=== PATIENT | female | born 1945 | race Caucasian/White ===

== ENCOUNTER 2017-09-16 14:00 | Outpatient (RCR) | payer MEDICARE, SELFPAY | END 2017-09-16 23:59 | LOC: PT 14:00 | PROVIDERS: PCP Internal Medicine Adolescent Medicine; Visit Provider Orthopaedic Surgery | DX: M75.121 Complete rotator cuff tear or rupture of right shoulder, not specified as traumatic (principal) | CPT/HCPCS: G8984; G8985; G8986; 97010; 97014; 97033; 97110; 97140; 97161; G0283 ==

== ENCOUNTER 2017-12-15 10:00 | Outpatient (RCR) | payer MEDICARE, SELFPAY | END 2017-12-15 10:05 | disposition home or self-care (01) | LOC: PT 10:00 | PROVIDERS: Visit Provider Orthopaedic Surgery | DX: M25.511 Pain in right shoulder (principal) | CPT/HCPCS: 97010; 97014; 97016; 97033; 97035; 97110; 97140; 97164; G0283 ==

== ENCOUNTER → 2018-01-17 09:09 | Outpatient (CLI) | payer MEDICARE, SELFPAY ==
--- NOTE | 2018-01-17 09:18 | XR_ITS ---
XR DEXA axial skeleton HISTORY: ITS.REASON: OSTEOPOROSIS ORDERING PHYSICIAN: Cristobal Espino PATIENT AGE: 72 years COMPARISON: FINDINGS: The BMD measured at the Right femoral neck is 0.798 g/cm squared with a T score of -1.7. This is considered Osteopenic according to the World Health Organization criteria. Fracture risk is Moderate. Treatment is advised. The L1 L4 density is a T score of 1.9. Metallic artifact however is present at the L4 vertebral body IMPRESSION: Osteopenia with moderate fracture risk. Treatment recommended. Suggest follow-up exam January 2020
== END ==
PROVIDERS: Family Provider Internal Medicine Adolescent Medicine; PCP Internal Medicine Adolescent Medicine; Visit Provider Internal Medicine Endocrinology, Diabetes & Metabolism
DX: M81.0 Age-related osteoporosis without current pathological fracture (principal); Z13.820 Encounter for screening for osteoporosis
CPT/HCPCS: 77080

== ENCOUNTER → 2018-05-09 13:21 | Outpatient (CLI) | payer MEDICARE, SELFPAY ==
[2018-05-09 14:52] LABS: Alanine Aminotransferase 23 U/L (12-78); Albumin Level 3.9 gm/dL (3.4-5.0); Albumin/Globulin Ratio 1.1 (1.1-1.8); Alkaline Phosphatase 61 U/L (46-116); Anion Gap 15.7 mEq/L (5-15); Aspartate Amino Transferase 12 U/L (15-37); Bilirubin,Total 0.3 mg/dL (0.2-1.0); Blood Urea Nitrogen 24 mg/dL (7-18); Calcium 9.7 mg/dL (8.5-10.1); Carbon Dioxide 24 mmol/L (21.0-32.0); Chloride 102 mmol/L (98-107); Creatinine,Serum 1.73 mg/dL (0.55-1.02); Estimated Glomerular Filt Rate 29 ml/min (>60); GFR (African American) 35 ML/MIN (>60); Globulin 3.7 gm/dl (1.3-3.2); Glucose 151 mg/dL (74-106); Potassium 4.7 mmoL/L (3.5-5.1); Sodium 137 mmol/L (136-145); Thyroid Stimulating Hormone 1.66 uIU/ml (0.358-3.740); Total Protein,Serum 7.6 gm/dL (6.4-8.2)
[2018-05-09 14:53] LABS: Hemoglobin A1C 6.1 % (0.0-7.0)
== END ==
PROVIDERS: PCP Internal Medicine Adolescent Medicine; Visit Provider Internal Medicine Adolescent Medicine
DX: E11.9 Type 2 diabetes mellitus without complications (principal); E03.9 Hypothyroidism, unspecified; E78.5 Hyperlipidemia, unspecified
CPT/HCPCS: 36415; 80053; 83036; 84443

== ENCOUNTER → 2018-05-18 10:50 | Outpatient (CLI) | payer MEDICARE, SELFPAY ==
[2018-05-18 11:55] LABS: Alanine Aminotransferase 31 U/L (12-78); Albumin Level 3.2 gm/dL (3.4-5.0); Albumin/Globulin Ratio 0.9 (1.1-1.8); Alkaline Phosphatase 51 U/L (46-116); Anion Gap 11.6 mEq/L (5-15); Aspartate Amino Transferase 7 U/L (15-37); Bilirubin,Total 0.2 mg/dL (0.2-1.0); Blood Urea Nitrogen 28 mg/dL (7-18); Calcium 8.8 mg/dL (8.5-10.1); Carbon Dioxide 30 mmol/L (21.0-32.0); Chloride 106 mmol/L (98-107); Chol/HDL Ratio 2.7 (1-3.5); Cholesterol 204 mg/dL (140-200); Creatinine,Serum 1.43 mg/dL (0.55-1.02); Estimated Glomerular Filt Rate 36 ml/min (>60); GFR (African American) 44 ML/MIN (>60); Globulin 3.4 gm/dl (1.3-3.2); Glucose 89 mg/dL (74-106); HDL Cholesterol 76 mg/dL (29-89); LDL Cholesterol 108 mg/dL (0-130); Potassium 4.6 mmoL/L (3.5-5.1); Sodium 143 mmol/L (136-145); Total Protein,Serum 6.6 gm/dL (6.4-8.2); Triglycerides 102 mg/dL (30-200); VLDL Cholesterol 20 mg/dL (0-40)
== END ==
PROVIDERS: Visit Provider Internal Medicine Adolescent Medicine
DX: E11.9 Type 2 diabetes mellitus without complications (principal); E78.5 Hyperlipidemia, unspecified
CPT/HCPCS: 36415; 80053; 80061

== ENCOUNTER → 2018-06-17 11:37 | Outpatient (CLI) | payer MEDICARE, SELFPAY ==
--- NOTE | 2018-06-17 12:17 | XR_ITS ---
XR shoulder LT min 2V COMPARISON: PA and lateral chest 10/12/2008 HISTORY: Left shoulder pain TECHNIQUE: 3 views left shoulder FINDINGS: The clavicle is intact and the AC joint appears grossly normal. The humeral head and glenoid are normal. There are no soft tissue calcifications. IMPRESSION: Negative left shoulder
[2018-06-17 13:14] LABS: Basophils # 0.1 K/mm3 (0-0.2); Basophils % 0.9 % (0.1-2.0); Eosinophils # 0.2 K/mm3 (0.0-0.4); Eosinophils % 3.2 % (0.1-12.0); Hematocrit 38.7 % (37.0-47.0); Hemoglobin 12.5 g/dL (12.2-16.2); Lymphocytes # 1.8 K/mm3 (0.7-4.5); Lymphocytes % 30.2 K/mm3 (10-50); Mean Corpuscular HGB Conc 32.2 g/dL (31.8-35.4); Mean Corpuscular Hemoglobin 28.6 pg (27.0-31.2); Mean Corpuscular Volume 88.9 fl (81-99); Mean Platelet Volume 8.5 fl (7.4-10.4); Monocytes # 0.6 K/mm3 (0.1-1.0); Neutrophils # 3.3 K/mm3 (1.8-7.8); Neutrophils % 55.7 % (37.0-80.0); Platelet Count 322 K/mm3 (142-424); Red Blood Count 4.35 M/mm3 (4.20-5.40); Red Cell Distribution Width 14.1 % (11.5-17.5); White Blood Count 5.9 K/mm3 (4.8-10.8)
[2018-06-17 14:53] LABS: Alanine Aminotransferase 30 U/L (12-78); Albumin Level 3.5 gm/dL (3.4-5.0); Alkaline Phosphatase 54 U/L (46-116); Anion Gap 12.5 mEq/L (5-15); Aspartate Amino Transferase 16 U/L (15-37); Bilirubin,Total 0.4 mg/dL (0.2-1.0); Blood Urea Nitrogen 14 mg/dL (7-18); Calcium 9.4 mg/dL (8.5-10.1); Carbon Dioxide 29 mmol/L (21.0-32.0); Chloride 107 mmol/L (98-107); Chol/HDL Ratio 4.8 (1-3.5); Cholesterol 263 mg/dL (140-200); Estimated Glomerular Filt Rate 44 ml/min (>60); Free Thyroxine Index 2.8 ug/dL (5.93-13.13); GFR (African American) 53 ML/MIN (>60); Globulin 3.4 gm/dl (1.3-3.2); Glucose 88 mg/dL (74-106); HDL Cholesterol 55 mg/dL (29-89); LDL Cholesterol 173 mg/dL (0-130); Potassium 4.5 mmoL/L (3.5-5.1); Sodium 144 mmol/L (136-145); T4 (Thyroxine) 7.8 ug/dl (4.7-13.3); Thyroid Stimulating Hormone 1.68 uIU/ml (0.358-3.740); Total Protein,Serum 6.9 gm/dL (6.4-8.2); Triglycerides 175 mg/dL (30-200); Triiodothryronine (T3) Uptake 36 % (31-39); VLDL Cholesterol 35 mg/dL (0-40)
[2018-06-17 15:30] LABS: Hemoglobin A1C 6.1 % (0.0-7.0)
[2018-06-20 05:25] LABS: Vitamin B12 1518 pg/mL (232-1245)
== END ==
LOC: LAB 11:38 → RAD 12:15
PROVIDERS: PCP Internal Medicine Adolescent Medicine; Visit Provider Internal Medicine Adolescent Medicine
DX: E78.5 Hyperlipidemia, unspecified (principal); E11.9 Type 2 diabetes mellitus without complications; E03.9 Hypothyroidism, unspecified; E53.8 Deficiency of other specified B group vitamins; M25.512 Pain in left shoulder
CPT/HCPCS: 36415; 73030; 80053; 80061; 82607; 83036; 84436; 84443; 84479; 85025

== ENCOUNTER 2018-08-12 09:00 | Outpatient (RCR) | payer MEDICARE, SELFPAY | END 2018-08-12 09:05 | disposition home or self-care (01) | LOC: PT 09:00 | PROVIDERS: Family Provider Internal Medicine Adolescent Medicine; PCP Internal Medicine Adolescent Medicine; Visit Provider Nurse Practitioner Family | DX: Z96.619 Presence of unspecified artificial shoulder joint (principal) | CPT/HCPCS: 97014; 97110; 97140; 97163; G0283 ==

== ENCOUNTER → 2018-09-05 11:08 | Outpatient (CLI) | payer MEDICARE, SELFPAY ==
--- NOTE | 2018-09-05 11:12 | MR_ITS ---
MR shoulder LT wo con Ordering Physician: Federica Huerta Patient Age: 73 years: Female HISTORY: ITS.REASON: SHOULDER PAINright shoulder pain 2 months. Limited range of motion. TECHNIQUE: . Multiplanar multisequence imaging on 1.5 Rahel MRI. No contrast utilized COMPARISON :MRI contralateral left shoulder May 2017 Available FINDINGS Supraspinatus tendon. Tendinopathy with Likely undersurface partial tear at the supraspinatus tendon . Does not appear to be a complete full-thickness tear. No retraction. . There is some scant fluid at the subdeltoid subacromial bursa MS or could be a small pinhole tear at supraspinatus. Vs a bursitis here The posterior sloping & Very slight downward sloping of the acromion on the coronal projections with only slight narrowing of the subacromial space beneath tip of acromion-narrowing to 6.5 mm. Subscapularis tendon intact. Infraspinatus tendon intact perhaps some mild tendinopathy at its inferior aspect. There is a prominent joint effusion with subacromial recess generous joint fluid extending into the subcoracoid recess. Biceps tendon is intact. Joint fluid tracks along the biceps tendon . The joint fluid also nicely outlines the glenoid. Osseous glenoid intact. The posterior and anterior labrum I believe are intact. Minor degenerative changes at glenohumeral joint. Favor reviewing the middle glenohumeral ligament anteriorly. . IMPRESSION: ...... 1.. Prominent joint effusion at the left shoulder joint. This generous joint fluid Fluid extends anteriorly into the subcoracoid recess 2. Supraspinatus tendinopathy with possible small partial tear along inferior surface of supraspinatus tendon, cortical zone. No retraction evident nor definitefull-thickness tear. . Note scant fluid at subdeltoid subacromial bursa-May. Reflect a small pinhole tear vs bursitis 3. Suggestion Scant tendinopathy at infraspinatus tendon 4. Mild degenerative changes glenohumeral joint. \ 5. Mild AC joint arthropathy.
== END ==
PROVIDERS: PCP Internal Medicine Adolescent Medicine; Visit Provider Orthopaedic Surgery
DX: M25.512 Pain in left shoulder (principal)
CPT/HCPCS: 73221

== ENCOUNTER → 2018-09-19 10:15 | Outpatient (CLI) | payer MEDICARE, SELFPAY ==
[2018-09-19 10:47] LABS: Basophils # 0.1 K/mm3 (0-0.2); Basophils % 0.9 % (0.1-2.0); Eosinophils # 0.2 K/mm3 (0.0-0.4); Eosinophils % 4.3 % (0.1-12.0); Hematocrit 40.8 % (37.0-47.0); Hemoglobin 12.8 g/dL (12.2-16.2); Lymphocytes # 1.8 K/mm3 (0.7-4.5); Lymphocytes % 31.2 % (10-50); Mean Corpuscular HGB Conc 31.3 g/dL (31.8-35.4); Mean Corpuscular Hemoglobin 28.4 pg (27.0-31.2); Mean Corpuscular Volume 90.6 fl (81-99); Mean Platelet Volume 7.5 fl (7.4-10.4); Monocytes # 0.5 K/mm3 (0.1-1.0); Monocytes % 9.3 % (1.7-9.3); Neutrophils # 3.1 K/mm3 (1.8-7.8); Neutrophils % 54.3 % (37.0-80.0); Platelet Count 327 K/mm3 (142-424); Red Cell Distribution Width 14.7 % (11.5-17.5); White Blood Count 5.6 K/mm3 (4.8-10.8)
[2018-09-19 12:55] LABS: Alanine Aminotransferase 28 U/L (12-78); Albumin Level 3.5 gm/dL (3.4-5.0); Alkaline Phosphatase 64 U/L (46-116); Anion Gap 13.3 mEq/L (5-15); Aspartate Amino Transferase 15 U/L (15-37); Bilirubin,Total 0.4 mg/dL (0.2-1.0); Blood Urea Nitrogen 16 mg/dL (7-18); Calcium 9.5 mg/dL (8.5-10.1); Carbon Dioxide 28 mmol/L (21.0-32.0); Chloride 103 mmol/L (98-107); Chol/HDL Ratio 3.1 (1-3.5); Cholesterol 182 mg/dL (140-200); Creatinine,Serum 1.63 mg/dL (0.55-1.02); Estimated Glomerular Filt Rate 31 ml/min (>60); GFR (African American) 37 ML/MIN (>60); Globulin 3.5 gm/dl (1.3-3.2); Glucose 94 mg/dL (74-106); HDL Cholesterol 59 mg/dL (29-89); LDL Cholesterol 102 mg/dL (0-130); Potassium 4.3 mmoL/L (3.5-5.1); Sodium 140 mmol/L (136-145); Thyroid Stimulating Hormone 0.54 uIU/ml (0.358-3.740); Triglycerides 105 mg/dL (30-200); VLDL Cholesterol 21 mg/dL (0-40)
== END ==
PROVIDERS: Visit Provider Internal Medicine Adolescent Medicine
DX: E78.5 Hyperlipidemia, unspecified (principal); E53.8 Deficiency of other specified B group vitamins; E11.9 Type 2 diabetes mellitus without complications; E03.9 Hypothyroidism, unspecified
CPT/HCPCS: 36415; 80053; 80061; 83036; 84443; 85025

== ENCOUNTER 2018-11-04 11:00 | Outpatient (RCR) | payer MEDICARE, SELFPAY ==
--- NOTE | 2018-10-11 14:28 | HMH.PTOPEV ---
PT Outpatient Evaluation Rehab PT Outpatient Evaluation Start: 10/11/18 13:49 Freq: Status: Active Protocol: Document 10/11/18 13:50 DAGOBERTOJO (Rec: 10/11/18 14:28 GILMA [id number]) Electronically Signed By Waldo Dubon PT 10/11/18 13:50 Outpatient Therapy Subjective History Subjective History This is the initial Physical Therapy for Deirdre Leone. Pt is a 73 y/o female referred to PT for c/o L anterior shoulder pain. Pt reports she had R Reverse TSA in february. Pt reports she did therapy and improved but L shoulder began hurting. Pt reprots she went to see ortho MD for F/U and they did MRI of L shoulder. MRI shows tendonopathy of RTC. Chief Complaint Pain Symptom Type Ache Sharp Symptoms Relieved By Rest/Positioning Ice Symptoms Aggravated By Lifting Prior Functional Limitations None Current Functional Limitations Reaching Lifting Housework Recreation Activity Symptom Description Intermittent Level of pain today (0-10) 3 Pain scale - at its best (0-10) 0 Pain scale - at its worst (0-10) 9 Shoulder/Elbow Eval Shoulder Objective Measurements Palpation Tenderness tenderness shoulder exam standard left Shoulder Palpation Findings Tenderness Trigger Point Posture Shoulder Posture Sitting Position (L) Rounded (R) Rounded Shoulder Posture Standing Position (L) Rounded (R) Rounded Shoulder ROM Right Shoulder ROM Limitations Pain Shoulder Abduction Active Range of 100 Motion (degrees) Shoulder Flexion Active Range of Motion 115 (degrees) Query Text: pain with active ROM shoulder exam right standard pain with passive ROM shoulder exam right standard decreased ROM shoulder exam standard right Left Shoulder ROM Limitations Pain Shoulder Abduction Active Range of 105 Motion (degrees) Shoulder Flexion Active Range of Motion 125 (degrees) Query Text: pain with active ROM shoulder exam left standard pain with passive ROM shoulder exam left standard dec
== END 2018-11-04 11:10 | disposition home or self-care (01) ==
LOC: PT 11:00
PROVIDERS: Visit Provider Internal Medicine Adolescent Medicine
DX: M25.512 Pain in left shoulder (principal)
CPT/HCPCS: 97014; 97016; 97110; 97140; 97163; G0283

== ENCOUNTER → 2018-11-29 10:54 | Outpatient (CLI) | payer MEDICARE, SELFPAY ==
[2018-11-29 11:47] LABS: Alanine Aminotransferase 34 U/L (12-78); Albumin Level 3.8 gm/dL (3.4-5.0); Albumin/Globulin Ratio 1.1 (1.1-1.8); Alkaline Phosphatase 62 U/L (46-116); Anion Gap 13.6 mEq/L (5-15); Aspartate Amino Transferase 15 U/L (15-37); Bilirubin,Total 0.4 mg/dL (0.2-1.0); Blood Urea Nitrogen 19 mg/dL (7-18); Calcium 9.4 mg/dL (8.5-10.1); Carbon Dioxide 26 mmol/L (21.0-32.0); Chloride 102 mmol/L (98-107); Chol/HDL Ratio 3.3 (1-3.5); Cholesterol 167 mg/dL (140-200); Creatinine,Serum 1.48 mg/dL (0.55-1.02); Estimated Glomerular Filt Rate 34 ml/min (>60); GFR (African American) 42 ML/MIN (>60); Globulin 3.5 gm/dl (1.3-3.2); Glucose 108 mg/dL (74-106); HDL Cholesterol 50 mg/dL (29-89); LDL Cholesterol 81 mg/dL (0-130); Potassium 4.6 mmoL/L (3.5-5.1); Sodium 137 mmol/L (136-145); Thyroid Stimulating Hormone 1.82 uIU/ml (0.358-3.740); Total Protein,Serum 7.3 gm/dL (6.4-8.2); Triglycerides 178 mg/dL (30-200); VLDL Cholesterol 36 mg/dL (0-40)
[2018-11-29 13:26] LABS: Hemoglobin A1C 6.2 % (0.0-7.0)
== END ==
PROVIDERS: Visit Provider Internal Medicine Adolescent Medicine
DX: E11.9 Type 2 diabetes mellitus without complications (principal); E03.9 Hypothyroidism, unspecified
CPT/HCPCS: 36415; 80053; 80061; 83036; 84443

== ENCOUNTER → 2019-01-26 08:39 | Outpatient (CLI) | payer MEDICARE, SELFPAY ==
[2019-01-26 09:23] LABS: Basophils # 0.1 K/mm3 (0-0.2); Basophils % 0.9 % (0.1-2.0); Eosinophils # 0.3 K/mm3 (0.0-0.4); Hematocrit 44.8 % (37.0-47.0); Hemoglobin 14.5 g/dL (12.2-16.2); Lymphocytes # 1.9 K/mm3 (0.7-4.5); Lymphocytes % 31.1 % (10-50); Mean Corpuscular HGB Conc 32.4 g/dL (31.8-35.4); Mean Corpuscular Hemoglobin 29.9 pg (27.0-31.2); Mean Corpuscular Volume 92.3 fl (81-99); Mean Platelet Volume 7.6 fl (7.4-10.4); Monocytes # 0.6 K/mm3 (0.1-1.0); Monocytes % 10.3 % (1.7-9.3); Neutrophils # 3.3 K/mm3 (1.8-7.8); Neutrophils % 53.6 % (37.0-80.0); Platelet Count 306 K/mm3 (142-424); Red Blood Count 4.85 M/mm3 (4.20-5.40); Red Cell Distribution Width 14.5 % (11.5-17.5); White Blood Count 6.2 K/mm3 (4.8-10.8)
[2019-01-26 10:34] LABS: Erythrocyte Sedimentation Rate 16 mm/hr (0-30)
[2019-01-26 19:33] LABS: Anion Gap 16.3 mEq/L (5-15); Blood Urea Nitrogen 17 mg/dL (7-18); Calcium 9.3 mg/dL (8.5-10.1); Carbon Dioxide 27 mmol/L (21.0-32.0); Chloride 103 mmol/L (98-107); Creatinine,Serum 1.28 mg/dL (0.55-1.02); Estimated Glomerular Filt Rate 41 ml/min (>60); GFR (African American) 49 ML/MIN (>60); Glucose 123 mg/dL (74-106); Potassium 4.3 mmoL/L (3.5-5.1); Sodium 142 mmol/L (136-145); Thyroid Stimulating Hormone 0.55 uIU/ml (0.358-3.740)
[2019-01-26 20:05] LABS: C-Reactive Protein < 0.2 mg/L (0.0-0.9)
[2019-01-28 06:43] LABS: Insulin Level Total 101.8 uIU/mL (2.6-24.9)
== END ==
PROVIDERS: Visit Provider Nurse Practitioner Family
DX: R60.9 Edema, unspecified (principal)
CPT/HCPCS: 36415; 80048; 83525; 84443; 85025; 85651; 86140

== ENCOUNTER → 2019-02-01 10:04 | Outpatient (CLI) | payer MEDICARE, SELFPAY ==
--- NOTE | 2019-02-01 | CA_ITS ---
PROCEDURE: 2-D M-mode and color Doppler study INDICATIONS FOR THE TEST: Chest pain COPD Heart Murmur Tobacco Smoking Palpitations Fatigue+ Syncope Edema+ Hypertension+Diabetes Mellitus Rheumatic Fever SOB CARDENAS+Obesity Hyperlipidemia+ Family History HD+ Additional History high insulin PATIENT INFORMATION HEIGHT: 65 WEIGHT: 167 GENDER: Female B/P: 128/72 2-D/M-MODE INTERPRETATION: 2-D MEASUREMENTS OBSERVED VALUES IN CMS Right Ventricular Dimension (RVDd) 2.4 Interventricular Septum (Thickness)(IVsd) 0.8 Left Ventricular Internal Dimensions(LVIDd) 4.7 Left Ventricular Posterior Wall (Thickness)(LVPWd) 0.8 Aortic Root 2.5 Aortic Cusp Separation 1.7 Left Atrial Dimensions (LAD) 3.6 2D 1. Left atrium is qualitatively mildly enlarged, left ventricle is normal size, mild concentric left ventricular hypertrophy, visually estimated ejection fraction 55% with no regional wall motion abnormality. 2. The right atrium and right ventricle are normal size and contractility. 3. The aortic valve is minimally thickened and fibrosed. 4. The mitral and tricuspid valvular grossly normal. 5. The pulmonic valve is poorly visualized. 6. No significant pericardial effusion noted. DOPPLER INTERROGATION: Doppler interrogation of the aortic, mitral and tricuspid valvular presence of trace aortic, mild mitral and tricuspid regurgitation, tricuspid regurgitation jet velocity is inadequate for calculation of the right ventricular systolic pressure, grade 1 diastolic dysfunction seen with tissue Doppler evidence of raised left atrial pressure. CONCLUSION: 1. Mildly enlarged left atrium, normal left ventricular size, mild concentric left ventricular hypertrophy, visually estimated ejection fraction 55% with no regional wall motion abnormality, grade 1 diastolic dysfunction seen with tissue Doppler evidence of raised left atrial pressure. 2. Trace aortic, mild mitral and tricuspid regurgitation 3. No significant pericardial effusion noted.
== END ==
PROVIDERS: PCP Internal Medicine Adolescent Medicine; Visit Provider Nurse Practitioner Family
DX: R60.1 Generalized edema (principal); R06.02 Shortness of breath
CPT/HCPCS: 93306

== ENCOUNTER → 2019-04-25 08:53 | Outpatient (CLI) | payer MEDICARE, SELFPAY ==
--- NOTE | 2019-04-25 11:48 | XR_ITS ---
XR hip LT 2-3V w/pelvis HISTORY: ITS.REASON: PAIN IN LEFT AND RIGHT HIP ORDERING PHYSICIAN: Cristobal Espino PATIENT AGE: 73 years COMPARISON: 05/12/2018. FINDINGS: Bone density and the joint space and alignment at the left hip are normal. There is a stable linear calcific density just lateral to the greater trochanter. No acute fracture. There are pelvic phleboliths. Soft tissues are unremarkable. IMPRESSION: No change or acute process. Possible ligamentous or tendon calcification which could be from old injury or calcific tendinitis.
--- NOTE | 2019-04-25 11:48 | XR_ITS ---
XR hip RT 2-3V w/pelvis HISTORY: ITS.REASON: PAIN IN LEFT AND RIGHT HIP ORDERING PHYSICIAN: Cristobal Espino PATIENT AGE: 73 years COMPARISON: None FINDINGS: No fracture or dislocation is evident. No significant degenerative change. No lytic or blastic change. Unremarkable soft tissues there is evidence of surgery involving lower lumbar spine with interpedicular screws at L4 and L5 levels bilaterally as well as laminectomy. There are pelvic phleboliths. IMPRESSION: Negative hip
[2019-04-26 09:16] LABS: Prolactin 15.2 ng/mL (4.8-23.3)
[2019-04-27 08:17] LABS: Adrenocorticotropic Hormone 14.4 pg/mL (7.2-63.3); Estradiol 18.1 pg/mL (.); FSH 92.9 mIU/mL (.); LH 60.4 mIU/mL (.)
== END ==
PROVIDERS: PCP Internal Medicine Adolescent Medicine; Visit Provider Internal Medicine Endocrinology, Diabetes & Metabolism
DX: N18.3 Chronic kidney disease, stage 3 (moderate) (principal); E34.9 Endocrine disorder, unspecified; E87.5 Hyperkalemia; M25.552 Pain in left hip; M25.551 Pain in right hip
CPT/HCPCS: 36415; 73502; 82024; 82533; 82626; 82670; 83001; 83002; 84146

== ENCOUNTER → 2019-04-26 07:00 | Outpatient (CLI) | payer MEDICARE, SELFPAY ==
[2019-04-29 18:40] LABS: Cortisol,F,ug/24hr,U 11 ug/24 hr (6-42); Cortisol,F,ug/L,U 14 ug/L (Undefined)
== END ==
PROVIDERS: Visit Provider Internal Medicine Endocrinology, Diabetes & Metabolism
DX: N18.3 Chronic kidney disease, stage 3 (moderate) (principal); E34.9 Endocrine disorder, unspecified; E87.5 Hyperkalemia
CPT/HCPCS: 82530

== ENCOUNTER → 2019-04-28 07:28 | Outpatient (CLI) | payer MEDICARE, SELFPAY ==
--- NOTE | 2019-04-28 07:36 | AS_ITS ---
Renal Arterial Duplex Indications: 405.91 Unspecified renovascular hypertension. CKD stage 3, elevated kidney labs IMPRESSIONS 1. The right renal artery appears normal. 2. The left renal artery appears normal. History: Risk factors: Hypertension. Renal disease. Complete renal arterial duplex. Duplex scan and Doppler flow study including spectral analysis, color and campbell scale imaging. Height: Height: 165.1cm. Height: 65in. Weight: Weight: 72.6kg. Weight: 159.7lb. Body mass index: BMI: 26.6kg/m^2. Body surface area: BSA: 1.84m^2. Location: Vascular laboratory. Patient status: Outpatient. Tables: Arterial flow: + +--------+--------+ Location V sys V ed + +--------+--------+ Right renal - proximal 134cm/s 20.6cm/s + +--------+--------+ Right renal - mid 141cm/s 27.9cm/s + +--------+--------+ Right renal - distal 69.5cm/s 14.4cm/s + +--------+--------+ Left renal - proximal 81.7cm/s 13.7cm/s + +--------+--------+ Left renal - mid 148cm/s 29.9cm/s + +--------+--------+ Left renal - distal 91.1cm/s 18.4cm/s + +--------+--------+ Right renal-origin 154cm/s 19.7cm/s + +--------+--------+ Left kidney-origin 104cm/s 25.2cm/s + +--------+--------+ Aorta-prox 99.3cm/s -------- + +--------+--------+ Renal anatomy: + +------+------+ Left Right + +------+------+ Long axis 10.1cm 11.3cm + +------+------+ Short axis 6.6cm 6.7cm + +------+------+ Cortical thickness 1cm 1.1cm + +------+------+ Velocity ratios: + +-----+ V sys + +-----+ Right renal/aortic 1.6 + +-----+ Left renal/aortic 1.5 + +-----+ (Report amended ) Electronically signed by: Waaqr Atkinson [id number]
--- NOTE | 2019-04-28 08:12 | US_ITS ---
US Kidney CLINICAL INDICATION: ITS.REASON: CKD ORDERING PHYSICIAN: Cristobal Espino PATIENT AGE: 73 years Comparison: None FINDINGS: Right kidney is 11.3 x 4.5 x 5.4 cm. Left kidney is 11.2 x 5.0 x 4.6 cm. At the junction of the cortex with the renal sinus area at the upper pole of the left kidney there is a anechoic structure measuring 1.2 cm with smooth wall. There is borderline mild diffuse cortical thinning bilaterally and the echogenicity of the renal cortex compared to the liver is equal. There is no shadowing echogenic foci or hydronephrosis. IMPRESSION: Mild symmetrical age-related cortical thinning. Upper pole left renal cyst. Mild increase cortical echogenicity would suggest borderline mild medical renal disease.
== END ==
PROVIDERS: PCP Internal Medicine Adolescent Medicine; Visit Provider Internal Medicine Endocrinology, Diabetes & Metabolism
DX: N18.3 Chronic kidney disease, stage 3 (moderate) (principal)
CPT/HCPCS: 76770; 93976

== ENCOUNTER 2019-05-09 10:00 | Outpatient (RCR) | payer MEDICARE, SELFPAY | END 2019-05-09 10:05 | disposition home or self-care (01) | LOC: PT 10:00 | PROVIDERS: PCP Internal Medicine Adolescent Medicine; Visit Provider Internal Medicine Adolescent Medicine | DX: M25.552 Pain in left hip (principal); M25.551 Pain in right hip | CPT/HCPCS: 97010; 97014; 97110; 97163; G0283 ==

== ENCOUNTER → 2019-05-17 08:50 | Outpatient (CLI) | payer MEDICARE, SELFPAY ==
[2019-05-17 15:18] LABS: Anion Gap 12.7 mEq/L (5-15); Blood Urea Nitrogen 17 mg/dL (7-18); Calcium 9.5 mg/dL (8.5-10.1); Carbon Dioxide 30 mmol/L (21.0-32.0); Chloride 102 mmol/L (98-107); Creatinine,Serum 1.34 mg/dL (0.55-1.02); Estimated Glomerular Filt Rate 39 ml/min (>60); GFR (African American) 47 ML/MIN (>60); Glucose 96 mg/dL (74-106); Potassium 4.7 mmoL/L (3.5-5.1); Sodium 140 mmol/L (136-145)
== END ==
PROVIDERS: Visit Provider Internal Medicine Endocrinology, Diabetes & Metabolism
DX: E34.9 Endocrine disorder, unspecified (principal); E25.9 Adrenogenital disorder, unspecified; E03.8 Other specified hypothyroidism; N18.3 Chronic kidney disease, stage 3 (moderate)
CPT/HCPCS: 36415; 80048

== ENCOUNTER → 2019-05-30 09:00 | Outpatient (CLI) | payer MEDICARE, SELFPAY ==
--- NOTE | 2019-05-30 09:07 | US_ITS ---
PROCEDURE: US TRANSVAGINAL CLINICAL INDICATION: POST MENOPAUSAL BLEEDING COMPARISON: No exams were available for comparison TECHNIQUE: FINDINGS: The uterus is 6 x 3 x 3.5 cm with a combined endometrial thickness of 5 mm. No uterine mass evident. The ovaries have an unremarkable appearance. No cul-de-sac fluid. IMPRESSION: The endometrium is upper normal for postmenopausal patient otherwise negative pelvic ultrasound Dictated by: Phillip Javier MD 05/30/2019 17:40 Signed by: <Electronically signed by Phillip Javier MD in [place]> 05/30/2019 17:40
== END ==
PROVIDERS: PCP Internal Medicine Adolescent Medicine; Visit Provider Nurse Practitioner Family
DX: N95.0 Postmenopausal bleeding (principal)
CPT/HCPCS: 76830

== ENCOUNTER 2019-07-12 11:00 | Outpatient (RCR) | payer MEDICARE, SELFPAY | END 2019-07-12 11:05 | disposition home or self-care (01) | LOC: PT 11:00 | PROVIDERS: Visit Provider Family Medicine | DX: M25.552 Pain in left hip (principal) | CPT/HCPCS: 97010; 97014; 97033; 97035; 97110; 97163; G0283 ==

== ENCOUNTER → 2019-09-12 10:37 | Outpatient (CLI) | payer MEDICARE, SELFPAY ==
[2019-09-12 13:25] LABS: Alanine Aminotransferase 34 U/L (12-78); Albumin Level 3.6 gm/dL (3.4-5.0); Albumin/Globulin Ratio 1.1 (1.1-1.8); Alkaline Phosphatase 68 U/L (46-116); Anion Gap 15.7 mEq/L (5-15); Aspartate Amino Transferase 17 U/L (15-37); Bilirubin,Total 0.4 mg/dL (0.2-1.0); Blood Urea Nitrogen 25 mg/dL (7-18); Calcium 8.7 mg/dL (8.5-10.1); Carbon Dioxide 25 mmol/L (21.0-32.0); Chloride 107 mmol/L (98-107); Chol/HDL Ratio 3.3 (1-3.5); Cholesterol 191 mg/dL (140-200); Creatinine,Serum 1.74 mg/dL (0.55-1.02); Estimated Glomerular Filt Rate 29 ml/min (>60); Free T4 (Free Thyroxine) 0.97 ng/dl (0.76-1.46); GFR (African American) 35 ML/MIN (>60); Globulin 3.4 gm/dl (1.3-3.2); Glucose 106 mg/dL (74-106); HDL Cholesterol 58 mg/dL (29-89); LDL Cholesterol 103 mg/dL (0-130); Potassium 4.7 mmoL/L (3.5-5.1); Sodium 143 mmol/L (136-145); Thyroid Stimulating Hormone 1.45 uIU/ml (0.358-3.740); Triglycerides 151 mg/dL (30-200); VLDL Cholesterol 30 mg/dL (0-40)
[2019-09-12 14:09] LABS: Hemoglobin A1C 6.4 % (0.0-7.0)
[2019-09-13 15:31] LABS: Vitamin B12 449 pg/mL (232-1245); Vitamin D 25 Hydroxy 38.9 ng/mL (30.0-100.0)
== END ==
PROVIDERS: Visit Provider Internal Medicine Endocrinology, Diabetes & Metabolism
DX: E03.8 Other specified hypothyroidism (principal); E88.81 Metabolic syndrome and other insulin resistance; E53.8 Deficiency of other specified B group vitamins; E55.9 Vitamin D deficiency, unspecified; M81.8 Other osteoporosis without current pathological fracture; N18.3 Chronic kidney disease, stage 3 (moderate); Z13.1 Encounter for screening for diabetes mellitus; Z79.899 Other long term (current) drug therapy
CPT/HCPCS: 36415; 80053; 80061; 82607; 82652; 83036; 84439; 84443

== ENCOUNTER → 2019-10-23 10:43 | Outpatient (CLI) | payer MEDICARE, SELFPAY ==
[2019-10-23 12:00] LABS: Alanine Aminotransferase 31 U/L (12-78); Albumin Level 3.7 gm/dL (3.4-5.0); Albumin/Globulin Ratio 1.1 (1.1-1.8); Alkaline Phosphatase 75 U/L (46-116); Anion Gap 10.9 mEq/L (5-15); Aspartate Amino Transferase 21 U/L (15-37); Bilirubin,Total 0.6 mg/dL (0.2-1.0); Blood Urea Nitrogen 25 mg/dL (7-18); Calcium 9.4 mg/dL (8.5-10.1); Carbon Dioxide 30 mmol/L (21.0-32.0); Chloride 100 mmol/L (98-107); Creatinine,Serum 1.46 mg/dL (0.55-1.02); Estimated Glomerular Filt Rate 35 ml/min (>60); GFR (African American) 42 ML/MIN (>60); Globulin 3.5 gm/dl (1.3-3.2); Glucose 88 mg/dL (74-106); Potassium 3.9 mmoL/L (3.5-5.1); Sodium 137 mmol/L (136-145); Total Protein,Serum 7.2 gm/dL (6.4-8.2)
== END ==
PROVIDERS: Visit Provider Internal Medicine Endocrinology, Diabetes & Metabolism
DX: E11.29 Type 2 diabetes mellitus with other diabetic kidney complication (principal); E03.8 Other specified hypothyroidism; Z79.84 Long term (current) use of oral hypoglycemic drugs
CPT/HCPCS: 36415; 80053; 83525

== ENCOUNTER → 2020-03-11 11:14 | Outpatient (CLI) | payer MEDICARE, SELFPAY ==
[2020-03-12 15:37] LABS: Insulin Level Total 71.8 uIU/mL (2.6-24.9)
[2020-03-17 13:08] LABS: Testosterone, Total, LC/MS 129.9 ng/dL (7.0-40.0)
[2020-03-17 18:27] LABS: Testosterone,Free 4.9 pg/mL (0.0-4.2)
== END ==
PROVIDERS: Visit Provider Obstetrics & Gynecology
DX: R89.9 Unspecified abnormal finding in specimens from other organs, systems and tissues (principal)
CPT/HCPCS: 83525; 84402; 84403

== ENCOUNTER → 2020-04-02 14:53 | Outpatient (POV) | payer MEDICARE, SELFPAY | PROVIDERS: PCP Internal Medicine Adolescent Medicine; Visit Provider Physician Assistant | DX: Z00.00 Encounter for general adult medical examination without abnormal findings (principal) ==

== ENCOUNTER → 2020-05-10 09:21 | Outpatient (CLI) | payer MEDICARE, SELFPAY ==
[2020-05-10 09:48] LABS: Basophils # 0.1 K/mm3 (0-0.2); Basophils % 1.2 % (0.1-2.0); Eosinophils # 0.3 K/mm3 (0.0-0.4); Eosinophils % 4.6 % (0.1-12.0); Hematocrit 46.5 % (37.0-47.0); Hemoglobin 15.7 g/dL (12.2-16.2); Lymphocytes # 1.8 K/mm3 (0.7-4.5); Lymphocytes % 27.6 % (10-50); Mean Corpuscular HGB Conc 33.7 g/dL (31.8-35.4); Mean Platelet Volume 8.5 fl (7.4-10.4); Monocytes # 0.6 K/mm3 (0.1-1.0); Monocytes % 9.7 % (1.7-9.3); Neutrophils # 3.6 K/mm3 (1.8-7.8); Neutrophils % 56.9 % (37.0-80.0); Platelet Count 244 K/mm3 (142-424); Red Cell Distribution Width 13.7 % (11.5-17.5); White Blood Count 6.4 K/mm3 (4.8-10.8)
--- NOTE | 2020-05-10 09:48 | XR_ITS ---
PROCEDURE: XR DEXA AXIAL SKELETON CLINICAL HISTORY: POST-MENOPAUSAL COMPARISON: No exams were available for comparison FINDINGS: The right hip BMD is 0.679 with a t-score of -1.5. The left hip BMD is 0.906 with a t-score of -0.3. The left forearm BMD is 0.687 with a t-score of -0.1. IMPRESSION: Osteopenia with moderate fracture risk. Treatment advised. Suggest follow-up exam in 2 years Dictated b Pihllip Javier MD 05/11/2020 08:06 Phillip Javier MD in [facility] 05/11/2020 08:06
[2020-05-10 10:26] LABS: Chloride 104 mmol/L (98-107); Potassium 5.2 mmoL/L (3.5-5.1); Sodium 138 mmol/L (136-145)
[2020-05-10 10:28] LABS: Blood Urea Nitrogen 28 mg/dl (7-17); Estimated Glomerular Filt Rate 31 ml/min (>60); GFR (African American) 38 ML/MIN (>60)
[2020-05-10 10:29] LABS: Alanine Aminotransferase 26 U/L (12-78); Albumin Level 4.2 g/dl (3.5-5.0); Albumin/Globulin Ratio 1.4 (1.1-1.8); Alkaline Phosphatase 62 U/L (38-126); Anion Gap 13.2 mEq/L (5-15); Aspartate Amino Transferase 28 U/L (14-36); Bilirubin,Total 0.6 mg/dl (0.2-1.3); Carbon Dioxide 26 mmol/L (22.0-30.0); Cholesterol 193 mg/dl (140-200); Total Protein,Serum 7.2 g/dl (6.3-8.2); Triglycerides 201 mg/dl (30-150); VLDL Cholesterol 40 mg/dL (0-40)
[2020-05-10 10:30] LABS: Calcium 9.7 mg/dl (8.4-10.2); Chol/HDL Ratio 3.7 (1-3.5); Glucose 135 mg/dl (74-100); HDL Cholesterol 52 mg/dl (40-60)
[2020-05-10 10:40] LABS: Direct LDL Cholesterol 110.94 mg/dL (100-129)
== END ==
PROVIDERS: PCP Internal Medicine Adolescent Medicine; Visit Provider Nurse Practitioner Family
DX: E11.22 Type 2 diabetes mellitus with diabetic chronic kidney disease (principal); N18.3 Chronic kidney disease, stage 3 (moderate); E78.5 Hyperlipidemia, unspecified; Z78.0 Asymptomatic menopausal state; M85.89 Other specified disorders of bone density and structure, multiple sites
CPT/HCPCS: 36415; 77080; 80053; 80061; 85025

== ENCOUNTER → 2020-06-02 12:54 | Outpatient (CLI) | payer MEDICARE, SELFPAY ==
[2020-06-03 16:41] LABS: Covid-19 Nasal PCR Sendout UK Detected
== END ==
PROVIDERS: PCP Internal Medicine Adolescent Medicine; Visit Provider Nurse Practitioner Family
DX: Z20.828 Contact with and (suspected) exposure to other viral communicable diseases (principal); U07.1 COVID-19
CPT/HCPCS: U0003

== ENCOUNTER → 2020-06-05 11:14 | Outpatient (CLI) | payer MEDICARE, SELFPAY ==
[2020-06-06 23:12] LABS: Covid-19 Nasal PCR Sendout Lex NOT DETECTED
== END ==
PROVIDERS: PCP Internal Medicine Adolescent Medicine; Visit Provider Internal Medicine Adolescent Medicine
DX: Z03.818 Encounter for observation for suspected exposure to other biological agents ruled out (principal)
CPT/HCPCS: U0004

== ENCOUNTER 2020-06-30 13:38 | Emergency (ER) | payer MEDICARE, SELFPAY ==
[2020-06-30 14:01] VITALS: BP 139/65; PULSE 61; RESP 20; O2SAT 96; BMI 29.1
--- NOTE | 2020-06-30 14:05 | HMH.EDUTC ---
[facility] [place] Disposition Clinical Impression: Pre-op testing Disposition: Home, Self-Care Condition on Discharge: Good Instructions: Preventing the Spread of Coronavirus Discharge Instructions Additional Instructions: Your test results should be available tomorrow afternoon or Wednesday morning. Referrals: Abe Mena MD [Primary Care Provider] - Time of Disposition: 14:08 Medical Decision Making - Dave Inquiry Pt receiving controlled substance: No [facility] [place] HPI - General Stated complaint: covid test Time Seen by Provider: 06/30/20 14:06 - History of Present Illness Provider Complaint: Patient having basal cell carcinoma removed from right side of nose 07/04/2020. Had positive COVID test prior to surgery being scheduled om 06/06 but states the repeat swab was negative so she believes this was a false positive. She is completely asymptomatic at this time. - Related Data Home Medications Medication Instructions Recorded Confirmed Levothyroxine Sodium 50 mcg PO DAILY 05/12/18 07/13/19 [Levothyroxine 50mcg (0.05mg) Tab] Spironolactone 100 mg PO DAILY 05/12/18 07/13/19 bisoproloL fumarate [Zebeta 5mg 5 mg PO DAILY 05/12/18 07/13/19 tablet] atorvastatin 10 mg tablet 10 mg PO DAILY 06/23/19 07/13/19 gabapentin 300 mg capsule 300 mg PO DAILY cap 06/23/19 07/13/19 blood sugar diagnostic See Rx Instructions .ROUTE 03/11/20 .MEDSUPPLY #10 each blood-glucose meter See Rx Instructions .ROUTE 03/11/20 .MEDSUPPLY #1 each celecoxib 200 mg capsule mg PO DAILY cap 03/11/20 hydrochlorothiazide 12.5 mg capsule 12.5 mg PO DAILY cap 03/11/20 lancets See Rx Instructions .ROUTE 03/11/20 .MEDSUPPLY #50 each pen needle, diabetic 32 gauge x See Rx Instructions .ROUTE 03/11/20 .MEDSUPPLY #10 each Allergies Allergy/AdvReac Type Severity Reaction Status Date / Time fexofenadine [From ARTIE] Allergy Unknown Verified 03/11/20 09:56 [facility] History - Hepatitis A Screen Attestation statement:: This patient has been screened for Hepatitis A risk factors. I have reviewed the patient's past medical history: Yes Medical History: Reports:: Cancer, Diabetes Mellitus Type 2, Hypertension Denies:: Diabetes Mellitus Type 1, Internal Pacemaker, MRSA, Seizures Other Medical History: Reports: Thyroid Disease. Denies: Blood Transfusion Reaction Laterality Cases: Right: Arthroscopy Shoulder Other Surgeries: Yes: Other. No: Pacemaker Amputation: No Fractures: No - Social History Smoking Status: Never smoker Alcohol Intake: never Alcohol Intake Frequency:: holidays/special occasions only Substance Use Type: denies use Occupational Status: other Housing: house Household Members: spouse Family Hx:: No significant family history ROS Obtained: Yes All systems reviewed & no additional complaints Physical Exam - General General appearance: alert, in no apparent distress - Head Head exam: atraumatic, normocephalic - Eye Eye exam: Present: PERRL - ENT ENT exam: Present: normal oropharynx - Chest Chest inspection: Present: normal inspection, symmetric chest wall rise - Respiratory Respiratory exam: Present: normal lung sounds bilaterally - Cardiovascular Cardiovascular exam: Present: regular rate, normal rhythm - Neurological Exam Neurological exam: Present: alert, oriented X3 - Psychiatric Psychiatric exam: Present: normal affect, normal mood - Skin Skin exam: Present: warm, dry, intact
[2020-06-30 14:33] VITALS: BP 139/65; PULSE 61; RESP 20; TEMP 36.8; O2SAT 96
[2020-07-02 09:36] LABS: Covid-19 Nasal PCR Sendout Lex NOT DETECTED
== END 2020-06-30 14:35 | disposition home or self-care (01) ==
PROVIDERS: Emergency Provider Physician Assistant; PCP Internal Medicine Adolescent Medicine
DX: Z20.828 Contact with and (suspected) exposure to other viral communicable diseases (principal)
CPT/HCPCS: 99201; U0003; U0004

== ENCOUNTER → 2020-07-10 08:47 | Outpatient (CLI) | payer MEDICARE, SELFPAY ==
[2020-07-11 10:27] LABS: DHEA-Sulfate 18.9 ug/dL (13.9-142.8)
== END ==
PROVIDERS: Visit Provider Internal Medicine
DX: E11.69 Type 2 diabetes mellitus with other specified complication (principal)
CPT/HCPCS: 36415; 82626; 83498

== ENCOUNTER → 2020-07-17 07:51 | Outpatient (CLI) | payer MEDICARE, SELFPAY ==
[2020-07-17 08:33] LABS: Hemoglobin A1C 7.4 % (4.0-6.0)
== END ==
PROVIDERS: Visit Provider Internal Medicine
DX: E11.9 Type 2 diabetes mellitus without complications (principal)
CPT/HCPCS: 36415; 82533; 83036

== ENCOUNTER → 2020-08-14 14:55 | Outpatient (CLI) | payer MEDICARE, SELFPAY ==
--- NOTE | 2020-08-14 14:55 | US_ITS ---
PROCEDURE: US TRANSVAGINAL CLINICAL INDICATION: US T/V- elevated testosterone level COMPARISON: US US TRANSVAGINAL from 05/30/2019 FINDINGS: UTERUS: 6cm x 4cmx 3cm with a combined endometrial thickness of 2.7mm LEFT OVARY: [id number] with a volume of 1ml. RIGHT OVARY: [id number] with a volume of 1ml. There is a small nabothian cyst noted. No cul-de-sac fluid apparent. IMPRESSION: Unremarkable pelvic ultrasound Dictated by: Phillip Javier MD 08/14/2020 18:11 Phillip Javier MD in [place] 08/14/2020 18:11
== END ==
PROVIDERS: PCP Internal Medicine Adolescent Medicine; Visit Provider Obstetrics & Gynecology
DX: R79.89 Other specified abnormal findings of blood chemistry (principal)
CPT/HCPCS: 76830

== ENCOUNTER → 2020-09-09 10:05 | Outpatient (CLI) | payer MEDICARE, SELFPAY ==
[2020-09-09 12:29] LABS: Coronavirus 19 IgG Antibody Negative (Negative); Coronavirus 19 IgM Antibody Negative (Negative)
== END ==
PROVIDERS: Visit Provider Surgery
DX: Z01.818 Encounter for other preprocedural examination (principal); Z12.11 Encounter for screening for malignant neoplasm of colon
CPT/HCPCS: 36415; 86328

== ENCOUNTER 2020-09-10 09:22 | Day surgery (SDC) | payer MEDICARE, SELFPAY ==
[2020-09-06 13:59] VITALS: BMI 29.7
[2020-09-10 09:47] VITALS: BP 138/54; PULSE 62; RESP 18; TEMP 36.8; O2SAT 96
[2020-09-10 10:06] LABS: POC Glucose,Bedside 130 (70-110)
--- NOTE | 2020-09-10 10:14 | P.PN_ITS ---
[facility] Anesthesia Checklist - Patient Identification Patient Identification: Arm Band, Verbal (Name & ) - Structural Data Admitted From: Home Planned Operative Procedure/s: colon Consent for Planned Operative Procedure(s) Verified: Yes Verified Documents: History and Physical - NPO Status Verified Time NPO: 00:00 - Additional verifications Patient : No Anesthesia Reactions: No Hx Blood Transfusions: No Blood Transfusion Reaction: No Cephalosporin Allergy: No Previous Colonoscopy: Yes - Cardiovascular Assessment Heart Sounds: S1 & S2 Pulse Strength: Baseline Pulse Rhythm: Regular Peripheral Edema: No - Airway Assessment C-Spine Mobility Assessed: Yes TMJ Mobility Assessed: Yes Dentition: Poor Dentition - Neurological Assessment Level of Consciousness: Awake, Alert, Appropriate Hx Seizures: No Numbness or tingling in extremities: No - Anesthesia Plan Anesthesia Risk discussed: Yes Anesthesia Plan: Verified ASA Class: III Anesthesia Type: MAC [facility] History I have reviewed the patient's past medical history: Yes Medical History: Reports:: Cancer, Diabetes Mellitus Type 2, Hyperlipidemia, Hypertension Denies:: Diabetes Mellitus Type 1, Internal Pacemaker, MRSA, Seizures *Have you ever received a pneumonia vaccine?: Yes *Have you received a flu vaccine this season?: Yes Other Medical History: Reports: Thyroid Disease. Denies: Blood Transfusion Reaction Anesthesia experience/problems:: none Laterality Cases: Right: Arthroscopy Shoulder, Bilateral: Cataract Other Surgeries: Yes: Colonoscopy, Other. No: Pacemaker Amputation: No Fractures: No - *Social History Last grade of school completed: Advanced degree Smoking Status: Never smoker Alcohol Intake: never Alcohol Intake Frequency:: holidays/special occasions only Substance Use Type: denies use *Occupational Status:: disabled Housing: house Household Members: spouse *Travel in the last 8 weeks: None Family Hx:: No significant family history
[2020-09-10 10:21] VITALS: O2SAT 97
[2020-09-10 11:06] VITALS: BP 91/52; PULSE 63; RESP 20; TEMP 36.3; O2SAT 91
--- NOTE | 2020-09-10 11:07 | HMH.SCOPE ---
- Procedure: Date: 09/10/20 Patient Date of :: 1945 Procedure Performed:: Total colonoscopy with polypectomy Indications:: Patient is a 75-year-old female referred by Dr. Abe Mena for follow-up colonoscopy. She is accompanied by her who is referred as well for a colonoscopy. I had performed screening colonoscopy on her in January 2011. She had some rectosigmoid polyps removed. She is asymptomatic. Performing Provider:: Haroldo Adame MD Referring Provider:: Abe Mena MD Sedation:: MAC sedation Procedure:: Patient was taken to endoscopy procedure room. She was positioned in a lateral decubitus position. Adequate intravenous sedation was achieved with anesthesia titration of propofol. Variable stiffness Olympus colonoscope was inserted via the anus. With some minor difficulty due to floppiness and redundancy of the sigmoid colon it was advanced to the cecum. Ileocecal valve and appendiceal orifice were clearly identified. Colonoscope was withdrawn through the colon and several polyps were encountered and removed. Please see findings below. She did have sigmoid diverticulosis. Retroflexion in the rectum revealed no evidence of any pathologic internal hemorrhoids. Colonoscope was withdrawn. Findings:: Cecal polyp removed with cold cutting snare Ascending colon polyp removed with cold cutting snare Additional ascending colon polyp removed with cold cutting snare Subtle mucosal irregularity in the sigmoid colon Biopsied as possible polyp Distal sigmoid polyp removed with cold cutting snare Rectosigmoid polyp removed with cold cutting snare Rectal polyps, hyperplastic appearing, several sampled with biopsy forceps Recommendations:: Pending the pathology repeat colonoscopy 3 to 5 years Complications:: None immediately apparent Estimated blood obtained (mL): 2
[2020-09-10 11:16] VITALS: BP 114/63; PULSE 61; RESP 20; O2SAT 96
[2020-09-10 11:26] VITALS: BP 133/76; PULSE 61; RESP 20; O2SAT 94
[2020-09-10 11:36] VITALS: BP 130/66; PULSE 63; RESP 20; O2SAT 93
== END 2020-09-10 11:36 | disposition home or self-care (01) ==
LOC: OUTP 09:24
PROVIDERS: PCP Internal Medicine Adolescent Medicine; Visit Provider Surgery
PROC: 0DJD8ZZ Inspection of Lower Intestinal Tract, Via Natural or Artificial Opening Endoscopic (ICD-10-PCS; CPT 45380; principal; 2020-09-10 10:30)
DX: Z12.11 Encounter for screening for malignant neoplasm of colon (principal); K62.1 Rectal polyp; K63.5 Polyp of colon; K63.9 Disease of intestine, unspecified; Z86.010 Personal history of colon polyps; E11.9 Type 2 diabetes mellitus without complications; I10 Essential (primary) hypertension; E78.5 Hyperlipidemia, unspecified; Z85.9 Personal history of malignant neoplasm, unspecified; Z87.39 Personal history of other diseases of the musculoskeletal system and connective tissue; Z88.8 Allergy status to other drugs, medicaments and biological substances; Z79.899 Other long term (current) drug therapy
CPT/HCPCS: 45380; 45385; 82962; 88305

== ENCOUNTER → 2020-11-30 07:31 | Outpatient (CLI) | payer MEDICARE, SELFPAY ==
[2020-11-30 09:11] LABS: Alanine Aminotransferase 34 U/L (12-78); Albumin Level 4.5 g/dl (3.5-5.0); Albumin/Globulin Ratio 1.3 (1.1-1.8); Alkaline Phosphatase 60 U/L (38-126); Aspartate Amino Transferase 29 U/L (14-36); Bilirubin,Total 0.6 mg/dl (0.2-1.3); Blood Urea Nitrogen 23 mg/dl (7-17); Calcium 9.8 mg/dl (8.4-10.2); Carbon Dioxide 26 mmol/L (22.0-30.0); Chloride 102 mmol/L (98-107); Chol/HDL Ratio 4.1 (1-3.5); Cholesterol 227 mg/dl (140-200); Estimated Glomerular Filt Rate 34 ml/min (>60); GFR (African American) 41 ML/MIN (>60); Globulin 3.4 g/dL (1.3-3.2); Glucose 201 mg/dl (74-100); HDL Cholesterol 55 mg/dl (40-60); Sodium 138 mmol/L (136-145); Total Protein,Serum 7.9 g/dl (6.3-8.2); Triglycerides 136 mg/dl (30-150); VLDL Cholesterol 27 mg/dL (0-40)
[2020-11-30 09:22] LABS: Direct LDL Cholesterol 127.07 mg/dL (100-129)
[2020-11-30 09:28] LABS: Free Thyroxine Index 3.5 ug/dL (5.93-13.13); T4 (Thyroxine) 9.6 ug/dl (5.53-11.0); Triiodothryronine (T3) Uptake 36 % (23.5-40.5)
[2020-11-30 09:42] LABS: Thyroid Stimulating Hormone 0.92 uIU/mL (0.465-4.68)
[2020-11-30 10:59] LABS: Hemoglobin A1C 7.3 % (4.0-6.0)
[2020-12-03 06:05] LABS: DHEA-Sulfate 11.5 ug/dL (13.9-142.8)
[2020-12-07 11:24] LABS: Testosterone, Total, LC/MS 115.6 ng/dL (7.0-40.0)
[2020-12-07 13:10] LABS: Testosterone,Free 1.5 pg/mL (0.0-4.2)
== END ==
PROVIDERS: Visit Provider Internal Medicine Adolescent Medicine
DX: E11.22 Type 2 diabetes mellitus with diabetic chronic kidney disease (principal); E03.9 Hypothyroidism, unspecified
CPT/HCPCS: 36415; 80053; 80061; 82533; 82626; 83036; 84402; 84403; 84436; 84443; 84479

== ENCOUNTER → 2021-02-26 13:22 | Outpatient (CLI) | payer MEDICARE, SELFPAY ==
[2021-02-26 13:59] LABS: Basophils # 0.1 K/mm3 (0-0.2); Basophils % 0.9 % (0.1-2.0); Eosinophils # 0.3 K/mm3 (0.0-0.4); Eosinophils % 4.1 % (0.1-12.0); Hemoglobin 14.4 g/dL (12.2-16.2); Lymphocytes % 26.2 % (10-50); Mean Corpuscular HGB Conc 34.2 g/dL (31.8-35.4); Mean Corpuscular Hemoglobin 30.8 pg (27.0-31.2); Mean Corpuscular Volume 90.1 fl (81-99); Mean Platelet Volume 8.2 fl (7.4-10.4); Monocytes # 0.6 K/mm3 (0.1-1.0); Monocytes % 8.6 % (1.7-9.3); Neutrophils # 4.5 K/mm3 (1.8-7.8); Neutrophils % 60.4 % (37.0-80.0); Platelet Count 264 K/mm3 (142-424); Red Blood Count 4.66 M/mm3 (4.20-5.40); Red Cell Distribution Width 13.9 % (11.5-17.5); White Blood Count 7.5 K/mm3 (4.8-10.8)
[2021-02-26 14:20] LABS: Alanine Aminotransferase 31 U/L (12-78); Albumin Level 4.4 g/dl (3.5-5.0); Albumin/Globulin Ratio 1.5 (1.1-1.8); Alkaline Phosphatase 65 U/L (38-126); Anion Gap 9.9 mEq/L (5-15); Aspartate Amino Transferase 30 U/L (14-36); Bilirubin,Total 0.6 mg/dl (0.2-1.3); Blood Urea Nitrogen 29 mg/dl (7-17); Calcium 9.6 mg/dl (8.4-10.2); Carbon Dioxide 28 mmol/L (22.0-30.0); Chloride 104 mmol/L (98-107); Chol/HDL Ratio 3.4 (1-3.5); Cholesterol 169 mg/dl (140-200); Estimated Glomerular Filt Rate 26 ml/min (>60); GFR (African American) 31 ML/MIN (>60); Globulin 2.9 g/dL (1.3-3.2); Glucose 137 mg/dl (74-100); HDL Cholesterol 49 mg/dl (40-60); Potassium 4.9 mmoL/L (3.5-5.1); Sodium 137 mmol/L (136-145); Total Protein,Serum 7.3 g/dl (6.3-8.2); Triglycerides 190 mg/dl (30-150); VLDL Cholesterol 38 mg/dL (0-40)
[2021-02-26 14:32] LABS: Direct LDL Cholesterol 83.56 mg/dL (100-129)
[2021-02-26 15:10] LABS: Vitamin B12 524 pg/mL (239-931)
[2021-02-26 15:38] LABS: Hemoglobin A1C 9.3 % (4.0-6.0)
== END ==
PROVIDERS: Visit Provider Internal Medicine Adolescent Medicine
DX: E78.5 Hyperlipidemia, unspecified (principal); E03.9 Hypothyroidism, unspecified; E53.8 Deficiency of other specified B group vitamins; N18.30 Chronic kidney disease, stage 3 unspecified; Z79.899 Other long term (current) drug therapy
CPT/HCPCS: 36415; 80053; 80061; 82607; 83036; 85025

== ENCOUNTER 2021-04-18 14:30 | Outpatient (RCR) | payer MEDICARE, SELFPAY ==
--- NOTE | 2021-03-10 13:29 | HMH.PTOPEV ---
PT Outpatient Evaluation Rehab PT Outpatient Evaluation Start: 03/10/21 13:17 Freq: Status: Active Protocol: Document 03/10/21 13:18 ANTOINETTE (Rec: 03/10/21 13:29 ANTOINETTE [id number]) Electronically Signed By Brent Morgan, PT 03/10/21 13:18 Outpatient Therapy Subjective History Subjective History Pt reports h/o chronic LBP with most recent exacerbation beginning in December following repeatitive bending episode. Pt reports R sided LBP since December, with RLE radicular s/s from R hip to R ankle. Pt reports PMH of 4x lumbar spine sx, last sx. in 2000. Pt reports recent chiropractor visits have provided some relief. Chief Complaint Pain,Stiff,Paresthesia, Weakness Symptom Type Ache,Throb,Dull,Stabbing Symptoms Relieved By Rest/Positioning,Heat,Ice, Prescription Meds Symptoms Aggravated By Bending/Stooping,Twisting, Lifting Prior Functional Limitations Lifting,Housework,Bending/ Stooping Current Functional Limitations Lifting,Housework,Bending/ Stooping Symptom Description Constant but Variable Level of pain today (0-10) 4 Pain scale - at its best (0-10) 3 Pain scale - at its worst (0-10) 7 Lumbopelvic Eval Posture Thoracic Spine Posture Standing Position Neutral Lumbar Spine Posture Standing Position Neutral Assistive device Assistive Devices None / NA Gait Observation General Gait Pattern Observation No Deviations/Normal Palapation tenderness right paraspinal tenderness Yes: 2/4 buttock tenderness Yes: 3/4 Lumbar/Sacral Palpation Findings Tenderness Accessory Movement T-spine Vertebrae Accessory Movements Central P/A [place] that Elicit Symptoms L-spine Vertebrae Accessory Movements Right P/A [place] that Elicit Symptoms L4 right L5 right Range of Motion Lumbar Spine Active Flexion Range of 0-60 Motion (degrees) Lumbar Spine Active Extension Range of 0-10 Motion (degrees) Left Lumbar Spine Lateral Flexion Active 0-20 Range of Motion (degrees) Right Lumbar Spine Lateral Flexion 0-10 Active Range of Motion (degrees) Lumbar Spine ROM Limitations Soft Tissue Tightness,Pain Manual Muscle Test Left Knee Extension Strength Grade 5 Normal Knee Flexion Strength Grade 5 Nor
--- NOTE | 2021-04-09 14:19 | HMH.RHREAS ---
Rehab Reassessment Rehab OP Re-assessment Start: 04/09/21 13:39 Freq: Status: Active Protocol: Document 04/09/21 13:39 SAGESUNIASHLEY (Rec: 04/09/21 14:19 [email or web address] [id number]) Electronically Signed By Brent Morgan, PT 04/09/21 13:39 Rehab Re-assessment Subjective Subjective Pt reports 3-4/10 LBP on VAS w /o radicular s/s in Right LE, and feels 75% better overall since I Eval Objective Objective Notes AROM LUMBAR FLX 0-65, 15, B SB 0-20 MMT: R HIP FLX 4/5, B KNEE FLX AND EXT 5/5, B DF 5/5 TTP: L LUMBAR PARA MM 0-1/4, R LUMBAR PARA MM 2/4, L4-5 SP 2 /4 Assessment Progress Assessment Progressing as Expected Assessment Notes IMPROVED ROM, STRENGTH, AND TTP Patient goals met STG'S 04/09 LTG'S 11/11 Goals Not Met LTG'S 03/11 Plan Plan Pt ot continue w/skilled P.T. to make further improvements in AROM, strength, and TTP to allow for optimal function Frequency of Therapy 2-3x/wk Duration of therapy 3-4wks Time and Billing Re-Eval Time 15 Re-Eval Billing Units 0 PHYSICIAN CERTIFICATION: I certify the specified therapy services for Deirdre Leone are required, authorized, and reviewed every 30 days.
== END 2021-04-18 14:35 | disposition home or self-care (01) ==
LOC: PT 14:30
PROVIDERS: PCP Internal Medicine Adolescent Medicine; Visit Provider Internal Medicine Adolescent Medicine
DX: M54.42 Lumbago with sciatica, left side (principal); M54.41 Lumbago with sciatica, right side
CPT/HCPCS: 97010; 97012; 97014; 97110; 97163; 97164; G0283

== ENCOUNTER → 2021-05-30 08:54 | Outpatient (CLI) | payer MEDICARE, SELFPAY ==
[2021-05-30 09:11] LABS: Basophils # 0.1 K/mm3 (0-0.2); Basophils % 1.8 % (0.1-2.0); Eosinophils # 0.4 K/mm3 (0.0-0.4); Eosinophils % 4.9 % (0.1-12.0); Hematocrit 45.8 % (37.0-47.0); Hemoglobin 15.1 g/dL (12.2-16.2); Lymphocytes # 1.8 K/mm3 (0.7-4.5); Lymphocytes % 23.9 % (10-50); Mean Corpuscular Hemoglobin 30.9 pg (27.0-31.2); Mean Corpuscular Volume 93.6 fl (81-99); Mean Platelet Volume 8.4 fl (7.4-10.4); Monocytes # 0.6 K/mm3 (0.1-1.0); Monocytes % 8.4 % (1.7-9.3); Neutrophils # 4.6 K/mm3 (1.8-7.8); Platelet Count 312 K/mm3 (142-424); Red Cell Distribution Width 13.8 % (11.5-17.5); White Blood Count 7.5 K/mm3 (4.8-10.8)
[2021-05-30 09:41] LABS: Chloride 102 mmol/L (98-107); Potassium 4.7 mmoL/L (3.5-5.1); Sodium 140 mmol/L (136-145)
[2021-05-30 09:44] LABS: Alanine Aminotransferase 36 U/L (12-78); Albumin Level 4.3 g/dl (3.5-5.0); Albumin/Globulin Ratio 1.3 (1.1-1.8); Alkaline Phosphatase 55 U/L (38-126); Anion Gap 17.7 mEq/L (5-15); Aspartate Amino Transferase 31 U/L (14-36); Bilirubin,Total 0.3 mg/dl (0.2-1.3); Blood Urea Nitrogen 23 mg/dl (7-17); Carbon Dioxide 25 mmol/L (22.0-30.0); Estimated Glomerular Filt Rate 29 ml/min (>60); GFR (African American) 35 ML/MIN (>60); Globulin 3.3 g/dL (1.3-3.2); Total Protein,Serum 7.6 g/dl (6.3-8.2)
[2021-05-30 09:45] LABS: Calcium 9.5 mg/dl (8.4-10.2); Glucose 138 mg/dl (74-100)
[2021-05-30 10:02] LABS: Hemoglobin A1C 6.7 % (4.0-6.0)
[2021-05-30 10:15] LABS: Thyroid Stimulating Hormone 0.83 uIU/mL (0.465-4.68)
[2021-06-04 14:32] LABS: Testosterone, Total, LC/MS 126.6 ng/dL (7.0-40.0); Testosterone,Free 3.1 pg/mL (0.0-4.2)
== END ==
PROVIDERS: Visit Provider Internal Medicine Adolescent Medicine
DX: E11.22 Type 2 diabetes mellitus with diabetic chronic kidney disease (principal); E03.9 Hypothyroidism, unspecified; I10 Essential (primary) hypertension
CPT/HCPCS: 36415; 80053; 83036; 84402; 84403; 84443; 85025

== ENCOUNTER → 2021-09-15 12:10 | Outpatient (CLI) | payer MEDICARE, SELFPAY ==
[2021-09-15 13:38] LABS: Hemoglobin A1C 6.4 % (4.0-6.0)
[2021-09-15 13:43] LABS: Chloride 102 mmol/L (98-107); Potassium 4.8 mmoL/L (3.5-5.1); Sodium 139 mmol/L (136-145)
[2021-09-15 13:45] LABS: Alanine Aminotransferase 27 U/L (12-78); Aspartate Amino Transferase 32 U/L (14-36); Blood Urea Nitrogen 26 mg/dl (7-17); Estimated Glomerular Filt Rate 31 ml/min (>60); GFR (African American) 38 ML/MIN (>60)
[2021-09-15 13:46] LABS: Albumin Level 4.3 g/dl (3.5-5.0); Albumin/Globulin Ratio 1.4 (1.1-1.8); Alkaline Phosphatase 61 U/L (38-126); Anion Gap 13.8 mEq/L (5-15); Bilirubin,Total 0.4 mg/dl (0.2-1.3); Calcium 9.6 mg/dl (8.4-10.2); Carbon Dioxide 28 mmol/L (22.0-30.0); Glucose 114 mg/dl (74-100); Total Protein,Serum 7.3 g/dl (6.3-8.2)
== END ==
PROVIDERS: Visit Provider Internal Medicine Adolescent Medicine
DX: E11.9 Type 2 diabetes mellitus without complications (principal); I10 Essential (primary) hypertension; Z79.84 Long term (current) use of oral hypoglycemic drugs
CPT/HCPCS: 36415; 80053; 83036

== ENCOUNTER → 2021-09-26 08:45 | Outpatient (CLI) | payer MEDICARE, SELFPAY ==
--- NOTE | 2021-09-26 08:48 | US_ITS ---
PROCEDURE: US THYROID CLINICAL INDICATION: THYROID NODULE COMPARISON: No exams were available for comparison FINDINGS: Right lobe: The right lobe is 4.5 x 1.4 x 1.5 cm. A subtle 5 mm hypoechoic solid-appearing nodules present in the upper pole. A mixed 6 mm nodule is present in the upper pole. A subtle 5 mm slightly hypoechoic nodule noted in the mid polar region anteriorly. Subtle 5 mm isoechoic nodule mid polar region. Subtle 3 mm isoechoic nodule lower pole. 10 x 3 mm I so to slightly hypoechoic nodule inferiorly. In the lower pole there is a small cyst at 3 mm. Left lobe: 3.6 x 1.5 x 2 cm. 16 x 10 mm slightly hypoechoic nodule mid polar region without obvious calcification. Isthmus: Unremarkable Additional findings: IMPRESSION: Multiple bilateral thyroid nodules with the largest in the mid polar region on the left at 16 mm TR level 3. Suggest 6 month follow-up to confirm short term stability. Dictated by: Phillip Javier MD 09/26/2021 11:55 Phillip Javier MD in [place] 09/26/2021 11:55
== END ==
PROVIDERS: PCP Internal Medicine Adolescent Medicine; Visit Provider Internal Medicine Adolescent Medicine
DX: E04.1 Nontoxic single thyroid nodule (principal)
CPT/HCPCS: 76536

== ENCOUNTER 2021-10-16 15:00 | Outpatient (RCR) | payer MEDICARE, SELFPAY ==
--- NOTE | 2021-08-12 09:25 | HMH.PTOPEV ---
PT Outpatient Evaluation Rehab PT Outpatient Evaluation Start: 08/12/21 09:16 Freq: Status: Active Protocol: Document 08/12/21 09:17 ANTOINETTE (Rec: 08/12/21 09:25 ANTOINETTE [id number]) Electronically Signed By Brent Morgan, PT 08/12/21 09:17 Outpatient Therapy Subjective History Subjective History Pt reports h/o chronic LBP for 40+yrs, exacerbation of s/s ~ 3 weeks ago when attempting to lift who hadb't fallen at home. Pt reports left sided LBP with referred pain into left hip/glut mm area. PMH: x4 lumbar spine sx' s, most recent fusion ~20 yrs ago. Chief Complaint Pain,Stiff,Weakness Symptom Type Ache,Sharp,Dull Symptoms Relieved By Rest/Positioning Symptoms Aggravated By Standing,Walking,Lifting Prior Functional Limitations Lifting,Housework,Standing, Walking Current Functional Limitations Lifting,Housework,Standing, Walking Symptom Description Constant but Variable Level of pain today (0-10) 4 Pain scale - at its best (0-10) 3 Pain scale - at its worst (0-10) 8 Lumbopelvic Eval Posture Thoracic Spine Posture Standing Position Flattened Lumbar Spine Posture Standing Position Flattened Assistive device Assistive Devices None / NA Gait Observation General Gait Pattern Observation Antalgic Gait Palapation tenderness left lumbar spinal tenderness Yes: 2/4 paraspinal tenderness Yes: 3/4 buttock tenderness Yes: 3/4 Lumbar/Sacral Palpation Findings Tenderness,Trigger Point Accessory Movement L-spine Vertebrae Accessory Movements Central P/[employer] [place] that Elicit Symptoms L4 left L5 left Range of Motion Lumbar Spine Active Flexion Range of 0-60 Motion (degrees) Lumbar Spine Active Extension Range of 0-5 Motion (degrees) Left Lumbar Spine Lateral Flexion Active 0-20 Range of Motion (degrees) Right Lumbar Spine Lateral Flexion 0-20 Active Range of Motion (degrees) Lumbar Spine ROM Limitations Soft Tissue Tightness,Pain Manual Muscle Test Left Knee Extension Strength Grade 4 Good Knee Flexion Strength Grade 4- Good- Hip Flexion Strength Grade 3+ Fair+ Hip External Rotation Strength Grade 4- Good- Hip Internal Rotation Strength Grade 4- Good- Extensor Hallucis Longus Strength Grade 5 Normal Ankle Dorsiflexion Strength Grade 5 Normal Gastronemius/Soleus Strength Grade 5 Normal DTR Rt Patellar
--- NOTE | 2021-09-11 15:04 | HMH.RHREAS ---
Rehab Reassessment Rehab OP Re-assessment Start: 09/11/21 14:57 Freq: Status: Active Protocol: Document 09/11/21 14:57 ANTOINETTE (Rec: 09/11/21 15:04 ANTOINETTE [id number]) Electronically Signed By Brent Mrogan, PT 09/11/21 14:57 Rehab Re-assessment Subjective Subjective Pt reports 0/10 left sided LBP and/or left hip area pain on VAS, and feels 80-90% better overall since I eval. Objective Objective Notes AROM: LUMBAR SPINE FLX 0-73, EXT 0-21, R SB 0-25, L SB 0-27 MMT: LEFT HIP FLX 4+-5/5, L KNEE EXT 5/5, L KNEE FLX 4+/5, L HIP IR 4/5, L HIP ER 4/5 TTP: LEFT LUMBAR PARA 0/4, LEFT PIRI/GLUT 0-1/4 GAIT: WFL ON LEVEL TERRAIN Assessment Progress Assessment Progressing as Expected Assessment Notes SIGNIFICANT IMPROVEMENT IN ALL ASPECT OF OBJECTIVE AND SUBJECTIVE MEASURES (STRENGTH, ROM, AND TTP) Patient goals met STG'S 06/12 LTG'S 03/12 Goals Not Met LTG'S 12/10 Plan Plan Pt to continue w/skilled P.T. to make further improvements in strength/core stab., and ROM to allow for optimal function w/household and community activities ( prolonged standing, walking) Frequency of Therapy 1-2x/wk Duration of therapy 2-4wks Time and Billing Re-Eval Time 15 Re-Eval Billing Units 1 PHYSICIAN CERTIFICATION: I certify the specified therapy services for Deirdre Leone are required, authorized, and reviewed every 30 days.
--- NOTE | 2021-10-13 14:59 | HMH.RHREAS ---
Rehab Reassessment Rehab OP Re-assessment Start: 09/11/21 14:57 Freq: Status: Active Protocol: Document 10/13/21 14:54 ANTOINETTE (Rec: 10/13/21 14:58 ANTOINETTE [id number]) Electronically Signed By Brent Morgan, PT 10/13/21 14:54 Rehab Re-assessment Subjective Subjective Pt reports 0-3/10 left sided LBP and/or left hip area pain on VAS, 'it just seems like there's good days and bad days , but it's definitely better overall'. Objective Objective Notes AROM: LUMBAR SPINE FLX 0-47, EXT 0-13, R SB 0-21, L SB 0-23 MMT: LEFT HIP FLX 4+-5/5, L/R KNEE EXT 5/5, L/R KNEE FLX 4+/ 5, L HIP IR 4/5, L HIP ER 4/5, RIGHT HIP FLX 4-/5 TTP: LEFT LUMBAR PARA 1/4, LEFT AND RIGHT PIRI/GLUT 1-2/4 GAIT: WFL ON LEVEL TERRAIN Assessment Progress Assessment Slower Than Expected Assessment Notes PT EXHIBITS DECREASES IN AROM, STRENGTH, AND INCREASED TTP SINCE LAST REASSESSMENT Patient goals met STG'S 06/12 LTG'S 03/12 Goals Not Met LTG'S 12/10 Plan Plan Pt to continue w/skilled P.T. to make further improvements in strength/core stab., and ROM to allow for optimal function w/household and community activities ( prolonged standing, walking) Frequency of Therapy 1-2X/WK Duration of therapy 3-4WKS Time and Billing Re-Eval Time 12 Re-Eval Billing Units 0 PHYSICIAN CERTIFICATION: I certify the specified therapy services for Deirdre Leone are required, authorized, and reviewed every 30 days.
== END 2021-10-16 15:05 | disposition home or self-care (01) ==
LOC: PT 15:00
PROVIDERS: PCP Internal Medicine Adolescent Medicine; Visit Provider Internal Medicine Adolescent Medicine
DX: M54.50 Low back pain, unspecified (principal)
CPT/HCPCS: 20560; 20561; 97010; 97012; 97014; 97035; 97110; 97140; 97163; 97164; G0283

== ENCOUNTER → 2021-10-17 08:59 | Outpatient (CLI) | payer MEDICARE, SELFPAY ==
--- NOTE | 2021-10-17 09:04 | XR_ITS ---
FINAL REPORT CLINICAL HISTORY: LT carpal tunnel syndrome COMPARISON: Left hand radiographs dated May 21, 2017 FINDINGS: LEFT WRIST Three views demonstrate no acute fracture or dislocation. There are mild and moderate degenerative changes. There are small chronic calcifications along the dorsal and ventral aspects of the wrist that are stable since the prior exam. The soft tissues are unremarkable. IMPRESSION: Mild and moderate degenerative changes. Chronic calcifications of the wrist. Reviewed, Interpreted and Dictated by Haroldo Llanes III, MD Transcribed by Brittny Sifuentes Authenticated by Haroldo Llanes III, MD on 10/17/2021 10:22:03 AM [facility]
== END ==
PROVIDERS: PCP Internal Medicine Adolescent Medicine; Visit Provider Orthopaedic Surgery
DX: M25.532 Pain in left wrist (principal)
CPT/HCPCS: 73110

== ENCOUNTER → 2021-10-27 09:16 | Outpatient (CLI) | payer MEDICARE, SELFPAY | PROVIDERS: Visit Provider Nurse Practitioner | DX: U07.1 COVID-19 (principal) | CPT/HCPCS: C9803; U0003; U0005 ==

== ENCOUNTER → 2021-12-24 11:00 | Outpatient (CLI) | payer MEDICARE, SELFPAY ==
[2021-12-24 12:05] LABS: Basophils # 0.1 K/mm3 (0-0.2); Basophils % 1.3 % (0.1-2.0); Eosinophils # 0.4 K/mm3 (0.0-0.4); Eosinophils % 5.5 % (0.1-12.0); Hematocrit 47.2 % (37.0-47.0); Hemoglobin 15.2 g/dL (12.2-16.2); Lymphocytes # 1.5 K/mm3 (0.7-4.5); Lymphocytes % 22.4 % (10-50); Mean Corpuscular HGB Conc 32.2 g/dL (31.8-35.4); Mean Corpuscular Hemoglobin 30.5 pg (27.0-31.2); Mean Corpuscular Volume 94.8 fl (81-99); Mean Platelet Volume 8.6 fl (7.4-10.4); Monocytes # 0.7 K/mm3 (0.1-1.0); Monocytes % 9.9 % (1.7-9.3); Neutrophils # 4.2 K/mm3 (1.8-7.8); Platelet Count 267 K/mm3 (142-424); Red Blood Count 4.98 M/mm3 (4.20-5.40); Red Cell Distribution Width 13.8 % (11.5-17.5); White Blood Count 6.9 K/mm3 (4.8-10.8)
[2021-12-24 12:18] LABS: Hemoglobin A1C 7.1 % (4.0-6.0)
[2021-12-24 12:26] LABS: Chloride 103 mmol/L (98-107); Potassium 4.6 mmoL/L (3.5-5.1); Sodium 138 mmol/L (136-145)
[2021-12-24 12:29] LABS: Alanine Aminotransferase 40 U/L (12-78); Albumin Level 4.2 g/dl (3.5-5.0); Albumin/Globulin Ratio 1.3 (1.1-1.8); Alkaline Phosphatase 82 U/L (38-126); Anion Gap 11.6 mEq/L (5-15); Aspartate Amino Transferase 37 U/L (14-36); Bilirubin,Total 0.6 mg/dl (0.2-1.3); Blood Urea Nitrogen 20 mg/dl (7-17); Calcium 8.8 mg/dl (8.4-10.2); Carbon Dioxide 28 mmol/L (22.0-30.0); Estimated Glomerular Filt Rate 34 ml/min (>60); GFR (African American) 41 ML/MIN (>60); Globulin 3.2 g/dL (1.3-3.2); Glucose 147 mg/dl (74-100); Total Protein,Serum 7.4 g/dl (6.3-8.2)
== END ==
PROVIDERS: PCP Internal Medicine Adolescent Medicine; Visit Provider Orthopaedic Surgery
DX: Z01.818 Encounter for other preprocedural examination (principal); E11.9 Type 2 diabetes mellitus without complications; Z11.52 Encounter for screening for COVID-19; Z79.84 Long term (current) use of oral hypoglycemic drugs
CPT/HCPCS: 36415; 80053; 83036; 85025; C9803; U0003; U0005

== ENCOUNTER 2021-12-26 06:04 | Day surgery (SDC) | payer MEDICARE, SELFPAY ==
--- NOTE | 2021-12-24 11:24 | SUR.PREOP ---
Attempted to contact patient for pre-op phone call @ this time. Message left on home phone, no voicemail set up on cell phone.
[2021-12-24 12:25] VITALS: BMI 28.3
[2021-12-26 06:18] VITALS: BP 130/60; PULSE 63; RESP 18; TEMP 36.8; O2SAT 94
--- NOTE | 2021-12-26 07:01 | HMH.ANESCL ---
[facility] Anesthesia Checklist - Patient Identification Patient Identification: Arm Band - Structural Data Admitted From: Home Planned Operative Procedure/s: Carpal tunnel release Consent for Planned Operative Procedure(s) Verified: Yes - NPO Status Verified Time NPO: 04:30 (Sip of water with meds) - Additional verifications Anesthesia Reactions: No Hx Blood Transfusions: No Blood Transfusion Reaction: No - Airway Assessment C-Spine Mobility Assessed: Yes TMJ Mobility Assessed: Yes Dentition: Good Dentition - Neurological Assessment Level of Consciousness: Awake Hx Seizures: No Numbness or tingling in extremities: Yes - Anesthesia Plan Anesthesia Risk discussed: Yes Anesthesia Plan: Verified ASA Class: III Anesthesia Type: MAC [facility] History I have reviewed the patient's past medical history: Yes Medical History: Reports:: Cancer (skin), Diabetes Mellitus Type 2, Hyperlipidemia, Hypertension Denies:: Diabetes Mellitus Type 1, Internal Pacemaker, MRSA, Seizures *Have you ever received a pneumonia vaccine?: Yes *Have you received a flu vaccine this season?: Yes Other Medical History: Reports: Thyroid Disease. Denies: Blood Transfusion Reaction Anesthesia experience/problems:: None Laterality Cases: Right: Arthroscopy Shoulder, Bilateral: Cataract Other Surgeries: Yes: Colonoscopy, Other. No: Pacemaker Amputation: No Fractures: No - *Social History Last grade of school completed: Advanced degree Smoking Status: Never smoker Alcohol Intake: current Alcohol Intake Frequency:: holidays/special occasions only Substance Use Type: denies use *Occupational Status:: retired Housing: house Household Members: spouse *Travel in the last 8 weeks: None Family Hx:: No significant family history
--- NOTE | 2021-12-26 07:25 | SUR.PREOP ---
0725 - REPORT GIVEN TO Jed Rivers RN
[2021-12-26 08:08] VITALS: TEMP 43
[2021-12-26 08:23] VITALS: BP 134/79; PULSE 62; RESP 16; TEMP 36.6; O2SAT 90
[2021-12-26 08:33] VITALS: BP 133/70; PULSE 62; RESP 16; O2SAT 90
[2021-12-26 08:43] VITALS: BP 136/74; PULSE 60; RESP 18; O2SAT 93
[2021-12-26 09:00] VITALS: BP 128/74; PULSE 62; RESP 18; TEMP 36.6; O2SAT 93
--- NOTE | 2021-12-26 09:45 | HMH.OPNOTE ---
Date of procedure: 12/26/21 Pre-op Diagnosis:: Left carpal tunnel syndrome Post-op Diagnosis:: Same Procedure performed:: 36352: Left endoscopic carpal tunnel release Surgeon:: Ranjan Wyatt JR, MD SENIOR REVENUE ACCOUNTANT:: Denny Sánchez Anesthesia: GETA Estimated blood loss (mL): 2 Operative findings:: Transverse carpal ligament release confirmed endoscopically Operative note:: 76-year-old female with left carpal tunnel syndrome, EMG consistent with these findings. She had longstanding symptoms, numbness, weakness, thenar wasting. I had a discussion with her regarding further management and recommended left endoscopic carpal tunnel release. She was amenable with the plan. We discussed the risk and benefits of surgery. Risks included but were not limited to pain, bleeding, infection, damage to adjacent structures, need for further surgery, wound healing complications, loss of limb, . Patient expressed verbal consent and written consent was obtained for the above procedure. Patient was identified in preoperative holding. Operative site was marked in indelible ink. History, physical, consent were reviewed and updated. Patient was surrendered to the anesthesia team, taken to the operative suite, placed supine on a well-padded operative table. A nonsterile tourniquet placed on the proximal brachium. Anesthesia was induced. The operative extremity was prepped and draped in the usual sterile fashion. The operative team donned sterile gowns and gloves and a timeout was called. All in attendance agreed regarding the patient's identity, procedure, operative site. Weight-based dose of antibiotics was given prior to incision. I made a transverse incision at the proximal wrist crease proximal to the transverse carpal ligament. I bluntly dissected through skin and subcutaneous tissue with care taken to avoid injuring the palmaris longus. I transected the fascia, inserted a dilating probe deep to the transverse carpal ligament and noted its depth distal to the transverse carpal ligament. I then inserted a cannula and scope, visualize the fibers of the transverse carpal ligament. I took to the distal aspect of the transverse carpal ligament to confirm its location, then with a curved blade under endoscopic visualization, transected the fibers of the transverse carpal ligament and noted that they retracted medially and laterally. I removed the cannula, achieved hemostasis, closed with Monocryl, Prineo and Dermabond. Tourniquet time (min): 17 Condition: stable Disposition: PACU Complications:: None apparent
[2022-07-02 10:58] LABS: POC Glucose,Bedside 122 (70-110)
== END 2021-12-26 09:00 | disposition home or self-care (01) ==
LOC: OR 06:06
PROVIDERS: PCP Internal Medicine Adolescent Medicine; Visit Provider Orthopaedic Surgery
PROC: (CPT 64721; principal; 2021-12-26 07:30)
DX: G56.02 Carpal tunnel syndrome, left upper limb (principal); E11.9 Type 2 diabetes mellitus without complications; Z79.84 Long term (current) use of oral hypoglycemic drugs; Z79.899 Other long term (current) drug therapy
CPT/HCPCS: 64721; 82962; 96374

== ENCOUNTER 2022-02-02 13:00 | Outpatient (RCR) | payer MEDICARE, SELFPAY ==
--- NOTE | 2022-01-16 16:12 | HMH.OTOPEV ---
OT Inpatient Evaluation Rehab OT Outpatient Eval Start: 01/16/22 15:45 Freq: Status: Active Protocol: Document 01/16/22 15:46 MARLENEJODY (Rec: 01/16/22 16:12 MARIONNATHALIE [id number]) Electronically Signed By Betty Burnett, OT 01/16/22 15:46 Outpatient Therapy Subjective History Subjective History 76 year old female referred to skilled OP OT services after s/p L UE CTR on 12/26/21 and is currently 3 weeks out from evaluation. Patient stated having pain in the L wrist since Sep 2021 with no relief. Patient is now experiencing numbness and tingleing in the L thumb and index finger with having difficulty buttoning/ unbuttoning and picking/ pinching items with usage of hand. 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 Symptoms Aggravated By Physical Activity Prior Functional Limitations None Current Functional Limitations Lifting,Recreation Activity Level of pain today (0-10) 0 Pain scale - at its best (0-10) 0 Pain scale - at its worst (0-10) 0 Wrist/Hand Eval Wrist Range of Motion Left Wrist Extension Active Range of Motion ( 62 degrees) Wrist Flexion Active Range of Motion ( 45 degrees) Wrist Radial Deviation Active Range of 12 Motion (degrees) Wrist Ulnar Deviation Active Range of 20 Motion (degrees) Forearm Supination Active Range of 90 Motion (degrees) Forearm Pronation Active Range of Motion 90 (degrees) Wrist Manual Muscle Testing Left Wrist Extension Strength Grade 3- Fair- Wrist Flexion Strength Grade 3- Fair- Wrist Radial Deviation Strength Grade 3- Fair- Wrist Ulnar Deviation Strength Grade 3- Fair- Forearm Supination Strength Grade 3- Fair- Distillery Worker General/Pinch Strength Right Distillery Worker General Strength Measurement (lbs) 40 Left Distillery Worker General Strength Measurement (lbs) 50 OT Outpatient Assessment Impairments Problems/Impairments Impaired Range of Motion, Impaired Strength,Impaired Endurance Prognosis Rehab Potential Good Clinical Impression Consistent with Diagnosis Yes Short Term Goals Number of Weeks 2 Increase Range of Motion Yes: Improve AROM of L wrist flex: 50;ext: 65; RD:15; UD:25 Increase Strength Yes: Improve L co founder & ceo strength
== END 2022-02-02 14:00 | disposition home or self-care (01) ==
LOC: OT 13:00
PROVIDERS: PCP Internal Medicine Adolescent Medicine; Visit Provider Orthopaedic Surgery
DX: G56.02 Carpal tunnel syndrome, left upper limb (principal)
CPT/HCPCS: 97010; 97014; 97035; 97110; 97140; 97165; 97530; G0283

== ENCOUNTER → 2022-02-13 10:13 | Outpatient (CLI) | payer MEDICARE, SELFPAY ==
--- NOTE | 2022-02-13 10:13 | MR_ITS ---
FINAL REPORT CLINICAL HISTORY: carpal tunnel sx 6 weeks ago. pt states since then she has had numbness in her wrist. FINDINGS: Multiplanar MR imaging of the left wrist was performed without contrast. Motion artifact is identified in many of the images. The bony structures are intact without evidence of fracture, bone bruise or marrow edema. There is moderate degenerative change with severe degenerative change at the radial aspect of the wrist. There are multiple cysts or chronic erosions seen in the carpal bones. There is a fluid collection at the volar radial aspect of the wrist measuring up to 14 mm, likely represents a ganglion. There is no evidence of intrinsic ligament injury. The triangular fibrocartilage is intact. The flexor and extensor tendons are intact. There are small joint effusions. No focal abnormality is identified of the median nerve. IMPRESSION: Degenerative changes as detailed above. Likely ganglion at the volar radial aspect of the wrist. Reviewed, Interpreted and Dictated by Haroldo Llanes III, MD Transcribed by Joselin Rich Authenticated by Haroldo Llanes III, MD on 02/13/2022 01:35:48 PM [facility]
== END ==
PROVIDERS: PCP Internal Medicine Adolescent Medicine; Visit Provider Orthopaedic Surgery
DX: G56.02 Carpal tunnel syndrome, left upper limb (principal)
CPT/HCPCS: 73221

== ENCOUNTER 2022-02-15 20:04 | Emergency (ER) | payer MEDICARE, SELFPAY ==
[2022-02-15 21:48] VITALS: BP 0/0; PULSE 0; RESP 0; TEMP -17.7; TEMP 0
== END 2022-02-15 21:49 | disposition left against medical advice (07) ==
LOC: ER 20:07
PROVIDERS: Emergency Provider Emergency Medicine; PCP Internal Medicine Adolescent Medicine
DX: M25.562 Pain in left knee (principal); M25.552 Pain in left hip; Z53.21 Procedure and treatment not carried out due to patient leaving prior to being seen by health care provider; Z79.1 Long term (current) use of non-steroidal anti-inflammatories (NSAID); Z79.899 Other long term (current) drug therapy; Z88.8 Allergy status to other drugs, medicaments and biological substances; W19.XXXA Unspecified fall, initial encounter
CPT/HCPCS: 99211

== ENCOUNTER → 2022-02-26 17:00 | Outpatient (CLI) | payer MEDICARE, SELFPAY ==
--- NOTE | 2022-02-26 17:05 | XR_ITS ---
PROCEDURE INFORMATION: Exam: XR Right Femur Exam date and time: 02/26/2022 5:08 PM Age: 76 years old Clinical indication: Pain; Thigh; Right; Patient HX: Fall; Additional info: Right leg pain TECHNIQUE: Imaging protocol: XR Right femur. Views: 2 views. COMPARISON: [facility] MRI-LOW EXT [facility] DANITA CABA W/WORT 11/25/2016 9:35 AM FINDINGS: Bones/joints: There is no evidence of acute fracture. There is no evidence of joint malalignment or dislocation. There are mild degenerative changes in the right hip joint. Soft tissues: No focal soft tissue swelling. IMPRESSION: 1. No evidence of acute fracture. 2. No evidence of acute dislocation. 3. There are mild degenerative changes in the right hip joint.
--- NOTE | 2022-02-26 17:06 | XR_ITS ---
PROCEDURE INFORMATION: Exam: XR Right Hip Exam date and time: 02/26/2022 5:08 PM Age: 76 years old Clinical indication: Injury or trauma; Fall; Blunt trauma (contusions or hematomas); Right; Hip; Additional info: Right leg pain TECHNIQUE: Imaging protocol: XR Right hip. Views: 2 or 3 views hip with pelvis when performed. COMPARISON: CR (HIP AP, HIP, HIP AP) 04/25/2019 11:53 AM FINDINGS: Bones/joints: There are mild degenerative changes in the right hip joint. There is no evidence of acute fracture. There is no evidence of joint malalignment or dislocation. Postoperative changes of the lower lumbar spine. Soft tissues: Unremarkable. IMPRESSION: 1. There are mild degenerative changes in the right hip joint. 2. No evidence of acute fracture. 3. No evidence of acute dislocation.
== END ==
PROVIDERS: PCP Internal Medicine Adolescent Medicine; Visit Provider Internal Medicine Adolescent Medicine
DX: M79.604 Pain in right leg (principal)
CPT/HCPCS: 73502; 73552

== ENCOUNTER 2022-03-26 13:00 | Outpatient (RCR) | payer MEDICARE, SELFPAY ==
--- NOTE | 2022-02-23 15:43 | HMH.PTOPEV ---
PT Outpatient Evaluation Rehab PT Outpatient Evaluation Start: 02/23/22 14:14 Freq: Status: Active Protocol: Document 02/23/22 14:17 NATO (Rec: 02/23/22 15:43 NATO [id number]) Electronically Signed By Ellie Romero, ABHAY 02/23/22 14:17 Outpatient Therapy Subjective History Subjective History Pt is a 76 y/o female that reports she fell on soft mulch 2 weeks ago while pulling her garden hose through shrubs. Pt reports she fell on her left side but started having right thigh/groin pain 3 days later with gradual worsening. Pt reports she went to the doctor but denies having imaging. Pt reports she took a prescribed steroid medication which did not help. Pt reports she recently started using her straight cane a week ago due to pain. Pt reports she started having sharp pains in the posterior right hip when she woke up this morning. Pt denies falls since or numbness/tingling. Pt reports she is unable to stand >5 minutes without increased pain . Pt reports she has 12 steps in her home and has to use a step to pattern going up with the left leg due to pain. Surgical Hx: 4 back surgeries, last in 2000 and right TSA 3 years ago Occupation: Retired Comorbidities: Type II diabetes, hx skin cancer Chief Complaint Pain,Stiff,Gives out/Unstable, Weakness Symptom Type Ache,Sharp Symptoms Relieved By Rest/Positioning Symptoms Aggravated By Standing,Physical Activity, Twisting,Walking Prior Functional Limitations None Current Functional Limitations Standing,Walking,Stairs, Balance Symptom Description Constant but Variable Level of pain today (0-10) 4 Pain scale - at its best (0-10) 4 Pain scale - at its worst (0-10) 10 Hip/Knee Eval Gait Observation General Gait Pattern Observation Antalgic Gait,Decrease Stride
== END 2022-03-26 13:05 | disposition home or self-care (01) ==
LOC: PT 13:00
PROVIDERS: PCP Internal Medicine Adolescent Medicine; Visit Provider Nurse Practitioner Family
DX: M25.561 Pain in right knee (principal); M25.551 Pain in right hip
CPT/HCPCS: 97010; 97014; 97035; 97110; 97112; 97140; 97163; 97530; 97535; G0283

== ENCOUNTER 2022-04-21 13:00 | Outpatient (RCR) | payer MEDICARE, SELFPAY ==
--- NOTE | 2022-03-16 18:00 | HMH.PTOPEV ---
PT Outpatient Evaluation Rehab PT Outpatient Evaluation Start: 03/16/22 16:08 Freq: Status: Active Protocol: Document 03/16/22 16:08 NATO (Rec: 03/16/22 17:59 NATO [id number]) Electronically Signed By Ellie Agustínkatya, ABHAY 03/16/22 16:08 Outpatient Therapy Subjective History Subjective History Pt is a 76 y/o female that reports onset of left posterior hip pain 03/09/22 following walking to the cafeteria after PT. Pt reports a constant dull ache to the left & right of her lumbar incision and denies leg pain or n/t. Pt reports she is unable to stand or walk >5 minutes without increased pain but has minimal pain while resting. Pt reports she has 12 steps in her home and has to use a step to pattern going up with the left leg due to pain . Pt denies change in bowel/ bladder function. Surgical Hx: 4 back surgeries, last in 2000 and right TSA 3 years ago Comorbidities: Type II diabetes, hx skin cancer Chief Complaint Pain,Stiff Symptom Type Ache,Throb,Burning Symptoms Relieved By Rest/Positioning,Heat Symptoms Aggravated By Bending/Stooping,Physical Activity,Twisting,Walking, Lifting Prior Functional Limitations None Current Functional Limitations Housework,Standing,Squatting, Walking,Stairs,Bending/ Stooping Symptom Description Constant but Variable Level of pain today (0-10) 2 Pain scale - at its best (0-10) 2 Pain scale - at its worst (0-10) 9 Lumbopelvic Eval Posture Lumbar Spine Posture Standing Position Flattened Palapation tenderness bilateral lumbar spinal tenderness Yes: around incision, dec pliability noted Accessory Movement L-spine Vertebrae Accessory Movements Central P/A [place] that Elicit Symptoms L2 bilateral L3 bilateral L4 bilateral L5 bilateral Special Tests Hip Scouring (Quadrant) Test Negative Left,Positive Right Hip David (EILEEN) Test Positive Left,Positive Right
--- NOTE | 2022-04-21 13:25 | HMH.RHREAS ---
Rehab Reassessment Rehab OP Re-assessment Start: 04/21/22 13:09 Freq: Status: Active Protocol: Document 04/21/22 13:10 ANTOINETTE (Rec: 04/21/22 13:25 ANTOINETTE [id number]) Electronically Signed By Brent Morgan, PT 04/21/22 13:10 Rehab Re-assessment Subjective Subjective Pt reports 04/12 left hip pain on VAS w/walking Objective Objective Notes MMT: L HIP FLX 4-/5, L HIP IR, ER 4-/5, L KNEE FLX 3+--4/5, L KNEE EXT 4+-/5, L HIP ABD 3+/ 5, L HIP ADD 4-/5 TTP: L HIP FLXR MM 3/4, L TFL 3/4, L PIRI 3/4 AROM: L HIP FLX 0-100 GAIT: SEVERELY ANTALGIC ON LEVEL TERRAIN W/QC Assessment Progress Assessment Slower Than Expected Assessment Notes NO MARKED CHANGES SINCE I EVAL IN STRENGTH, TTP, ROM, OR GAIT. Patient goals met STG'S 12/12 Goals Not Met STG'S 05/14, LTG'S 05/11 Plan Plan Pt to hold from skilled P.T. d /t lack of functional progress . Pt scheduled for left hip injection in mid May. Pt to reinitiate skilled P.T. POC following that procedure. Frequency of Therapy 1-2x/wk Duration of therapy 2-4wks Time and Billing Re-Eval Time 10 Re-Eval Billing Units 0 PHYSICIAN CERTIFICATION: I certify the specified therapy services for Deirdre Leone are required, authorized, and reviewed every 30 days.
== END 2022-04-21 13:05 | disposition home or self-care (01) ==
LOC: PT 13:00
PROVIDERS: PCP Internal Medicine Adolescent Medicine; Visit Provider Internal Medicine Adolescent Medicine
DX: M25.552 Pain in left hip (principal)
CPT/HCPCS: 20560; 97010; 97012; 97014; 97035; 97110; 97140; 97163; 97164; G0283

== ENCOUNTER → 2022-06-03 14:13 | Outpatient (CLI) | payer MEDICARE, SELFPAY ==
--- NOTE | 2022-06-03 14:19 | MR_ITS ---
FINAL REPORT CLINICAL HISTORY: LUMBAGO NEURALGIA pt fell x 4 months ago and lower back pain since right side lbp righ hip pain going down leg with pain , tingling and numbness hx of back surgery on 2000 FINDINGS: Multiplanar MR imaging of the lumbar spine was performed without contrast. There has been fusion of L4-L5. On the sagittal T2-weighted images, disc degeneration is seen at multiple levels. There is mild retrolisthesis of L2 on L3 and L3 on L4. Endplate changes are worse at L2-L3 and L3-L4. There is a hemangioma in L1. There is no evidence of fracture. The conus has an unremarkable appearance. L1-2: There is an annular bulge and facet arthropathy. L2-3: There is an annular bulge, facet arthropathy and vertebral osteophytes. There is a small left paracentral disc protrusion. There is mild right and moderate left neural foraminal narrowing. There is mild central canal stenosis with an AP thecal sac diameter of 7 mm. L3-4: There is an annular bulge, facet arthropathy and vertebral osteophytes. There is bilateral lateral recess stenosis. There is severe bilateral neural foraminal narrowing. There is moderate central canal stenosis with an AP thecal sac diameter of 5 mm. L4-5: There is fusion at this level. There has been L4 laminectomy. There is mild bilateral neural foraminal narrowing. L5-S1: There has been L5 laminectomy. There is an annular bulge, facet arthropathy and vertebral osteophytes. There is a left foraminal disc protrusion. There is left S1 nerve root compromise. There is moderate right and severe left neural foraminal narrowing. IMPRESSION: Fusion of L4-L5 with L4 and L5 laminectomies. Disc protrusions at L2-L3 and L5-S1. Multilevel degenerative disc disease with areas of neural foraminal narrowing and central canal stenosis. Left S1 nerve root compromise at L5-S1. Bilateral lateral recess stenosis at L3-L4. Reviewed, Interpreted and Dictated by Haroldo Llanes III, MD Transcribed by Levon Dale Authenticated and . [facility]
== END ==
PROVIDERS: PCP Orthopaedic Surgery; Visit Provider Internal Medicine Adolescent Medicine
DX: M54.16 Radiculopathy, lumbar region (principal)
CPT/HCPCS: 72148; 76376

== ENCOUNTER 2022-07-27 11:00 | Outpatient (RCR) | payer MEDICARE, SELFPAY ==
--- NOTE | 2022-07-21 14:31 | HMH.PTOPEV ---
PT Outpatient Evaluation Rehab PT Outpatient Evaluation Start: 07/21/22 14:06 Freq: Status: Active Protocol: Document 07/21/22 14:17 ANTOINETTE (Rec: 07/21/22 14:31 ANTOINETTE [id number]) E-signed By Brent Morgan, PT Outpatient Therapy Subjective History Subjective History Pt reports h/o chronic LBP and multiple sx's on lumbar spine . Pt reports most recent exacerbation began in January, with right > left sided LBP, and radicular s/s from right hip to right foot. Pt reports recent MRI of lumbar spine has revealed disc protrusion 'just above my fusion (fusion L4-5, disc protrusion L2-3). Pt reports weakness in right LE as well as pain and N&T. PMH: lumbar spine sx's x4 Chief Complaint Pain,Stiff,Paresthesia, Weakness Symptom Type Ache,Sharp,Dull,Burning, Numbness,Tingling Symptoms Relieved By OTC Meds,Prescription Meds Symptoms Aggravated By Standing,Twisting,Walking, Lifting Prior Functional Limitations Lifting,Housework,Standing, Walking Current Functional Limitations Lifting,Housework,Standing, Walking Symptom Description Constant but Variable Level of pain today (0-10) 5 Pain scale - at its best (0-10) 5 Pain scale - at its worst (0-10) 8 Lumbopelvic Eval Posture Thoracic Spine Posture Standing Position Flattened Lumbar Spine Posture Standing Position Flattened Assistive device Assistive Devices Straight Cane Gait Observation General Gait Pattern Observation Antalgic Gait,Decrease Weight Bear (R) Palapation tenderness right lumbar spinal tenderness Yes: 2-3/4 paraspinal tenderness Yes: 3/4 buttock tenderness Yes: 3/4 Lumbar/Sacral Palpation Findings Tenderness Accessory Movement L-spine Vertebrae Accessory Movements Right P/A Stephen that Elicit Symptoms L2 right L3 right L4 right L5 right S1 right Range of Motion Lumbar Spine Active Flexion Range of 5-50 Motion (degrees) Lumbar Spine Active Extension Range of 5+-0 Motion (degrees) Left Lumbar Spine Lateral Flexion Active 0-20
== END 2022-07-27 11:05 | disposition home or self-care (01) ==
LOC: PT 11:00
PROVIDERS: PCP Nurse Practitioner Family; Visit Provider Nurse Practitioner Family
DX: M54.50 Low back pain, unspecified (principal)
CPT/HCPCS: 97010; 97012; 97014; 97140; 97163; G0283

== ENCOUNTER → 2022-08-18 08:04 | Outpatient (CLI) | payer MEDICARE, SELFPAY ==
--- NOTE | 2022-08-18 08:08 | CT_ITS ---
FINAL REPORT TECHNIQUE: Axial images through the thoracic spine were performed. Sagittal reconstruction images were performed. This study was performed with techniques to keep radiation doses as low as reasonably achievable, (ALARA). Individualized dose reduction techniques using automated exposure control or adjustment of mA and/or kV according to the patient's size were employed. CLINICAL HISTORY: SCOLIOSIS, BACK PAIN FINDINGS: No subluxation or fracture identified. Mild anterior osteophyte formation in the mid and lower thoracic spine. No significant scoliosis is identified. There is a 4 mm nodule in the superior segment of the left lower lobe well seen on image 29 of series 4. There are 2 nodules in the superior segment of the right lower lobe measuring 4 mm well seen on image 33 and 34 of series 4. IMPRESSION: Bilateral nodules as detailed above. As per Fleischner adelaida jarquin a, no follow-up is required for low risk patient. Follow-up in 12 months is recommended for high risk patient. Reviewed, Interpreted and Dictated by Olvin Shrestha MD Transcribed by Sandy Burris Authenticated and [facility]
--- NOTE | 2022-08-18 08:08 | XR_ITS ---
FINAL REPORT TECHNIQUE: Bone densitometry calculations of the lumbar spine and left hip were obtained. CLINICAL HISTORY: osteopenia FINDINGS: DEXA BONE DENSITY AXIAL SKELETON Using L1-4, the bone mineral density of the spine is 1.308 g/cm2, corresponding to T-score of 2.1. Using the left hip, the bone mineral density of the femoral neck is 0.911 g/cm2, corresponding to a T-score of -0.3. Using the right hip, the bone mineral density of the femoral neck is 0.916 g/cm2, corresponding to a T-score of -0.2. NOTE: T-score: Standard deviation compared with peak bone mass of young adult mean. *Following the recommendations of the International Society of Bone densitometry, classification of hip BMD is based on the lower of two T-scores; total hip or femoral neck. IMPRESSION: Normal bone mineral density of the lumbar spine and hip. Reviewed, Interpreted and Dictated by Olvin Shrestha MD Transcribed by Brittny Sifuentes Authenticated and [facility]
== END ==
PROVIDERS: PCP Nurse Practitioner Family; Visit Provider Clinical Nurse Specialist Family Health
DX: Z78.0 Asymptomatic menopausal state (principal); M51.34 Other intervertebral disc degeneration, thoracic region; M41.9 Scoliosis, unspecified
CPT/HCPCS: 72128; 77080

== ENCOUNTER → 2022-12-16 12:02 | Outpatient (CLI) | payer MEDICARE, SELFPAY ==
--- NOTE | 2022-12-16 12:08 | XR_ITS ---
FINAL REPORT CLINICAL HISTORY: ABDOMINAL PAIN FINDINGS: A single view of the abdomen was obtained. There is a nonobstructive bowel gas pattern. There are no abnormally dilated loops of small bowel. There is a moderate amount of retained stool. There are severe degenerative changes of the right hip. Spinal rods extend from T10 through to pelvis. IMPRESSION: 1. Nonobstructive bowel gas pattern. 2. Moderate amount of retained stool. Reviewed, Interpreted and Dictated by Haroldo Llanes III, MD Transcribed by Brittny Sifuentes Authenticated and [facility]
== END ==
PROVIDERS: PCP Internal Medicine Adolescent Medicine; Visit Provider Internal Medicine Adolescent Medicine
DX: R10.9 Unspecified abdominal pain (principal)
CPT/HCPCS: 74018

== ENCOUNTER 2022-12-19 23:09 | Emergency (ER) | payer MEDICARE, SELFPAY ==
[2022-12-19 23:11] VITALS: BP 120/50; PULSE 71; RESP 16; TEMP 37.3; O2SAT 95; BMI 24.7
--- NOTE | 2022-12-19 23:32 | HMH.EDEXTP ---
Discharge Plan Disposition Patient Disposition: Home, Self-Care Chief Complaint: Extremity Injury, Lower Prescriptions Prescriptions: No Action gabapentin 300 mg capsule 300 mg PO DAILY atorvastatin [Lipitor] 10 mg tablet 10 mg PO DAILY hydrochlorothiazide 12.5 mg capsule 12.5 mg PO DAILY celecoxib 200 mg capsule 1 mg PO DAILY spironolactone 100 MG tablet 100 mg PO DAILY Label Comments: take 1 tablet by mouth twice a day bisoprolol fumarate 5 MG tablet 5 mg PO DAILY levothyroxine 50 MCG tablet 50 mcg PO DAILY sitagliptin phosphate 25 MG tablet 25 mg PO DAILY liraglutide 0.6 MG/0.1 ML pen injector 1 ml SQ DAILY tramadol 50 MG tablet 50 mg PO TID PRN (Reason: Moderate Pain) Qty: 30 0RF ondansetron HCl 4 MG tablet 4 mg PO TIDP PRN (Reason: Nausea) Qty: 30 0RF Referrals Follow up/Referrals: Abe Mena MD [Primary Care Provider] - See instructions Clinical Impressions Clinical Impression: DVT (deep venous thrombosis), Cholelithiasis Instructions Patient Instructions: DI for Deep Vein Thrombosis Discharge ED Provider: Kaley (ED)Carlos Extremity Problem HPI General Chief complaint: Extremity Injury, Lower Stated complaint: left leg swelling and pain Time Seen by Provider: 12/19/22 23:32 Mode of Arrival: Wheelchair Source of Information: Patient, Relative and Medical Record Limitations: No Limitations Description of Symptoms (Recalled from ER Triage Doc. by RN): pt c/o LL extermity pain and swelling that started this evening when going to bed. pt also c/o RLQ pain History of Present Illness HPI Narrative: swollen lt lower ext worse last few days and has hx of recent surg and has filter in ivc - no sob -has some rt upper abd pain Complaint: extremity pain, extremity swelling and joint swelling Onset (ago): day(s) Consistency: constant Location: left and lower extremity Associated symptoms: shortness of breath, fever and arthralgias Context: immobilization and recent surgery/procedure Related Data Home Medications Medication Instructions Recorded Confirmed bisoprolol fumarate 5 mg tablet 5 mg PO DAILY Hypertension 05/12/18 02/06/22 levothyroxine 50 mcg tablet 50 mcg PO DAILY THYROID 05/12/18 02/06/22 spironolactone 100 mg tablet 100 mg PO DAILY Hypertension 05/12/18 02/06/22 atorvastatin 10 mg tablet (Lipitor) 10 mg PO DAILY Cholesterol 06/23/19 02/06/22 gabapentin 300 mg capsule 300 mg PO DAILY Pain 06/23/19 02/06/22 celecoxib 200 mg capsule 1 mg PO DAILY Pain 03/11/20 02/06/22 hydrochlorothiazide 12.5 mg capsule 12.5 mg PO DAILY BP 03/11/20 02/06/22 sitagliptin phosphate 25 mg tablet 25 mg PO DAILY Diabetes 09/10/20 02/06/22 liraglutide 0.6 mg/0.1 mL (18 mg/3 1 ml SQ DAILY Diabetes 12/24/21 02/06/22 mL) subcutaneous pen injector Previous Rx's Medication Instructions Recorded ondansetron HCl 4 mg tablet 4 mg PO TIDP PRN Nausea #30 tabs 12/26/21 tramadol 50 mg tablet 50 mg PO TID PRN Moderate Pain #30 12/26/21 tabs Allergies Allergy/AdvReac Type Severity Reaction Status Date / Time fexofenadine [From ARTIE] Allergy Unknown Verified 01/09/22 09:02 [facility] Disclaimer: The information contained in this section may have been updated after the patient was seen, as this information can be updated by other users. Social History Smoking Status: Never smoker alcohol intake: current substance use type: denies use current occupational status: retired Travel in the last 8 weeks: None household members: spouse housing: house current occupational exposures/hazards: No caffeine: Yes ROS Obtained: Yes All systems reviewed & no additional complaints except as documented Physical Exam General General appearance: alert Head Head exam: normocephalic Eye Eye exam: Present PERRL and EOMI ENT ENT exam: Present mucous membranes moist Neck Neck exam: Absent trachea midline Respira
--- NOTE | 2022-12-19 23:35 | CT_ITS ---
PROCEDURE INFORMATION: Exam: CT Abdomen And Pelvis Without Contrast Exam date and time: 12/20/2022 12:18 AM Age: 77 years old Clinical indication: Abdominal pain; Additional info: Abd pain, llq TECHNIQUE: Imaging protocol: Computed tomography of the abdomen and pelvis without contrast. Radiation optimization: All CT scans at this facility use at least one of these dose optimization techniques: automated exposure control; mA and/or kV adjustment per patient size (includes targeted exams where dose is matched to clinical indication); or iterative reconstruction. REPORTING DATA: Count of CT and Cardiac NM exams in prior 12 months: This patient has received [address] and 0 known cardiac nuclear medicine studies in the 12 months prior to the current study. COMPARISON: CR XR KUB 12/16/2022 12:20 PM FINDINGS: Lungs: Patchy bibasilar subsegmental atelectasis. Heart: Small pericardial effusion. Liver: Normal. No mass. Gallbladder and bile ducts: Tiny gallstones without gallbladder wall thickening. Pancreas: Normal. No ductal dilation. Spleen: Normal. No splenomegaly. Adrenal glands: Normal. No mass. Kidneys and ureters: Normal. No hydronephrosis. Stomach and bowel: Unremarkable. No obstruction. No mucosal thickening. Appendix: No evidence of appendicitis. Intraperitoneal space: Unremarkable. No free air. No significant fluid collection. Vasculature: Moderate atherosclerotic calcification of aortoiliac arteries. Inferior vena cava filter grossly in place. Lymph nodes: Unremarkable. No enlarged lymph nodes. Urinary bladder: Unremarkable as visualized. Reproductive: Unremarkable as visualized. Bones/joints: Multilevel ORIF of thoracolumbar spine. ORIF of both sacroiliac joints. Soft tissues: Unremarkable. IMPRESSION: 1. Cholelithiasis. 2. Sigmoid colonic diverticulosis without evidence for diverticulitis. 3. Mild pericardial effusion. COMMENTS: For patients with an IVC filter, recommend assessment for a management plan for the patient's IVC filter. If there is no established management plan, recommend referral to an interventional clinician on a nonemergent basis for evaluation.
[2022-12-19 23:43] LABS: Basophils # 0.1 K/mm3 (0-0.2); Basophils % 0.6 % (0.1-2.0); Eosinophils # 0.2 K/mm3 (0.0-0.4); Eosinophils % 1.9 % (0.1-12.0); Hematocrit 35.8 % (37.0-47.0); Hemoglobin 11.8 g/dL (12.2-16.2); Lymphocytes % 7.8 % (10-50); Mean Corpuscular HGB Conc 33.1 g/dL (31.8-35.4); Mean Corpuscular Hemoglobin 27.5 pg (27.0-31.2); Mean Corpuscular Volume 83.1 fl (81-99); Mean Platelet Volume 8.7 fl (7.4-10.4); Monocytes % 8.4 % (1.7-9.3); Neutrophils # 10.1 K/mm3 (1.8-7.8); Neutrophils % 81.3 % (37.0-80.0); Platelet Count 277 K/mm3 (142-424); Red Cell Distribution Width 14.8 % (11.5-17.5); White Blood Count 12.4 K/mm3 (4.8-10.8)
[2022-12-19 23:45] LABS: Chloride 90 mmol/L (98-107); Potassium 3.9 mmoL/L (3.5-5.1); Sodium 129 mmol/L (136-145)
[2022-12-19 23:48] LABS: Alanine Aminotransferase 15 U/L (12-78); Albumin Level 4.2 g/dl (3.5-5.0); Alkaline Phosphatase 98 U/L (38-126); Amylase 55 U/L (30-110); Anion Gap 13.9 mEq/L (5-15); Aspartate Amino Transferase 24 U/L (14-36); Bilirubin,Total 0.5 mg/dl (0.2-1.3); Blood Urea Nitrogen 26 mg/dl (7-17); Calcium 8.8 mg/dl (8.4-10.2); Carbon Dioxide 29 mmol/L (22.0-30.0); Creatinine Clearance Estimated 34 mL/min (50-200); Estimated Glomerular Filt Rate 36 ml/min (>60); GFR (African American) 44 ML/MIN (>60); Globulin 4.1 g/dL (1.3-3.2); Glucose 162 mg/dl (74-100); Lipase 105 U/L (23-300); Total Protein,Serum 8.3 g/dl (6.3-8.2)
[2022-12-19 23:54] LABS: C-Reactive Protein 134.8 mg/L (0-4)
[2022-12-19 23:59] LABS: NT Pro Brain Natriuretic Pep. 223 pg/mL (0-450)
[2022-12-20 00:07] LABS: Erythrocyte Sedimentation Rate 64 mm/hr (0-30)
[2022-12-20 00:09] LABS: Procalcitonin 0.562 ng/mL (0.0-2.0)
--- NOTE | 2022-12-20 00:13 | PC.NURSE ---
Pt gone to RAD via stretcher
--- NOTE | 2022-12-20 00:21 | PC.NURSE ---
Pt back from RAD
[2022-12-20 00:44] VITALS: BP 109/57; PULSE 74; O2SAT 93
--- NOTE | 2022-12-20 00:44 | PC.NURSE ---
Rounded on pt. No needs or complaints voiced at this time.
--- NOTE | 2022-12-20 00:54 | PC.NURSE ---
Dr. Roche at BS updating pt/family
[2022-12-20 01:08] VITALS: BP 109/57; PULSE 74; RESP 16; TEMP 36.5; O2SAT 93
== END 2022-12-20 01:14 | disposition home or self-care (01) ==
PROVIDERS: Emergency Provider Emergency Medicine; PCP Internal Medicine Adolescent Medicine
DX: I82.401 Acute embolism and thrombosis of unspecified deep veins of right lower extremity (principal); K80.00 Calculus of gallbladder with acute cholecystitis without obstruction
CPT/HCPCS: 74176; 80053; 82150; 83690; 83880; 84145; 85025; 85651; 86140; 96361; 96374; 96375; 99285; J2405

== ENCOUNTER → 2022-12-20 10:30 | Outpatient (CLI) | payer MEDICARE, SELFPAY | PROVIDERS: PCP Internal Medicine Adolescent Medicine; Visit Provider Emergency Medicine | DX: M79.605 Pain in left leg (principal); R60.0 Localized edema | CPT/HCPCS: 93970 ==

== ENCOUNTER → 2023-04-30 13:15 | Outpatient (CLI) | payer MEDICARE, SELFPAY ==
--- NOTE | 2023-04-30 | CA_ITS ---
FINAL REPORT TECHNIQUE: Grayscale compression along with color and spectral Doppler CLINICAL HISTORY: .PREVIOUS DVT 12/20/22 OF CFV,POPILTEAL VEIN,AND POST TIBS OF RIGHT LEG COMPARISON: None FINDINGS: Patient's history is of a deep venous thrombosis in the right leg extending from the calf veins into the greater saphenous and common femoral veins. This was from December 20, 2022. There is persistent prominence of the common femoral vein thrombosis extending to the superficial vein at the confluence, with slight flow identified suggesting residual thrombus. There is no definite appreciable flow in the calf veins. IMPRESSION: Persistent DVT in the right leg, although some flow is now identified in the common femoral and popliteal veins. Reviewed, Interpreted and Dictated by Cori Ordaz MD Transcribed by Lidia Burch Authenticated and [facility]
== END ==
PROVIDERS: PCP Internal Medicine Adolescent Medicine; Visit Provider Nurse Practitioner Family
DX: M79.604 Pain in right leg (principal); M79.89 Other specified soft tissue disorders
CPT/HCPCS: 93971

== ENCOUNTER 2023-09-15 13:00 | Outpatient (RCR) | payer MEDICARE, SELFPAY ==
--- NOTE | 2023-06-02 14:55 | HMH.PTOPWND ---
Rehab Outpt Wound Evaluation Rehab OP Wound Evaluation Start: 06/02/23 14:46 Freq: Status: Active Protocol: Document 06/02/23 14:46 MAURICE (Rec: 06/02/23 14:55 PHOKASSIDY [id number]) E-signed By Ken English, PT Subjective/History History History This is the initial PT eval for Deirdre Leone, 77 yowf who presents with c/o R LE edema x ~ 1-2 mos. She reports recent hx of B LE DVT ~ 5 mos ago and R LE DVT again ~ 2 mos ago. She reports R LE is also having increased pain and intermittent numbness/tingling . She reports she is awaiting a R TIANNA to be performed, but I have to wait until its been a year since I had my back surgery (apparently a rather significant PLIF). She also reports hx of an IVC filter placement around the time of her back surgery. Subjective Subjective Currently pain is 5/10, at worst pain is 10/10 in the R LE. 2+ pitting edema to R foot and lower leg with Moderate to Severe amts of fibrotic edema throughout the R LE and into to R side of her abdomen. Minimal blanchable erythema noted to R lower leg. 2/4 TTP to R lower leg and knee. Lymphedema Eval Classification of Lymphedema Secondary Lymphedema Yes Stemmer's sign Stemmer's Sign yes Stage of Lymphedema Lymphedema stages Stage II (Pitting edema, increased fibrosis w/ decreased pitting) Skin Changes Dry Skin Yes Taut, Shiny Skin Yes Redness Yes Discoloration of Skin Yes Other Changes Yes Pain Scale Pain Scale (0-10) 10 Affected Extremities Areas Affected by Lymphedema/Edema Abdomen,Right Lower Extremity Manual Lymphatic Drainage Treatment Area MLD Treatment Area Abdomen,Right Lower Extremity Wound Problems/Impairments Impairments Problems/Impairmments Palpation Tenderness,Impaired Range of Motion,Impaired Strength,Impaired Endurance, Impaired Transfers,Impaired Gait Pattern,Impaired Walking, Impaired Standing,Impaired Household Care,Impaired Stair Climbing,Increased Edema, Lymphedema Present,Subjective C/O Pain,Impaired Self Care/ Self Management Prognosis Rehab Potential Good Clinical Impression Consistent with Diagnosis Yes Short Term Goals Number of Weeks 2 Decreased Palpation Tenderness Yes: 1/4 R LE Decrease Edema Yes: 1+ pitting edema Decrease Lymphedema Yes: Mild fibrotic edema R LE Decrease Subjective C/O Pain Yes: 7/10 at worst Patient to Understand Lymphedema Yes Treatment and Exercises Decrease Girth Measurments by (cm) Yes: R LE total by 5 cm Usp Goals Number of Weeks 4 Decreased Palpation Tenderness Yes: 0/4 R LE Improve Ability For Household Care Yes: without pain Decrease Edema Yes: no pitting edema Decrease Lymphedema Yes: No fibrotic edema Decrease Subjective C/O Pain Yes: 4/10 at worst Patient to be Ind w/ HEP Yes Patient to Adhere Lymphedema Precautions Yes Decrease Girth Measurments by (cm) Yes: R LE total by 20 cm Outpatient Therapy Plan of Care Treatment Plan May Include Therapeutic Exercise Including Home Yes Exercise Program Manual Therapy Techniques Yes Neuromuscular Re-education Yes Therapeutic Activities to Return to Yes Previous Functional/Work Level ADL/Self Care Education Yes Orthotics/Bracing/Splinting Yes Vasopneumatic Compression Pump Yes Massage Yes Manual Lymphatic Drainage Yes Eval/Re-Eval Yes Frequency Times per week 2 Duration Number of Weeks 4 Addendums This patient is a candidate for social No or vocational rehab? Patient/Guardian verbally acknowledges Yes understanding of treatment program and consents to further treatment? Patient/Guardian verbally acknowledges Yes understanding of diagnosis, prognosis and goals for treatment? G -code Required No Eval Complexity PT Charges 31826 - High Complexity PHYSICIAN CERTIFICATION: I certify the specified therapy services for Deirdre Leone are required, authorized, and reviewed every 30 days.
--- NOTE | 2023-07-02 14:06 | HMH.RHREAS ---
Rehab Reassessment Rehab OP Re-assessment Start: 06/02/23 14:46 Freq: Status: Active Protocol: Document 07/02/23 14:02 MAURICE (Rec: 07/02/23 14:06 MAURICE [id number]) E-signed By Ken English, PT Rehab Re-assessment Subjective Subjective Pt reports less pain overall and most pain is actually from the R hip due to severe OA. She reports, I can bend my leg better and I can get in the car a little easier. Objective Objective Notes Circumferential measurements: R LE total is 279.7 cm which is -16.3 cm since IE. TTP: 10/07 to R LE Edema: 1+ pitting edema and MODERATE fibrotic edema in the R LE. Assessment Progress Assessment Progressing as Expected Assessment Notes Pt has shown significant decrease in overall R LE edema with improvements in ADLs and transfers. She continues to need skilled intervention to return to prior level of function. Patient goals met ST,2,3,4,5,6 Goals Not Met LT,2,3,4,5,6,7,8 Revised Goals none Plan Plan Continue per initial POC. Frequency of Therapy 2 x/wk Duration of therapy 4 wks Time and Billing Re-Eval Time 15 Re-Eval Billing Units 1 PHYSICIAN CERTIFICATION: I certify the specified therapy services for Deirdre Leone are required, authorized, and reviewed every 30 days.
--- NOTE | 2023-08-05 11:36 | HMH.RHREAS ---
Rehab Reassessment Rehab OP Re-assessment Start: 06/02/23 14:46 Freq: Status: Active Protocol: Document 08/05/23 11:32 JULIANERaghavTREVIN (Rec: 08/05/23 11:36 MAURICE [id number]) E-signed By Ken English, PT Rehab Re-assessment Subjective Subjective Pt reports she has difficulty mainatining her loss of edema due to her requiring increased care at home. Objective Objective Notes Circumferential measurements: R LE total is 269.1 cm which is -26.9 cm since IE. TTP: 10/07 to R LE Edema: 1+ pitting edema and MINIMAL fibrotic edema in the R LE. Assessment Assessment Notes Pt has shown continued significant decrease in overall R LE edema with improvements in ADLs and transfers. She continues to need skilled intervention to return to prior level of function. Patient goals met ST,2,3,4,5,6 LT Goals Not Met LT,2,3,4,5,6,7 Plan Plan Continue per initial POC. Frequency of Therapy 2 x/wk Duration of therapy 4 wks Time and Billing Re-Eval Time 13 Re-Eval Billing Units 1 PHYSICIAN CERTIFICATION: I certify the specified therapy services for Deirdre Leone are required, authorized, and reviewed every 30 days.
--- NOTE | 2023-09-06 11:24 | HMH.RHREAS ---
Rehab Reassessment Rehab OP Re-assessment Start: 06/02/23 14:46 Freq: Status: Active Protocol: Document 09/06/23 11:21 MAURICE (Rec: 09/06/23 11:24 PHOKASSIDY [id number]) E-signed By Ken English, PT Rehab Re-assessment Subjective Subjective Pt reports, It is so much easier to walk now that I can bend my knee better withoput all of that swelling I had before. Objective Objective Notes Circumferential measurements: R LE total is 260.6 cm which is -35.4 cm since IE. TTP: 10/07 to R LE Edema: 1+ pitting edema and MINIMAL fibrotic edema in the R LE. Assessment Progress Assessment Progressing as Expected Assessment Notes Pt has shown continued significant decrease in overall R LE edema with improvements in ADLs and transfers. She continues to need skilled intervention to return to prior level of function. Patient goals met ST,2,3,4,5,6 LT Goals Not Met LT,2,3,4,5,6,7 Revised Goals none Plan Plan Continue per initial POC. Pt is scheduled for R TIANNA in ~ 3 wks from this date. Frequency of Therapy 1-2 x/wk Duration of therapy 4 wks Time and Billing Re-Eval Time 14 Re-Eval Billing Units 1 PHYSICIAN CERTIFICATION: I certify the specified therapy services for Deirdre Leone are required, authorized, and reviewed every 30 days.
== END 2023-09-15 14:20 | disposition home or self-care (01) ==
LOC: PT 13:00
PROVIDERS: PCP Internal Medicine Adolescent Medicine; Visit Provider Internal Medicine Adolescent Medicine
DX: I82.501 Chronic embolism and thrombosis of unspecified deep veins of right lower extremity (principal); R60.0 Localized edema
CPT/HCPCS: 97110; 97140; 97163; 97164

== ENCOUNTER 2023-11-01 14:00 | Outpatient (RCR) | payer MEDICARE, SELFPAY | END 2023-11-01 15:00 | disposition home or self-care (01) | LOC: PT 14:00 | PROVIDERS: PCP Internal Medicine Adolescent Medicine; Visit Provider Orthopaedic Surgery Adult Reconstructive Orthopaedic Surgery | DX: M16.11 Unilateral primary osteoarthritis, right hip (principal) | CPT/HCPCS: 97010; 97014; 97110; 97116; 97163; 97530; G0283 ==

== ENCOUNTER 2023-11-29 14:23 | Outpatient (CLI) | payer MEDICARE, SELFPAY ==
--- NOTE | 2023-11-29 14:23 | US_ITS ---
PROCEDURE: US TRANSVAGINAL CLINICAL INDICATION: Post Menopausal Bleeding COMPARISON: CT CT ABDOMEN PELVIS WO CON from 12/20/2022 FINDINGS: Transvaginal sonographic images of the pelvis were obtained. UTERUS: 6.5cm x 3.6x 3.3cm anteverted with a combined endometrial thickness of 1.5mm. There is a nabothian cyst in the cervix that measures 6.5 mm. There is a hyperechoic area in the lower uterine segment measuring 0.7 cm x 0.4 cm x 1.2 cm. LEFT OVARY: Not visualized RIGHT OVARY: Not visualized Both ovaries are not visualized. There is no fluid in the cul-de-sac. IMPRESSION: 1. Anteverted uterus normal in shape and size. 2. The endometrium is thin. 3. Hyperechoic area in the lower uterine segment measuring 1.2 cm. Possible degenerative fibroid. 4. There is significant hypervascularity and varicosities in the left adnexa. 5. The left and right ovary were not visualized today. Likely atrophic. 6. No fluid in the cul-de-sac. Dictated by: Cristian Zamudio MD 11/29/2023 16:49 Cristian Zamudio MD in [place] 11/29/2023 16:49
== END 2023-11-29 23:59 ==
LOC: RAD 14:23
PROVIDERS: PCP Internal Medicine Adolescent Medicine; Visit Provider Obstetrics & Gynecology
DX: N93.9 Abnormal uterine and vaginal bleeding, unspecified (principal); N95.0 Postmenopausal bleeding
CPT/HCPCS: 76830

== ENCOUNTER 2023-12-10 13:14 | Outpatient (CLI) | payer MEDICARE, SELFPAY ==
--- NOTE | 2023-12-10 | CA_ITS ---
APPROVED REPORT EXAM: Comprehensive 2D, Doppler, and color-flow Echocardiogram Reconciliation Manager: Deirdre Joseph RDCS Ht: 5 ft 5 in Wt: 174lbs BSA: 1.86 BP: 132/78 mmHg Indications: SOA M-Mode Dimensions RVDd 2.51 cm (0.9-2.6) LA Diam 3.41 cm (1.9-4.0) LVDd 4.45 cm (3.5-5.7) LVDs 2.33 cm (3.5-5.7) IVSd 1.11 cm (0.6-1.1) PWd 0.86 cm (0.6-1.1) EF (Teich) 79.20% FS 47.60% EDV (Teich) 90.10 mL ESV (Teich) 18.70 mL LV Diastology E Decel Time 210 (160-240 msec) E/A Ratio 0.8 Aortic Valve AI PHT 408.00 ms Mitral Valve MV E Max Bal. 77.0 (40-130 cm/s) MV A Velocity 101.0 (40-130 cm/s) E/A Ratio 0.76 MV PHT 62.0 ms Left Ventricle The left ventricle is normal size. The left ventricular systolic function is normal. The left ventricular ejection fraction is within the normal range. There is increased LV wall thickness. There is normal LV segmental wall motion. The left ventricular diastolic function is normal. LVEF is 55%. Right Ventricle The right ventricle is mildly dilated. The right ventricular systolic function is normal. Atria The left atrium is mildly dilated. The right atrium size is normal. There is no Doppler evidence of interatrial shunt. Aortic Valve The aortic valve is mildly thickened. There is no aortic valvular stenosis. Mild aortic regurgitation. Mitral Valve The mitral valve leaflets are mildly thickened. No evidence of mitral valve stenosis. Trace mitral regurgitation. Tricuspid Valve The tricuspid valve leaflets are thin and pliable. Trace tricuspid regurgitation. There is insufficient TR jet to estimate RVSP. Pulmonic Valve The pulmonary valve is normal in structure. Trace pulmonic regurgitation. Great Vessels The aortic root is normal in size. The ascending aorta is normal in size. The IVC is not well-visualized. Pericardium There is no pericardial effusion. Other Information Study Quality: Fair Conclusion Normal biventricular systolic function. Mild RV dilation. Mild AI. Electronically signed by : Mily Hernández MD 12/13/2023 23:32:56
== END 2023-12-10 23:59 ==
LOC: RT 13:14
PROVIDERS: PCP Internal Medicine Adolescent Medicine; Visit Provider Internal Medicine Adolescent Medicine
DX: R06.02 Shortness of breath (principal); R60.0 Localized edema
CPT/HCPCS: 93306

== ENCOUNTER 2023-12-24 14:09 | Outpatient (CLI) | payer MEDICARE, SELFPAY ==
--- NOTE | 2023-12-24 | CA_ITS ---
FINAL REPORT CLINICAL HISTORY: Left leg pain with edema x 2 days, Post-op 8 weeks, Previous DVT, IVC filter FINDINGS: Color Doppler, duplex Doppler and compression sonography of the bilateral lower extremities was performed. There is deep venous thrombosis in the left common femoral vein through the left peroneal vein. There is no evidence of deep venous thrombosis on the right. IMPRESSION: DVT in the left common femoral vein through the left peroneal vein. No evidence of DVT on the right. Reviewed, Interpreted and Dictated by Haroldo Llanes III, MD Transcribed by Sandy Burris Authenticated and [facility]
== END 2023-12-24 23:59 ==
PROVIDERS: PCP Internal Medicine Adolescent Medicine; Visit Provider Internal Medicine Adolescent Medicine
DX: R60.0 Localized edema (principal)
CPT/HCPCS: 93970

== ENCOUNTER 2024-04-25 15:00 | Outpatient (RCR) | payer MEDICARE, SELFPAY ==
--- NOTE | 2024-01-27 14:22 | HMH.PTOPWND ---
Rehab Outpt Wound Evaluation Rehab OP Wound Evaluation Start: 01/27/24 14:14 Freq: Status: Active Protocol: Document 01/27/24 14:15 MAURICE (Rec: 01/27/24 14:22 [email or web address] [id number]) E-signed By Ken English, PT Subjective/History History History This is the initial PT eval for Deirdre Leone, 78 yowf who presents with c/o L LE increased edema x ~ 1 mo with chronic L LE DVT. She remains on anticoagulation consistently. She reports minimal doscomfort at this time, but worsening edema with more dependent positioning throughout the day. Subjective Subjective She reports 0/10 pain at this time, 1/10 pain at the worst, it just gets stiff because of the swelling. SHe has moderate blanchable erythema, 2/4 TTP to L lower leg and foot, and 1+ pitting edema to the L lower leg from knee distally. New diagnosis of cancer in past 12 No months? Lymphedema Eval Classification of Lymphedema Secondary Lymphedema Yes Stemmer's sign Stemmer's Sign yes Stage of Lymphedema Lymphedema stages Stage I (Pitting edema, reduces w/ elevation, no fibrosis) Skin Changes Dry Skin Yes Redness Yes Discoloration of Skin Yes Other Changes Yes Pain Scale Pain Scale (0-10) 1 Affected Extremities Areas Affected by Lymphedema/Edema Left Lower Extremity Manual Lymphatic Drainage Treatment Area MLD Treatment Area Left Lower Extremity Wound Problems/Impairments Impairments Problems/Impairmments Palpation Tenderness,Impaired Household Care,Increased Edema ,Lymphedema Present,Subjective C/O Pain,Impaired Self Care/ Self Management Prognosis Rehab Potential Good Clinical Impression Consistent with Diagnosis Yes Short Term Goals Number of Weeks 2 Decreased Palpation Tenderness Yes: 1/4 L lower leg Decrease Edema Yes: no pitting edema L LE Patient to Understand Lymphedema Yes Treatment and Exercises Decrease Girth Measurments by (cm) Yes: L LE by 5 cm total Usp Goals Number of Weeks 4 Decreased Palpation Tenderness Yes: 0/4 L lower leg Improve Ability For Household Care Yes Decrease Lymphedema Yes: No fibrotic edema Decrease Subjective C/O Pain Yes: 0/10 L LE Patient to be Ind w/ HEP Yes Patient to Adhere Lymphedema Precautions Yes Decrease Girth Measurments by (cm) Yes: L LE total by 15 cm Outpatient Therapy Plan of Care Treatment Plan May Include Therapeutic Exercise Including Home Yes Exercise Program Manual Therapy Techniques Yes Neuromuscular Re-education Yes Therapeutic Activities to Return to Yes Previous Functional/Work Level ADL/Self Care Education Yes Orthotics/Bracing/Splinting Yes Manual Lymphatic Drainage Yes Eval/Re-Eval Yes Frequency Times per week 2 Duration Number of Weeks 4 Addendums This patient is a candidate for social No or vocational rehab? Patient/Guardian verbally acknowledges Yes understanding of treatment program and consents to further treatment? Patient/Guardian verbally acknowledges Yes understanding of diagnosis, prognosis and goals for treatment? Eval Complexity PT Charges 21587 - High Complexity PHYSICIAN CERTIFICATION: I certify the specified therapy services for Deirdre Leone are required, authorized, and reviewed every 30 days.
--- NOTE | 2024-03-03 16:11 | HMH.RHREAS ---
Rehab Reassessment Rehab OP Re-assessment Start: 01/27/24 14:14 Freq: Status: Active Protocol: Document 03/03/24 16:04 PHORTREVIN (Rec: 03/03/24 16:10 PHORNE Laptop) E-signed By Ken English, PT Rehab Re-assessment Subjective Subjective Pt reports she feels much better overall and is doing more gardening and recreational activity. She does continue to report heaviness in her L leg. Objective Objective Notes Circumferential measurements: L LE total is 290.0 cm which is -0.1 cm since IE. Edema: No pitting edema noted to L LE. TTP: 10/07 L lower leg Assessment Progress Assessment Progressing as Expected Assessment Notes Pt has shown improvement in functional mobility and discomfort. She has not shown much less edema in the L LE overall. She continues to need skilled intervention to return to prior level of function. Patient goals met ST LT7 Goals Not Met ST/4 LT/7 Plan Plan Continue per initial POC. Frequency of Therapy 1 x/wk Duration of therapy 4 wks Time and Billing Re-Eval Time 10 Re-Eval Billing Units 0 PHYSICIAN CERTIFICATION: I certify the specified therapy services for Deirdre Leone are required, authorized, and reviewed every 30 days.
--- NOTE | 2024-04-20 16:00 | HMH.RHREAS ---
Rehab Reassessment Rehab OP Re-assessment Start: 01/27/24 14:14 Freq: Status: Active Protocol: Document 04/20/24 15:55 MAURICE (Rec: 04/20/24 15:59 [email or web address] [id number]) E-signed By Ken English, PT Rehab Re-assessment Subjective Subjective Pt reports, I feel all backed up in my abdomen and that seems like I can't get rid of it. She reports she had mild weeping of her L LE 1-2 wks ago, but the doctor gave me a cream to put on and that helped a lot. Objective Objective Notes Circumferential measurements: L LE total is 280.8 cm which is -8.3 cm since IE. Edema: 1+ pitting edema noted to L ankle. TTP: 10/07 L lower leg Assessment Progress Assessment Progressing as Expected Assessment Notes Pt has shown improvement in functional mobility and discomfort with mild reduction in edema in the L LE overall. She continues to need skilled intervention to return to prior level of function. Patient goals met ST/4 LT Plan Plan Continue per initial POC. Frequency of Therapy 1 x/wk Duration of therapy 4 wks Time and Billing Re-Eval Time 9 Re-Eval Billing Units 0 PHYSICIAN CERTIFICATION: I certify the specified therapy services for Deirdre Leone are required, authorized, and reviewed every 30 days.
== END 2024-04-25 23:59 | disposition home or self-care (01) ==
LOC: PT 15:00
PROVIDERS: Visit Provider Internal Medicine Adolescent Medicine
DX: R60.0 Localized edema (principal); I82.501 Chronic embolism and thrombosis of unspecified deep veins of right lower extremity
CPT/HCPCS: 97140; 97163; 97164

== ENCOUNTER 2024-07-21 09:31 | Day surgery (SDC) | payer MEDICARE, SELFPAY ==
[2024-07-20 10:31] VITALS: BMI 28.3
--- NOTE | 2024-07-21 09:46 | P.PNANES_ITS ---
[facility] Disclaimer: The information contained in this section may have been updated after the patient was seen, as this information can be updated by other users. Medical History Diabetes mellitus, type 2 Hypertension Hyperlipidemia History of skin cancer DVT (deep venous thrombosis) Hyperinsulinemia Surgical History History of colonoscopy History of back surgery H/O shoulder replacement H/O tubal ligation History of hip replacement History of D&C Family History Sister Cancer breast Social History Smoking Status: Never smoker alcohol intake: never substance use type: denies use current occupational status: retired Travel in the last 8 weeks: None household members: spouse housing: house current occupational exposures/hazards: No caffeine: Yes [facility] Anesthesia Checklist Patient Identification Patient Identification: Arm Band and Verbal (Name & ) Structural Data Admitted From: Home Planned Operative Procedure/s: Colonoscopy Consent for Planned Operative Procedure(s) Verified: Yes Verified Documents: Surgical Consent and History and Physical NPO Status Verified Time NPO: 00:00 Chart Verification Results Verified: CBC and BMP Additional verifications Patient : No Anesthesia Reactions: No Hx Blood Transfusions: No Blood Transfusion Reaction: No Cardiovascular Assessment Heart Sounds: S1 & S2 Pulse Rhythm: Irregular Peripheral Edema: No Airway Assessment Mallampati Score:: Class II C-Spine Mobility Assessed: Yes (FROM) TMJ Mobility Assessed: Yes Dentition: Good Dentition (Nothing loose per pt.) Neurological Assessment Level of Consciousness: Awake, Alert, Appropriate and Follows Commands Hx Seizures: No Numbness or tingling in extremities: No Anesthesia Plan Anesthesia Risk discussed: Yes Anesthesia Plan: Verified ASA Class: III Anesthesia Type: MAC
[2024-07-21 09:48] VITALS: BP 134/73; PULSE 61; RESP 18; TEMP 36.4; O2SAT 98; BMI 28.3
--- NOTE | 2024-07-21 09:51 | P.PCN_ITS ---
Procedure: Date: 07/21/24 Patient Date of :: 1945 Procedure Performed:: Total colonoscopy to terminal ileum with multiple polypectomy Indications:: Patient is an 79-year-old female. She had undergone initial colonoscopy in January 2011. She had follow-up colonoscopy 09/10/2020 at which time she had 4 tubular adenomas removed. 3-year follow-up colonoscopy was recommended. . Performing Provider:: Haroldo Adame MD Referring Provider:: Abe Mena MD Sedation:: MAC sedation Procedure:: Patient history was obtained and appropriate physical examination was performed. Patient's medications and allergies were reviewed. Informed consent was obtained after explaining the benefits, alternatives, and risks of the procedure including, but not limited to, bleeding, perforation, missed lesions, and adv erse reaction to anesthesia medications. Patient was transported to endoscopy procedure room. Patient was connected to monitoring devices. Throughout the procedure the patient's blood pressure, pu lse, and oxygen saturations were monitored continuously. Patient identification and planned procedure were verified by the staff. Patient was positioned in lateral decubitus position. Digital anorectal exam was performed. Variable stiffness Olympus colonoscope was inserted and advanced under direct visualization to the cecum. Adequacy of the colonic preparation was noted. The colonoscope was advanced a short distance into the terminal ileum. The colonoscope was then slowly withdrawn while carefully examining the color, texture, anatomy, and integrity of the mucosoa circumferentially. Within the rectum retroflexion was performed. Colonoscope was then withdrawn. Impression: Colonic preparation was good. In the ascending colon there was noted to be a small to moderate adenomatous appearing polyp removed with cold snare. Residual polyp tissue removed with biopsy forceps. Upon retrieval of this polyp the colonoscope was advanced and there was noted to be a tiny polyp in the cecum which was adenomatous appearing removed with biopsy forceps. In the proximal transverse colon just distal to the hepatic flexure there was moderately large polyp removed with hot snare. In the proximal descending colon there was a adenomatous appearing polyp removed with cold snare. The sigmoid colon there was a focal single erosion which was biopsied. She had moderate sigmoid diverticulosis. . Findings:: Polyps as noted above. Total of 4 adenomatous appearing polyps removed. The largest of which was proximal transverse colon just distal to the hepatic flexure Sigmoid diverticulosis Small focal erosion in sigmoid colon biopsied, likely inconsequential Minimal internal hemorrhoids . Recommendations:: Follow-up colonoscopy pending pathology and patient's health. Complications:: None immediately apparent Estimated blood obtained (mL): 2 Colonoscopy Component Colonoscopy Component Was a colonoscopy performed during today's procedure?: Yes Recommended follow up colonoscopy of at least 10 years?: No If no, follow up colonoscopy recommended in ___ years?: See above Reason for not recommending >/= 10 yr follow-up interval?: See above
[2024-07-21] MEDS: LACTATED RINGERS 1000ML 1,000 ML 100 ML IV (09:53)
[2024-07-21 09:59] VITALS: O2SAT 95
[2024-07-21 10:35] VITALS: BP 92/49; PULSE 55; RESP 14; TEMP 36.1; O2SAT 96
[2024-07-21 10:45] VITALS: BP 97/48; PULSE 62; RESP 16; O2SAT 96
[2024-07-21 10:55] VITALS: BP 136/92; PULSE 65; RESP 16; O2SAT 96
[2024-07-21 11:04] VITALS: BP 136/92; PULSE 65; RESP 16; O2SAT 97
[2024-07-21 19:33] LABS: POC Glucose,Bedside 149 (70-110)
== END 2024-07-21 11:05 | disposition home or self-care (01) ==
PROVIDERS: PCP Internal Medicine Adolescent Medicine; Visit Provider Surgery
PROC: 0DJD8ZZ Inspection of Lower Intestinal Tract, Via Natural or Artificial Opening Endoscopic (ICD-10-PCS; CPT 45380; principal; 2024-07-21 10:30)
DX: D12.2 Benign neoplasm of ascending colon (principal); D12.0 Benign neoplasm of cecum; D12.4 Benign neoplasm of descending colon; D12.3 Benign neoplasm of transverse colon; K57.30 Diverticulosis of large intestine without perforation or abscess without bleeding; K63.3 Ulcer of intestine; E11.8 Type 2 diabetes mellitus with unspecified complications; Z86.0101 Personal history of adenomatous and serrated colon polyps
CPT/HCPCS: 45380; 45385; 82962; 88305; J7120

== ENCOUNTER 2024-12-14 11:17 | Outpatient (CLI) | payer MEDICARE, SELFPAY ==
--- NOTE | 2024-12-14 11:20 | US_ITS ---
PROCEDURE: US TRANSVAGINAL CLINICAL INDICATION: Post menopausal Bleeding COMPARISON: US US TRANSVAGINAL from 08/14/[address] ABDOMEN PELVIS WO CON from 12/20/2022 US US TRANSVAGINAL from 11/29/2023 FINDINGS: Transvaginal sonographic images of the pelvis were obtained. UTERUS: 5.4cm x 3.9 cmx 3.4cm anteverted with a combined endometrial thickness of 1.9mm. The previously described lesion in the lower uterine segment is still present and measures 9.5 mm x 4.1 mm x 3.2 mm, appears to be slightly smaller in size. Possible small fibroid. The uterine muscle appears heterogenous likely as result of degenerative changes. There appears to be a small amount of fluid in the cervix. LEFT OVARY: Left ovary is not visualized. There is hypervascularity in the left adnexa likely a varicosity. RIGHT OVARY: Right ovary is not visualized. Similar hypervascularity and varicosity seen in the right adnexa as well. Both ovaries are not visualized. There is no fluid in the cul-de-sac. IMPRESSION: 1. Anteverted, small uterus. The endometrium is thin measuring 1.9 mm. There continues to be a small lesion in the lower uterine segment, possibly a fibroid that measures 9.5 mm x 4.1 mm. It appears to be smaller in size today. There is a small amount of fluid in the cervical canal. 2. Ovaries were not visualized . There is significant hypervascularity in both adnexa consistent with varicosities. This was seen on the previous exam. 3. No fluid in the cul-de-sac. Dictated by: Cristian Zamudio MD 12/14/2024 19:12 Cristian Zamudio MD in [place] 12/14/2024 19:12
== END 2024-12-14 23:59 | disposition home or self-care (01) ==
LOC: RAD 11:17
PROVIDERS: PCP Internal Medicine Adolescent Medicine; Visit Provider Obstetrics & Gynecology
DX: N95.0 Postmenopausal bleeding (principal)
CPT/HCPCS: 76830

== ENCOUNTER 2025-06-19 10:01 | Outpatient (CLI) | payer MEDICARE, SELFPAY ==
--- OUTSIDE RECORDS SUMMARY | 2025-02-21 10:00 | XMS_ITS ---
Author Organization [facility] Address [address] [facility] [address] [place] [address] Care Team Providers Care Culinary Arts Teacher Name Role Phone Abe Mena Primary Care Provider Monse Chiu Unavailable [phone] Abe Mena Unavailable Unavailable REASON FOR VISIT 2 Month F/U Encounters Encounter Location Date Provider Diagnosis [facility] [address] [facility] [address] [place] [address] 02/21/2025 Abe Mena Plan Of Treatment Next Appt Details Provider Name:Abe Mena, 07/25/2025 11:45:00 AM, [address] [facility], [address], [place], [address], Progress Notes * Deirdre LEONARDO SDOB:[birth year] (79 yo F)Acc No.[id number]:02/21/2025 Progress Notes Patient: Mara Deirdre VELASQUEZ S Provider: Concepcion Mena MD :1945 A ge:79 Y S ex:Female Date:02/21/2025 Address: [address], [id number] Subjective: * Chief Complaints: * 1 . 2 Month F/U. * Medical History: Objective: * Vitals: Assessment: Plan: * Treatment: * * Electronic signature of Scott Mena MD FAAP on 06/19/2025 at 10:28 AM EDT Sign off status: Pending * Provider: Concepcion Mena MD Date: 0 02/21/2025 Generated for Teressa turner/Deysi/Vandana on: 0 06/19/2025 10:28 AM EDT
--- OUTSIDE RECORDS SUMMARY | 2025-04-23 07:15 | XMS_ITS ---
Author Organization [facility] Address [address] [facility] [address] [place] [address] Care Team Providers Care Nail Technician Name Role Phone Abe Mena Primary Care Provider Monse Chiu Unavailable [phone] Abe Mena Unavailable Unavailable Allergies Allergen (clinical drug ingredient) Drug/Non Drug Allergy documented on EMR Reaction Allergy Type Onset Date Status Adenike Allergy tachycardia Drug Allergy Active Results Component Value Reference Range Notes THYROID PANEL WITH TSH (7444 ) Reviewed date:04/25/2025 09:50:29 AM Interpretation: Performing Lab:SE [email or web address] [id number] Apptim[facility]eteQuirkyLakeWood [facility] CenterYlexQA[address] Jamie Flores Notes/Report: NON-FASTING; NON-FASTING; NON-FASTING T3 UPTAKE 31 22-35 % T4 (THYROXINE), TOTAL 9.0 5.1-11.9 mcg/dL FREE T4 INDEX (T7) 2.8 1.4-3.8 TSH 0.97 0.40-4.50 mIU/L BASIC METABOLIC PANEL (88831 ) Reviewed date:04/25/2025 09:50:29 AM Interpretation: Performing Lab:SE [employer]1355 ApptimizeteQuirkyLakeWood Health CenterQsgxNZ[address] Jamie Flores Notes/Report: NON-FASTING; NON-FASTING; NON-FASTING GLUCOSE [...] date:04/25/2025 09:50:29 AM Interpretation: Performing Lab:SE, [facility] [address], [facility] HospitalVxzfWZ[address] Jamie Flores Notes/Report: NON-FASTING; NON-FASTING; NON-FASTING HEMOGLOBIN [...] Problem Localized, primary osteoarthritis of the hand ([id number]) Arthritis of carpometacarpal (CMC) joint of right thumb (M18.11) Active confirmed Vital Signs Temperature 97.9 degrees Fahrenheit 04/23/20 25 Heart Rate 76 /min 04/23/2025 Blood pressure systolic 126 mm Hg 04/23/20 25 Blood pressure diastolic 84 mm Hg 025 Height 65 in 04/23/2025 Weight 171 lbs 04/23/2025 BMI 28.45 kg/m2 04/23/2025 Encounters Encounter Location Date Provider Diagnosis [facility] [place] [address] [facility] [address] [facility] [place] [address] 04/23/2025 Abe Rajesh Type 2 diabetes migue [...] Name:Abe Mena, 07/25/2025 11:45:00 AM, [address] [place] [facility] [address] [facility], [address], [place], [address], Progress Notes * Deirdre LEONARDO SDOB:[birth year] (79 yo F)Acc No.[id number]:04/23/2025 Progress Notes Patient: Deirdre BERKOWITZ Provider: Concepcion Mena MD :1945 A ge:79 Y S ex:Female Date:04/23/2025 Address:[address]-[address] Subjective: * Chief Complaints: * 1 [...] . * Family History: F ather: , [place]. M other: , MIHTN. P aternal Grand Father: .?Paternal Grand Mother: . M aternal Grand Father: . M aternal Grand Mother: , CVA. P aternal uncle: , Heart disease. P aternal aunt: . M aternal uncle: . M aternal aunt: . S tong: alive, 1 sister [place], copd, heart disease, diabetes, hyperlipidemiabreast cancer, diagnosed [...] 09:50 AM EDT ?LAB: BASIC METABOLIC PANEL (25704)* Value Reference Range G LUCOSE 90 65-99 [...] 09:50 AM EDT ?LAB: BASIC METABOLIC PANEL (97935)* Value Reference Range G LUCOSE 90 65-99 [...] 09:50 AM EDT ?LAB: BASIC METABOLIC PANEL (39650)* Value Reference Range G LUCOSE 90 65-99 [...] true * Provider: Concepcion Mena MD Date: 0 04/23/2025 Generated for Teressa turner/Deysi/Daylinsmitting on: 0 06/19/2025 10:28 AM EDT History and Physical Notes * HPI [...]
--- OUTSIDE RECORDS SUMMARY | 2025-06-05 12:30 | XMS_ITS | Encounter Summary ---
Author Organization Healthcare Address [address] [place] [address] Care Team Providers Care Personnel Security Specialist Name Role Phone Abe Mena MD Primary Care Provider [phone] Tray Navas MD Unavailable [phone] Shabnam Vasquez PYROTECHNICIAN Unavailable [phone] Encounter Details Date Type Department Care Team (Late st Contact Info) Description 06/05/2025 12:30 PM EDT Office Visit [facility] [address] [place] [address] Lico Shi MD [address] [address] Malignant neoplasm of left breast [...] drink first t kaiden in the morning (EYE-WOLF HUNTER) to steady your nerves or to get [...] Edition - Clinical: cT1c, cN0, cM0, ER+, AL+, HER2- - Signed by Lico Shi MD on 04/05/2025 DIAGNOSIS: Diagnosis Plan 1. Malignant neoplasm of left breast in female, estrogen receptor positive, unspecified site of breast History of present illness: Patient was an 79-year-old female with a recently abnormal mammogram through the [facility]. Recent MRI done on 09/28/2025 showed a spiculated area of 16 x 9 x 10 mm in size in the left breast.That has biopsy on the left breast that has consistent with a invasive cancer grade 2. There was some perineural invasion mentioned as well. It was strongly ER AL positive HER2 negative by IHC and with [...] Comment: Surgical Pathology Report NAME:MARK LEONARDO PATH: [id number] DATE of : 1945 Copy to: Diagnosis: [...] minimal amount of dense fibrous breast tissue. Private Watchman sections submitted in 9 cassettes as follows: A1 - posterior margin A2 - anterior margin A3-A4 - medial margin A5-A8 - lesion entirely submitted to include superior, inferior and lateral margins A9 - additional inferior margin Ink Code: Red = lateral [place] = medial Blue = posterior Green = inferior Black = anterior Yellow = superior COLLECTION TIME: 9:57 AM TIME INTO FORMALIN: 10:00 AM ISCHEMIC TIME: 3 minutes TOTAL FIXATION TIME: 57 hours 2 minutes Note: The breast specimen processed meets the fixation time standards of 6-72 hrs., which have been set by the [place] [employer] On[employer] (ASCO) and the College of [place] [employer] (CAP), to ensure appropriate tissue quality for effective ER, AL, Her2 receptor testing. B) Patient name and [...] labeled B1-B33. Ink code: Red = lateral [place] = medial Green = inferior Blue = [...] radiation oncology. 2. Patient had radiation in [place] without any major incident completed earlier this [...] Description 07/17/2025 11:15 AM EDT Office Visit [facility] [address] [place] [address] Lico Shi MD [address] [address] 04/10/2026 11:30 AM EDT Office Visit [facility] [address] [place] [address] Lico Shi MD [address] [address] documented as of this encounter [...] documented as of this encounter Care Teams Personnel Security Specialist Relationship Specialty Start Date End Date Abe Mena MD [address] [place] [address] PCP - General 02/14/21 Tray Navas MD [address] [place] [address] Surgeon Neurosurgery 08/05/22 Shabnam Vasquez APRN [address] [place] [address] Nurse Practitioner Neurosurgery 09/14/22 documented as of this encounter
--- OUTSIDE RECORDS SUMMARY | 2025-06-06 12:04 | XMS_ITS ---
Author Organization [facility] Address [address] [facility] [address] [facility] [address] [place] [address] Care Team Providers Care Leak Hunter Name Role Phone Abe Mena Primary Care Provider Monse Chiu Unavailable [phone] Abe Mena Unavailable Unavailable REASON FOR VISIT xx Encounters Encounter Location Date Provider Diagnosis [facility] [address] [facility] [address] [facility] [address] [place] [address] 06/06/2025 Abe Mena Plan Of Treatment Next Appt Details Provider Name:Abe Mena, 07/25/2025 11:45:00 AM, [address] [facility] [address] [facility], [address], [place], [address], Progress Notes * Deirdre LEONARDO SDOB:[birth year] (79 yo F)Acc No.[id number]:06/06/2025 Patient: Mara Deirdre VELASQUEZ :1945 A ge:79 Y S ex:Female Address: [place] [address] Subjective: * Chief Complaints: * X x * Medical History: * Surgical History: * Hospitalization/Major Diagno stic Procedure: * Medications: Objective: * Vitals: * Physical Examination: Assessment: Plan: * Treatment: * Procedure Codes: * true * Date: Generated for Printi ng/Faxing/eTransmitting on: 0 06/19/2025 10:28 AM EDT
--- OUTSIDE RECORDS SUMMARY | 2025-06-08 11:30 | XMS_ITS ---
Author Organization [facility] Address [address] [facility] [address] [facility] [address] [place] [address] Care Team Providers Care Sea Shell Gatherer Name Role Phone Abe Mena Primary Care Provider Monse Chiu Unavailable [phone] Abe Mena Unavailable Unavailable REASON FOR VISIT Flu Shot Immunizations Vaccine Route Administration Date Status Comme nts Fluzone High Dose IM Intramuscular 06/08/2025 Administered Encounters Encounter Location Date Provider Diagnosis [facility] [address] [facility] [address] [facility] [address] [place] [address] 06/08/2025 Abe Mena Immunization(s) administered Z23 Assessments Encounter Date Diagnosis (ICD Code) Assessment Notes Treatment Notes Treatment Clinical Notes Section Notes 06/08/2025 Immunization(s) administered (ICD-10 - Z23) Plan Of Treatment Next Appt Details Follow Up: prn, Reason: Provider Name:Abe Mena, 07/25/2025 11:45:00 AM, [address] [facility] [address] [facility], [address], [place], [address], Progress Notes * Deirdre LEONARDO SDOB:[birth year] (79 yo F)Acc No.[id number]:06/08/2025 Patient: Deirdre BERKOWITZ Provider: Concepcino Mena MD :1945 A ge:79 Y S ex:Female Date:06/08/2025 Address:[place] [address], [facility] [place], [id number] Subjective: * Chief Complaints: * 1 . Flu Shot. * Medical History: Objective: * Vitals: Assessment: * Assessment: 1. I mmunization(s) administered - Z23 (Primary) Plan: * Treatment: * Immunizations: Fluzone High Dose : 0.5 mL (Dose No:1) (Route: Intramuscular) given by [place] on Left Deltoid (Immunization(s) administered) * Procedure Codes: 9 0662 Influenza High Dose Vaccine >65 Years Old, G0008 ADMINISTRATION-FLU VACCINE MEDICARE ONLY * Follow Up: p rn * * Sign off status: Completed true * Provider: Concepcion Mena MD Date: 0 06/08/2025 Generated for Teressa turner/Deysi/Mingoitting on: 0 06/19/2025 10:29 AM EDT
--- OUTSIDE RECORDS SUMMARY | 2025-06-19 10:28 | XMS_ITS | Clinical Summary ---
Author Organization [facility] Address [address] [place] [address] Care Team Providers Care Traveling Repair Accountant Name Role Phone Abe Mena MD Primary Care Provider [phone] Tray Navas MD Unavailable [phone] Shabnam Vasquez RN PHYSICIAN OFFICE Unavailable Allergies Active Allergy Reactions Criticality Noted Date Comments Fexofenadine Other - please docum ent in the comment field Low 08/31/2017 Rapid heart beat Other reaction(s): tachycardia Oxycodone Nausea Medium 09/29/2023 Tramadol Other - please docum ent in the comment field Low 09/29/2023 Hearing problem Medications gabapentin (Neurontin) 300 MG capsule Take 1 capsule (300 mg) by mouth 3 (three) times a day. 7 Active levothyroxine (Synthroid, Levoxyl) 75 MCG tablet Take 1 tablet (75 mcg) by mouth daily. 2 Active atorvastatin (Lipitor) 40 MG tablet Take 1 tablet (40 mg) by mouth nightly. 2 Active losartan (Cozaar) 25 MG tablet Take 1 tablet (25 mg) by mouth daily. 2 Active rivaroxaban (Xarelto) 20 MG tablet Take by mouth. Take with food. Active furosemide (Lasix) 20 MG tablet Take 1 tablet (20 mg) by mouth daily. 5 Active spironolactone (Aldactone) 50 MG tablet Take 1 tablet (50 mg) by mouth 2 (two) times a day. Active glimepiride (Amaryl) 2 MG tablet Take 1 tablet by mouth daily. 5 Active prednisoLONE acetate (Pred-Forte) 1 % ophthalmic suspension Instill 1 drop into the left eye 4 times daily for 4 days, then 2 times daily for 4 days. Then stop. 10 mL 5 Active letrozole (Femara) 2.5 MG chemo tablet Take 1 tablet (2.5 mg total) by mouth daily. Take with or without food. 90 tablet 3 5 05/31/20 26 Active Eliquis 5 MG tablet Take 1 tablet (5 mg) by mouth 2 (two) times a day. 3 06/05/20 25 Discontinue d(Per Patient Report) diphenhydrAMINE -acetaminophen (Tylenol PM) 25-500 MG per tablet Take 1 tablet by mouth at night if needed for sleep. 06/05/20 25 Discontinue d(Per Patient Report) acetaminophen (Tylenol) 500 MG tablet Take 1 tablet (500 mg) by mouth every 6 (six) hours. 100 tablet 3 06/05/20 25 Discontinue d(Per Patient Report) HYDROcodone-ely taminophen (Corning) 7.5-325 MG tablet Take 1 tablet (7.5 mg of hydrocodone) by mouth every 6 (six) hours if needed for severe pain for up to 50 doses. 50 tablet 3 06/05/20 25 Discontinue d(Per Patient Report) anastrozole (Arimidex) 1 MG chemo tablet Take 1 tablet (1 mg total) by mouth daily. Swallow whole with a drink of water. 90 tablet 3 5 06/05/20 25 Discontinue d(Per Patient Report) Active Problems Problem Noted Date Diagnosed Date Malignant neoplasm of left b reast in female, estrogen receptor positive 12/05/2024 Cancer Staging:Clinical: cT1c, cN0, cM0, ER+, IN+, HER2- - Signed by Lico Shi MD on 04/05/2025 Arthritis of right hip 09/21/2023 Sleep apnea 09/17/2022 Overview (09/17/2022): Use home mouthguard Type 2 diabetes mellitus wit h kidney complication, with long-term current use of insulin 09/17/2022 CKD (chronic kidney disease) 09/17/2022 Acute post-operative pain 09/17/2022 Scoliosis 08/11/2022 Overview (08/11/2022): Added automatically from request for surgery [id number] Resolved Problems Problem Noted Date Diagnosed Date Resolved Date Acute respiratory distress 09/17/2022 1 11/23/2021 At risk for respiratory depr ession due to opioid 09/17/2022 09/22/2022 Feeding difficulty 09/17/2022 Acute blood loss as cause of postoperative anemia 09/17/2022 09/22/2022 Neurogenic claudication due to lumbar spinal stenosis 09/15/2022 09/22/2022 Spinal stenosis of lumbar re gion with neurogenic claudication 08/11/2022 09/22/2022 Overview (08/11/2022): Added automatically from request for surgery [id number] Encounters Date Type Department Care Team Description 06/05/2025 12:30 PM EDT Office [facility] [address] [place] [address] Lico Shi MD Malignant neoplasm of left breast in female, estrogen receptor positive, unspecified site of breast (Primary Dx) 06/05/2025 Travel 06/05/[address] [facility] at [place] [address] [place] [address] Wraren Valles MD 05/11/[address] [facility] at [place] [address] [place] [address] Lico Shi MD Medication Question 04/05/2025 1:00 PM EDT Office Visit [facility] at [place] [address] [place] [address] Lico Shi MD Malignant neoplasm of left breast in female, estrogen receptor positive, unspecified site of breast (Primary Dx) 04/05/[address] [facility] at [place] [address] [place] [address] Lico Shi MD Mastectomy Bra's 04/05/2025 Travel from Last 3 Months Immunizations Immunization Administration Dates Next Due Influenza, Split (incl. maria m fied surface antigen) 06/26/2013,08/25/2010,08/12/2009,08/20,08/06/2007,08/19/2006 Influenza, high-dose, quadrivalent 07/12,07/12/2023,07/08/2022,06/26,06/26/2021,07/05/2020,07/05/2020 Influenza, injectable, quadrivalent 06/17/2018 Influenza, seasonal, injectable 05/26/2017,06/24,07/03/2015 Influenza, trivalent, adjuvanted 05/26/2017 Moderna Covid-19 Vaccine 12y +, Nadir Protein, Preservative free 07/12/2023 Pneumococcal 20-queenie Conj Vaccine 05/03/2023 Pneumococcal Conjugate PCV 13 10/30/2015 Pneumococcal Polysaccharide PPV23 05/09/2018,06/2009 TD (adult), 2 Lf tetanus tox oid, preservative free, adsorbed 11/02/1995 Zoster, live 09/18/2013 Family History Medical History Relation Name Comments Cardiac disorder Father Hyperlipidemia Father Hypertension Father Skin cancer Father Cardiac disorder Mother Hyperlipidemia Mother Hypertension Mother Anesthesia problems Neg Hx Malig Hyperthermia Neg Hx Relation Name Status Comments Father Mother Social History Tobacco Use Types Packs/Day Years Used Date Smoking Tobacco: Never Passive Smoke Exposure: Yes Smokeless Tobacco: Never Tobacco Cessation:Counseling Given: Not Answered Alcohol Use Standard Drinks/Week Comments No 0 [...] drink first t kaiden in the morning (EYE-LOOM CLEANER) to steady your nerves or to get rid of a hangover? 0 09/16/2022 CAGE Questionnaire Score 0 022 Comments No Sex and Gender Information Value Date Recorded Sex Assigned at Not on file Legal Sex Female 7:39 PM EDT Gender Identity Not on file Sexual Orientation Not on file Last Filed Vital Signs Vital Sign Reading Time Taken Comments Blood Pressure 127/72 06/05/2025 12:16 PM EDT Pulse 73 06/05/2025 12:16 PM EDT Temperature 36.6 C (97.8 F) 06/05/2025 12:16 PM EDT Respiratory Rate 20 11/30/2023 2:01 PM EST Oxygen Saturation 96% 06/05/2025 12:16 PM EDT Inhaled Oxygen Concentration - - Weight 78.2 kg (172 lb 6.4 oz) 06/05/2025 12:16 PM EDT Height 160 cm (5' 3 ) 06/05/2025 12:16 PM EDT Body Mass Index 30.54 06/05/2025 12:16 PM EDT Plan of Treatment Upcoming Encounters Date Type Department Care Team (Late st Contact Info) Description 07/17/2025 11:15 AM EDT Office Visit [facility] at [facility] [address] [place] [address] Lico Shi MD [address] [place] [phone] 04/10/2026 11:30 AM EDT Office Visit [facility] at [facility] [address] [place] [address] Lico Shi MD [address] [place] [phone] Health Maintenance Due Date Last Done Comments Dental Oral Exam 1945 Dental Prophylaxis 1945 Dental X-Ray: Bitewings 1945 Dental X-Ray: Full Mouth 1945 [facility]-Bone Density Scan 1945 [facility]-Depression Screening 1945 [facility]-Medicare Annual Wellness (AWV) 1945 [facility]-Infant/Child/Adol SDOH Screenings 1945 Diabetes: Dental Exam 1954 [facility]- SDOH Screenings 1962 [facility]-Adult SDOH Screenings 1962 [facility]-DTaP,Tdap,and Td Vaccines (1 - Tdap) 11/03/1995 11/02/1995 [facility]-Zoster Vaccines (1 of 2) 11/13/2013 09/18/2013 [facility]-Diabetes: Hemoglobin A1C 03/20/2024 09/21/2023, 09/14/2022, 04/16/2020, Additional history exists [id number] Vaccine (7 - Moderna risk 2023- season) 2025 08/16/2024, 07/12/2023, 01/15/2022, Additional history exists [facility]-Influenza Vaccine (#1) 06/04/202505/22, 07/12/2023, 07/12/2023, Additional history exists [facility]-Pneumococcal Vaccine: 50+ Years Completed 05/03/2023, 05/09/2018, 10/30/2015, Additional history exists [facility]-RSV Vaccine: 60+ Years or Completed 07/28/2023 [facility]-Obesity Intervention Completed 025, 02/05/2025, 11/07/2024, Additional history exists HPV Vaccines Aged Out No longer eligi ble based on patient's age to complete this topic [facility]-HIB Vaccines Aged Out No longer e ligible based on patient's age to complete this topic [facility]-Hepatitis A Vaccines Aged Out No longer eligible based on patient's age to complete this topic [facility]-IPV Vaccines Aged Out No longer e ligible based on patient's age to complete this topic [facility]-Rotavirus Vaccines Aged Out No lo nger eligible based on patient's age to complete this topic Medical Devices Implanted Type Area Planing Machine Operator Device Identifier Shelf Expiration Date Model / Serial / Lot Shoulder Replacement Right: Shoulder Rods N/A: Spine Multi Level Filter Fem Roz Vena Cava - [id number] Implanted:Qty: 1 on 09/11/2022 by Chase Watson MD at [facility] [employer]-[id number] 07/03/2025 [id number] / / [id number] Screw 5.5mm Expedium Verse Fen 7mm X 45mm - [id number] Implanted:Qty: 2 on 09/15/2022 by Tray Navas MD at [facility] N/A: Spine Lumbar De[employer] LP-[id number] 09/15/2023 [id number] / / Screw Set 5.5mm Expedium Verse Unitized - [id number] Implanted:Qty: 18 on 09/15/2022 by Tray Navas MD at [facility] N/A: Spine Lumbar [employer] LP-[id number] 09/15/2023 [id number] / / Screw 5.5 Viper Closed Polyaxial 9x85mm - [id number] Implanted:Qty: 1 on 09/15/2022 by Tray Navas MD at [facility] N/A: Spine Lumbar [employer] LP-[id number] 09/15/2023 [id number] / / Screw Set Ti X25 M7 Short - [id number] Implanted:Qty: 1 on 09/15/2022 by Tray Navas MD at [facility] N/A: Spine Lumbar [employer] LP-[id number] 09/15/2023 [id number] / / Screw 5.5mm Viper Ti Polyax Fullthrd 9mm X 90mm - [id number] Implanted:Qty: 1 on 09/15/2022 by Tray Navas MD at [facility] N/A: Spine Lumbar [employer] LP-[id number] 09/15/2023 [id number] / / Kit Infuse Bone Graft Large 8.0ml - [id number] Implanted:Qty: 1 on 09/15/2022 by Tray Navas MD at [facility] N/A: Spine Lumbar Medtronic Sofamor Danek-[id number] 10/03/2024 [id number] / / Ravin Expedium Ti Precontoured Small 5.5mm - [id number] Implanted:Qty: 2 on 09/15/2022 by Tray Navas MD at [facility] N/A: Spine Lumbar De[employer] LP-[id number] 09/15/2023 [id number] / / Connector Iliac Opn Ti 20mm - [id number] Implanted:Qty: 1 on 09/15/2022 by Tray Navas MD at [facility] N/A: Spine Lumbar [employer] LP-[id number] 09/15/2023 [id number] / / Screw 5.5mm Expedium Verse Fen 5mm X 40mm - [id number] Implanted:Qty: 4 on 09/15/2022 by Tray Navas MD at [facility] N/A: Spine Lumbar [employer] LP-[id number] 09/15/2023 [id number] / / Single Inner Setscrew - [id number] Implanted:Qty: 2 on 09/15/2022 by Tray Navas MD at [facility] N/A: Spine Lumbar [employer] Sp[employer] LP-[id number] 09/15/2023 [id number] / / Chip Bone 20cc - [id number] - [id number] Implanted:Qty: 1 on 09/15/2022 by Tray Navas MD at [facility] N/A: Spine Lumbar [facility]-[id number] 07/13/2027 PCAN1/4 / [id number] / [id number] Chip Bone 40cc - [id number] - [id number] Implanted:Qty: 1 on 09/15/2022 by Tray Navas MD at [facility] N/A: Spine Lumbar [facility]-767808 06/02/2027 PCAN1/2 / [id number] / [id number] Screw 5.5mm Expedium Verse Fen 6mm X 45mm - [id number] Implanted:Qty: 2 on 09/15/2022 by Tray Navas MD at [facility] N/A: Spine Lumbar [employer] LP-[id number] 09/15/2023 [id number] / / Screw 5.5mm Expedium Verse Fen 6mm X 40mm - [id number] Implanted:Qty: 4 on 09/15/2022 by Tray Navas MD at [facility] N/A: Spine Lumbar [employer]uy Spine [employer] LP-960718 09/15/[id number] / / Screw 5.5mm Expedium Verse Fen 5mm X 45mm - [id number] Implanted:Qty: 2 on 09/15/2022 by Tray Navas MD at [facility] N/A: Spine Lumbar [employer] LP-075309 09/15/[id number] / / Screw 5.5mm Expedium Verse Fen 7mm X 50mm - [id number] Implanted:Qty: 4 on 09/15/2022 by Tray Navas MD at [facility] N/A: Spine Lumbar De[employer]uy Spine [employer] LP-[id number] 09/15/[id number] / / Chg Screw Ref Spher Head 35mm - [id number] Implanted:Qty: 1 on 09/29/2023 by Abe Rodriguez MD at [facility] Right: Hip [employer]hew [employer]-[id number] 01/08/2033 [id number] / / [id number] Chg Screw Redapt Lock 20mm - [id number] Implanted:Qty: 1 on 09/29/2023 by Abe Rodriguez MD at [facility] Right: Hip [employer]-[id number] 05/29/2033 [id number] / / [id number] Chg Screw Redapt Lock 20mm - [id number] Implanted:Qty: 1 on 09/29/2023 by Abe Rodriguez MD at [facility] Right: Hip [employer]hew [employer] Inc-[id number] 02/01/2033 [id number] / / [id number] Liner Or3o Dual Mbility 38 50 - [id number] Implanted:Qty: 1 on 09/29/2023 by Abe Rodriguez MD at [facility] Right: Hip [employer]hew [employer] Inc-[id number] 03/22/2033 [id number] / / [id number] Shell Modular Redapt 50mm - [id number] Implanted:Qty: 1 on 09/29/2023 by Abe Rodriguez MD at [facility] Right: Hip [employer] Inc-[id number] 12/31/2030 [id number] / / [id number] Liner Or3o Dual Mbility Xlpe 28/38 - [id number] Implanted:Qty: 1 on 09/29/2023 by Abe Rodriguez MD at [facility] Right: Hip [employer]hew [employer] Inc-[id number] 08/12/2032 [id number] / / [id number] Polarstem Cementless Tiha 3 - [id number] Implanted:Qty: 1 on 09/29/2023 by Abe Rodriguez MD at [facility] Right: Hip [employer]hew [employer] Inc-[id number] 01/25/2030 [id number] / / [id number] Chg Head Oxinium Fem 09/16 28m - [id number] Implanted:Qty: 1 on 09/29/2023 by Abe Rodriguez MD at [facility] Right: Hip [employer]hew [employer] Inc-[id number] 04/16/2033 [id number] / / [id number] Procedures Procedure Name Priority Date/Time Associated Diagnosis Comments MAMMOGRAPHY BREAST DIAGNOSTIC TOMOSYNTHESIS LEFT 06/05/2025 10:30 AM EDT HEMOGLOBIN A1C Routine 09/21/2023 4:15 PM EST Hip pain, right Arthritis of right hip from Last 3 Months or Most Recently Relevant to Health Maintenance Results * Mammography Breast Diagnostic Tomosynthesis Left (06/05/2025 10:30 AM EDT) Anatomical Region Laterality Modality Breast Left Mammography 06/05/2025 10:3 0 AM EDT Narrative 06/05/2025 11:05 AM EDT [address] [address] Patient Name: MARK LEONE Patient : 1945 Age: 79 years Patient Ordering Provider: WARREN VALLES EXAM DATE: 06/05/2025 EXAM: MG LT DIAG CHAITANYA MAMMOGRAM INDICATION: 79-year-old patient presents for baseline mammographic imaging of the left breast following conservation surgery and radiation therapy. She reports left breast soreness. PROCEDURE: Multislice imaging of the left breast was performed including standard views using Hologic Rozina Dimensions tomosynthesis equipment (3D mammography). Images were evaluated with the assistance of Computer Aided Detection (CAD) software. COMPARISON: This is compared with prior mammograms dated back to 07/09/2023. DENSITY: The breast is heterogeneously dense, which may obscure small masses. FINDINGS:Postoperative changes are now noted in the lateral aspect of the left breast. There is mild trabecular thickening and skin thickening which is likely treatment related. A few scattered calcifications are noted. No new mass, suspicious calcifications, or nonsurgical areas of architectural distortion are seen. IMPRESSION: Probably benign left mammographic findings. Recommend short interval follow-up. RECOMMENDATION: The patient will be due for her next bilateral diagnostic mammogram after 09/13/2025. BI-RADS Category 3, Probably benign finding, short interval follow-up. The patient has been entered into an automated reminder system. The standard false negative rate of mammography is between 10% and 25%. Complex patterns or increased breast density will markedly elevate the false negative rate of mammography. If there is a palpable area of concern, biopsy should be considered regardless of imaging findings. COMMENT: Findings and recommendations were discussed with the patient. Interpreted By: Estrella Wolfe MD Procedure Note Estrella Wolfe MD - 06/05/2025 [place] [id number] Patient Name: MARK LEONE Patient : 1945 Age: 79 years Patient Ordering Provider: WARREN VALLES EXAM DATE: 06/05/2025 EXAM: [facility] DIAG CHAITANYA MAMMOGRAM INDICATION: 79-year-old patient presents for baseline mammographic imaging of the left breast following conservation surgery and radiation therapy. She reports left breast soreness. PROCEDURE: Multislice imaging of the left breast was performed including standard views using imageloop Rozina Dimensions tomosynthesis equipment (3D mammography). Images were evaluated with the assistance of Computer Aided Detection (CAD) software. COMPARISON: This is compared with prior mammograms dated back to 07/09/2023. DENSITY: The breast is heterogeneously dense, which may obscure small masses. FINDINGS:Postoperative changes are now noted in the lateral aspect of the left breast. There is mild trabecular thickening and skin thickening which is likely treatment related. A few scattered calcifications are noted. No new mass, suspicious calcifications, or nonsurgical areas of architectural distortion are seen. IMPRESSION: Probably benign left mammographic findings. Recommend short interval follow-up. RECOMMENDATION: The patient will be due for her next bilateral diagnostic mammogram after 09/13/2025. BI-RADS Category 3, Probably benign finding, short interval follow-up. The patient has been entered into an automated reminder system. The standard false negative rate of mammography is between 10% and 25%. Complex patterns or increased breast density will markedly elevate the false negative rate of mammography. If there is a palpable area of concern, biopsy should be considered regardless of imaging findings. COMMENT: Findings and recommendations were discussed with the patient. Interpreted By: Estrella Wolfe MD us Warren Valles MD IMG BI PROCEDURES Final Result * (ABNORMAL) Hemoglobin A1c (09/21/2023 4:15 PM EST) Hemoglobin A1c 6.2(H) <5.7 % 09/22/2023 7:49 AM EST [facility] Blood Venous blood specimen / Unknown Venipuncture / Unknown 09/21/2023 4:15 PM EST 09/21/2023 4:16 PM EST Narrative [facility] - 09/22/2023 7:49 AM EST HA1C Interpretive Data: Diagnosis of Diabetes: Diabetic > or = 6.5% Pre-diabetic 5.7 to 6.4% Non-diabetic < or = 5.6% Glycemic Targets for Type I and Type II Diabetics: Non- Adults <7.0% Adults <6.0% Children and Adolescents <7.5% Source: [place] [employer]. Standards of medical care in diabetes,2017. Diabetes Care.2017:40 (suppl 1):S1-S135. HbA1c assay performed by an ion-exchange chromatography method that is certified traceable to the DCCT. us Abe Rodriguez MD LAB BLOOD ORDERABLES Final R esult [facility] [address] [place] [address] from Last 3 Months or Most Recently Relevant to Health Maintenance Insurance [facility] MEDIC[facility] Advance Directives * Full Code (Latest Code Status on File) Date Activated Date Inactivated Comments 09/29/2023 9:53 AM 09/30/2023 2:27 PM Question Answer Comments Patient has decision-making capacity? Yes Care Teams Traveling Repair Accountant Relationship Specialty Start Date End Date Abe Mena MD [address] [place] [address] PCP - General 02/14/21 Tray Navas MD [address] [place] [address] Surgeon Neurosurgery 08/05/22 Shabnam Vasquez APRN [address] [place] [address] Nurse Practitioner Neurosurgery 09/14/22
--- OUTSIDE RECORDS SUMMARY | 2025-06-19 10:28 | XMS_ITS ---
Author Organization [facility] Address [address] 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 Past Treatment and Therapy Plans No past plan information found. Lifetime Dose Tracking * Chemical Lifetime Dose Automatic Entry Manual Entr y Fluoro Time 1.67 minutes 1.67 minutes 0 minutes Air Kerma 88.99 mGy 88.99 mGy 0 mGy Air Kerma Area Product 1,483.58 Gym 1,483.58 Gym 0 Gym Resolved Problems Problem Noted Date Diagnosed Date [...] (08/11/2022): Added automatically from request for surgery [id number]
--- OUTSIDE RECORDS SUMMARY | 2025-06-19 10:28 | XMS_ITS | Patient Health Record ---
Author Organization [facility] Address [address] [place] [address] Care Team Providers Care Hand Flatwork Finisher Name Role Phone Abe Mena Primary Care Provider Monse Chiu Unavailable [phone] Abe Mena Unavailable Unavailable Migration, Provider Unavailable Unavailable Allergies Allergen (clinical drug ingredient) Drug/Non Drug Allergy documented on EMR Reaction Allergy Type Onset Date Status Adenike Allergy tachycardia Drug Allergy Active Results Component Value Reference Range Notes Ultrasound : Guided Biopsy Reviewed date:11/29/2024 08:52:50 PM Interpretation: Performing Lab: Notes/Report: HEMOGLOBIN A1c (496) Reviewed date:12/07/2024 11:03:34 AM Interpretation: Performing Lab:CB, [facility] [id number] [facility], [facility] CitiesTfwoON[address] Jamie Flores Notes/Report: NON-FASTING; NON-FASTING HEMOGLOBIN A1c 11.8 <5.7 % of total Hgb For someone without known diabetes, a hemoglobin [...] A1c for diagnosis of diabetes for children. BASIC METABOLIC PANEL (44547 ) Reviewed date:12/07/2024 11:03:33 AM Interpretation: Performing Lab:CB, [employer] [id number] [employer], BalayaMlkgJH[address] Jamie Flores Notes/Report: NON-FASTING; NON-FASTING GLUCOSE 410 65-99 mg/dL Verified by repeat analysis. Fasting reference interval For someone without known diabetes, a glucose value >125 mg/dL indicates that they may have diabetes and this should be confirmed with a follow-up test. UREA NITROGEN (BUN) 23 7-25 mg/dL CREATININE 1.59 0.60-0.95 mg/dL EGFR 33 > OR = 60 mL/min/1.73m2 BUN/CREATININE RATIO 14 6-22 (calc) SODIUM 128 135-146 mmol/L POTASSIUM 4.6 3.5-5.3 mmol/L CHLORIDE 93 98-110 mmol/L CARBON DIOXIDE 25 20-32 mmol/L CALCIUM 9.6 8.6-10.4 mg/dL HEMOGLOBIN A1c (496) Reviewed date:04/25/2025 09:50:29 AM Interpretation: Performing Lab:SE [employer] [address], BalayaYqtyKV[address] Jamie Flores Notes/Report: NON-FASTING; NON-FASTING; NON-FASTING HEMOGLOBIN [...] A1c for diagnosis of diabetes for children. BASIC METABOLIC PANEL (83835 ) Reviewed date:04/25/2025 09:50:29 AM Interpretation: Performing Lab:SE [employer] [id number] [employer], BalayaEjkzOU[address] Jamie Flores Notes/Report: NON-FASTING; NON-FASTING; NON-FASTING GLUCOSE 90 65-99 mg/dL Fasting reference interval UREA NITROGEN (BUN) 18 7-25 mg/dL CREATININE 1.42 0.60-0.95 mg/dL EGFR 37 > OR = 60 mL/min/1.73m2 BUN/CREATININE RATIO 13 6-22 (calc) SODIUM 137 135-146 mmol/L POTASSIUM 4.5 3.5-5.3 mmol/L CHLORIDE 100 98-110 mmol/L CARBON DIOXIDE 27 20-32 mmol/L CALCIUM 10.3 8.6-10.4 mg/dL THYROID PANEL WITH TSH (7444 ) Reviewed date:04/25/2025 09:50:29 AM Interpretation: Performing Lab:CB, [facility], [facility] HospitalVgxwKC[address] Jamie Flores Notes/Report: NON-FASTING; NON-FASTING; NON-FASTING T3 UPTAKE 31 22-35 % T4 (THYROXINE), TOTAL 9.0 5.1-11.9 mcg/dL FREE T4 INDEX (T7) 2.8 1.4-3.8 TSH 0.97 0.40-4.50 mIU/L Medications Medication SIG (Take, Route, Frequency, Duration) Notes Start Date End Date Status SITagliptin 50 MG 1 tab Orally Once a day; Duration: 30 days 04/26/2025 Active Losartan Potassium 25 MG 1 tab(s) orally [...] e-prescription and drug interaction check* 12/11/2024 Active Levothyroxine Sodium 75 MCG 1 tab(s) orally once a day; Duration: 90 days Active Gabapentin 300 MG 1 cap(s) orally 3 times a day; Duration: 90 days 11/17/2024 Active Xarelto 20 MG TAKE ONE TABLET BY MOUTH EVERY EVENING; Duration: 90 days Active Atorvastatin Calcium 40 MG TAKE 1 TABLET BY MOUTH EVERY DAY; Duration: 90 Active Anastrozole 1 MG 1 tablet Orally Once a day Active Immunizations Vaccine Route Administration Date Status Comme nts Prevnar PCV-20 (Pneumococcal conjugate 20) IM Intramuscular 05/03/2023 Administered Prevnar PCV-13 (Pneumococcal conjugate 13) IM Intramuscular 10/30/2015 Administered Pneumovax 23 IM Intramuscular 05/09/2018 Administered Pneumococcal Vaccine Unknown 08/12/2009 Administered Influenza (Fluzone)--Medicare only IM Intramuscular 07/03/2015 Administered Influenza (Fluzone)--Medicare only IM Intramuscular 06/24/2016 Administered Influenza (Fluzone)--Medicare only IM Intramuscular 05/26/2017 Administered Influenza (Fluzone)--Medicare only IM Intramuscular 06/17/2018 Administered Fluzone High Dose IM Intramuscular 07/05/2020 Administered Fluzone High Dose IM Intramuscular 06/26/2021 Administered Fluzone High Dose IM Intramuscular 07/08/2022 Administered Fluzone High Dose IM Intramuscular 07/12/2023 Administered Fluzone High Dose IM Intramuscular 05/22/2024 Administered Fluzone High Dose IM Intramuscular 06/08/2025 Administered Fluvirin--Influenza vaccine 3+ year Unknown 08/19/2006 Administered Fluvirin--Influenza vaccine 3+ year Unknown 08/06/2007 Administered Fluvirin--Influenza vaccine 3+ year IM Intramuscular 08/20/2008 Administered Fluvirin--Influenza vaccine 3+ year IM Intramuscular 08/12/2009 Administered Fluvirin--Influenza vaccine 3+ year IM Intramuscular 08/25/2010 Administered Fluvirin--Influenza vaccine 3+ year IM Intramuscular 06/26/2013 Administered Problems Problem Type SNOMED Code ICD Code Onset Dates Problem Status W/U Status Risk Notes Problem Diabetic renal disease (699485761) Type 2 diabetes mellitus with diabetic chronic kidney disease (E11.22) Active confirmed Problem Hyperlipidemia (91241662) Hyperlipidemia, unspecified (E78.5) Active confirmed Problem Essential hypertension (09124199) Essential hypertension (I10) Active confirmed Problem Thyroid nodule (716554951) Thyroid nodule (E04.1) Active confirmed Problem Primary osteoarthritis (565044022) Primary osteoarthritis involving multiple joints (M15.0) Active confirmed Problem Hypothyroidism (39610568) Hypothyroidism, unspecified hypothyroidism type (E03.9) Active confirmed Problem Lymphedema (928105193) Lymphedema of left leg (I89.0) Active confirmed Problem Acquired spondylolisthesis (729786227) Spondylolisthesis at L4-L5 level (M43.16) Active confirmed Problem Embolism from thrombosis of vein of lower extremity (406017448) 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) Active confirmed Problem Localized, primary osteoarthritis of the hand (267306447) Arthritis of carpometacarpal (CMC) joint of right thumb (M18.11) Active confirmed Problem Chronic kidney disease stage 3B (disorder) (004621278) Chronic kidney disease, stage 3b (N18.32) Active confirmed Problem Gastroesophageal reflux disease (895936017) Gastroesophageal reflux disease, unspecified whether esophagitis present (K21.9) Active confirmed Problem 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) Active confirmed Problem Malignant neoplasm of upper-outer quadrant of female breast (939394565) Malignant neoplasm of upper-outer quadrant of left female breast, unspecified estrogen receptor status (C50.412) Active confirmed Vital Signs Heart Rate 76 /min 04/23/2025 Temperature 97.9 degrees Fahrenheit 04/23/2025 Blood pressure diastolic 84 mm Hg 04/23/2025 Height 65 in 04/23/2025 Blood pressure systolic 126 mm Hg 04/23/2025 Weight 171 lbs 04/23/2025 BMI 28.45 kg/m2 04/23/2025 Encounters Encounter Location Date Provider Diagnosis [facility] [address] [place] [address] 01/06/2025 Provider Migration Type 2 diabetes mellitus with diabetic chronic kidney disease E11.22 [facility] [address] [place] [address] 07/12/2024 Abeeric Mena Lymphedema of left l eg I89.0 and Recurrent deep vein thrombosis (DVT) I82.409 [facility] [address] [place] [address] 07/31/2024 Abe Mena Pain of paraspinal muscle M79.18 [facility] [address] [facility] [place] [address] 12/04/2024 Abe Mena Chronic kidney disea se, stage 3b N18.32 ; Type 2 diabetes mellitus with diabetic chronic kidney disease E11.22 ; Malignant neoplasm of upper-outer quadrant of left female breast, unspecified estrogen receptor status C50.412 and Routine medical exam Z00.00 [facility] [address] [place] [address] 12/11/2024 Abe Mena Chronic kidney disea se, stage 3b N18.32 ; Type 2 diabetes mellitus with diabetic chronic kidney disease E11.22 and Acute pain of right shoulder M25.511 [facility] [address] [facility] [address] [place] [address] 01/08/2025 Abe Mena Type 2 diabetes mellitus with diabetic chronic kidney disease E11.22 [facility] [address] [facility] [address] [place] [address] 03/12/2025 Abe Mena Type 2 diabetes mellitus with diabetic chronic kidney disease E11.22 [facility] [address] [facility] [address] [place] [address] 04/23/2025 Abe Mena Type 2 diabetes mellitus with diabetic chronic kidney disease E11.22 ; Hypothyroidism, unspecified hypothyroidism type E03.9 ; Hyperlipidemia, unspecified E78.5 and Arthritis of carpometacarpal (CMC) joint of right thumb M18.11 [facility] [address] [facility] [address] [place] [address] 06/08/2025 Abe Mena Immunization(s) administered Z23 [facility] [address] [facility] [address] [place] [address] 07/04/2024 Abe Mena [facility] [address] [place] [address] 08/18/2024 Abe Besluis [facility] [address] [facility] [address] [place] [address] 09/28/2024 Abe Rajesh Abnormal mammogram o f left breast R92.8 [facility] [address] [facility] [address] [place] [address] 09/29/2024 Abe Noahluis Abnormal mammogram R92.8 [facility] [address] [facility] [address] [place] [address] 11/29/2024 Abe Rajesh Breast mass N63.0 [facility] [address] [facility] [address] [place] [address] 12/01/2024 Abe Besson [facility] [address] [place], [place] [address] 12/11/2024 Abe Besson [facility] [address] [place], [place] [address] 12/11/2024 Abe Besluis Trapezius muscle spa sm M62.838 [facility] [address] [place] [address] 12/30/2024 Abe Besson [facility] [address] [place], [place] [address] 03/21/2025 Abeeric Mena Type 2 diabetes mellitus with diabetic chronic kidney disease E11.22 [facility] [address] [place], [place] [address] 04/16/2025 Abe Besson [facility] [address] [place] [address] 04/26/2025 Abe Besson [facility] [address] [facility] [address] [place], [place] [address] 06/06/2025 Abe Besson [facility] [address] [facility] [address] [place], [place] [address] 06/06/2025 Abe Mena Assessments Encounter Date Diagnosis (ICD Code) Assessment Notes Treatment Notes Treatment Clinical Notes Section Notes 07/12/2024 Lymphedema of left leg (ICD-10 - I89.0) Continues to be present but overall I think it is actually improving. Discussed some OTC compression garments such as designed for athletic wear that she might try to help her with less swelling during the day and pain. Overall does not need increased diuretics. I will see her in a couple of months and will do labs at that point for chronic medical problems 07/12/2024 Recurrent deep vein thrombosis (DVT) (ICD-10 - I82.409) Remains on Xarelto. to stop for a couple of days for colonoscopy on July 21 but otherwise seems to be doing well 07/31/2024 Pain of paraspinal muscle (ICD-10 - M79.18) Traumatic after a fall. No bony tenderness to suggest fracture. No shortness of breath or pleuritic chest pain to suggest rib fracture. No red flag neurologic symptoms. I suspect this is muscle tenderness from the fall given tenderness of paraspinal muscle on exam. Recommend Tylenol 1000mg every 6 hours (up to 4g/day), short course of Robaxin, and topical diclofenac gel. 09/28/2024 Abnormal mammogram of left breast (ICD-10 - R92.8) 09/29/2024 Abnormal mammogram (ICD-10 - R92.8) 11/29/2024 Breast mass (ICD-10 - N63.0) 12/04/2024 Type 2 diabetes mellitus with diabetic chronic kidney disease (ICD-10 - E11.22) Check A1c. 12/11/2024 Chronic kidney disease, stage 3b (ICD-10 - N18.32) Cr increased from 1.46 to 1.59 on most recent labs. Avoid NSAIDs, other nephrotoxic meds. 12/11/2024 Trapezius muscle spasm (ICD-10 - M62.838) 01/06/2025 Type 2 diabetes mellitus with diabetic chronic kidney disease (ICD-10 - E11.22) 01/08/2025 Type 2 diabetes mellitus with diabetic chronic kidney disease (ICD-10 - E11.22) Continue glimepiride. Not ideal therapy but in 6 or 8 weeks we will decide how we can proceed once her breast cancer/radiation is finished. Has had problems in the past with metformin, will consider GLP at next visit. 03/12/2025 Type 2 diabetes mellitus with diabetic chronic kidney disease (ICD-10 - E11.22) Discussed pros and cons of therapy, patient would like to try. Hopefully lower dose and weekly dosing will help avoid the problems she had with Victoza. Gave patient samples of the semaglutide starter kit. Started 0.25 administered first injection myself. Detailed instructions given a weekly dosing, I will see her back in 6 weeks to follow-up at which point she will be on 0.5 03/21/2025 Type 2 diabetes mellitus with diabetic chronic kidney disease (ICD-10 - E11.22) 04/23/2025 Type 2 diabetes mellitus with diabetic [...] continues to be elevated - Continue glimeperide 12/04/2024 Chronic kidney disease, stage 3b (ICD-10 - N18.32) Will check labs today. I will review personally for creatinine and electrolyte disturbances before she sees Oncology 12/11/2024 Type 2 diabetes mellitus with diabetic chronic kidney disease (ICD-10 - E11.22) will start glimeperide 2 mg and metformin 500 mg daily. Would likely benefit from glp-1 but will defer at this time given upcoming surgery. Will send glucometer. Follow up in 4 weeks. 04/23/2025 Hypothyroidism, unspecified hypothyroidism type (ICD-10 - E03.9) - Denies symptoms - Repeat TSH - Continue levothyroxine at current dose 06/08/2025 Immunization(s) administered (ICD-10 - Z23) 12/11/2024 Acute pain of right shoulder (ICD-10 - M25.511) refer to massage therapy 12/04/2024 Malignant neoplasm of upper-outer quadrant of left female breast, unspecified estrogen receptor status (ICD-10 - C50.412) Follow-up with oncology tomorrow. No acute close on the reports. We discussed overall good prognosis. Discussed her emotional support system which is great Shared a prayer together at her request 04/23/2025 Hyperlipidemia, unspecified (ICD-10 - E78.5) 12/04/2024 Routine medical exam (ICD-10 - Z00.00) HRA completed and reviewed. -Falls: no falls-Independent in all ADLs, is driving-HCS: -Aged out of screenings-Smokin g: none, alcohol: once a year -UTD on dental, not UTD on eye exams, pt will make appt. -Negative depression screening 04/23/2025 Arthritis of carpometacarpal (CMC) joint of right thumb (ICD-10 - M18.11) - R thumb pain worsening, limiting movement due to swelling, worse in morning - likely arthritis, does not appear to be a ganglion cyst - Recommended wrist and thumb brace at night Plan Of Treatment Pending Test Test Name Order Date Ultrasound : Breast, Left 09/28/2024 X ray : Hip, Bilateral 04/25/2019 Mammogram : Right Breast 09/09/2007 N-BMP 09/09/2007 N-CMP 06/10/2007 Venous Doppler : Lower Extremity 023 EKG : In House 10/01/2006 EKG : In House 01/16/2009 Breast Biopsy, Stereotactic, Left Breast 01/31/2010 Physical Therapy 08/20/2015 Physical Therapy 03/09/2022 Physical Therapy 09/19/2018 Physical Therapy 03/06/2021 Physical Therapy 04/25/2019 Physical Therapy 07/08/2022 Mammogram : Bilateral 09/09/2007 Occupational Therapy : Eval & Treatment 03/09/2022 Occupational Therapy : Eval & Treatment 02/20/2022 H-CMP 06/05/2008 H-CMP 03/29/2009 H-LIPID PANEL 06/05/2008 H-LIPID PANEL 06/18/2014 H-HGBA1C 07/14/2016 T-AXKT-VUTXYC CITRULLINATED PEPTIDE 05/04 Ultrasound : Guided Biopsy 05/21/2020 C-MISC CULTURE 01/16/2009 H-SS A 07/13/2016 H-SS B 07/13/2016 Physical Therapy : Lymphedema 05/24/2023 Physical Therapy : Lymphedema 01/25/2024 M-Complete Blood Count Auto Diff 020 M-Comprehensive Metabolic Panel 05/02/20 M-Lipid Panel 05/09/2018 M-Lipid Panel 05/02/2020 M-Vitamin B12 02/26/2021 Therapy 12/11/2024 Mammogram : Diagnostic, Left 09/29/2024 Next Appt Details Provider Name:Abe Corbett Noahluis, 07/25/2025 11:45:00 AM, [address] [facility], [address], [place], [address], Insurance Providers Payer Name Payer Address Payer Phone Subscriber Number Group Number Insured Name Patient Relationship to Insured Coverage Start Date Coverage End Date [employer] MEDICARE [address] [address] [place] [address] [id number] Deirdre Leone Self - patient is the insured Medications Administered Medication Instructions Date of Administration Dosage Notes Promethazine 08/09/2017 1 mL Kenalog 06/18/2016 1 mL Kenalog 09/02/2016 1 mL Kenalog 11/02/2016 1 mL Medical (General) History Medical History History ICD Code hypercholestrolemia hypertension osteoarthritis herniated disc cataracts Hypothyroidism high testosterone level high insulin level normal colonoscopy 2010 - re peated 09/22 with multiple isolated tubular adenomas DEXA scan 2017 with mild osteopenia normal mammogram December, - And also normal 06/26 - 11/28 mamm with 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
--- OUTSIDE RECORDS SUMMARY | 2025-06-19 10:29 | XMS_ITS | Encounter Summary ---
Author Organization Healthcare Address [address] [place] [address] Care Team Providers Care Non Profit Director Name Role Phone Abe Mena MD Primary Care Provider [phone] Tray Navas MD Unavailable [phone] Shabnam Vasquez FITTER HELPER Unavailable [phone] Encounter Details Date Type Department Care Team (Late st Contact Info) Description 06/05/2025 Ancillary Procedure [facility] [address] [place] [phone] Russ Valles MD [address] [place] [address] Social History Tobacco Use Types Packs/Day Years [...] drink first t kaiden in the morning (EYE-GENERAL HANDLING SUPERVISOR) to steady your nerves or to get rid of a hangover? 0 09/16/2022 CAGE Questionnaire Score 0 022 Comments No Sex and Gender Information Value Date Recorded Sex Assigned at Not on file Legal Sex Female 7:39 PM EDT Gender Identity Not on file Sexual Orientation Not on file documented as of this encounter Plan of Treatment Upcoming Encounters Date Type Department Care Team (Late st Contact Info) Description 07/17/2025 11:15 AM EDT Office Visit [facility] [address] [place] [address] Lico Shi MD [address] [phone] 04/10/2026 11:30 AM EDT Office Visit [facility] [address] [place] [address] [place] [address] [place] [phone] documented as of this encounter Procedures Procedure Name Priority Date/Time Associated Diagnosis Comments MAMMOGRAPHY BREAST DIAGNOSTIC TOMOSYNTHESIS LEFT 06/05/2025 10:30 AM EDT documented in this encounter Results * Mammography Breast Diagnostic Tomosynthesis Left (06/05/2025 10:30 AM EDT) Anatomical Region Laterality Modality Breast Left Mammography 06/05/2025 10:3 0 AM EDT Narrative 06/05/2025 11:05 AM EDT [address] [address] Patient Name: MARK LEONARDO Patient : 1945 Age: 79 years Patient Ordering Provider: RUSS VALLES EXAM DATE: 06/05/2025 EXAM: MG LT [...] Procedure Note Estrella Wolfe MD - 06/05/2025 [place] [id number] Patient Name: MARK LEONARDO Patient : 1945 Age: 79 years Patient Ordering Provider: RUSS VALLES EXAM DATE: 06/05/2025 EXAM: MG LT DIAG CHAITANYA MAMMOGRAM INDICATION: 79-year-old patient presents for baseline mammographic imaging of the left breast following conservation surgery and radiation therapy. She reports left breast soreness. PROCEDURE: Multislice imaging of the left breast was performed including standard views using [employer] tomosynthesis equipment (3D mammography). Images [...] the patient. Interpreted By: Estrella Wolfe MD Russ Valles MD IMG BI PROCEDURES Final Result documented in this encounter Visit Diagnoses Not on filedocumented in this encounter Additional Health Concerns Assessment Noted Time A fall risk assessment has been complete d for the patient 03/06/2025 10:59 AM EDT A Body Mass Index follow-up plan has been documented for the patient 02/05/2025 2:21 PM EDT documented as of this encounter Care Teams Non Profit Director Relationship Specialty Start Date End Date Abe Mena MD [address] [place] [address] PCP - General 02/14/21 Tray Navas MD [address] [place] [address] Surgeon Neurosurgery 08/05/22 Shabnam Vasquez APRN [address] [place] [address] Nurse Practitioner Neurosurgery 09/14/22 documented as of this encounter
--- OUTSIDE RECORDS SUMMARY | 2025-06-19 10:29 | XMS_ITS | Encounter Summary ---
Author Organization Healthcare Address [address] [place] [address] Care Team Providers Care Operating Table Assembler Name Role Phone Abe Mena MD Primary Care Provider Tray Navas MD Unavailable Shabnam Vasquez APPLIANCE SERVICE TECHNICIAN Unavailable [phone] Reason for Visit * Reason Onset Date Comments Medication Question 05/11/2025 Encounter Details Date Type Department Care Team (Late st Contact Info) Description 05/11/2025 Telephone [facility] [address] [place] [address] Lico Shi MD [address] [address] Medication Question Social History Tobacco Use Types Packs/Day Years [...] drink first t kaiden in the morning (EYE-LINE PRODUCTION COOK) to steady your nerves or to get rid of a hangover? 0 09/16/2022 CAGE Questionnaire Score 0 022 Comments No Sex and Gender Information Value Date Recorded Sex Assigned at Not on file Legal Sex Female 7:39 PM EDT Gender Identity Not on file Sexual Orientation Not on file documented as of this encounter Miscellaneous Notes * Telephone Encounter - Dominique Grajeda - 05/14/2025 12:26 PM EDT Scheduled with patient same day as follow up with dr. Valles 06/05 * Telephone Encounter - Lico Shi MD - 05/11/2025 11:12 AM EDT Have her hold the medicine and follow up with me in 2-3 weeks documented in this encounter Plan of Treatment Upcoming Encounters Date Type Department Care Team (Late st Contact Info) Description 07/17/2025 11:15 AM EDT Office Visit [facility] [address] [place] [address] Lico Shi MD [address] [address] 04/10/2026 11:30 AM EDT Office Visit [facility] [address] [place] [address] Lico Shi MD [address] [address] documented as of this encounter Visit Diagnoses Not on filedocumented in this encounter Additional Health Concerns Assessment Noted Time A fall risk assessment has been complete d for the patient 03/06/2025 10:59 AM EDT A Body Mass Index follow-up plan has been documented for the patient 02/05/2025 2:21 PM EDT documented as of this encounter Care Teams Operating Table Assembler Relationship Specialty Start Date End Date Abe Mena MD [address] [place] [address] PCP - General 02/14/21 Tray Navas MD [address] [facility] [place] [address] Surgeon Neurosurgery 08/05/22 Shabnam Vasquez APRN [address] [facility] [place] [address] Nurse Practitioner Neurosurgery 09/14/22 documented as of this encounter
--- OUTSIDE RECORDS SUMMARY | 2025-06-19 10:29 | XMS_ITS | Encounter Summary ---
Author Organization Healthcare Address [address] [place] [address] Care Team Providers Care Wool Grader Name Role Phone Abe Mena MD Primary Care Provider + [phone] Tray Navas MD Unavailable [phone] Shabnam Vasquez WEB ASSISTANT Unavailable Reason for Visit * Reason Onset Date Comments HCN - Patient Message 08/12/2022 Pre surger y test and questions Encounter Details Date Type Department Care Team (Late st Contact Info) Description 08/12/2022 Telephone [place] [facility] [address], [address] [place] [address] Shabnam Vasquez, WEB ASSISTANT [address] [place] [address] HCN - Patient Message (Pre surgery test and questions ) Social History Tobacco Use Types Packs/Day Years Used Date Smoking Tobacco: Never Passive Smoke Exposure: Yes Smokeless Tobacco: Never Alcohol Use Standard Drinks/Week Comments No 0 (1 standard drink = 0.6 oz pur e alcohol) Comments Unknown Sex and Gender Information Value Date Recorded Sex Assigned at Not on file Legal Sex Female 7:39 PM EDT Gender Identity Not on file Sexual Orientation Not on file COVID-19 Exposure Response Date Recorded In the last 10 days, have yo u been in contact with someone who was confirmed or suspected to have Coronavirus/COVID-19? No / Unsure 08/05/2022 1:40 PM EDT documented as of this encounter Miscellaneous Notes * Telephone Encounter - Ellie Rosenberg RN - 08/13/2022 12:40 PM EST Spoke to pt, clarified questions. Will call us once CT is completed so we can request records. * Telephone Encounter - Arianne Banks - 08/13/2022 11:57 AM EST Have pt sched on 08/18 @11:00 at [facility]. Called pt and left vm with appt info. * Telephone Encounter - Ellie Rosenberg RN - 08/13/2022 8:38 AM EST Any updates on CT? (Stat) * Telephone Encounter - Gunjan Mckenna - 08/12/2022 8:25 AM EST Patient Phone Message Reason for Call: Pt says she was told to call if she had not been scheduled CT scan needed to be scheduled and done at [facility] in [place] prior to 09/11 Pt says has to get a mesh screen placed prior to that and not sure when that is scheduled It has been 2 years since she had a DEXA scan Pt says she will call local doctor and see if she can get that scheduled She also saw an Oral surgeon yesterday She has cyst around 3 teeth Will need to surgical removal of cyst and 3 root canals Does this need to be done before the surgery Best contact number and optimal time of day to reach caller: [phone] Note: Please do not reply to this message. Follow-up communication and further actions as a result of this message need to be communicated with the patient directly, if the patient is not active onMyChart. If the patient is active on MyChart, they will receive notification of the communication/outcome via [employer]. documented in this encounter Plan of Treatment Upcoming Encounters Date Type Department Care Team (Late st Contact Info) Description 07/17/2025 11:15 AM EDT Office Visit [facility] [address] [place] [address] Lico Shi MD [address] [address] 04/10/2026 11:30 AM EDT Office Visit [facility] [address] [place] [address] Lico Shi MD [address] [address] documented as of this encounter Visit Diagnoses Not on filedocumented in this encounter Additional Health Concerns Assessment Noted Time A fall risk assessment has been complete d for the patient 06/30/2022 1:52 PM EDT documented as of this encounter Care Teams Wool Grader Relationship Specialty Start Date End Date Abe Mena MD [address] [place] [address] PCP - General 02/14/21 Tray Navas MD [address] [place] [address] Surgeon Neurosurgery 08/05/22 Shabnam Vasquez APRN [address] [place] [address] Nurse Practitioner Neurosurgery 09/14/22 documented as of this encounter
--- OUTSIDE RECORDS SUMMARY | 2025-06-19 10:29 | XMS_ITS | Encounter Summary ---
Author Organization Healthcare Address [address] [place] [address] Care Team Providers Care Medical Imaging Technician Name Role Phone Abe Mena MD Primary Care Provider + [phone] Tray Navas MD Unavailable [phone] Shabnam Vasquez TANKER SERVICEMAN Unavailable [phone] Encounter Details Date Type Department Care Team (Latest Contact Info) Description 06/05/2025 Travel Social History Tobacco Use Types Packs/Day Years [...] drink first t kaiden in the morning (EYE-HAND QUILTER) to steady your nerves or to get [...] Description 07/17/2025 11:15 AM EDT Office Visit [facility] [address] [place] [address] Lico Shi MD [address] [address] 04/10/2026 11:30 AM EDT Office Visit [facility] [address] [place] [address] Lico Shi MD [address] [address] documented as of this encounter Visit Diagnoses Not on filedocumented in this encounter Additional Health Concerns Assessment Noted Time A fall risk assessment has been complete d for the patient 03/06/2025 10:59 AM EDT A Body Mass Index follow-up plan has been documented for the patient 02/05/2025 2:21 PM EDT documented as of this encounter Care Teams Medical Imaging Technician Relationship Specialty Start Date End Date Abe Mena MD [address] [place] [address] PCP - General 02/14/21 Tray Navas MD [address] [place] [address] Surgeon Neurosurgery 08/05/22 Shabnam Vasquez APRN [address] [place] [address] Nurse Practitioner Neurosurgery 09/14/22 documented as of this encounter
--- OUTSIDE RECORDS SUMMARY | 2025-06-19 10:29 | XMS_ITS | Encounter Summary ---
Author Organization Healthcare Address [address] [place] [address] Care Team Providers Care Music Copyist Name Role Phone Abe Mena MD Primary Care Provider [phone] Tray Navas MD Unavailable Shabnam Vasquez RN TRANSPORT Unavailable [phone] Encounter Details Date Type Department Care Team (Late Contact Info) Description 08/18/2022 Orders Only External Location [address] [place] [address] Shabnam Vasquez, RN TRANSPORT [address] [place] [address] Social History Tobacco Use Types Packs/Day Years [...] PM EDT documented as of this encounter Plan of Treatment Upcoming Encounters Date Type Department Care Team (Late Contact Info) Description 07/17/2025 11:15 AM EDT [facility] [address] [place] [address] Lico Shi MD [address] [address] 04/10/2026 11:30 AM EDT [facility] [address] [place] [address] Lico Shi MD [address] [address] documented as of this encounter Procedures Procedure Name Priority Date/Time Associated Diagnosis Comments CT MSK OUTSIDE IMAGES 08/18/2022 8:18 AM EST documented in this encounter Results * CT MSK OUTSIDE IMAGES (08/18/2022 8:18 AM EST) Anatomical Region Laterality Modality Computed Tomogra phy 08/18/2022 8:18 AM EST Shabnam Vasquez APRN IMG CT PROCEDURES Final Resu lt documented in this encounter Visit Diagnoses Not on filedocumented in this encounter Additional Health Concerns Assessment Noted Time A fall risk assessment has been complete d for the patient 06/30/2022 1:52 PM EDT documented as of this encounter Care Teams Music Copyist Relationship Specialty Start Date End Date Abe Mena MD [address] [place] [address] PCP - General 02/14/21 Tray Navas MD [address] [place] [address] Surgeon Neurosurgery 08/05/22 Shabnam Vasquez APRN [address] [place] [address] Nurse Practitioner Neurosurgery 09/14/22 documented as of this encounter
--- NOTE | 2025-06-19 15:00 | CA_ITS ---
APPROVED REPORT EXAM: Comprehensive 2D, Doppler, and color-flow Echocardiogram Filling Machine Operator: Callie Pinedo CRT Ht: 5 ft 4 in Wt: 170lbs BSA: 1.83 BP: 122/67 mmHg Indications: Abnormal ECG, Pre-Op assessment 2D Dimensions LA Volume 46.70 mL LA Volume Index 25.00 mL/m2 (M/F) 16-34 M-Mode Dimensions RVDd 2.42 cm (0.9-2.6) LA Diam 3.78 cm (1.9-4.0) LVDd 4.05 cm (3.5-5.7) LVDs 1.76 cm (3.5-5.7) IVSd 1.43 cm (0.6-1.1) PWd 1.20 cm (0.6-1.1) EF (Teich) 87.20% FS 56.50% EDV (Teich) 72.10 mL ESV (Teich) 9.20 mL LV Diastology E Decel Time 207 (160-240 msec) E/A Ratio 0.92 MED A' 9.20 cm/s LAT A' 9.20 cm/s Aortic Valve AI PHT 401.00 ms AO Peak GR. 9.50 mmHg Mitral Valve MV E Max Bal. 120.0 (40-130 cm/s) MV A Velocity 131.0 (40-130 cm/s) E/A Ratio 0.92 MV PHT 61.0 ms Pulmonary Valve PV Peak Velocity 120.0 (50-150 cm/s) Tricuspid Valve TR P. Velocity 186.00 cm/s RAP Estimate 10.00 mmHg RVSP 23.90 mmHg Left Ventricle The left ventricle is normal size. Left ventricular systolic function is normal. The left ventricular ejection fraction is within the normal range. There is increased left ventricular wall thickness. Proximal septal thickening is present. There is normal LV segmental wall motion. Transmitral Doppler flow pattern suggests impaired LV relaxation. LVEF is 65% Right Ventricle The right ventricle is normal size. The right ventricular systolic function is normal. Atria The left atrium is moderately dilated. The right atrium is mildly dilated. There is no color Doppler evidence of interatrial shunt. Aortic Valve The aortic valve is mildly thickened. There is no hemodynamically significant aortic valvular stenosis. Moderate aortic regurgitation is present. Mitral Valve The mitral valve is normal in structure. No evidence of mitral valve stenosis. Mild mitral regurgitation is present. Tricuspid Valve The tricuspid valve leaflets are thin and pliable. Trace tricuspid regurgitation. There is insufficient TR jet to estimate RVSP. Pulmonic Valve The pulmonary valve is grossly normal in structure. Trace pulmonic valve regurgitation is present. Great Vessels The aortic root is normal in size. IVC is normal in size and collapses >50% with inspiration. Pericardium There is no pericardial effusion. Other Information Study Quality: Fair Conclusion Normal biventricular systolic function (LVEF 65%). Biatrial dilation. Moderate AI. Mild MR. Electronically signed by : Mily Hernández MD 06/20/2025 12:09:04
== END 2025-06-19 23:59 | disposition home or self-care (01) ==
PROVIDERS: PCP Internal Medicine Adolescent Medicine; Visit Provider Obstetrics & Gynecology
DX: Z01.810 Encounter for preprocedural cardiovascular examination (principal); I08.0 Rheumatic disorders of both mitral and aortic valves; R94.31 Abnormal electrocardiogram [ECG] [EKG]; R60.9 Edema, unspecified
CPT/HCPCS: 93306

== ENCOUNTER 2025-06-19 14:54 | Outpatient (CLI) | payer MEDICARE, SELFPAY ==
--- OUTSIDE RECORDS SUMMARY | 2025-06-05 12:30 | XMS_ITS | Encounter Summary ---
Author Organization Healthcare Address [address] [place] [address] Care Team Providers Care Roving Inspector Name Role Phone Abe Mena MD Primary Care Provider [phone] Tray Navas MD Unavailable [phone] Shabnam Vasquez GARAGE MECHANIC Unavailable [phone] Encounter Details Date Type Department Care Team (Late st Contact Info) Description 06/05/2025 12:30 PM EDT Office Visit [facility] [address] [place] [address] Lico Shi MD [address] [address] Malignant neoplasm of left breast [...] drink first t kaiden in the morning (EYE-PROCUREMENT OFFICER) to steady your nerves or to get [...] Edition - Clinical: cT1c, cN0, cM0, ER+, SD+, HER2- - Signed by Lico Shi MD on 04/05/2025 DIAGNOSIS: Diagnosis Plan 1. Malignant neoplasm of left breast in female, estrogen receptor positive, unspecified site of breast History of present illness: Patient was an 79-year-old female with a recently abnormal mammogram through the [facility]. Recent MRI done on 09/28/2025 showed a spiculated area of 16 x 9 x 10 mm in size in the left breast.That has biopsy on the left breast that has consistent with a invasive cancer grade 2. There was some perineural invasion mentioned as well. It was strongly ER SD positive HER2 negative by IHC and with [...] Comment: Surgical Pathology Report NAME:MARK LEONARDO PATH: [id number] DATE of : 1945 Copy to: Diagnosis: [...] minimal amount of dense fibrous breast tissue. Associate Marketing Manager sections submitted in 9 cassettes as follows: A1 - posterior margin A2 - anterior margin A3-A4 - medial margin A5-A8 - lesion entirely submitted to include superior, inferior and lateral margins A9 - additional inferior margin Ink Code: Red = lateral [place] = medial Blue = posterior Green = inferior Black = anterior Yellow = superior COLLECTION TIME: 9:57 AM TIME INTO FORMALIN: 10:00 AM ISCHEMIC TIME: 3 minutes TOTAL FIXATION TIME: 57 hours 2 minutes Note: The breast specimen processed meets the fixation time standards of 6-72 hrs., which have been set by the [place] Society of Clinical Oncology (ASCO) and the College of [place] Pathologists (CAP), to ensure appropriate tissue quality for effective ER, SD, Her2 receptor testing. B) Patient name and [...] labeled B1-B33. Ink code: Red = lateral [place] = medial Green = inferior Blue = [...] radiation oncology. 2. Patient had radiation in [place] without any major incident completed earlier this [...] Description 07/17/2025 11:15 AM EDT Office Visit [facility] [address] [place] [address] Lico Shi MD [address] [address] 04/10/2026 11:30 AM EDT Office Visit [facility] [address] [place] [address] Lico Shi MD [address] [address] documented as of this encounter [...] documented as of this encounter Care Teams Roving Inspector Relationship Specialty Start Date End Date Abe Mena MD [address] [place] [address] PCP - General 02/14/21 Tray Navas MD [address] [place] [address] Surgeon Neurosurgery 08/05/22 Shabnam Vasquez APRN [address] [place] [address] Nurse Practitioner Neurosurgery 09/14/22 documented as of this encounter
[2025-06-19 11:18] LABS: Hematocrit 43.4 % (37.0-47.0); Hemoglobin 14.2 g/dL (12.2-16.2); Immature Granulocytes % 0.5 %; Mean Corpuscular HGB Conc 32.7 g/dL (31.8-35.4); Mean Corpuscular Hemoglobin 30.5 pg (27.0-31.2); Mean Corpuscular Volume 93.1 fl (81-99); Nucleated Red Blood Cells % 0 %; Platelet Count 232 K/mm3 (142-424); Red Blood Count 4.66 M/mm3 (4.20-5.40); Red Cell Distribution Width-SD 47.3 fL; White Blood Count 5.9 K/mm3 (4.8-10.8)
[2025-06-19 11:33] LABS: Alanine Aminotransferase 24 U/L (12-78); Albumin Level 4.5 g/dl (3.5-5.0); Albumin/Globulin Ratio 1.3 (1.1-1.8); Alkaline Phosphatase 81 U/L (38-126); Anion Gap 13.3 mEq/L (5-15); Aspartate Amino Transferase 32 U/L (14-36); Bilirubin,Total 0.8 mg/dl (0.2-1.3); Blood Urea Nitrogen 22 mg/dl (7-17); Calcium 9.3 mg/dl (8.4-10.2); Carbon Dioxide 28 mmol/L (22.0-30.0); Chloride 100 mmol/L (98-107); Creatinine,Serum 1.50 mg/dl (0.52-1.04); Estimated Glomerular Filt Rate 33 ml/min (>60); GFR (African American) 40 ML/MIN (>60); Globulin 3.5 g/dL (1.3-3.2); Glucose 186 mg/dl (74-100); Potassium 4.3 mmoL/L (3.5-5.1); Sodium 137 mmol/L (136-145); Total Protein,Serum 8.0 g/dl (6.3-8.2)
--- OUTSIDE RECORDS SUMMARY | 2025-06-19 14:58 | XMS_ITS | Encounter Summary ---
Author Organization Healthcare Address [address] [place] [address] Care Team Providers Care Video Arcade Manager Name Role Phone Abe Mena MD Primary Care Provider [phone] Tray Navas MD Unavailable [phone] Shabnam Vasquez SHEAR OPERATOR HELPER Unavailable [phone] Encounter Details Date Type Department Care Team (Late st Contact Info) Description 06/05/2025 Ancillary Procedure [facility] [address] [place] [phone] Russ Valles MD [address] [place] [address] Social History Tobacco Use Types Packs/Day Years [...] drink first t kaiden in the morning (EYE-PIGGYBACK CLERK) to steady your nerves or to get [...] Description 07/17/2025 11:15 AM EDT Office Visit [facility] [address] [place] [address] Lico Shi MD [address] [address] 04/10/2026 11:30 AM EDT Office Visit [facility] [address] [place] [address] [place] [address] [place] [phone] documented as of this encounter Procedures Procedure Name Priority Date/Time Associated Diagnosis Comments MAMMOGRAPHY BREAST DIAGNOSTIC TOMOSYNTHESIS LEFT 06/05/2025 10:30 AM EDT documented in this encounter Results * Mammography Breast Diagnostic Tomosynthesis Left (06/05/2025 10:30 AM EDT) Anatomical Region Laterality Modality Breast Left Mammography 06/05/2025 10:3 0 AM EDT Narrative 06/05/2025 11:05 AM EDT [address] [address] Patient Name: MARK LEONARDO Patient : 1945 [...] Procedure Note Estrella Wolfe MD - 06/05/2025 [place] [id number] Patient Name: MARK LEONARDO Patient : 1945 Age: 79 years Patient Ordering Provider: RUSS VALLES EXAM DATE: 06/05/2025 EXAM: MG LT DIAG CHAITANYA MAMMOGRAM INDICATION: 79-year-old patient presents for baseline mammographic imaging of the left breast following conservation surgery and radiation therapy. She reports left breast soreness. PROCEDURE: Multislice imaging of the left breast was performed including standard views using [employer] tomosynthesis equipment (3D mammography). Images [...] documented as of this encounter Care Teams Video Arcade Manager Relationship Specialty Start Date End Date Abe Mena MD [address] [place] [address] PCP - General 02/14/21 Tray Navas MD [address] [place] [address] Surgeon Neurosurgery 08/05/22 Shabnam Vasquez APRN [address] [place] [address] Nurse Practitioner Neurosurgery 09/14/22 documented as of this encounter
--- OUTSIDE RECORDS SUMMARY | 2025-06-19 14:58 | XMS_ITS | Encounter Summary ---
Author Organization Healthcare Address [address] [place] [address] Care Team Providers Care Machine Etcher Name Role Phone Abe Mena MD Primary Care Provider [phone] Tray Navas MD Unavailable [phone] Shabnam Vasquez NUCLEAR ENGINEERING TECHNICIAN Unavailable Encounter Details Date Type Department Care Team (Late Contact Info) Description 08/18/2022 Orders Only External Location [address] [place] [address] Shabnam Vasquez, NUCLEAR ENGINEERING TECHNICIAN [address] [place] [address] Social History Tobacco Use Types [...] 07/17/2025 11:15 AM EDT Office Visit [facility] at [address] [place] [phone] Lico Shi MD [address] [address] 04/10/2026 11:30 AM EDT Office Visit [facility] at [facility] [address] [place] [address] Lico Shi MD [address] [address] documented as of this encounter [...] documented as of this encounter Care Teams Machine Etcher Relationship Specialty Start Date End Date Abe Mena MD [address] [place] [address] PCP - General 02/14/21 Tray Navas MD [address] [place] [address] Surgeon Neurosurgery 08/05/22 Shabnam Vasquez APRN [address] [place] [address] Nurse Practitioner Neurosurgery 09/14/22 documented as of this encounter
--- OUTSIDE RECORDS SUMMARY | 2025-06-19 14:58 | XMS_ITS | Encounter Summary ---
Author Organization Healthcare Address [address] [place] [address] Care Team Providers Care Sugar Grinder Name Role Phone Abe Mena MD Primary Care Provider [phone] Tray Navas MD Unavailable [phone] Shabnam Vasquez MARKET ASSET PROTECTION MANAGER Unavailable [phone] Encounter Details Date Type Department Care Team [...] drink first t kaiden in the morning (EYE-SHALE PLANER OPERATOR) to steady your nerves or to get [...] AM EDT Office [facility] [address] [place] [address] Lico Shi MD [address] [place] [address] 04/10/2026 11:30 AM EDT Office Visit [facility] [address] [place] [address] Lico Shi MD [address] [place] [address] documented as of this encounter Visit Diagnoses Not on filedocumented in this encounter Additional Health Concerns Assessment Noted Time A fall risk assessment has been complete d for the patient 03/06/2025 10:59 AM EDT A Body Mass Index follow-up plan has been documented for the patient 02/05/2025 2:21 PM EDT documented as of this encounter Care Teams Sugar Grinder Relationship Specialty Start Date End Date Abe Mena MD [address] [place] [address] PCP - General 02/14/21 Tray Navas MD [address] [place] [address] Surgeon Neurosurgery 08/05/22 Shabnam Vasquez APRN [address] [place] [address] Nurse Practitioner Neurosurgery 09/14/22 documented as of this encounter
--- OUTSIDE RECORDS SUMMARY | 2025-06-19 14:58 | XMS_ITS | Encounter Summary ---
Author Organization Healthcare Address [address] [place] [address] Care Team Providers Care Mash Preparatory Operator Name Role Phone Abe Mena MD Primary Care Provider + [phone] Tray Navas MD Unavailable Shabnam Vasquez MARBLE INSTALLER SUPERVISOR Unavailable [phone] Reason for Visit * Reason Onset Date Comments HCN - Patient Message 08/12/2022 Pre surger y test and questions Encounter Details Date Type Department Care Team (Late st Contact Info) Description 08/12/2022 Telephone [place] [facility] [address], [address] [place] [address] Shabnam Vasquez, MARBLE INSTALLER SUPERVISOR [address] [place] [address] HCN - Patient Message (Pre [...] Have pt sched on 08/18 @11:00 at [facility]. Called pt and left vm [...] needed to be scheduled and done at [facility] in [place] prior to 09/11 Pt says has to [...] optimal time of day to reach caller: [phone] Note: Please do not reply to this message. Follow-up communication and further actions as a result of this message need to be communicated with the patient directly, if the patient is not active onMyChart. If the patient is active on MyChart, they will receive notification of the communication/outcome via [employer]. documented in this encounter Plan of Treatment Upcoming Encounters Date Type Department Care Team (Late st Contact Info) Description 07/17/2025 11:15 AM EDT Office Visit [facility] [address] [place] [address] Lico Shi MD [address] [address] 04/10/2026 11:30 AM EDT Office Visit [facility] [address] [place] [address] Lico Shi MD [address] [address] documented as of this encounter Visit Diagnoses Not on filedocumented in this encounter Additional Health Concerns Assessment Noted Time A fall risk assessment has been complete d for the patient 06/30/2022 1:52 PM EDT documented as of this encounter Care Teams Mash Preparatory Operator Relationship Specialty Start Date End Date Abe Mena MD [address] [place] [address] PCP - General 02/14/21 Tray Navas MD [address] [place] [address] Surgeon Neurosurgery 08/05/22 Shabnam Vasquez APRN [address] [place] [phone] Nurse Practitioner Neurosurgery 09/14/22 documented as of this encounter
--- OUTSIDE RECORDS SUMMARY | 2025-06-19 14:58 | XMS_ITS | Encounter Summary ---
Author Organization Healthcare Address [address] [place] [address] Care Team Providers Care Creative Assistant Name Role Phone Abe Mena MD Primary Care Provider Tray Navas MD Unavailable Shabnam Vasquez FACILITIES COORDINATOR Unavailable Reason for Visit * Reason Onset Date Comments Medication Question 05/11/2025 Encounter Details Date Type Department Care Team (Late st Contact Info) Description 05/11/2025 Telephone [facility] [address] [place] [address] Lico Shi MD [address] [address] Medication Question Social History Tobacco [...] drink first t kaiden in the morning (EYE-TECHNICAL PROJECT MANAGER) to steady your nerves or to get [...] Description 07/17/2025 11:15 AM EDT Office Visit [facility] [address] [place] [address] Lico Shi MD [address] [address] 04/10/2026 11:30 AM EDT Office Visit [facility] [address] [place] [address] Lico Shi MD [address] [address] documented as of this encounter Visit Diagnoses Not on filedocumented in this encounter Additional Health Concerns Assessment Noted Time A fall risk assessment has been complete d for the patient 03/06/2025 10:59 AM EDT A Body Mass Index follow-up plan has been documented for the patient 02/05/2025 2:21 PM EDT documented as of this encounter Care Teams Creative Assistant Relationship Specialty Start Date End Date Abe Mena MD [address] [place] [address] PCP - General 02/14/21 Tray Navas MD [address] [facility] [place] [address] Surgeon Neurosurgery 08/05/22 Shabnam Vasquez APRN [address] [facility] [place] [address] Nurse Practitioner Neurosurgery 09/14/22 documented as of this encounter
--- OUTSIDE RECORDS SUMMARY | 2025-06-19 14:58 | XMS_ITS | Clinical Summary ---
Author Organization [facility] Address [address] [place] [address] Care Team Providers Care 6Th Grade Teacher Name Role Phone Abe Mena MD Primary Care Provider [phone] Tray Navas MD Unavailable [phone] Shabnam Vasquez SOFTWARE SUPPORT ANALYST Unavailable [phone] Allergies Active Allergy Reactions Criticality Noted Date [...] 25 Discontinue d(Per Patient Report) HYDROcodone-ely taminophen (Homer) 7.5-325 MG tablet Take 1 tablet (7.5 [...] 12/05/2024 Cancer Staging:Clinical: cT1c, cN0, cM0, ER+, WI+, HER2- - Signed by Lico Shi MD on 04/05/2025 Arthritis of right hip 09/21/2023 Sleep apnea 09/17/2022 Overview (09/17/2022): Use home mouthguard Type 2 diabetes mellitus wit h kidney complication, with long-term current use of insulin 09/17/2022 CKD (chronic kidney disease) 09/17/2022 Acute post-operative pain 09/17/2022 Scoliosis 08/11/2022 Overview (08/11/2022): Added automatically from request for surgery [id number] Resolved Problems Problem Noted Date Diagnosed Date [...] (08/11/2022): Added automatically from request for surgery [id number] Encounters Date Type Department Care Team Description 06/05/2025 12:30 PM EDT Office Visit [facility] at [address] [place] [address] Lico Shi MD Malignant neoplasm of left breast in female, estrogen receptor positive, unspecified site of breast (Primary Dx) 06/05/2025 Travel 06/05/2025 Ancillary Procedure [facility] at [place] [address] [place] [address] Warren Valles MD 05/11/2025 Telephone [facility] at [place] [address] [place] [address] Lico Shi MD Medication Question 04/05/2025 1:00 PM EDT Office Visit [facility] at [place] [address] [place] [address] Lico Shi MD Malignant neoplasm of left breast in female, estrogen receptor positive, unspecified site of breast (Primary Dx) 04/05/2025 Telephone [facility] [place] [address] [place] [address] Lico Shi MD Mastectomy Bra's 04/05/2025 Travel [...] drink first t kaiden in the morning (EYE-PICKLE SORTER) to steady your nerves or to get [...] Description 07/17/2025 11:15 AM EDT Office Visit [facility] at [facility] [address] [place] [address] Lico Shi MD [address] [place] [phone] 04/10/2026 11:30 AM EDT Office Visit [facility] at [facility] [address] [place] [address] Lico Shi MD [address] [place] [phone] Health Maintenance Due Date Last Done Comments [...] 03/20/2024 09/21/2023, 09/14/2022, 04/16/2020, Additional history exists [id number] Vaccine (7 - Moderna risk 2023- season) [...] this topic Medical Devices Implanted Type Area Health Information Provider Device Identifier Shelf Expiration Date Model / Serial / Lot Shoulder Replacement Right: Shoulder Rods N/A: Spine Multi Level Filter Fem Roz Vena Cava - [id number] Implanted:Qty: 1 on 09/11/2022 by Chase Watson MD at [facility] Peripherial Vascular-[id number] 07/03/2025 [id number] / / [id number] Screw 5.5mm Expedium Verse Fen 7mm X 45mm - [id number] Implanted:Qty: 2 on 09/15/2022 by Tray Navas MD at [facility] N/A: Spine Lumbar DePuy Spine Sales LP-[id number] 09/15/2023 [id number] / / Screw Set 5.5mm Expedium Verse Unitized - [id number] Implanted:Qty: 18 on 09/15/2022 by Tray Navas MD at [facility] N/A: Spine Lumbar DePuy Spine [employer] LP-[id number] 09/15/2023 [id number] / / Screw 5.5 Viper Closed Polyaxial 9x85mm - [id number] Implanted:Qty: 1 on 09/15/2022 by Tray Navas MD at [facility] N/A: Spine Lumbar DePuy Spine [employer] LP-706571 09/15/2023 [id number] / / Screw Set Ti X25 M7 Short - [id number] Implanted:Qty: 1 on 09/15/2022 by Tray Navas MD at [facility] N/A: Spine Lumbar DePuy Spine [employer] LP-147719 09/15/2023 [id number] / / Screw 5.5mm Viper Ti Polyax Fullthrd 9mm X 90mm - [id number] Implanted:Qty: 1 on 09/15/2022 by Tray Navas MD at [facility] N/A: Spine Lumbar DePuy Spine [employer] LP-090373 09/15/2023 [id number] / / Kit Infuse Bone Graft Large 8.0ml - [id number] Implanted:Qty: 1 on 09/15/2022 by Tray Navas MD at [facility] N/A: Spine Lumbar Medtronic Sofamor Danek-[id number] 10/03/2024 [id number] / / Ravin Expedium Ti Precontoured Small 5.5mm - [id number] Implanted:Qty: 2 on 09/15/2022 by Tray Navas MD at [facility] N/A: Spine Lumbar DePuy Spine Sales LP-[id number] 09/15/2023 [id number] / / Connector Iliac Opn Ti 20mm - [id number] Implanted:Qty: 1 on 09/15/2022 by Tray Navas MD at [facility] N/A: Spine Lumbar DePuy Spine Sales LP-073652 09/15/2023 [id number] / / Screw 5.5mm Expedium Verse Fen 5mm X 40mm - [id number] Implanted:Qty: 4 on 09/15/2022 by Tray Navas MD at [facility] N/A: Spine Lumbar DePuy Spine Sales LP-448993 09/15/2023 [id number] / / Single Inner Setscrew - [id number] Implanted:Qty: 2 on 09/15/2022 by Tray Navas MD at [facility] N/A: Spine Lumbar DePuy Spine Sales LP-059538 09/15/2023 [id number] / / Chip Bone 20cc - [id number] - [id number] Implanted:Qty: 1 on 09/15/2022 by Tray Navas MD at [facility] N/A: Spine Lumbar [facility]-818427 07/13/2027 PCAN1/4 / [id number] / [id number] Chip Bone 40cc - [id number] - [id number] Implanted:Qty: 1 on 09/15/2022 by Tray Navas MD at [facility] N/A: Spine Lumbar [facility]-048313 06/02/2027 PCAN1/2 / [id number] / [id number] Screw 5.5mm Expedium Verse Fen 6mm X 45mm - [id number] Implanted:Qty: 2 on 09/15/2022 by Tray Navas MD at [facility] N/A: Spine Lumbar DePuy Spine Sales LP-284741 09/15/2023 [id number] / / Screw 5.5mm Expedium Verse Fen 6mm X 40mm - [id number] Implanted:Qty: 4 on 09/15/2022 by Tray Navas MD at [facility] N/A: Spine Lumbar DePuy Spine Sales LP-554312 09/15/[id number] / / Screw 5.5mm Expedium Verse Fen 5mm X 45mm - [id number] Implanted:Qty: 2 on 09/15/2022 by Tray Navas MD at [facility] N/A: Spine Lumbar DePuy Spine Sales LP-260017 09/15/[id number] / / Screw 5.5mm Expedium Verse Fen 7mm X 50mm - [id number] Implanted:Qty: 4 on 09/15/2022 by Tray Navas MD at [facility] N/A: Spine Lumbar DePuy Spine Sales LP-384268 09/15/[id number] / / Chg Screw Ref Spher Head 35mm - [id number] Implanted:Qty: 1 on 09/29/2023 by Abe Rodriguez MD at [facility] Right: Hip Sauceda [employer] Nephew Carrasquillo Inc-090261 01/08/2033 [id number] / / [id number] Chg Screw Redapt Lock 20mm - [id number] Implanted:Qty: 1 on 09/29/2023 by Abe Rodriguez MD at [facility] Right: Hip Sau[employer] Nephew [employer]ras[employer] Inc-731599 05/29/2033 [id number] / / [id number] Chg Screw Redapt Lock 20mm - [id number] Implanted:Qty: 1 on 09/29/2023 by Abe Rodriguez MD at [facility] Right: Hip [employer]hew [employer]ras[employer] Inc-118163 02/01/2033 [id number] / / [id number] Liner Or3o Dual Mbility 38 50 - [id number] Implanted:Qty: 1 on 09/29/2023 by Abe Rodriguez MD at [facility] Right: Hip [employer] Nephew Carras[employer] Inc-559490 03/22/2033 [id number] / / [id number] Shell Modular Redapt 50mm - [id number] Implanted:Qty: 1 on 09/29/2023 by Abe Rodriguez MD at [facility] Right: Hip [employer]hew Carrasquillo Inc-384046 12/31/2030 [id number] / / [id number] Liner Or3o Dual Mbility Xlpe 28/38 - [id number] Implanted:Qty: 1 on 09/29/2023 by Abe Rodriguez MD at [facility] Right: Hip [employer] Nephew Carrasquillo Inc-819894 08/12/2032 [id number] / / [id number] Polarstem Cementless Tiha 3 - [id number] Implanted:Qty: 1 on 09/29/2023 by Abe Rodriguez MD at [facility] Right: Hip [employer]a [employer] Nephew Carrasquillo Inc-[id number] 01/25/2030 [id number] / / [id number] Chg Head Oxinium Fem 09/16 28m - [id number] Implanted:Qty: 1 on 09/29/2023 by Abe Rodriguez MD at [facility] Right: Hip Sauceda [employer] Nephew Carrasquillo Inc-767476 04/16/2033 [id number] / / [id number] Procedures Procedure Name Priority Date/Time Associated Diagnosis [...] AM EDT Narrative 06/05/2025 11:05 AM EDT [address] [address] Patient Name: MARK LEONE Patient : 1945 [...] Procedure Note Estrella Wolfe MD - 06/05/2025 [place] [id number] Patient Name: MARK LEONE Patient : 1945 Age: 79 years Patient Ordering Provider: WARREN VALLES EXAM DATE: 06/05/2025 EXAM: [facility] DIAG CHA[facility] MAMMOGRAM INDICATION: 79-year-old patient presents for baseline mammographic imaging of the left breast following conservation surgery and radiation therapy. She reports left breast soreness. PROCEDURE: Multislice imaging of the left breast was performed including standard views using [employer] Rozina Dimensions tomosynthesis equipment (3D mammography). Images [...] <5.7 % 09/22/2023 7:49 AM EST [facility] Blood Venous blood specimen / Unknown Venipuncture / Unknown 09/21/2023 4:15 PM EST 09/21/2023 4:16 PM EST Narrative [facility] - 09/22/2023 7:49 AM EST HA1C Interpretive Data: Diagnosis of Diabetes: Diabetic > or = 6.5% Pre-diabetic 5.7 to 6.4% Non-diabetic < or = 5.6% Glycemic Targets for Type I and Type II Diabetics: Non- Adults <7.0% Adults <6.0% Children and Adolescents <7.5% Source: [place] [employer]. Standards of medical care in diabetes,2017. Diabetes Care.2017:40 (suppl 1):S1-S135. HbA1c assay performed by an ion-exchange chromatography method that is certified traceable to the DCCT. us Abe Rodriguez MD LAB BLOOD ORDERABLES Final R esult [facility] [address] [place] [address] from Last 3 Months or Most Recently Relevant to Health Maintenance Insurance [facility] MEDICARE Advance Directives * Full Code (Latest Code Status on File) Date Activated Date Inactivated Comments 09/29/2023 9:53 AM 09/30/2023 2:27 PM Question Answer Comments Patient has decision-making capacity? Yes Care Teams 6Th Grade Teacher Relationship Specialty Start Date End Date Abe Mena MD [address] [place] [address] PCP - General 02/14/21 Tray Navas MD [address] [place] [address] Surgeon Neurosurgery 08/05/22 Shabnam Vasquez APRN [address] [place] [address] Nurse Practitioner Neurosurgery 09/14/22
--- OUTSIDE RECORDS SUMMARY | 2025-06-19 14:58 | XMS_ITS ---
Author Organization [facility] Address [address] [place] [address] Care Team Providers Care Fountain Supervisor Name Role Phone Abe Mena MD Primary Care Provider [phone] Tray Navas MD Unavailable [phone] MarceloelyssaConradla Jason BOATSWAIN MATE Unavailable Active Problems Problem Noted Date Diagnosed Date Malignant neoplasm of left b reast in female, estrogen receptor positive 12/05/2024 Cancer Staging:Clinical: cT1c, cN0, cM0, ER+, NV+, HER2- - Signed by Lico Shi MD on 04/05/2025 Arthritis of right hip 09/21/2023 Sleep apnea 09/17/2022 Overview (09/17/2022): Use home mouthguard Type 2 diabetes mellitus wit h kidney complication, with long-term current use of insulin 09/17/2022 CKD (chronic kidney disease) 09/17/2022 Acute post-operative pain 09/17/2022 Scoliosis 08/11/2022 Overview (08/11/2022): Added automatically from request for surgery [id number] Current Treatment and Therapy Plans No current [...] (08/11/2022): Added automatically from request for surgery [id number]
== END 2025-06-19 23:59 | disposition home or self-care (01) ==
LOC: RT 14:54
PROVIDERS: Obstetrics & Gynecology; PCP Internal Medicine Adolescent Medicine; Visit Provider Internal Medicine
DX: Z01.810 Encounter for preprocedural cardiovascular examination (principal); I35.1 Nonrheumatic aortic (valve) insufficiency; R94.31 Abnormal electrocardiogram [ECG] [EKG]; R60.9 Edema, unspecified
CPT/HCPCS: 80053; 85025

== ENCOUNTER 2025-06-21 13:23 | Outpatient (CLI) | payer MEDICARE, SELFPAY ==
--- OUTSIDE RECORDS SUMMARY | 2025-02-21 10:00 | XMS_ITS ---
Author Organization [facility] Address [address] [facility] [address] [place] [address] Care Team Providers Care Laminator Preforms Name Role Phone Abe Mena Primary Care Provider Monse Chiu Unavailable [phone] Abe Mena Unavailable Unavailable REASON FOR VISIT 2 Month F/U Encounters Encounter Location Date Provider Diagnosis [facility] [address] [facility] [address] [place] [address] 02/21/2025 Abe Mena Plan Of Treatment Next Appt Details Provider Name:Abe Mena, 07/25/2025 11:45:00 AM, [address] [facility], [address], [place], [address], Progress Notes * Deirdre LEONARDO SDOB:[birth year] (79 yo F)Acc No.[id number]:02/21/2025 Progress Notes Patient: Mara Deirdre VELASQUEZ S Provider: Concepcion Mena MD :1945 A ge:79 Y S ex:Female Date:02/21/2025 Address: [address], [id number] Subjective: * Chief Complaints: * 1 . 2 Month F/U. * Medical History: Objective: * Vitals: Assessment: Plan: * Treatment: * * Electronic signature of Scott Mena MD FAAP on 06/21/2025 at 01:26 PM EDT Sign off status: Pending * Provider: Concepcion Mena MD Date: 0 02/21/2025 Generated for Teressa turner/Deysi/Vandana on: 0 06/21/2025 01:26 PM EDT
--- OUTSIDE RECORDS SUMMARY | 2025-04-23 07:15 | XMS_ITS ---
Author Organization [facility] Address [address] [facility] [address] [place] [address] Care Team Providers Care Loan Teller Name Role Phone Abe Mena Primary Care Provider Monse Chiu Unavailable [phone] Abe Mena Unavailable Unavailable Allergies Allergen (clinical drug ingredient) Drug/Non Drug Allergy documented on EMR Reaction Allergy Type Onset Date Status Adenike Allergy tachycardia Drug Allergy Active Results Component Value Reference Range Notes THYROID PANEL WITH TSH (7444 ) Reviewed date:04/25/2025 09:50:29 AM Interpretation: Performing Lab:SE [facility] O[address] Mobilityte20/20 [employer] CampusAxuyHN[address] Jamie Flores Notes/Report: NON-FASTING; NON-FASTING; NON-FASTING T3 UPTAKE 31 22-35 % T4 (THYROXINE), TOTAL 9.0 5.1-11.9 mcg/dL FREE T4 INDEX (T7) 2.8 1.4-3.8 TSH 0.97 0.40-4.50 mIU/L BASIC METABOLIC PANEL (35409 ) Reviewed date:04/25/2025 09:50:29 AM Interpretation: Performing Lab:SE M.[facility]. [employer] Services[facility]1355 [address] [employer]20/20 [employer] CampusDoncDZ[address] Jamie Flores Notes/Report: NON-FASTING; NON-FASTING; NON-FASTING GLUCOSE 90 65-99 mg/dL Fasting reference interval UREA NITROGEN (BUN) 18 7-25 mg/dL CREATININE 1.42 0.60-0.95 mg/dL EGFR 37 > OR = 60 mL/min/1.73m2 BUN/CREATININE RATIO 13 6-22 (calc) SODIUM 137 135-146 mmol/L POTASSIUM 4.5 3.5-5.3 mmol/L CHLORIDE 100 98-110 mmol/L CARBON DIOXIDE 27 20-32 mmol/L CALCIUM 10.3 8.6-10.4 mg/dL HEMOGLOBIN A1c (496) Reviewed date:04/25/2025 09:50:29 AM Interpretation: Performing Lab:SE, [facility] [address], [facility] CenterEtevXR[address] Jamie Flores Notes/Report: NON-FASTING; NON-FASTING; NON-FASTING HEMOGLOBIN A1c 7.7 <5.7 % For someone without known diabetes, a hemoglobin A1c value of 6.5% or greater indicates that they may have diabetes and this should be confirmed with a follow-up test. For someone with known diabetes, a value <7% indicates that their diabetes is well controlled and a value greater than or equal to 7% indicates suboptimal control. A1c targets should be individualized based on duration of diabetes, age, comorbid conditions, and other considerations. Currently, no consensus exists regarding use of hemoglobin A1c for diagnosis of diabetes for children. REASON FOR VISIT 6 week follow up, right wrist pain Medications Medication SIG (Take, Route, Frequency, Duration) Notes Start Date End Date Status Losartan Potassium 25 MG 1 tab(s) orally once a day; Duration: 30 day(s) Active Spironolactone 50 MG TAKE 1 TABLET BY MOUTH TWICE DAILY; Duration: 90 Active GLUCOMETER NA USE FOR FSBS TESTING NA ONCE A DAY; Duration: 30 DAYS DX: E11.22 *Please review for potential replacement for e-prescription and drug interaction check* 12/11/2024 Active TEST STRIPS AND LANCETS NA FOR FSBS TESTING NA ONCE A DAY DX: E11.22 *Please review for potential replacement for e-prescription and drug interaction check* 12/11/2024 Active Gabapentin 300 MG 1 cap(s) orally 3 times a day; Duration: 90 days 11/17/2024 Active Levothyroxine Sodium 75 MCG 1 tab(s) orally once a day; Duration: 90 days Active Atorvastatin Calcium 40 MG 1 tab(s) orally once a day; Duration: 90 days Active Xarelto 20 MG TAKE ONE TABLET BY MOUTH EVERY EVENING; Duration: 90 days Active Anastrozole 1 MG 1 tablet Orally Once a day Active Problems Problem Type SNOMED Code ICD Code Onset Dates Problem Status W/U Status Risk Notes Problem Localized, primary osteoarthritis of the hand (493687343) Arthritis of carpometacarpal (CMC) joint of right thumb (M18.11) Active confirmed Vital Signs Temperature 97.9 degrees Fahrenheit 04/23/20 25 Heart Rate 76 /min 04/23/2025 Blood pressure systolic 126 mm Hg 04/23/20 25 Blood pressure diastolic 84 mm Hg 025 Height 65 in 04/23/2025 Weight 171 lbs 04/23/2025 BMI 28.45 kg/m2 04/23/2025 Encounters Encounter Location Date Provider Diagnosis [facility] [address] [facility] [address] [facility] [place] [address] 04/23/2025 Abe Rajesh Type 2 diabetes migue itus with diabetic chronic kidney disease E11.22 ; Hypothyroidism, unspecified hypothyroidism type E03.9 ; Hyperlipidemia, unspecified E78.5 and Arthritis of carpometacarpal (CMC) joint of right thumb M18.11 Assessments Encounter Date Diagnosis (ICD Code) Assessment Notes Treatment Notes Treatment Clinical Notes Section Notes 04/23/2025 Type 2 diabetes mellitus with diabetic chronic kidney disease (ICD-10 - E11.22) - Last A1C 11.8 - Currently on glimeperide - Side effects with previous meds- SGLT2i caused yeast infections, metformin diarrhea and Ozempic caused nausea - Discussed starting insulin, hesistent and is hopeful A1C has improved - Will recheck A1C and schedule follow up visit to discuss insulin if continues to be elevated - Continue glimeperide 04/23/2025 Hypothyroidism, unspecified hypothyroidism type (ICD-10 - E03.9) - Denies symptoms - Repeat TSH - Continue levothyroxine at current dose 04/23/2025 Hyperlipidemia, unspecified (ICD-10 - E78.5) 04/23/2025 Arthritis of carpometacarpal (CMC) joint of right thumb (ICD-10 - M18.11) - R thumb pain worsening, limiting movement due to swelling, worse in morning - likely arthritis, does not appear to be a ganglion cyst - Recommended wrist and thumb brace at night Plan Of Treatment Treatment Notes Assessment Notes Type 2 diabetes mellitus wit h diabetic chronic kidney disease - Last A1C 11.8 - Currently on glimeperide - Side effects with previous meds- SGLT2i caused yeast infections, metformin diarrhea and Ozempic caused nausea - Discussed starting insulin, hesistent and is hopeful A1C has improved - Will recheck A1C and schedule follow up visit to discuss insulin if continues to be elevated - Continue glimeperide Hypothyroidism, unspecified hypothyroidism type - Denies symptoms - Repeat TSH - Continue levothyroxine at current dose Arthritis of carpometacarpal (CMC) joint of right thumb - R thumb pain worsening, limiting movement due to swelling, worse in morning - likely arthritis, does not appear to be a ganglion cyst - Recommended wrist and thumb brace at night Next Appt Details Follow Up: prn, Reason: Provider Name:Abe Mena, 07/25/2025 11:45:00 AM, [address] [place] [facility] [address] [facility], [address], [place], [address], Progress Notes * Deirdre LEONARDO SDOB:[birth year] (79 yo F)Acc No.[id number]:04/23/2025 Progress Notes Patient: Deirdre BERKOWITZ Provider: Concepcion Mena MD :1945 A ge:79 Y S ex:Female Date:04/23/2025 Address:[address] Subjective: * Chief Complaints: * 1 . 6 week follow up, right wrist pain. * HPI: g en: Deirdre Leonardo is an 79 yo F here for follow up. She complains of R thumb and wrist pain, limiting movement and has some overlying swelling. We discussed her A1C being elevated at last visit. She is currently on glimeperide. Has been unable to tolerate Ozempic, Jardiance and metformin in the past. She is hesitent to start insuline, will recheck A1C today. * Medical History: H ypercholestrolemia, Hypertension, Osteoarthritis, Herniated disc, Cataracts, Hypothyroidism, High testosterone level, High insulin level, Normal colonoscopy 2010 - repeated 09/22 with multiple isolated tubular adenomas, DEXA scan 2017 with mild osteopenia, normal mammogram December, - And also normal 06/26 - 11/28 mamm with biopsy showing stage 2 invasive ductal carcinoma, Had shingles vaccination 2012, type 2 DM, Bilateral DVT 12/2022, RLE- DVT- 04/2023, Breast cancer. * Surgical History: b ack surgery x 4 fusion l4/5 - most recent 11/26 , Tubal 1977, breast bx- precancerous cells removed -left breast 2009, Skin cancer removed , Right shoulder replacement 02/03/2018, skin cancer removal from nose 04/2020, carpal tunnel surgery-lt wrist 12/2019, back 09/15/22, rt hip-total replacement 09/2023, left breast 12/2024. * Hospitalization/Major Diagno stic Procedure: b ack surgery , [facility] , rt hip total replacement . * Family History: F ather: , MS. M other: , MIHTN. P aternal Grand Father: .?Paternal Grand Mother: . M aternal Grand Father: . M aternal Grand Mother: , CVA. P aternal uncle: , Heart disease. P aternal aunt: . M aternal uncle: . M aternal aunt: . S tong: alive, 1 sister [place], copd, heart disease, diabetes, hyperlipidemiabreast cancer, diagnosed with Cancer. Luan cooper: alive. 3 sister(s) . 1 son(s) , 1 daughter(s) - healthy. . * Social History: S moking: no A re you a:: nonsmoker. R ecreational drug use: no. Exercise: no. Home smoke detector use: yes. Caffeine: yes, frequency: 1 1/2 cups coffee daily. Living Will: No. Alcohol: socially, wine occasionally. Sexually active: no. Travel outside [place]: yes, [place] and [place]- 2010. Occupation: retired. * Medications: T aking Anastrozole 1 MG Tablet 1 tablet Orally Once a day , Taking Atorvastatin Calcium 40 MG Tablet 1 tab(s) orally once a day , Taking Xarelto 20 MG Tablet TAKE ONE TABLET BY MOUTH EVERY EVENING , Taking Levothyroxine Sodium 75 MCG Tablet 1 tab(s) orally once a day , Taking Gabapentin 300 MG Capsule 1 cap(s) orally 3 times a day , Taking GLUCOMETER NA PER INSURANCE COVERAGE USE FOR FSBS TESTING NA ONCE A DAY , Notes to Pharmacist: DX: E11.22 *Please review for potential replacement for e-prescription and drug interaction check*, Taking TEST STRIPS AND LANCETS NA PER INSURANCE COVERAGE WITH GLUCOMETER FOR FSBS TESTING NA ONCE A DAY , Notes to Pharmacist: DX: E11.22 *Please review for potential replacement for e- prescription and drug interaction check*, Taking Losartan Potassium 25 MG Tablet 1 tab(s) orally once a day , Taking Spironolactone 50 MG Tablet TAKE 1 TABLET BY MOUTH TWICE DAILY , Medication List reviewed and reconciled with the patient * Allergies: A llegra Allergy: tachycardia. Objective: * Vitals: N urse: be, Pain: 1, Temp: 97.9, RR: 14, HR: 76, BP: 126/84, Ht: 65, Wt: 171, BMI:28.45. * Examination: G eneral Examination: General P leasant and Cooperative, NAD on RA,. Heart: R egular Rate and Rhythm, no murmur, rubs or gallops. Extremities: r ight thumb swelling around radiocarpal joint. Assessment: * Assessment: 1. T ype 2 diabetes mellitus with diabetic chronic kidney disease - E11.22 (Primary) 2 . H ypothyroidism, unspecified hypothyroidism type - E03.9 3 . H yperlipidemia, unspecified - E78.5 4 . A rthritis of carpometacarpal (CMC) joint of right thumb - M18.11 Plan: * Treatment: Value Reference Range T 3 UPTAKE 31 22-35 - % * T 4 (THYROXINE), TOTAL 9.0 5.1-11.9 - mcg/dL * F REE T4 INDEX (T7) 2.8 1.4-3.8 - * T SH 0.97 0.40-4.50 - mIU/L * Dianna Granados 04/25/20 09:50:23 AM EDT > pt informedThis lab was reviewed by Dianna Granados on 04/25/2025 at 09:50 AM EDT ?LAB: BASIC METABOLIC PANEL (87478)* Value Reference Range G LUCOSE 90 65-99 - mg/dL * U EKATERINA NITROGEN (BUN) 18 7-25 - mg/dL * C REATININE 1.42 H 0.60-0.95 - mg/dL * B UN/CREATININE RATIO 13 6-22 - (calc) * S ODIUM 137 135-146 - mmol/L * P OTASSIUM 4.5 3.5-5.3 - mmol/L * C HLORIDE 100 98-110 - mmol/L * C ARBON DIOXIDE 27 20-32 - mmol/L * C ALCIUM 10.3 8.6-10.4 - mg/dL * E GFR 37 L > OR = 60 - mL/min/1 .73m2 * Dianna Granados 04/25/20 09:50:23 AM EDT > pt informedThis lab was reviewed by Dianna Granados on 04/25/2025 at 09:50 AM EDT ?LAB: HEMOGLOBIN A1c (496)* Value Reference Range H EMOGLOBIN A1c 7.7 H <5.7 - % * Dianna Granados 04/25/20 09:50:23 AM EDT > pt informedThis lab was reviewed by Dianna Granados on 04/25/2025 at 09:50 AM EDT Notes: - Last A1C 11.8 - Currently on glimeperide - Side effects with previous meds- SGLT2i caused yeast infections, metformin diarrhea and Ozempic caused nausea - Discussed starting insulin, hesistent and is hopeful A1C has improved - Will recheck A1C and schedule follow up visit to discuss insulin if continues to be elevated - Continue glimeperide??2.?Hypothyroidism, unspecified hypothyroidism type?LAB: THYROID PANEL WITH TSH (7444)* Value Reference Range T 3 UPTAKE 31 22-35 - % * T 4 (THYROXINE), TOTAL 9.0 5.1-11.9 - mcg/dL * F REE T4 INDEX (T7) 2.8 1.4-3.8 - * T SH 0.97 0.40-4.50 - mIU/L * Dianna Granados 04/25/20 09:50:23 AM EDT > pt informedThis lab was reviewed by Dianna Granados on 04/25/2025 at 09:50 AM EDT ?LAB: BASIC METABOLIC PANEL (63856)* Value Reference Range G LUCOSE 90 65-99 - mg/dL * U EKATERINA NITROGEN (BUN) 18 7-25 - mg/dL * C REATININE 1.42 H 0.60-0.95 - mg/dL * B UN/CREATININE RATIO 13 6-22 - (calc) * S ODIUM 137 135-146 - mmol/L * P OTASSIUM 4.5 3.5-5.3 - mmol/L * C HLORIDE 100 98-110 - mmol/L * C ARBON DIOXIDE 27 20-32 - mmol/L * C ALCIUM 10.3 8.6-10.4 - mg/dL * E GFR 37 L > OR = 60 - mL/min/1 .73m2 * Dianna Granados 04/25/20 09:50:23 AM EDT > pt informedThis lab was reviewed by Dianna Granados on 04/25/2025 at 09:50 AM EDT ?LAB: HEMOGLOBIN A1c (496)* Value Reference Range H EMOGLOBIN A1c 7.7 H <5.7 - % * Dianna Granados 04/25/20 09:50:23 AM EDT > pt informedThis lab was reviewed by Dianna Granados on 04/25/2025 at 09:50 AM EDT Notes: - Denies symptoms - Repeat TSH - Continue levothyroxine at current dose??3.?Hyperlipidemia, unspecified?LAB: THYROID PANEL WITH TSH (7444)* Value Reference Range T 3 UPTAKE 31 22-35 - % * T 4 (THYROXINE), TOTAL 9.0 5.1-11.9 - mcg/dL * F REE T4 INDEX (T7) 2.8 1.4-3.8 - * T SH 0.97 0.40-4.50 - mIU/L * Dianna Granados 04/25/20 09:50:23 AM EDT > pt informedThis lab was reviewed by Dianna Granados on 04/25/2025 at 09:50 AM EDT ?LAB: BASIC METABOLIC PANEL (15845)* Value Reference Range G LUCOSE 90 65-99 - mg/dL * U EKATERINA NITROGEN (BUN) 18 7-25 - mg/dL * C REATININE 1.42 H 0.60-0.95 - mg/dL * B UN/CREATININE RATIO 13 6-22 - (calc) * S ODIUM 137 135-146 - mmol/L * P OTASSIUM 4.5 3.5-5.3 - mmol/L * C HLORIDE 100 98-110 - mmol/L * C ARBON DIOXIDE 27 20-32 - mmol/L * C ALCIUM 10.3 8.6-10.4 - mg/dL * E GFR 37 L > OR = 60 - mL/min/1 .73m2 * Dianna Granados 04/25/20 09:50:23 AM EDT > pt informedThis lab was reviewed by Dianna Granados on 04/25/2025 at 09:50 AM EDT ?LAB: HEMOGLOBIN A1c (496)* Value Reference Range H EMOGLOBIN A1c 7.7 H <5.7 - % * Dianna Granados 04/25/20 09:50:23 AM EDT > pt informedThis lab was reviewed by Dianna Granados on 04/25/2025 at 09:50 AM EDT 4.?Arthritis of carpometacarpal (CMC) joint of right thumb? Notes: - R thumb pain worsening, limiting movement due to swelling, worse in morning - likely arthritis, does not appear to be a ganglion cyst - Recommended wrist and thumb brace at night ?? * Follow Up: p rn * * Sign off status: Completed true * Provider: Concepcion Mena MD Date: 04/23/2025 Generated for Teressa turner/Deysi/Mingoitting on: 06/21/2025 01:26 PM EDT History and Physical Notes * HPI (History of Present Illness) Category Sub-Category Detail Notes Category Not es gen Deirdre Leonardo is an 79 yo F here for follow up. She complains of R thumb and wrist pain, limiting movement and has some overlying swelling. We discussed her A1C being elevated at last visit. She is currently on glimeperide. Has been unable to tolerate Ozempic, Jardiance and metformin in the past. She is hesitent to start insuline, will recheck A1C today. Examination Category Sub-Category Detail Notes Category Not es General Examination Heart: Regular Rate and Rhythm, no murmur, rubs or gallops Extremities: right thumb swelling around radiocarpal joint General Pleasant and Coopera tiashu, NAD on RA,
--- OUTSIDE RECORDS SUMMARY | 2025-06-05 12:30 | XMS_ITS | Encounter Summary ---
Author Organization Healthcare Address [address] [place] [address] Care Team Providers Care Bruise Trimmer Name Role Phone Abe Mena MD Primary Care Provider [phone] Tray Navas MD Unavailable [phone] Shabnam Vasquez HISTOLOGY AIDE Unavailable [phone] Encounter Details Date Type Department Care Team (Late st Contact Info) Description 06/05/2025 12:30 PM EDT Office Visit [facility] [address] [place] [address] Lico Shi MD [address] [address] Malignant neoplasm of left breast [...] drink first t kaiden in the morning (EYE-REHABILITATION DIRECTOR) to steady your nerves or to get [...] Edition - Clinical: cT1c, cN0, cM0, ER+, NH+, HER2- - Signed by Lico Shi MD on 04/05/2025 DIAGNOSIS: Diagnosis Plan 1. Malignant neoplasm of left breast in female, estrogen receptor positive, unspecified site of breast History of present illness: Patient was an 79-year-old female with a recently abnormal mammogram through the [facility]. Recent MRI done on 09/28/2025 showed a spiculated area of 16 x 9 x 10 mm in size in the left breast.That has biopsy on the left breast that has consistent with a invasive cancer grade 2. There was some perineural invasion mentioned as well. It was strongly ER [place] positive HER2 negative by IHC and with [...] Comment: Surgical Pathology Report NAME:MARK LEONARDO PATH: [id number] DATE of : 1945 Copy to: Diagnosis: [...] minimal amount of dense fibrous breast tissue. Home Care Associate sections submitted in 9 cassettes as follows: A1 - posterior margin A2 - anterior margin A3-A4 - medial margin A5-A8 - lesion entirely submitted to include superior, inferior and lateral margins A9 - additional inferior margin Ink Code: Red = lateral [place] = medial Blue = posterior Green = [...] ensure appropriate tissue quality for effective ER, NH, Her2 receptor testing. B) Patient name and [...] labeled B1-B33. Ink code: Red = lateral [place] = medial Green = inferior Blue = [...] radiation oncology. 2. Patient had radiation in [place] without any major incident completed earlier this [...] Description 07/17/2025 11:15 AM EDT Office Visit [facility] [address] [place] [address] Lico Shi MD [address] [address] 04/10/2026 11:30 AM EDT Office Visit [facility] [address] [place] [address] Lico Shi MD [address] [address] documented as of this encounter [...] documented as of this encounter Care Teams Bruise Trimmer Relationship Specialty Start Date End Date Abe Mena MD [address] [place] [address] PCP - General 02/14/21 Tray Navas MD [address] [place] [address] Surgeon Neurosurgery 08/05/22 Shabnam Vasquez APRN [address] [place] [address] Nurse Practitioner Neurosurgery 09/14/22 documented as of this encounter
--- OUTSIDE RECORDS SUMMARY | 2025-06-06 12:04 | XMS_ITS ---
Author Organization [facility] Address [address] [facility] [address] [facility] [address] [place] [address] Care Team Providers Care Stove Bottom Worker Name Role Phone Abe Mena Primary Care Provider [phone] Monse Chiu Unavailable [phone] Abe Mena Unavailable Unavailable REASON FOR VISIT xx Encounters Encounter Location Date Provider Diagnosis [facility] [address] [facility] [address] [facility] [address] [place] [address] 06/06/2025 Abe Mena Plan Of Treatment Next Appt Details Provider Name:Abe Mena, 07/25/2025 11:45:00 AM, [address] [facility] [address] [facility], [address], [place], [address], Progress Notes * Deirdre LEONARDO SDOB:[birth year] (79 yo F)Acc No.[id number]:06/06/2025 Patient: Mara Deirdre VELASQUEZ :1945 A ge:79 Y S ex:Female Address: [place] [address] Subjective: * Chief Complaints: * X x * Medical History: * Surgical History: * Hospitalization/Major Diagno stic Procedure: * Medications: Objective: * Vitals: * Physical Examination: Assessment: Plan: * Treatment: * Procedure Codes: * true * Date: Generated for Printi ng/Faxing/eTransmitting on: 0 06/21/2025 01:26 PM EDT
--- OUTSIDE RECORDS SUMMARY | 2025-06-08 11:30 | XMS_ITS ---
Author Organization [facility] Address [address] [facility] [address] [facility] [address] [place] [address] Care Team Providers Care Director Of Manufacturing Operations Name Role Phone Abe Mena Primary Care Provider Monse Chiu Unavailable [phone] Abe Mena Unavailable Unavailable REASON FOR VISIT Flu Shot Immunizations Vaccine Route Administration Date Status Comme nts Fluzone High Dose IM Intramuscular 06/08/2025 Administered Encounters Encounter Location Date Provider Diagnosis [facility] [facility] [address] [facility] [address] [place] [address] 06/08/2025 Abe Mena Immunization(s) administered Z23 Assessments Encounter Date Diagnosis (ICD Code) Assessment Notes Treatment Notes Treatment Clinical Notes Section Notes 06/08/2025 Immunization(s) administered (ICD-10 - Z23) Plan Of Treatment Next Appt Details Follow Up: prn, Reason: Provider Name:bAe Mena, 07/25/2025 11:45:00 AM, [address] [facility] [address] [facility], [address], [place], [address], Progress Notes * Deirdre LEONARDO SDOB:[birth year] (79 yo F)Acc No.[id number]:06/08/2025 Patient: Deirdre BERKOWITZ Provider: Concepcion Mena MD :1945 A ge:79 Y S ex:Female Date:06/08/2025 Address:[place] [address], [facility] [place], [place] Subjective: * Chief Complaints: * 1 . [...] true * Provider: Concepcion Mena MD Date: 06/08/2025 Generated for Teressa turner/Deysi/Mingoitting on: 06/21/2025 01:27 PM EDT
--- OUTSIDE RECORDS SUMMARY | 2025-06-21 13:26 | XMS_ITS ---
Author Organization [facility] Address [address] [place] [address] Care Team Providers Care Sheet Metal Insulator Name Role Phone Abe Mena MD Primary Care Provider [phone] Tray Navas MD Unavailable [phone] MarceloelyssaConradla Jason ASSURANCE SERVICES MANAGER HEALTH CARE Unavailable [phone] Active Problems Problem Noted Date Diagnosed Date Malignant neoplasm of left b reast in female, estrogen receptor positive 12/05/2024 Cancer Staging:Clinical: cT1c, cN0, cM0, ER+, [place]+, HER2- - Signed by Lico Shi MD on 04/05/2025 Arthritis of right hip 09/21/2023 Sleep apnea 09/17/2022 Overview (09/17/2022): Use home mouthguard Type 2 diabetes mellitus wit h kidney complication, with long-term current use of insulin 09/17/2022 CKD (chronic kidney disease) 09/17/2022 Acute post-operative pain 09/17/2022 Scoliosis 08/11/2022 Overview (08/11/2022): Added automatically from request for surgery [id number] Current Treatment and Therapy Plans No current [...] (08/11/2022): Added automatically from request for surgery [id number]
--- OUTSIDE RECORDS SUMMARY | 2025-06-21 13:26 | XMS_ITS | Patient Health Record ---
Author Organization [facility] Address [address] [place] [address] Care Team Providers Care Machine Riveter Name Role Phone Abe Mena Primary Care Provider Monse Chiu Unavailable [phone] Abe Mena Unavailable Unavailable Migration, Provider Unavailable Unavailable Allergies Allergen (clinical drug ingredient) Drug/Non Drug Allergy documented on EMR Reaction Allergy Type Onset Date Status Adenike Allergy tachycardia Drug Allergy Active Results Component Value Reference Range Notes Ultrasound : Guided Biopsy Reviewed date:11/29/2024 08:52:50 PM Interpretation: Performing Lab: Notes/Report: HEMOGLOBIN A1c (496) Reviewed date:04/25/2025 09:50:29 AM Interpretation: Performing Lab:SE, [facility] Epil1502 [facility], Red[facility] LlcCfzmAE[address] Jamie Flores Notes/Report: NON-FASTING; NON-FASTING; NON-FASTING HEMOGLOBIN [...] A1c for diagnosis of diabetes for children. HEMOGLOBIN A1c (496) Reviewed date:12/07/2024 11:03:34 AM Interpretation: Performing Lab:CB, [employer] [id number] [employer] pinion-pins, [place] EsysMZ[address] Jamie Flores Notes/Report: NON-FASTING; NON-FASTING HEMOGLOBIN A1c [...] A1c for diagnosis of diabetes for children. THYROID PANEL WITH TSH (7444 ) Reviewed date:04/25/2025 09:50:29 AM Interpretation: Performing Lab:SE [facility] Cxtj8614 [employer] pinion-pins, PLUMgridXqsuIK[address] Jamie Flores Notes/Report: NON-FASTING; NON-FASTING; NON-FASTING T3 UPTAKE 31 22-35 % T4 (THYROXINE), TOTAL 9.0 5.1-11.9 mcg/dL FREE T4 INDEX (T7) 2.8 1.4-3.8 TSH 0.97 0.40-4.50 mIU/L BASIC METABOLIC PANEL (09374 ) Reviewed date:04/25/2025 09:50:29 AM Interpretation: Performing Lab:SE [facility] [id number] [address] [employer]MeOut, [place] ImmqEV[address] Jamie Flores Notes/Report: NON-FASTING; NON-FASTING; NON-FASTING GLUCOSE 90 65-99 mg/dL Fasting reference interval UREA NITROGEN (BUN) 18 7-25 mg/dL CREATININE 1.42 0.60-0.95 mg/dL EGFR 37 > OR = 60 mL/min/1.73m2 BUN/CREATININE RATIO 13 6-22 (calc) SODIUM 137 135-146 mmol/L POTASSIUM 4.5 3.5-5.3 mmol/L CHLORIDE 100 98-110 mmol/L CARBON DIOXIDE 27 20-32 mmol/L CALCIUM 10.3 8.6-10.4 mg/dL BASIC METABOLIC PANEL (89623 ) Reviewed date:12/07/2024 11:03:33 AM Interpretation: Performing Lab:CB, [facility] Joig4367 [facility], Redwood LlcOhlnTN[address] Jamie Flores Notes/Report: NON-FASTING; NON-FASTING GLUCOSE 410 [...] 25 20-32 mmol/L CALCIUM 9.6 8.6-10.4 mg/dL Medications Medication SIG (Take, Route, Frequency, Duration) [...] Status Risk Notes Problem Diabetic renal disease (654372579) Type 2 diabetes mellitus with diabetic chronic kidney disease (E11.22) Active confirmed Problem Hyperlipidemia (16867209) Hyperlipidemia, unspecified (E78.5) Active confirmed Problem Essential hypertension (54517216) Essential hypertension (I10) Active confirmed Problem Thyroid nodule (676309334) Thyroid nodule (E04.1) Active confirmed Problem Primary osteoarthritis (636014208) Primary osteoarthritis involving multiple joints (M15.0) Active confirmed Problem Hypothyroidism (87402407) Hypothyroidism, unspecified hypothyroidism type (E03.9) Active confirmed Problem Lymphedema (411178177) Lymphedema of left leg (I89.0) Active confirmed Problem Acquired spondylolisthesis (713285621) Spondylolisthesis at L4-L5 level (M43.16) Active confirmed Problem Embolism from thrombosis of vein of lower extremity (927195836) 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) Active confirmed Problem Localized, primary osteoarthritis of the hand (076581020) Arthritis of carpometacarpal (CMC) joint of right thumb (M18.11) Active confirmed Problem Chronic kidney disease stage 3B (disorder) (552452702) Chronic kidney disease, stage 3b (N18.32) Active confirmed Problem Gastroesophageal reflux disease (652355782) Gastroesophageal reflux disease, unspecified whether esophagitis present (K21.9) Active confirmed Problem 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) Active confirmed Problem Malignant neoplasm of upper-outer quadrant of female breast (211232831) Malignant neoplasm of upper-outer quadrant of left female breast, unspecified estrogen receptor status (C50.412) Active confirmed Vital Signs Heart Rate 76 /min 04/23/2025 Temperature 97.9 degrees Fahrenheit 04/23/2025 Blood pressure diastolic 84 mm Hg 04/23/2025 Height 65 in 04/23/2025 Blood pressure systolic 126 mm Hg 04/23/2025 Weight 171 lbs 04/23/2025 BMI 28.45 kg/m2 04/23/2025 Encounters Encounter Location Date Provider Diagnosis [facility] [address] [place] [address] 01/06/2025 Provider Migration Type 2 diabetes mellitus with diabetic chronic kidney disease E11.22 [facility] [address] [place] [address] 07/12/2024 Abeeric Mena Lymphedema of left l eg I89.0 and Recurrent deep vein thrombosis (DVT) I82.409 [facility] [address] [place] [address] 07/31/2024 Abe Mena Pain of paraspinal muscle M79.18 [facility] [address] [facility] [place] [address] 12/04/2024 Abe Mena Chronic kidney disea se, stage 3b N18.32 ; Type 2 diabetes mellitus with diabetic chronic kidney disease E11.22 ; Malignant neoplasm of upper-outer quadrant of left female breast, unspecified estrogen receptor status C50.412 and Routine medical exam Z00.00 [facility] [address] [place] [address] 12/11/2024 Abe Mena Chronic kidney disea se, stage 3b N18.32 ; Type 2 diabetes mellitus with diabetic chronic kidney disease E11.22 and Acute pain of right shoulder M25.511 [facility] [address] [facility] [address] [place] [address] 01/08/2025 Abe Mena Type 2 diabetes mellitus with diabetic chronic kidney disease E11.22 [facility] [address] [facility] [address] [place] [address] 03/12/2025 Abe Mena Type 2 diabetes mellitus with diabetic chronic kidney disease E11.22 [facility] [address] [facility] [address] [place] [address] 04/23/2025 Abe Mena Type 2 diabetes mellitus with diabetic chronic kidney disease E11.22 ; Hypothyroidism, unspecified hypothyroidism type E03.9 ; Hyperlipidemia, unspecified E78.5 and Arthritis of carpometacarpal (CMC) joint of right thumb M18.11 [facility] [address] [facility] [address] [place] [address] 06/08/2025 Abe Mena Immunization(s) administered Z23 [facility] [address] [facility] [address] [place] [address] 07/04/2024 Abe Mena [facility] [address] [place] [address] 08/18/2024 Abe Besluis [facility] [address] [facility] [address] [place] [address] 09/28/2024 Abe Rajesh Abnormal mammogram o f left breast R92.8 [facility] [address] [facility] [address] [place] [address] 09/29/2024 Abe Noahluis Abnormal mammogram R92.8 [facility] [address] [facility] [address] [place] [address] 11/29/2024 Abe Rajesh Breast mass N63.0 [facility] [address] [facility] [address] [place] [address] 12/01/2024 Abe Besson [facility] [address] [place] [address] 12/11/2024 Abe Besson [facility] [address] [place] [address] 12/11/2024 Abe Besson Trapezius muscle spa sm M62.838 [facility] [place] [address] [place] [address] 12/30/2024 Abe Besson [facility] [address] [place] [address] 03/21/2025 Abeeric Mena Type 2 diabetes mellitus with diabetic chronic kidney disease E11.22 [facility] [address] [place] [address] 04/16/2025 Abe Besson [facility] [place] [address] [place] [address] 04/26/2025 Abe Besson [facility] [address] [place] [address] 06/06/2025 Abe Besson [facility] [address] [place] [address] 06/06/2025 Abe Besson [facility] [address] [facility] [address] [place] [address] 06/19/2025 Abe Besson Assessments Encounter Date Diagnosis (ICD Code) Assessment [...] Biopsy, Stereotactic, Left Breast 01/31/2010 Physical Therapy 07/08/2022 Physical Therapy 03/06/2021 Physical Therapy 03/09/2022 Physical Therapy 09/19/2018 Physical Therapy 08/20/2015 Physical Therapy 04/25/2019 Mammogram : Bilateral 09/09/2007 Occupational Therapy : Eval & Treatment 03/09/2022 Occupational Therapy : Eval & Treatment 02/20/2022 H-CMP 06/05/2008 H-CMP 03/29/2009 H-LIPID PANEL 06/05/2008 H-LIPID PANEL 06/18/2014 H-HGBA1C 07/14/2016 F-FYDT-FBRZJC CITRULLINATED PEPTIDE 05/04 Ultrasound : Guided Biopsy 05/21/2020 C-MISC CULTURE 01/16/2009 H-SS A 07/13/2016 H-SS B 07/13/2016 Physical Therapy : Lymphedema 05/24/2023 Physical Therapy : Lymphedema 01/25/2024 M-Complete Blood Count Auto Diff 020 M-Comprehensive Metabolic Panel 05/02/20 20 M-Lipid Panel 05/02/2020 M-Lipid Panel 05/09/2018 M-Vitamin B12 02/26/2021 Therapy 12/11/2024 Mammogram : Diagnostic, Left 09/29/2024 Next Appt Details Provider Name:Abe Mena, 07/25/2025 11:45:00 AM, [address], [place], [address], Insurance Providers Payer Name Payer Address Payer Phone Subscriber Number Group Number Insured Name Patient Relationship to Insured Coverage Start Date Coverage End Date [employer] MEDICARE [address] [address] [place] [address] [id number] Deirdre Leone Self - patient is the [...] History Reason Date(Month/Year) rt hip total replacement [facility] back surgery
--- OUTSIDE RECORDS SUMMARY | 2025-06-21 13:26 | XMS_ITS | Clinical Summary ---
Author Organization [facility] Address [address] [place] [address] Care Team Providers Care Safety Professional Name Role Phone Abe Mena MD Primary Care Provider [phone] Tray Navas MD Unavailable [phone] Shabnam Vasquez RAILROAD REPAIRER Unavailable [phone] Allergies Active Allergy Reactions Criticality Noted Date [...] 25 Discontinue d(Per Patient Report) HYDROcodone-ely taminophen ([place]) 7.5-325 MG tablet Take 1 tablet (7.5 [...] 12/05/2024 Cancer Staging:Clinical: cT1c, cN0, cM0, ER+, MO+, HER2- - Signed by Lico Shi MD on 04/05/2025 Arthritis of right hip 09/21/2023 Sleep apnea 09/17/2022 Overview (09/17/2022): Use home mouthguard Type 2 diabetes mellitus wit h kidney complication, with long-term current use of insulin 09/17/2022 CKD (chronic kidney disease) 09/17/2022 Acute post-operative pain 09/17/2022 Scoliosis 08/11/2022 Overview (08/11/2022): Added automatically from request for surgery [id number] Resolved Problems Problem Noted Date Diagnosed Date [...] (08/11/2022): Added automatically from request for surgery [id number] Encounters Date Type Department Care Team Description 06/05/2025 12:30 PM EDT Office Visit [facility] at [address] [place] [address] Lico Shi MD Malignant neoplasm of left breast in female, estrogen receptor positive, unspecified site of breast (Primary Dx) 06/05/2025 Travel 06/05/2025 Ancillary Procedure [facility] at [place] [address] [place] [address] Warren Valles MD 05/11/2025 Telephone [facility] at [place] [address] [place] [address] Lico Shi MD Medication Question 04/05/2025 1:00 PM EDT Office Visit [facility] at [place] [address] [place] [address] Lico Shi MD Malignant neoplasm of left breast in female, estrogen receptor positive, unspecified site of breast (Primary Dx) 04/05/2025 Telephone [facility] [place] [address] [place] [address] Lico Shi MD Mastectomy Bra's 04/05/2025 Travel [...] drink first t kaiden in the morning (EYE-CHEMICAL PREPARER) to steady your nerves or to get [...] Office Visit [facility] at [facility] [address] [place] [address] Lico Shi MD [address] [place] [id number] 04/10/2026 11:30 AM EDT Office Visit [facility] at [facility] [address] [place] [address] Lico Shi MD [address] [place] [phone] Health Maintenance Due Date Last Done Comments [...] 03/20/2024 09/21/2023, 09/14/2022, 04/16/2020, Additional history exists [id number] Vaccine (7 - Moderna risk 2023- season) [...] this topic Medical Devices Implanted Type Area Nick Setter Device Identifier Shelf Expiration Date Model / Serial / Lot Shoulder Replacement Right: Shoulder Rods N/A: Spine Multi Level Filter Fem Roz Vena Cava - [id number] Implanted:Qty: 1 on 09/11/2022 by Chase Watson MD at [facility] Peripherial Vascular-[id number] 07/03/2025 [id number] / / [id number] Screw 5.5mm Expedium Verse Fen 7mm X 45mm - [id number] Implanted:Qty: 2 on 09/15/2022 by Tray Navas MD at [facility] N/A: Spine Lumbar DePuy Spine Sales LP-[id number] 09/15/2023 [id number] / / Screw Set 5.5mm Expedium Verse Unitized - [id number] Implanted:Qty: 18 on 09/15/2022 by Tray Navas MD at [facility] N/A: Spine Lumbar DePuy Spine Sales LP-[id number] 09/15/2023 [id number] / / Screw 5.5 Viper Closed Polyaxial 9x85mm - [id number] Implanted:Qty: 1 on 09/15/2022 by Tray Navas MD at [facility] N/A: Spine Lumbar DePuy Spine Sales LP-[id number] 09/15/2023 [id number] / / Screw Set Ti X25 M7 Short - [id number] Implanted:Qty: 1 on 09/15/2022 by Tray Navas MD at [facility] N/A: Spine Lumbar DePuy Spine Sales LP-[id number] 09/15/2023 [id number] / / Screw 5.5mm Viper Ti Polyax Fullthrd 9mm X 90mm - [id number] Implanted:Qty: 1 on 09/15/2022 by Tray Navas MD at [facility] N/A: Spine Lumbar DePuy Spine Sales LP-[id number] 09/15/2023 [id number] / / Kit Infuse Bone Graft Large 8.0ml - [id number] Implanted:Qty: 1 on 09/15/2022 by Tray Navas MD at [facility] N/A: Spine Lumbar Medtronic Sofamor Danek-[id number] 10/03/2024 [id number] / / Ravin Expedium Ti Precontoured Small 5.5mm - [id number] Implanted:Qty: 2 on 09/15/2022 by Tray Navas MD at [facility] N/A: Spine Lumbar DePuy Spine Sales LP-728237 09/15/2023 [id number] / / Connector Iliac Opn Ti 20mm - [id number] Implanted:Qty: 1 on 09/15/2022 by Tray Navas MD at [facility] N/A: Spine Lumbar DePuy Spine Sales LP-[id number] 09/15/2023 [id number] / / Screw 5.5mm Expedium Verse Fen 5mm X 40mm - [id number] Implanted:Qty: 4 on 09/15/2022 by Tray Navas MD at [facility] N/A: Spine Lumbar DePuy Spine Sales LP-832173 09/15/2023 [id number] / / Single Inner Setscrew - [id number] Implanted:Qty: 2 on 09/15/2022 by Tray Navas MD at [facility] N/A: Spine Lumbar DePuy Spine Sales LP-487832 09/15/2023 [id number] / / Chip Bone 20cc - [id number] - [id number] Implanted:Qty: 1 on 09/15/2022 by Tray Navas MD at [facility] N/A: Spine Lumbar [facility]-[id number] 07/13/2027 PCAN1/4 / [id number] / [id number] Chip Bone 40cc - [id number] - [id number] Implanted:Qty: 1 on 09/15/2022 by Tray Navas MD at [facility] N/A: Spine Lumbar [facility]-772759 06/02/2027 PCAN1/2 / [id number] / [id number] Screw 5.5mm Expedium Verse Fen 6mm X 45mm - [id number] Implanted:Qty: 2 on 09/15/2022 by Tray Navas MD at [facility] N/A: Spine Lumbar DePuy Spine Sales LP-034611 09/15/2023 [id number] / / Screw 5.5mm Expedium Verse Fen 6mm X 40mm - [id number] Implanted:Qty: 4 on 09/15/2022 by Tray Navas MD at [facility] N/A: Spine Lumbar DePuy Spine Sales LP-096621 09/15/[id number] / / Screw 5.5mm Expedium Verse Fen 5mm X 45mm - [id number] Implanted:Qty: 2 on 09/15/2022 by Tray Navas MD at [facility] N/A: Spine Lumbar DePuy Spine Sales LP-438288 09/15/[id number] / / Screw 5.5mm Expedium Verse Fen 7mm X 50mm - [id number] Implanted:Qty: 4 on 09/15/2022 by Tray Navas MD at [facility] N/A: Spine Lumbar DePuy Spine Sales LP-328028 09/15/[id number] / / Chg Screw Ref Spher Head 35mm - [id number] Implanted:Qty: 1 on 09/29/2023 by Abe Rodriguez MD at [facility] Right: Hip Sauceda & Nephew Carrasquillo Inc-855426 01/08/2033 [id number] / / [id number] Chg Screw Redapt Lock 20mm - [id number] Implanted:Qty: 1 on 09/29/2023 by Abe Rodriguez MD at [facility] Right: Hip Sauceda & Nephew Carrasquillo Inc-[id number] 05/29/2033 [id number] / / [id number] Chg Screw Redapt Lock 20mm - [id number] Implanted:Qty: 1 on 09/29/2023 by Abe Rodriguez MD at [facility] Right: Hip Sauceda [employer] Nephew Carrasquillo Inc-148513 02/01/2033 [id number] / / [id number] Liner Or3o Dual Mbility 38 50 - [id number] Implanted:Qty: 1 on 09/29/2023 by Abe Rodriguez MD at [facility] Right: Hip Sauceda & Nephew Carrasquillo Inc-[id number] 03/22/2033 [id number] / / [id number] Shell Modular Redapt 50mm - [id number] Implanted:Qty: 1 on 09/29/2023 by Abe Rodriguez MD at [facility] Right: Hip Sauceda & Nephew Carrasquillo Inc-[id number] 12/31/2030 [id number] / / [id number] Liner Or3o Dual Mbility Xlpe 28/38 - [id number] Implanted:Qty: 1 on 09/29/2023 by Abe Rodriguez MD at [facility] Right: Hip Sauceda & Nephew Carrasquillo Inc-370316 08/12/2032 [id number] / / [id number] Polarstem Cementless Tiha 3 - [id number] Implanted:Qty: 1 on 09/29/2023 by Abe Rodriguez MD at [facility] Right: Hip Sauceda & Nephew Carrasquillo Inc-670534 01/25/2030 [id number] / / [id number] Chg Head Oxinium Fem 09/16 28m - [id number] Implanted:Qty: 1 on 09/29/2023 by Abe Rodriguez MD at [facility] Right: Hip Sauceda & Nephew Carrasquillo Inc-668867 04/16/2033 [id number] / / [id number] Procedures Procedure Name Priority Date/Time Associated Diagnosis [...] AM EDT Narrative 06/05/2025 11:05 AM EDT [address] [address] Patient Name: MARK LEONE Patient : 1945 [...] Procedure Note Estrella Wolfe MD - 06/05/2025 [place] [id number] Patient Name: MARK LEONE Patient : 1945 Age: 79 years Patient Ordering Provider: WARREN VALLES EXAM DATE: 06/05/2025 EXAM: [facility] MAMMOGRAM INDICATION: 79-year-old patient presents for baseline mammographic imaging of the left breast following conservation surgery and radiation therapy. She reports left breast soreness. PROCEDURE: Multislice imaging of the left breast was performed including standard views using [employer] tomosynthesis equipment (3D mammography). Images [...] <5.7 % 09/22/2023 7:49 AM EST [facility] Blood Venous blood specimen / Unknown Venipuncture / Unknown 09/21/2023 4:15 PM EST 09/21/2023 4:16 PM EST Narrative [facility] - 09/22/2023 7:49 AM EST [facility] Interpretive Data: Diagnosis of Diabetes: Diabetic > or = 6.5% Pre-diabetic 5.7 to 6.4% Non-diabetic < or = 5.6% Glycemic Targets for Type I and Type II Diabetics: Non- Adults <7.0% Adults <6.0% Children and Adolescents <7.5% Source: [place] [employer]. Standards of medical care in diabetes,2017. Diabetes Care.2017:40 (suppl 1):S1-S135. HbA1c assay performed by an ion-exchange chromatography method that is certified traceable to the DCCT. us Abe Rodriguez MD LAB BLOOD ORDERABLES Final R esult [facility] [address] [place] [address] from Last 3 Months or Most Recently Relevant to Health Maintenance Insurance [facility] MEDICARE Advance Directives * Full Code (Latest Code Status on File) Date Activated Date Inactivated Comments 09/29/2023 9:53 AM 09/30/2023 2:27 PM Question Answer Comments Patient has decision-making capacity? Yes Care Teams Safety Professional Relationship Specialty Start Date End Date Abe Mena MD [address] [place] [address] PCP - General 02/14/21 Tray Navas MD [address] [place] [address] Surgeon Neurosurgery 08/05/22 Shabnam Vasquez APRN [address] [place] [address] Nurse Practitioner Neurosurgery 09/14/22
--- OUTSIDE RECORDS SUMMARY | 2025-06-21 13:27 | XMS_ITS | Encounter Summary ---
Author Organization Healthcare Address [address] [place] [address] Care Team Providers Care Metal Storage Worker Name Role Phone Abe Mena MD Primary Care Provider [phone] Tray Navas MD Unavailable [phone] Shabnam Vasquez [employer] Unavailable Encounter Details Date Type Department Care Team (Late Contact Info) Description 08/18/2022 Orders Only External Location [address] [place] [address] Shabnam Vasquez, [employer] [address] [place] [address] Social History Tobacco Use Types [...] Description 07/17/2025 11:15 AM EDT Office Visit [facility] at [address] [place] [phone] Lico Shi MD [address] [address] 04/10/2026 11:30 AM EDT Office Visit [facility] at [facility] [address] [place] [address] Lico Shi MD [address] [address] documented as of this encounter [...] documented as of this encounter Care Teams Metal Storage Worker Relationship Specialty Start Date End Date Abe Mena MD [address] [place] [address] PCP - General 02/14/21 Tray Navas MD [address] [place] [address] Surgeon Neurosurgery 08/05/22 Shabnam Vasquze APRN [address] [place] [address] Nurse Practitioner Neurosurgery 09/14/22 documented as of this encounter
--- OUTSIDE RECORDS SUMMARY | 2025-06-21 13:27 | XMS_ITS | Encounter Summary ---
Author Organization Healthcare Address [address] [place] [address] Care Team Providers Care Microscopist Name Role Phone Abe Mena MD Primary Care Provider [phone] Tray Navas MD Unavailable [phone] Shabnam Vasquez QUALITY CONTROL COORDINATOR Unavailable [phone] Encounter Details Date Type Department Care Team (Late st Contact Info) Description 06/05/2025 Ancillary Procedure [facility] [address] [place] [phone] Russ Valles MD [address] [place] [address] Social History Tobacco Use Types Packs/Day Years [...] drink first t kaiden in the morning (EYE-BED MACHINE OPERATOR) to steady your nerves or to [...] Description 07/17/2025 11:15 AM EDT Office Visit [facility] at [facility] [address] [place] [address] Lico Shi MD [address] [phone] 04/10/2026 11:30 AM EDT Office Visit [facility] at [facility] [address] [place] [address] [place] [address] [place] [phone] documented as of this encounter Procedures Procedure Name Priority Date/Time Associated Diagnosis Comments MAMMOGRAPHY BREAST DIAGNOSTIC TOMOSYNTHESIS LEFT 06/05/2025 10:30 AM EDT documented in this encounter Results * Mammography Breast Diagnostic Tomosynthesis Left (06/05/2025 10:30 AM EDT) Anatomical Region Laterality Modality Breast Left Mammography 06/05/2025 10:3 0 AM EDT Narrative 06/05/2025 11:05 AM EDT [address] [address] Patient Name: MARK LEONARDO Patient : 1945 [...] Procedure Note Estrella Wolfe MD - 06/05/2025 [place] [id number] Patient Name: MARK LEONARDO Patient : 1945 Age: 79 years Patient Ordering Provider: RUSS VALLES EXAM DATE: 06/05/2025 EXAM: MG LT DIAG CHAITANYA MAMMOGRAM INDICATION: 79-year-old patient presents for baseline mammographic imaging of the left breast following conservation surgery and radiation therapy. She reports left breast soreness. PROCEDURE: Multislice imaging of the left breast was performed including standard views using [email or web address] tomosynthesis equipment (3D mammography). Images [...] documented as of this encounter Care Teams Microscopist Relationship Specialty Start Date End Date Abe Mena MD [address] [place] [address] PCP - General 02/14/21 Tray Navas MD [address] [place] [address] Surgeon Neurosurgery 08/05/22 Shabnam Vasquez APRN [address] [place] [address] Nurse Practitioner Neurosurgery 09/14/22 documented as of this encounter
--- OUTSIDE RECORDS SUMMARY | 2025-06-21 13:27 | XMS_ITS | Encounter Summary ---
Author Organization Healthcare Address [address] [place] [address] Care Team Providers Care Squad Sergeant Name Role Phone Abe Mena MD Primary Care Provider Tray Navas MD Unavailable Shabnam Vasquez ALARM SECURITY OR SURVEILLANCE MONITOR Unavailable Reason for Visit * Reason Onset Date Comments Medication Question 05/11/2025 Encounter Details Date Type Department Care Team (Late st Contact Info) Description 05/11/2025 Telephone [facility] [address] [place] [address] Lico Shi MD [address] [address] Medication Question Social History Tobacco [...] drink first t kaiden in the morning (EYE-CHAIN SALES CONSULTANT) to steady your nerves or to get [...] Office Visit [facility] [address] [place] [phone] Lico Shi MD [address] [address] 04/10/2026 11:30 AM EDT Office Visit [facility] [address] [place] [address] Lico Shi MD [address] [address] documented as of this encounter Visit Diagnoses Not on filedocumented in this encounter Additional Health Concerns Assessment Noted Time A fall risk assessment has been complete d for the patient 03/06/2025 10:59 AM EDT A Body Mass Index follow-up plan has been documented for the patient 02/05/2025 2:21 PM EDT documented as of this encounter Care Teams Squad Sergeant Relationship Specialty Start Date End Date Abe Mena MD [address] [place] [address] PCP - General 02/14/21 Tray Navas MD [address] [facility] [place] [address] Surgeon Neurosurgery 08/05/22 Shabnam Vasquez APRN [address] [facility] [place] [address] Nurse Practitioner Neurosurgery 09/14/22 documented as of this encounter
--- OUTSIDE RECORDS SUMMARY | 2025-06-21 13:27 | XMS_ITS | Encounter Summary ---
Author Organization Healthcare Address [address] [place] [address] Care Team Providers Care Business Machine Operator Name Role Phone Abe Mena MD Primary Care Provider + [phone] Tray Navas MD Unavailable Shabnam Vasquez COMPUTER PATTERNMAKER Unavailable [phone] Reason for Visit * Reason Onset Date Comments HCN - Patient Message 08/12/2022 Pre surger y test and questions Encounter Details Date Type Department Care Team (Late st Contact Info) Description 08/12/2022 Telephone [facility] [address], [address] [place] [address] Shabnam Vasquez, COMPUTER PATTERNMAKER [address] [place] [address] HCN - Patient Message (Pre [...] Have pt sched on 08/18 @11:00 at [facility]. Called pt and left vm with [...] to be scheduled and done at [facility] [place] prior to 09/11 Pt says has to [...] optimal time of day to reach caller: [phone] Note: Please do not reply to this message. Follow-up communication and further actions as a result of this message need to be communicated with the patient directly, if the patient is not active onMyChart. If the patient is active on MyChart, they will receive notification of the communication/outcome via Xcerion. documented in this encounter Plan of Treatment Upcoming Encounters Date Type Department Care Team (Late st Contact Info) Description 07/17/2025 11:15 AM EDT Office Visit [facility] [address] [place] [phone] Lico Shi MD [address] [address] 04/10/2026 11:30 AM EDT Office Visit [facility] [address] [place] [address] Lico Shi MD [address] [address] documented as of this encounter Visit Diagnoses Not on filedocumented in this encounter Additional Health Concerns Assessment Noted Time A fall risk assessment has been complete d for the patient 06/30/2022 1:52 PM EDT documented as of this encounter Care Teams Business Machine Operator Relationship Specialty Start Date End Date Abe Mena MD [address] [place] [address] PCP - General 02/14/21 Tray Navas MD [address] [place] [phone] Surgeon Neurosurgery 08/05/22 Shabnam Vasquez APRN [address] [place] [phone] Nurse Practitioner Neurosurgery 09/14/22 documented as of this encounter
--- OUTSIDE RECORDS SUMMARY | 2025-06-21 13:27 | XMS_ITS | Encounter Summary ---
Author Organization Healthcare Address [address] [place] [address] Care Team Providers Care Tube Builder Airplane Name Role Phone Abe Mena MD Primary Care Provider + [phone] Tray Navas MD Unavailable [phone] Shabnam Vasquez SERICULTURE TEACHER Unavailable [phone] Encounter Details Date Type Department Care Team [...] drink first t kaiden in the morning (EYE-SSRS DEVELOPER) to steady your nerves or to get [...] Description 07/17/2025 11:15 AM EDT Office Visit [facility] [address] [place] [address] Lico Shi MD [address] [address] 04/10/2026 11:30 AM EDT Office Visit [facility] [address] [place] [address] Lico Shi MD [address] [address] documented as of this encounter Visit Diagnoses Not on filedocumented in this encounter Additional Health Concerns Assessment Noted Time A fall risk assessment has been complete d for the patient 03/06/2025 10:59 AM EDT A Body Mass Index follow-up plan has been documented for the patient 02/05/2025 2:21 PM EDT documented as of this encounter Care Teams Tube Builder Airplane Relationship Specialty Start Date End Date Abe Mena MD [address] [place] [address] PCP - General 02/14/21 Tray Navas MD [address] [place] [address] Surgeon Neurosurgery 08/05/22 Shabnam Vasquez APRN [address] [place] [address] Nurse Practitioner Neurosurgery 09/14/22 documented as of this encounter
--- NOTE | 2025-06-21 13:30 | US_ITS ---
FINAL REPORT TECHNIQUE: Real-time grayscale and color ultrasound of the thyroid was performed. CLINICAL HISTORY: h/o thyroid nodule COMPARISON: Report only dated 09/26/2021 FINDINGS: The thyroid gland measures 41 x 14 x 13 mm on the right and 50 x 18 x 16 mm on the left. The isthmus measures 3 mm. The thyroid gland is normal in size. It has a mildly heterogeneous parenchyma.. Nodules: There are at least 2 TR 3 nodules in the right lobe, both measuring up to 7 mm. There is a TR 4 hypoechoic nodule in the left mid lobe measuring 13 mm. There is a 28 mm heterogeneous largely isoechoic nodule in the inferior left lobe of the thyroid classified as TR 3. IMPRESSION: Enlarging left thyroid lesions. Given interval change, recommend ultrasound directed FNA of both lesions per TI-RADS criteria. Reviewed, Interpreted and Dictated by Cori Ordaz MD Transcribed by Joselin Rich Authenticated and . [facility]
== END 2025-06-21 23:59 | disposition home or self-care (01) ==
LOC: RAD 13:24
PROVIDERS: PCP Internal Medicine Adolescent Medicine; Visit Provider Student in an Organized Health Care Education/Training Program
DX: E04.2 Nontoxic multinodular goiter (principal)
CPT/HCPCS: 76536

== ENCOUNTER 2025-06-27 08:16 | Day surgery (SDC) | payer MEDICARE, SELFPAY ==
--- NOTE | 2025-06-19 11:16 | ECG_ITS ---
APPROVED REPORT Exam: Resting ECG HR:59 bpm ECG Measurements Heart Rate 59 AXES [place] 186 P 28 QRSd 76 QRS 37 QT 408 T 20 QTc 408 Conclusion SINUS BRADYCARDIA Late R wave Progression ABNORMAL ECG UNCONFIRMED REPORT Electronically signed by : Abe Mena MD 06/20/2025 08:26:07
[2025-06-19 12:58] VITALS: BMI 29.2
[2025-06-27] VITALS (9 sets, daily range): BP systolic 105–149; BP diastolic 64–86; PULSE 62–68; RESP 14–18; TEMP 36.2–36.6; O2SAT 91–98
[2025-06-27 09:44] LABS: POC Glucose,Bedside 135 gm/dL (70-110)
--- NOTE | 2025-06-27 09:47 | EXP.ANES.CKL ---
[facility] Disclaimer: The information contained in this section may have been updated after the patient was seen, as this information can be updated by other users. Medical History Aortic insufficiency Edema Pre-op exam Abnormal ECG History of breast cancer Diabetes mellitus, type 2 Hypertension Hyperlipidemia History of skin cancer DVT (deep venous thrombosis) Hyperinsulinemia Surgical History History of colonoscopy History of back surgery H/O shoulder replacement H/O tubal ligation History of hip replacement History of D&C Family History Sister Cancer Social History Smoking Status: Never smoker alcohol intake: never substance use type: denies use current occupational status: retired Travel in the last 8 weeks?: None household members: spouse housing: house current occupational exposures/hazards: No caffeine: Yes Have you lived/traveled outside US in past 30 days?: No Contact w/someone who lives/traveled outside US past 30 days?: No Exposure to someone with infectious disease in past 14 days?: No Do you have a fever (greater than 100.4 F or 38 C)?: No Have you tested positive for COVID-19?: No Exposed to someone with COVID-19 in past 14 days?: No Do you have a sore throat?: No Do you have a cough?: No Do you have any weakness?: No Do you have any diarrhea?: No Are you experiencing any unusual bleeding?: No Do you have any muscle aches/pain?: No Do you have any abdominal pain?: No Are you experiencing loss of taste or smell?: No [facility] Anesthesia Checklist Patient Identification Patient Identification: Arm Band and Verbal (Name & ) Structural Data Admitted From: Home Planned Operative Procedure/s: D&C Consent for Planned Operative Procedure(s) Verified: Yes Verified Documents: Surgical Consent and History and Physical NPO Status Verified Time NPO: 00:00 Additional verifications Anesthesia Reactions: No (REQUIRED NARCAN BEFORE) Hx Blood Transfusions: No Blood Transfusion Reaction: No Airway Assessment Mallampati Score:: Class II Dentition: Good Dentition Neurological Assessment Level of Consciousness: Awake, Alert and Appropriate Hx Seizures: No Anesthesia Plan Anesthesia Risk discussed: Yes Anesthesia Plan: Verified ASA Class: III Anesthesia Type: General
[2025-06-27] MEDS: SODIUM CHLORIDE IRRIG SOLUTION 3,000 ML 200 ML IR (12:39)
[2025-06-27 13:07] LABS: POC Glucose,Bedside 114 gm/dL (70-110)
--- NOTE | 2025-06-27 13:28 | EXP.ANES.I ---
[facility] Anesthesia Record Part I Anesthesia Record I Intake, IV Amount: 200 Hydration: Adequate Estimated blood loss (mL): 3 Urine output (mL): 0 Blood Products used (#): none Blood Pressure: 129/71 SaO2: 92 Pulse Rate: 68 Airway Patency: Patent Respiratory Rate: 14 Temperature: 97.2 F Patient is:: Stable Stable to PACU at:: 13:18
--- NOTE | 2025-06-27 13:41 | P.OP_ITS ---
Date of procedure: 06/27/25 Pre-op Diagnosis:: 1. Postmenopausal bleeding 2. Thickened endometrial stripe Post-op Diagnosis:: 1. Postmenopausal bleeding 2. Thickened endometrial stripe Procedure performed:: Hysteroscopy, dilation, and MyoSure curettage Surgeon:: Dominique Huang DO JET DYEING MACHINE OPERATOR:: Tony Shaw Anesthesia: GETA Estimated blood loss (mL): 5 Operative findings:: Findings: -EUA revealed an 6-week anteverted uterus with regular contour. Narrowed vaginal introidus. no significant prolapse or support defects noted. Pills noted vaginally, suspect Cytotec -Hysteroscopy revealed fairly thin atrophic endometrial lining. Operative note:: The patient was taken back to the OR where general anesthesia was obtained.? She was placed in the dorsal lithotomy position using yellow fin stirrups and sterilely prepped and draped in the usual fashion.? An in and out catheter was used to drain her bladder.? A timeout was performed.? A weighted speculum was used to visualize this cervix, a single-tooth tenaculum was applied to the anterior lip of the cervix. The cervix was dilated to allow entry to the ectocervix and hydrodisection was used to get the scope the rest of the way into the cavity. The hysterscope was inserted and a large polyp was noted as described above. Images were obtained of the cavity. The tubal ostia were visible.? Decision was made to proceed with the MyoSure for curettage. Device set up, primed and zeroed. The device was used to resect the outer edge of the polyp until the complete polyp was removed down to the base. At the conclusion of the procedure there was a fluid deficit of 150mLs. Total myosure cutting time was approximately 1 minute. Hysteroscope was removed.? The single-tooth tenaculum was removed and hemostasis was noted at the tenaculum sites.? All instruments were removed from the vagina.? All counts were correct, per nursing.? This concluded the procedure, the patient was awakened from anesthesia, and transferred to the PACU in stable condition. Condition: stable Disposition: PACU Specimens:: Endometrial curettings Complications:: None
--- NOTE | 2025-06-27 16:03 | EXP.ANES.II ---
[facility] Anesthesia Record Part II Anesthesia Record Part II Discharge Time: 13:38 Destination: Surgical Day Care (OP Surgery) PACU nurse assessment reviewed?: Yes Patient Condition:: Good Anesthesia Complications:: None Swallowing reflex intact?: Yes Airway Patency: Patent Cyanosis?: No Blood Pressure: 149/86 SaO2: 91 Respiratory Rate: 17 Pulse Rate: 68 Temperature: 97.1 F Mental Status: Alert & Oriented Pain level:: 0 Nausea and/or vomitting:: None Intake, IV Amount: 0 Hydration: Adequate
== END 2025-06-27 14:30 | disposition home or self-care (01) ==
PROVIDERS: PCP Internal Medicine Adolescent Medicine; Visit Provider Obstetrics & Gynecology
PROC: 0UDB8ZZ Extraction of Endometrium, Via Natural or Artificial Opening Endoscopic (ICD-10-PCS; CPT 58558; principal; 2025-06-27 09:45)
DX: N84.0 Polyp of corpus uteri (principal); N95.0 Postmenopausal bleeding; I82.409 Acute embolism and thrombosis of unspecified deep veins of unspecified lower extremity; I10 Essential (primary) hypertension; E78.5 Hyperlipidemia, unspecified; E11.9 Type 2 diabetes mellitus without complications; Z79.01 Long term (current) use of anticoagulants
CPT/HCPCS: 58558; 82962; J1100; J2003; J2250; J2405; J2704; J3010

== ENCOUNTER 2025-07-04 08:19 | Outpatient (CLI) | payer MEDICARE, SELFPAY ==
--- OUTSIDE RECORDS SUMMARY | 2025-06-05 12:30 | XMS_ITS | Encounter Summary ---
Author Organization Healthcare Address [address] [place] [address] Care Team Providers Care Diamond Polisher Name Role Phone Abe Mena MD Primary Care Provider [phone] Tray Navas MD Unavailable [phone] Shabnam Vasquez HERD TESTER Unavailable [phone] Encounter Details Date Type Department Care Team (Late st Contact Info) Description 06/05/2025 12:30 PM EDT Office Visit [facility] [address] [place] [address] Lico Shi MD [address] [address] Malignant neoplasm of left breast in female, estrogen receptor positive, unspecified site of breast (Primary Dx) Social History Tobacco Use Types Packs/Day Years Used Date Smoking Tobacco: Never Passive Smoke Exposure: Yes Smokeless Tobacco: Never Alcohol Use Standard Drinks/Week Comments No 0 (1 standard drink = 0.6 oz pur e alcohol) CAGE ASSESSMENT Answer Date Recorded Cage unable to access Not on file 09/16/2022 Cage max number of drinks Not on file 2021 Cage Beverages a week Not on file 09/16/2022 Have you ever felt you should CUT down on your d rinking? 0 09/16/2022 Have you been ANNOYED by people criticizing your drinking? 0 09/16/2022 Have you felt GUILTY about your drinking? 0 09/16/2022 Have you had a drink first t kaiden in the morning (EYE-STOKER INSTALLER) to steady your nerves or to get rid of a hangover? 0 09/16/2022 CAGE Questionnaire Score 0 022 Comments No Sex and Gender Information Value Date Recorded Sex Assigned at Not on file Legal Sex Female 7:39 PM EDT Gender Identity Not on file Sexual Orientation Not on file documented as of this encounter Last Filed Vital Signs Vital Sign Reading Time Taken Comments Blood Pressure 127/72 06/05/2025 12:16 PM EDT Pulse 73 06/05/2025 12:16 PM EDT Temperature 36.6 C (97.8 F) 06/05/2025 12:16 PM EDT Respiratory Rate - - Oxygen Saturation 96% 06/05/2025 12:16 PM EDT Inhaled Oxygen Concentration - - Weight 78.2 kg (172 lb 6.4 oz) 06/05/2025 12:16 PM EDT Height 160 cm (5' 3 ) 06/05/2025 12:16 PM EDT Body Mass Index 30.54 06/05/2025 12:16 PM EDT documented in this encounter Miscellaneous Notes * Progress Notes - Lico Shi MD - 06/05/2025 12:30 PM EDT Division of Hematology and Oncology Hematology/Oncology Follow Up Patient ID: Mark Leonardo is a 79 y.o. female. Cancer Staging Malignant neoplasm of left breast in female, estrogen receptor positive Staging form: Breast, AJCC 8th Edition - Clinical: cT1c, cN0, cM0, ER+, IA+, HER2- - Signed by Lico Shi MD on 04/05/2025 DIAGNOSIS: Diagnosis Plan 1. Malignant neoplasm of left breast in female, estrogen receptor positive, unspecified site of breast History of present illness: Patient was an 79-year-old female with a recently abnormal mammogram through the [facility]. Recent MRI done on 09/28/2025 showed a spiculated area of 16 x 9 x 10 mm in size in the left breast.That has biopsy on the left breast that has consistent with a invasive cancer grade 2. There was some perineural invasion mentioned as well. It was strongly ER IA positive HER2 negative by IHC and with a Ki 67 of 10-15%. They he would not specifically say that this is lobular cancer with a lobular cancer was favored asa primary pathology. Patient was an appointment later today with Dr. Vizcarra for further discussion ofthese findings. initial visit 12/05/2024: I have discussed the above findings on mammography biopsy with the patient was with the patient was family member. We had discussed the need for likely upfront surgery followed by likely by adjuvant hormonal therapy. They did ask questions about when the patient was we will need an MRI are not and we would defer to surgery in Radiology and our discussion that we will have on morning. The patient was daughter did ask if she needed a whole-body scan because of her cancer diagnosis but this point clinically this appears to be early stage and we would not be advised. 01/04/2025: Patient was now completed her partial mastectomy through Dr. Vizcarra. She had a T1c invasive lobular cancer. Unfortunately the final pathology did show some multifocality to this area and has been suggested she go ahead and see Radiation Oncology as well. She was appointment to see Dr. Mandy Gonzalez in another week. I have discussed at this point as well that she will need to go on adjuvant hormonal therapy we haddiscussed the risks benefits and she would begin on the drug anastrozole 2 weeks after she completes all radiation. 04/05/2025: Patient has now completed adjuvant radiation through and she has been on anastrozole for almost 3 full months. She was seen by Dr. Vizcarra in Surgical Oncology had no no issues. On today's evaluation says she is tolerating the anastrozole quite well have little no side-effects. She actually says with the last week or 2 she has felt better than she has a some time. She has been getting out in the garden in kind of becoming more active wishes good news. 06/05/2025: Patient returns today she had recently cause some of the findings says she was having severe sweating and hot flashes etc. to the point where she is just not able to tolerate taking the anastrozole. We asked her to hold the medication and see if everything got better and see me but see me in 2 weeks. She says that has since that has continuation of the medication she has felt much better now all the hot flashes sweating etc. has gotten better. 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 I have discussed with the patient she had a relatively early stage cancer but certainly we would want to we would least try 1 other medication that has an aromatase inhibitor see she could tolerate that. Given the fact that she actually went on the anastrozole for more than 3 months without any side-effects somewhat hopeful that maybe just changing medications we would benefit her. However if shedoes not do well with that I do not know that any further AI as we would be recommended. Current Outpatient Medications: atorvastatin (Lipitor) 40 MG tablet, Take 1 tablet (40 mg) by mouth nightly., Disp: , Rfl: furosemide (Lasix) 20 MG tablet, Take 1 tablet (20 mg) by mouth daily. (Patient not taking: Reported on 03/06/2025), Disp: , Rfl: gabapentin (Neurontin) 300 MG capsule, Take 1 capsule (300 mg) by mouth 3 (three) times a day., Disp: , Rfl: glimepiride (Amaryl) 2 MG tablet, Take 1 tablet by mouth daily., Disp: , Rfl: levothyroxine (Synthroid, Levoxyl) 75 MCG tablet, Take 1 tablet (75 mcg) by mouth daily., Disp: , Rfl: losartan (Cozaar) 25 MG tablet, Take 1 tablet (25 mg) by mouth daily., Disp: , Rfl: prednisoLONE acetate (Pred-Forte) 1 % ophthalmic suspension, Instill 1 drop into the left eye 4 times daily for 4 days, then 2 times daily for 4 days. Then stop., Disp: 10 mL, Rfl: 0 rivaroxaban (Xarelto) 20 MG tablet, Take by mouth. Take with food., Disp: , Rfl: spironolactone (Aldactone) 50 MG tablet, Take 1 tablet (50 mg) by mouth 2 (two) times a day., Disp:, Rfl: Review of Systems - Oncology REVIEW OF SYSTEMS: General: No weight loss or weight gain. HEENT: No headache, no nosebleeds. Respiratory: No cough, hemoptysis, shortness of breath. Cardiovascular: No chest pain, orthopnea. GI: No nausea, vomiting, diarrhea, constipation. Neurologic: No motor or sensory complaints, no seizures. The remainder of review of systems is negative. Physical Exam: Vital Signs for this encounter: BSA: 1.86 meters squared Visit Vitals BP 127/72 Pulse 73 Temp 36.6 ??C (97.8 ??F) (Temporal) Ht 1.6 m (5' 3 ) Wt 78.2 kg (172 lb 6.4 oz) SpO2 96% BMI 30.54 kg/m?? OB Status Postmenopausal Smoking Status Never BSA 1.86 m?? Physical Exam Vitals and nursing note reviewed. Constitutional: Appearance: Normal appearance. She is well-developed. HENT: Head: Normocephalic and atraumatic. Mouth/Throat: Mouth: Mucous membranes are moist. Pharynx: No oropharyngeal exudate or posterior oropharyngeal erythema. Eyes: General: No scleral icterus. Conjunctiva/sclera: Conjunctivae normal. Pupils: Pupils are equal, round, and reactive to light. Cardiovascular: Rate and Rhythm: Normal rate and regular rhythm. Pulses: Normal pulses. Heart sounds: Normal heart sounds. Pulmonary: Effort: Pulmonary effort is normal. Breath sounds: Normal breath sounds. Musculoskeletal: General: Normal range of motion. Cervical back: No tenderness. Right lower leg: No edema. Left lower leg: No edema. Lymphadenopathy: Cervical: No cervical adenopathy. Skin: General: Skin is warm and dry. Neurological: Mental Status: She is alert and oriented to person, place, and time. Psychiatric: Thought Content: Thought content normal. Judgment: Judgment normal. LAB Results: No visits with results within 1 Week(s) from this visit. Latest known visit with results is: Orders Only on 12/22/2024 Component Date Value Ref Range Status External Surgical Pathology 12/22/2024 SEE BELOW (A) Final Comment: Surgical Pathology Report NAME:MARK LEONARDO PATH: [id number] DATE of : 1945 Copy to: Diagnosis: A) Breast, left at 4:00, lumpectomy: -Residual invasive multifocal lobular carcinoma, largest focus measuring 14mm, grade 2, m pT1c. 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 -Previous biopsy site and fibrocystic changes identified B) Left breast, extended all margins: -All margins negative for invasive carcinoma; closest margin is 2mm from the posterior margin. -Multiple small foci, 2-3 mm each, of invasive lobular carcinoma identified in tissue submitted. -Multifocal lobular neoplasia/lobular carcinoma in situ -Fibrocystic changes with intraluminal microcalcifications. -Previous biops y site changes SOURCE OF SPECIMEN: BREAST LUMPECTOMY, LEFT AT 4:00 O'CLOCK BREAST LUMPECTOMY, EXTENDED ALL MARGINS CLINICAL INFORMATION: MALIGNANT NEOPLASM OF OVERLAPPING SITES OF BREAST Gross Description: A) Patient name and date of verified. Received in formalin labeled with the patient's name and designated left breast 4 o'clock lumpectomy is an excision of fibrofatty breast tissue (4.5 x 3.0 x 2.0 cm). A localizing guidewire is not in place. There is no overlying skin. The specimen is received with the following orientation: short stitch-superior, long stitch-lateral. The specimen is serially sectioned from anterior to posterior to reveal an approximately 1.2 x 1.0 x 1.0 cm ill-defined, firm pinkish-white solid mass within the lateral portion of the specimen. The cut surface of the lesion is notable for an indwelling RFID tag and a vision radiographic clip. The lesion abuts the inferior and lateral margins and is 0.5 cm from the superior m argin, 0.8 cm from the medial margin, 1.0 cm from the posterior margin and 1.0 cm from the anterior margin. The remaining cut surfaces are perdomo-yellow and lobulated with a minimal amount of dense fibrous breast tissue. Cell Attendant sections submitted in 9 cassettes as follows: A1 - posterior margin A2 - anterior margin A3-A4 - medial margin A5-A8 - lesion entirely submitted to include superior, inferior and lateral margins A9 - additional inferior margin Ink Code: Red = lateral [place] = medial Blue = posterior Green = inferior Black = anterior Yellow = superior COLLECTION TIME: 9:57 AM TIME INTO FORMALIN: 10:00 AM ISCHEMIC TIME: 3 minutes TOTAL FIXATION TIME: 57 hours 2 minutes Note: The breast specimen processed meets the fixation time standards of 6-72 hrs., which have been set by the [place] Society of Clinical Oncology (ASCO) and the College of [place] Pathologists (CAP), to ensure appropriate tissue quality for effective ER, IA, Her2 receptor testing. B) Patient name and date of verified. Received fresh in a [place] dish labeled with the patient's name and designated extended all margins is a 7.5 x 7.5 x 1.0 cm portion of yellow fibrofatty soft tissue. The specimen is oriented in the [place] dish with handwritten labels, with the true margin facing down. The new margin is inked. Sectioning reveals dense fibrous tissue throughout the specimen and no distinct lesions. Entirely submitted from medial to lateral in 33 cassettes labeled B1-B33. Ink code: Red = lateral [place] = medial Green = inferior Blue = posterior Black = anterior Yellow = superior JAB 12/22/2024 01:19 PM Microscopic Description: A microscopic examination has been performed and the result(s) are as noted above. Immunohistochemical stain results with properly working controls: E-cadherin (specimens A and B): Predominantly negative with focal incomplete and rare complete cell membrane staining (supports lobul ar type invasive carcinoma with aberrant staining and focal cancerization of ducts and lobules as well as lobular intraepithelial neoplasia). Smooth muscle myosin (specimens B): Negative in areas of invasive tumor and positive in areas of lobular intraepithelial neoplasia Pancytokeratin (specimens A and B): Positive in cells of interest (supports the above diagnosis) INVASIVE CARCINOMA OF THE BREAST: Resection Applies To: A and B SPECIMEN Procedure: Excision (less than total mastectomy) Specimen Laterality: Left TUMOR Tumor Site: Clock position 4 o'clock Histologic Type: Invasive lobular carcinoma Glandular (Acinar) / Tubular Differentiation: Score 3 Nuclear Pleomorphism: Score 2 Mitotic Rate: Score 1 Overall Grade: Grade 2 (scores of 6 or 7) Tumor Size: Greatest dimension of largest invasive focus (Millimeters) - 14 mm Tumor Focality: Multiple foci of invasive carcinoma Sizes of Individual Foci in Aydee meters (mm): range in size from 2 to 14 mm Ductal Carcinoma In Situ (DCIS): Not identified Lobular Carcinoma In Situ (LCIS): Present Tumor Extent Tumor Extent: Not applicable Lymphatic and / or Vascular Invasion: Not identified Dermal Lymphatic and / or Vascular Invasion: Not identified Microcalcifications: Present in non-neoplastic tissue Treatment Effect in the Breast: No known presurgical therapy Treatment Effect in the Lymph Nodes: Not applicable MARGINS Margin Status for Invasive Carcinoma: All margins negative for invasive carcinoma Distance from Invasive Carcinoma to Closest Margin: 2 mm Closest Margin(s) to Invasive Carcinoma: Posterior Margin Status for DCIS: Not applicable (no DCIS in specimen) REGIONAL LYMPH NODES Regional Lymph Node Status: Not applicable (no regional lymph nodes submitted or found) DISTANT METASTASIS Distant Site(s) Involved: Not applicable pTNM CLASSIFICATION (AJCC 8th Editio n) Reporting of pT, pN, and (when applicable) pM categories is based on information available to the pathologist at the time the report is issued. As per the AJCC (Chapter 1, 8th Ed.) it is the managing physician's responsibility to establish the final pathologic stage based upon all pertinent information, including but potentially not limited to this pathology report. Modified Classification: Not applicable pT Category: pT1c T Suffix: (m) pN Category: pN not assigned (no nodes submitted or found) N Suffix: Not applicable pM Category: Not applicable - pM cannot be determined from the submitted specimen(s) ADDITIONAL FINDINGS Additional Findings: Perineural invasion. Fibrocystic changes and previous biopsy related changes Breast Biomarker Testing Performed on Previous Biopsy: Estrogen Receptor (ER) Estrogen Receptor (ER) Status: Positive (greater than 10% of cells demonstrate nuclear positivity) Percentage of Cells with Nuclear Po sitivity: 91-100% Progesterone Receptor (PgR) Progesterone Receptor (PgR) Status: Positive Percentage of Cells with Nuclear Positivity: 81-90% HER2 (by immunohistochemistry) HER2 (by immunohistochemistry): Negative (Score 0) Ki-67 Ki-67 Percentage of Positive Nuclei: 10- 15% Testing Performed on <Sign Out Dr. Nieto> ILDEFONSO OLMOS MD Signed Out Date: 12/27/2024 13:37 Page 1 of 1 ASSESSMENT/PLAN: 1. Patient was 79-year-old female status post surgical resection of a left-sided breast cancer. Sheunderwent surgery on 12/22/2024. Pathology showed a T1c disease. Unfortunately he was also some degree of multifocality as well consistent with lobular cancers. All margins were negative given the multifocal nature this we suggested she would be seen by radiation oncology. 2. Patient had radiation in [place] without any major incident completed earlier this year. 3. She is on about 3 months worth of anastrozole without any major side-effects. 4. She is agreeable to try letrozole for about 6 weeks and we will get her back and see how she is tolerating it at that time. I have indicated that we would not consider tamoxifen because of her clotting history. Follow up in about 6 weeks (around 07/17/2025) for Office Visit. Lico Shi MD documented in this encounter Plan of Treatment Upcoming Encounters Date Type Department Care Team (Late st Contact Info) Description 07/17/2025 11:15 AM EDT Office Visit [facility] [address] [place] [address] Lico Shi MD [address] [address] 04/10/2026 11:30 AM EDT Office Visit [facility] [address] [place] [address] Lico Shi MD [address] [address] documented as of this encounter Visit Diagnoses Diagnosis Malignant neoplasm of left breast in female, estrogen receptor positive, unspecified site of breast- Primary documented in this encounter Additional Health Concerns Assessment Noted Time A fall risk assessment has been complete d for the patient 03/06/2025 10:59 AM EDT A Body Mass Index follow-up plan has been documented for the patient 02/05/2025 2:21 PM EDT documented as of this encounter Care Teams Diamond Polisher Relationship Specialty Start Date End Date Abe Mena MD [address] [place] [address] PCP - General 02/14/21 Tray Navas MD [address] [place] [address] Surgeon Neurosurgery 08/05/22 Shabnam Vasuqez APRN [address] [place] [address] Nurse Practitioner Neurosurgery 09/14/22 documented as of this encounter
--- OUTSIDE RECORDS SUMMARY | 2025-07-04 08:30 | XMS_ITS | Encounter Summary ---
Author Organization Healthcare Address [address] [place] [address] Care Team Providers Care Tavern Operator Name Role Phone Abe Mena MD Primary Care Provider [phone] Tray Navas MD Unavailable Shabnam Vasquez HOSE FINISHER Unavailable [phone] Encounter Details Date Type Department Care Team (Late Contact Info) Description 08/18/2022 Orders Only External Location [address] [place] [address] Shabnam Vasquez, HOSE FINISHER [address] [place] [address] Social History Tobacco Use Types [...] 07/17/2025 11:15 AM EDT Office Visit [facility] at [address] [place] [phone] Lico Shi MD [address] [address] 04/10/2026 11:30 AM EDT Office Visit [facility] at [facility] [address] [place] [address] Lico Shi MD [address] [address] documented as of this encounter [...] documented as of this encounter Care Teams Tavern Operator Relationship Specialty Start Date End Date Abe Mena MD [address] [place] [address] PCP - General 02/14/21 Tray Navas MD [address] [place] [address] Surgeon Neurosurgery 08/05/22 Shabnam Vasquez APRN [address] [place] [address] Nurse Practitioner Neurosurgery 09/14/22 documented as of this encounter
--- OUTSIDE RECORDS SUMMARY | 2025-07-04 08:30 | XMS_ITS | Clinical Summary ---
Author Organization [facility] Address [address] [place] [address] Care Team Providers Care Makeup Sales Consultant Name Role Phone Abe Mena MD Primary Care Provider [phone] Tray Navas MD Unavailable [phone] Shabnam Vasquez MEAT SEAFOOD ASSOCIATE Unavailable [phone] Allergies Active Allergy Reactions Criticality Noted Date [...] 25 Discontinue d(Per Patient Report) HYDROcodone-ely taminophen ([place]) 7.5-325 MG tablet Take 1 tablet (7.5 [...] 12/05/2024 Cancer Staging:Clinical: cT1c, cN0, cM0, ER+, AZ+, HER2- - Signed by Lico Shi MD on 04/05/2025 Arthritis of right hip 09/21/2023 Sleep apnea 09/17/2022 Overview (09/17/2022): Use home mouthguard Type 2 diabetes mellitus wit h kidney complication, with long-term current use of insulin 09/17/2022 CKD (chronic kidney disease) 09/17/2022 Scoliosis 08/11/2022 Overview (08/11/2022): Added automatically from request for surgery [id number] Resolved Problems Problem Noted Date Diagnosed Date Resolved Date Acute respiratory distress 09/17/2022 1 11/23/2021 At risk for respiratory depr ession due to opioid 09/17/2022 09/22/2022 Feeding difficulty 09/17/2022 Acute post-operative pain 09/17/2022 Acute blood loss as cause of postoperative anemia 09/17/2022 09/22/2022 Neurogenic claudication due to lumbar spinal stenosis 09/15/2022 09/22/2022 Spinal stenosis of lumbar re gion with neurogenic claudication 08/11/2022 09/22/2022 Overview (08/11/2022): Added automatically from request for surgery [id number] Encounters Date Type Department Care Team Description 06/05/2025 12:30 PM EDT Office Visit [facility] [address] [place] [address] Lico Shi MD Malignant neoplasm of left breast in female, estrogen receptor positive, unspecified site of breast (Primary Dx) 06/05/2025 Travel 06/05/2025 Ancillary Procedure [facility] [address] [place] [address] Warren Valles MD 05/11/2025 Telephone [facility] [address] [place] [address] Lico Shi MD Medication Question 04/05/2025 1:00 PM EDT Office Visit [facility] [address] [place] [address] Lico Shi MD Malignant neoplasm of left breast in female, estrogen receptor positive, unspecified site of breast (Primary Dx) 04/05/2025 Telephone [facility] [address] [place] [address] Lico Shi MD Mastectomy Bra's 04/05/2025 Travel [...] drink first t kaiden in the morning (EYE-LASTEX THREAD WINDER) to steady your nerves or to get [...] Description 07/17/2025 11:15 AM EDT Office Visit [facility] [address] [place] [phone] Lico Shi MD [address] [place] [phone] 04/10/2026 11:30 AM EDT Office Visit [facility] [address] [place] [address] Lico Shi MD [address] [place] [phone] Health Maintenance Due Date Last Done Comments [...] 03/20/2024 09/21/2023, 09/14/2022, 04/16/2020, Additional history exists BQB-QOUGF-15 Vaccine (7 - Moderna risk 2023- season) 2025 08/16/2024, 07/12/2023, 01/15/2022, Additional history exists [facility]-Pneumococcal Vaccine: 50+ Years Completed 05/03/2023, 05/09/2018, 10/30/2015, Additional history exists [facility]-RSV Vaccine: 60+ Years or Completed 07/28/2023 [facility]-Obesity Intervention Completed 025, 02/05/2025, 11/07/2024, Additional history exists [facility]-Influenza Vaccine Completed 06/08/2025 , 05/22/2024, 07/12/2023, Additional history exists HPV Vaccines Aged Out [...] this topic Medical Devices Implanted Type Area Hide And Skin Processing Worker Device Identifier Shelf Expiration Date Model / Serial / Lot Shoulder Replacement Right: Shoulder Rods N/A: Spine Multi Level Filter Fem Roz Vena Cava - [id number] Implanted:Qty: 1 on 09/11/2022 by Chase Watson MD at [facility] Per[employer]he[employer] Vascular-[id number] 07/03/2025 [id number] / / [id number] Screw 5.5mm Expedium Verse Fen 7mm X 45mm - [id number] Implanted:Qty: 2 on 09/15/2022 by Tray Navas MD at [facility] N/A: Spine Lumbar DePuy Spine Sales LP-022406 09/15/2023 [id number] / / Screw Set 5.5mm Expedium Verse Unitized - [id number] Implanted:Qty: 18 on 09/15/2022 by Tray Navas MD at [facility] N/A: Spine Lumbar DePuy Spine Sales LP-371216 09/15/2023 [id number] / / Screw 5.5 Viper Closed Polyaxial 9x85mm - [id number] Implanted:Qty: 1 on 09/15/2022 by Tray Navas MD at [facility] N/A: Spine Lumbar De[employer]uy Spine [employer] LP-792029 09/15/2023 [id number] / / Screw Set Ti X25 M7 Short - [id number] Implanted:Qty: 1 on 09/15/2022 by Tray Navas MD at [facility] N/A: Spine Lumbar DePuy Spine Sales LP-116687 09/15/2023 [id number] / / Screw 5.5mm Viper Ti Polyax Fullthrd 9mm X 90mm - [id number] Implanted:Qty: 1 on 09/15/2022 by Tray Navas MD at [facility] N/A: Spine Lumbar DePuy Spine Sales LP-351602 09/15/2023 [id number] / / Kit Infuse Bone Graft Large 8.0ml - [id number] Implanted:Qty: 1 on 09/15/2022 by Tray Navas MD at [facility] N/A: Spine Lumbar Medtronic Sofamor Danek-[id number] 10/03/2024 [id number] / / Ravin Expedium Ti Precontoured Small 5.5mm - [id number] Implanted:Qty: 2 on 09/15/2022 by Tray Navas MD at [facility] N/A: Spine Lumbar DePuy Spine Sales LP-766919 09/15/2023 [id number] / / Connector Iliac Opn Ti 20mm - [id number] Implanted:Qty: 1 on 09/15/2022 by Tray Navas MD at [facility] N/A: Spine Lumbar DePuy Spine Sales LP-245818 09/15/2023 [id number] / / Screw 5.5mm Expedium Verse Fen 5mm X 40mm - [id number] Implanted:Qty: 4 on 09/15/2022 by Tray Navas MD at [facility] N/A: Spine Lumbar DePuy Spine Sales LP-333339 09/15/2023 [id number] / / Single Inner Setscrew - [id number] Implanted:Qty: 2 on 09/15/2022 by Tray Navas MD at [facility] N/A: Spine Lumbar DePuy Spine Sales LP-323146 09/15/2023 [id number] / / Chip Bone 20cc - [id number] - [id number] Implanted:Qty: 1 on 09/15/2022 by Tray Navas MD at [facility] N/A: Spine Lumbar [facility]-784545 07/13/2027 PCAN1/4 / [id number] / [id number] Chip Bone 40cc - [id number] - [id number] Implanted:Qty: 1 on 09/15/2022 by Tray Navas MD at [facility] N/A: Spine Lumbar [facility]-871010 06/02/2027 PCAN1/2 / [id number] / [id number] Screw 5.5mm Expedium Verse Fen 6mm X 45mm - [id number] Implanted:Qty: 2 on 09/15/2022 by Tray Navas MD at [facility] N/A: Spine Lumbar DePuy Spine Sales LP-457833 09/15/2023 [id number] / / Screw 5.5mm Expedium Verse Fen 6mm X 40mm - [id number] Implanted:Qty: 4 on 09/15/2022 by Tray Navas MD at [facility] N/A: Spine Lumbar DePuy Spine Sales LP-988109 09/15/[id number] / / Screw 5.5mm Expedium Verse Fen 5mm X 45mm - [id number] Implanted:Qty: 2 on 09/15/2022 by Tray Navas MD at [facility] N/A: Spine Lumbar DePuy Spine Sales LP-310016 09/15/[id number] / / Screw 5.5mm Expedium Verse Fen 7mm X 50mm - [id number] Implanted:Qty: 4 on 09/15/2022 by Tray Navas MD at [facility] N/A: Spine Lumbar DePuy Spine Sales LP-043470 09/15/[id number] / / Chg Screw Ref Spher Head 35mm - [id number] Implanted:Qty: 1 on 09/29/2023 by Abe Rodriguez MD at [facility] Right: Hip Sauceda [employer] Nephew Carrasquillo Inc-[id number] 01/08/2033 [id number] / / [id number] Chg Screw Redapt Lock 20mm - [id number] Implanted:Qty: 1 on 09/29/2023 by Abe Rodriguez MD at [facility] Right: Hip [employer]hew [employer]ras[employer] Inc-243784 05/29/2033 [id number] / / [id number] Chg Screw Redapt Lock 20mm - [id number] Implanted:Qty: 1 on 09/29/2023 by Abe Rodriguez MD at [facility] Right: Hip [employer]hew [employer]ras[employer] Inc-657719 02/01/2033 [id number] / / [id number] Liner Or3o Dual Mbility 38 50 - [id number] Implanted:Qty: 1 on 09/29/2023 by Abe Rodriguez MD at [facility] Right: Hip [employer]hew [employer]ras[employer]illo Inc-041874 03/22/2033 [id number] / / [id number] Shell Modular Redapt 50mm - [id number] Implanted:Qty: 1 on 09/29/2023 by Abe Rodriguez MD at [facility] Right: Hip [employer]hew [employer]ras[employer] Inc-696044 12/31/2030 [id number] / / [id number] Liner Or3o Dual Mbility Xlpe 28/38 - [id number] Implanted:Qty: 1 on 09/29/2023 by Abe Rodriguez MD at [facility] Right: Hip [employer]hew [employer]ras[employer] Inc-726305 08/12/2032 [id number] / / [id number] Polarstem Cementless Tiha 3 - [id number] Implanted:Qty: 1 on 09/29/2023 by Abe Rodriguez MD at [facility] Right: Hip [employer]hew [employer]rasquillo Inc-969865 01/25/2030 [id number] / / [id number] Chg Head Oxinium Fem 09/16 28m - [id number] Implanted:Qty: 1 on 09/29/2023 by Abe Rodriguez MD at [facility] Right: Hip [employer]a [employer] Nephew Carrasquillo Inc-441273 04/16/2033 [id number] / / [id number] Procedures Procedure Name Priority Date/Time Associated Diagnosis [...] AM EDT Narrative 06/05/2025 11:05 AM EDT [address] [address] Patient Name: MARK LEONE Patient : 1945 Age: 79 years Patient Ordering Provider: WARREN VALLES EXAM DATE: 06/05/2025 EXAM: MG LT DIAG CHAITANYA MAMMOGRAM INDICATION: 79-year-old patient presents for baseline mammographic imaging of the left breast following conservation surgery and radiation therapy. She reports left breast soreness. PROCEDURE: Multislice imaging of the left breast was performed including standard views using Twiceia Dimensions tomosynthesis equipment (3D mammography). Images were [...] Procedure Note Estrella Wolfe MD - 06/05/[address] [address] Patient Name: MARK LEONE Patient : 1945 Age: 79 years Patient Ordering Provider: WARREN VALLES EXAM DATE: 06/05/2025 EXAM: MG CORDOVA DIAG CHAITANYA MAMMOGRAM INDICATION: 79-year-old patient presents for baseline mammographic imaging of the left breast following conservation surgery and radiation therapy. She reports left breast soreness. PROCEDURE: Multislice imaging of the left breast was performed including standard views using Twiceia Dimensions tomosynthesis equipment (3D mammography). Images were [...] <5.7 % 09/22/2023 7:49 AM EST [facility] Blood Venous blood specimen / Unknown Venipuncture / Unknown 09/21/2023 4:15 PM EST 09/21/2023 4:16 PM EST Narrative [facility] - 09/22/2023 7:49 AM EST HA1C Interpretive Data: Diagnosis of Diabetes: Diabetic > or = 6.5% Pre-diabetic 5.7 to 6.4% Non-diabetic < or = 5.6% Glycemic Targets for Type I and Type II Diabetics: Non- Adults <7.0% Adults <6.0% Children and Adolescents <7.5% Source: [place] [employer] Association. Standards of medical care in diabetes,2017. Diabetes Care.2017:40 (suppl 1):S1-S135. HbA1c assay performed by an ion-exchange chromatography method that is certified traceable to the DCCT. us Abe Rodriguez MD LAB BLOOD ORDERABLES Final R esult [facility] [address] [place] [address] from Last 3 Months or Most Recently Relevant to Health Maintenance Insurance [employer] MEDICARE Advance Directives * Full Code (Latest Code Status on File) Date Activated Date Inactivated Comments 09/29/2023 9:53 AM 09/30/2023 2:27 PM Question Answer Comments Patient has decision-making capacity? Yes Care Teams Makeup Sales Consultant Relationship Specialty Start Date End Date Abe Mena MD [address] [place] [address] PCP - General 02/14/21 Tray Navas MD [address] [place] [address] Surgeon Neurosurgery 08/05/22 Shabnam Vasquez APRN [address] [place] [address] Nurse Practitioner Neurosurgery 09/14/22
--- OUTSIDE RECORDS SUMMARY | 2025-07-04 08:30 | XMS_ITS ---
Author Organization [facility] Address [address] [place] [address] Care Team Providers Care Cager Operator Name Role Phone Abe Mena MD Primary Care Provider + [phone] Tray Navas MD Unavailable [phone] Marceloelyssa Shabnam Jason ESTATE PLANNING COUNSELOR Unavailable [phone] Active Problems Problem Noted Date Diagnosed Date [...] (08/11/2022): Added automatically from request for surgery [id number] Current Treatment and Therapy Plans No current [...] (08/11/2022): Added automatically from request for surgery [id number]
--- OUTSIDE RECORDS SUMMARY | 2025-07-04 08:30 | XMS_ITS | Encounter Summary ---
Author Organization [facility] Address [address] [place] [address] Care Team Providers Care Electronic Engineering Technician Name Role Phone Abe Mena MD Primary Care Provider + [phone] Tray Navas MD Unavailable [phone] Shabnam Vasquez RECONDITIONER Unavailable [phone] Reason for Visit * Reason Onset Date Comments HCN - Patient Message 08/12/2022 Pre surger y test and questions Encounter Details Date Type Department Care Team (Late st Contact Info) Description 08/12/2022 Telephone [place] [facility] [address] [place] [address] Shabnam Vasquez, RECONDITIONER [address] [place] [address] HCN - Patient Message (Pre [...] Have pt sched on 08/18 @11:00 at [facility]. Called pt and left vm [...] needed to be scheduled and done at [facility] in [place] prior to 09/11 Pt says has to [...] optimal time of day to reach caller: [phone] Note: Please do not reply to this message. Follow-up communication and further actions as a result of this message need to be communicated with the patient directly, if the patient is not active onMyChart. If the patient is active on MyChart, they will receive notification of the communication/outcome via [facility]. documented in this encounter Plan of Treatment Upcoming Encounters Date Type Department Care Team (Late st Contact Info) Description 07/17/2025 11:15 AM EDT Office Visit [facility] [address] [place] [phone] Lico Shi MD [address] [address] 04/10/2026 11:30 AM EDT Office Visit [facility] [address] [place] [address] Lico Shi MD [address] [address] documented as of this encounter Visit Diagnoses Not on filedocumented in this encounter Additional Health Concerns Assessment Noted Time A fall risk assessment has been complete d for the patient 06/30/2022 1:52 PM EDT documented as of this encounter Care Teams Electronic Engineering Technician Relationship Specialty Start Date End Date Abe Mena MD [address] [place] [address] PCP - General 02/14/21 Tray Navas MD [address] [place] [phone] Surgeon Neurosurgery 08/05/22 Shabnam Vasquez APRN [address] [place] [phone] Nurse Practitioner Neurosurgery 09/14/22 documented as of this encounter
--- OUTSIDE RECORDS SUMMARY | 2025-07-04 08:30 | XMS_ITS | Continuity of Care Document ---
Author Organization [facility], [facility]AST [facility] Address [address] [place] [id number] Care Team Providers Care Boat Hop Name Role Phone EMILIA BRISENO Primary Care Provider Assessment No assessment recorded. Plan of Treatment Reminders Order Date Submit Date Provider Last Modified By Organization Details Last Modified Time Details Appointments MAMMOG FRANKLYN 2025 09:45A M MAMMOGRAM Not available Not available Not available ULTRAS OUND 2025 10:20A M ULTRASOUND Not available Not available Not available FOLLOW UP POSITI VE 2025 11:30A M WARREN WEAVER MD Not available Not available Not available FOLLOW UP DAK 2025 01:00P M TAHIR STINSON NP Not available Not available Not available Lab None record ed. Referral None record ed. Procedures None record ed. Surgeries None record ed. Imaging MAMMO, diagno stic, tomosy nthesi s, bilate ral, w/ CAD 2024 09 025 [email or web address] [facility] Radiology [facility], [address] [place] [address], [phone], 06/07/2025 16:02:23 Medication Orders None record ed. Patient TargetsNo targets recorded. Patient InstructionsNo instructions recorded. Reason for Referral None Reported. Results Created Date Observation Date Name Description Value Unit Range Abnormal Flag Note LastModifiedBy Organization Detail LastModifiedTime 06/05/2006/05/2025 MAMMO , diagn ostic , tomos ynthe sis, unila teral , w/ CAD [address] [address] [phone] Velia baeza Name: MARK baeza : [birth year] Age: 79 years Velia baeza 7 Orderi ng Provid er: ANG WEAVER EXAM DATE: 2024 EXAM: MG LT DIAG CHAITANYA MAMMOG FRANKLYN INDICA TION: 79-yea r-old velia baeza presen ts for baseli ne mammog raphic imagin g of the left breast follow ing conser vation surger y and radiat ion therap y. She report s left breast sorene ss. PROCED URE: Multis lice imagin g of the left breast was perfor med includ ing standa rd views using Hologi c Seleni a Dimens ions tomosy nthesi s equipm ent (3D mammog asmita) . Images were evalua fernanda with the assist ance of Comput er Aided Detect ion (CAD) softwa re. COMPAR TARYN: This is compar ed with prior mammog erin dated back to 023. DENSIT Y: The breast is hetero geneou sly dense, which may obscur e small masses . FINDIN GS:Pos topera tive change s are now noted in the latera l aspect of the left breast . There is mild trabec ular thicke demarco and skin thicke demarco which is likely treatm ent relate d. A few scatte red calcif icatio ns are noted. No new mass, suspic ious calcif icatio ns, or nonsur gical areas of adrienen ectura l distor tion are seen. IMPRES ARELIS: Probab ly benign left mammog raphic findin gs. Recomm end short interv al follow -up. RECOMM ENDATI ON: The patien aryan will be due for her next bilate ral diagno stic mammog franklyn after 2024. BI-RAD S Catego ry 3, Probab ly benign findin g, short interv al follow -up. The patien t has been entere d into an automa fernanda remind er system . The standa rd false negati ve rate of mammog asmita is betwee n 10% and 25%. Comple x patter ns or increa sed breast densit y will marked ly elevat e the false negati ve rate of mammog asmita. If there is a palpab le area of concer n, biopsy should be consid ered regard less of anastaciain g kirsten resendiz. COMMEN T: Findin gs and recomm endati ons were discus sed with the patien t. Interp reted By: Gloria rivera MD Electr onical ly Signed By: Gloria rivera MD on 06/05/20 11:05 AM [email or web address] [facility] Radiology [address], [address], 06/05/2025 11:10:55 Result Notes Documentation Provider Name and Address Organization Details Recorded Time Mammo, Diagnostic, Tomosynthesis, Unilateral, W/ Cad : [address] [address] Patient Name: MARK LEONE Patient : 1945 Age: 79 years Patient Ordering Provider: WARREN WEAVER EXAM DATE: 06/05/2025 EXAM: MG LT DIAG CHAITANYA MAMMOGRAM INDICATION: 79-year-old patient presents for baseline mammographic imaging of the left breast following conservation surgery and radiation therapy. She reports left breast soreness. PROCEDURE: Multislice imaging of the left breast was performed including standard views using [employer] tomosynthesis equipment (3D mammography). Images [...] the patient. Interpreted By: Estrella Wolfe MD EN WEAVER MD [address] [place], [address], [facility] 06/05/2025 11:10:55 Problems Name Problem SNOMED Code Status Onset Date Resolution Date Notes Provider Name and Address Organization Details Recorded Time Malignant neoplasm of overlapping sites of breast 312220020 Active 2024 WARREN WEAVER MD [address] [place] [address], [phone] , [facility] 16:02:35 Problem Notes None recorded. Procedures Surgical History Date Name Laterality Status Provider Name and Address Organization Details Recorded Time 02/07/20 25 DAK - Destruction BN Lesions completed Greer Rivas [facility] 02/06/2025 11:58:19 12/23/19 25 lumpectomy of left breast completed BORIS CASTLE APRN [address] [place], [address], [facility] 12/28/2024 13:47:50 11/29/19 25 biopsy of breast completed Bibiana Rojas [facility] 12/05/2024 14:07:59 09/13/20 24 Date of Last Mammogram completed Bibiana Rojas [facility] 12/05/2024 14:08:12 11/16/19 24 Destruction BN Lesions completed Maty Rodriguez [facility] 11/16/2023 14:35:46 Imaging Results None recorded. Procedure Notes None recorded. Medical Equipment None Reported. Allergies Allergen ID Allergen Name Allergen Category Reaction Reaction Severity Criticality Documentation Date Start Date Code Code System Note Provider Name and Address Organization Details Recorded Time 135908 Adenike medicatio n Not available Not available Not available 11/16/2023 75194 6 RxNorm Gaby Dejesus samantha [facility] 4 14:08:16 773484 tramadol medicatio n Not available Not available Not available 12/05/2024 01751 RxNorm Bibiana Rojas [facility] 15:10:46 151530 hydrocodo ne Not available Not available Not available Not available 12/05/2024 5489 RxNorm Bibiana Rojas [facility] 15:11:02 Medications Name Sig Start Date Stop Date Status Note LastModified by Organization Details LastModified Time metformin 500 mg tablet Take 1 tablet twice a day by oral route. active Not Available Not Available No t Available Multiple Vitamin capsule Daily active Duration: 30 days;Freq uency: daily;Med ication Descripti on: multivita min; Dosage:1; Route:ora l; refills:3 ; Quantity: 100 capsule Not Available Not Available Not Available pravastat in 40 mg tablet Daily 12/05 completed Instructi ons: 80MG DAILY;Luis quency: daily;Med ication Descripti on: pravastat in; Dosage:2; Route:ora l; refills:0 Not Available Not Available Not Available bisoprolo l 2.5 mg-hydroc hlorothia zide 6.25 mg tablet Daily 12/05 completed Duration: 30 days;Freq uency: daily;Med ication Descripti on: bisoprolo l-hydroch lorothiaz sesar; Dosage:1; Route:ora l; refills:0 ; Quantity: 30 tablet Not Available Not Available Not Available Lasix 20 mg tablet Daily active Duration: 30 days;Freq uency: daily;Alt Frequency : as direct.;M edication Descripti on: furosemid e; Dosage:1; Route:ora l; refills:5 ; Quantity: 30 tablet Not Available Not Available Not Available metronida zole 0.75 % topical cream Apply a thin layer to the face twice a day 2023 active Not Available Not Available Not Avai lable potassium chloride Daily active Frequency : daily;Med ication Descripti on: potassium chloride; Dosage:1; Route:ora l; refills:5 ; Quantity: 30 powder for reconstit ution Not Available Not Available Not Available atorvasta tin active Not Available Not Available Not Available levothyro xine active Not Available Not Available Not Available spironola ctone active Not Available Not Available Not Available losartan active Not Available Not Avai lable Not Available Vitamin D3 Daily active Frequency : daily;Med ication Descripti on: cholecalc iferol; Dosage:1; Route:ora l; refills:0 Not Available Not Available Not Available glimepiri de active Not Available Not Available Not Available gabapenti n active Not Available Not Available Not Available Fish Oil 300 mg-1,000 mg capsule,d elayed release Daily 12/05 completed Frequency : daily;Med ication Descripti on: omega-3 polyunsat urated fatty acids; Dosage:1; Route:ora l; refills:0 Not Available Not Available Not Available Xarelto active Not Available Not Avail able Not Available Vitals Date Recorded Body height Body mass index (BMI) Body weight Heart rate Oxygen saturation Oxygen saturation in Arterial blood by Pulse oximetry Systolic And Diastolic Provider Name and Address Organization Details Last Updated DateTime 162.56 cm 29 kg/m2 99903.1 1 g 69 /min 94 % 94 % 132/62 mm[Hg] Bibiana Rojas [facility] 11:10:02 Social History Question Answer Notes LastModified by Organizat ion Details LastModified Time Tobacco Smoking Status Never Smoker Bibiana Rojas [facility] 12/05/2024 14:07:33 What Is Your Level Of Caffeine Consumption? None [email or web address] Information not available 12/05/2024 What Was The Date Of Your Most Recent Tobacco Screening? 06/05/2025 [email or web address] Information not available 06/05/2025 Has Tobacco Cessation Counseling Been Provided? No Information not available 12/05/2024 Sex: Unknown Functional Status Question Answer Note LastModified by Organizat ion Details LastModified Time Do you use any illicit or recreational drugs? No [email or web address] Information not available 12/05/2024 Do you or have you ever used any other forms of tobacco or nicotine? No [email or web address] Information not available 12/05/2024 What is your level of alcohol consumption? None [email or web address] Information not available 12/05/2024 Are you currently employed? No [email or web address] Information not available 12/05/2024 Mental Status None recorded. Family History Relationship Description Onset Age of this Age Resolved Age Notes LastModified by Organization Details LastModified Time Mother Heart disease [email or web address] Not available 01/2025 14:07:08 Father Heart disease [email or web address] Not available 01/2025 14:07:08 Sister Chronic obstructive pulmonary disease [email or web address] Not available 01/2025 14:07:20 Sister Malignant neoplasm of breast at the age of 805 years ago [email or web address] Not available 12/05/2024 14:16:56 Medical History Condition Response Skin Cancer Y Diabetes Y Other Y Thyroid Disease Y Kidney Disease Y Gynecological History Statement/Question Response Age at first live 24 Infertility medication use? Y # of Pregnancies 2 Age at Menarche 12 Date of Last Mammogram 09/13/2024 History of Breast Biopsy? (when/where) Hormone Replacement Therapy N Obstetrics History GPAL:G 2 P 0 0 0 0 Immunizations Vaccine Type Date Status Note Provider Nam e and Address Organization Details Recorded Time Td (adult), 2 Lf tetanus toxoid, preservative free, adsorbed 6 completed Not Available [facility] 06/05/2025 10:38:55 zoster live 3 completed Not Available [facility] 06/05/2025 10:38:55 Influenza, adjuvanted, trivalent, PF 7 completed Not Available [facility] 06/05/2025 10:38:55 pneumococcal polysaccharide PPV23 8 completed Not Available [facility] 06/05/2025 10:38:55 Influenza, split virus, quadrivalent, preservative 8 completed Not Available [facility] 06/05/2025 10:38:55 Influenza, high-dose, trivalent, PF 0 completed Not Available [facility] 06/05/2025 10:38:55 COVID-19, mRNA, LNP-S, PF, 100 mcg/0.5mL dose or 50 mcg/0.25mL dose 1 completed Not Available [facility] 06/05/2025 10:38:55 COVID-19, mRNA, LNP-S, PF, 100 mcg/0.5mL dose or 50 mcg/0.25mL dose 1 completed Not Available [facility] 06/05/2025 10:38:55 Influenza, high-dose, trivalent, PF 1 completed Not Available [facility] 06/05/2025 10:38:55 COVID-19, mRNA, LNP-S, PF, 100 mcg/0.5mL dose or 50 mcg/0.25mL dose 1 completed Not Available [facility] 06/05/2025 10:38:55 COVID-19, mRNA, LNP-S, PF, 100 mcg/0.5mL dose or 50 mcg/0.25mL dose 2 completed Not Available [facility] 06/05/2025 10:38:55 Pneumococcal conjugate PCV20, polysaccharide CFZ833 conjugate, adjuvant, PF 3 completed Not Available [facility] 06/05/2025 10:38:55 COVID-19, mRNA, LNP-S, PF, 50 mcg/0.5 mL 3 completed Not Available [facility] 06/05/2025 10:38:55 Influenza, high-dose, trivalent, PF 3 completed Not Available [facility] 06/05/2025 10:38:55 RSV, recombinant, protein subunit RSVpreF, adjuvant reconstituted, 0.5 mL, PF 3 completed Not Available [facility] 06/05/2025 10:38:55 Influenza, high-dose, trivalent, PF 4 completed Not Available [facility] 06/05/2025 10:38:55 COVID-19, mRNA, LNP-S, PF, huyen-sucrose, 30 mcg/0.3 mL 4 completed Not Available [facility] 06/05/2025 10:38:55 Past Encounters Encounter ID Performer Location Encounter Start Date Encounter Closed Date Diagnosis/Indication Diagnosis SNOMED-CT Code Diagnosis ICD10 Code Diagnosis IMO Codes Diagnosis Note [id number] WARREN WEAVER MD BREAST SURGERY [facility] [place] [address] 06/05/2025 10:37:46 06/05/2025 11:22:44 Malignant neoplasm of overlapping sites of breast 121709126 C50.812 Assessment : 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 Patient is status post left localized lumpectomy on 12/22/2024. Patient completed 15 fractions of radiation approximat marie in March 2025. She has nothing concerning on exam or on imaging. Plan: Patient will be due for bilateral diagnostic mammogram in 6 months. I will see her the same day. I request that she have her HOSPITAL ADMINISTRATOR send us the pathology from her surgery. Health Concerns Section Related Observation LastModified by Organization Detai ls LastModified Time None Recorded Concern Status LastModified by Organization Details LastModified Time None Recorded Payers Encounter Date Sequence Insurance Name Policy Number Policy Slaughter Covered Member ID Slaughter Member ID Guarantor Name 06/05/2025 1 [employer] (MEDICARE REPLACEMENT/A DVANTAGE - PPO) Mark Concepcion Sulema [id number] Mark Leone Notes Date Note Type Note Provider Name and Address Organization Details Recorded Time 06/05/2025 text/html Interval history 05/05/2025: Patient has no breast complaints. She had a left diagnostic mammogram today that was a BI-RADS 3. Patient is scheduled to have a uterine cyst removed in the next couple weeks. Interval history 04/05/25: Patient completed 15 fractions of radiation and tolerated that well. Interval history 12/28/2024: Patient is 1 week status post left localized lumpectomy. She had multifocal invasive lobular cancer with the largest focus being about 14 mm. She also had lobular carcinoma in situ. The initial margin was focally involving the margin but the extended margins were all negative. History: Patient is an 79-year-old who had an abnormal screening mammogram in the left breast. Patient had no breast symptoms prior to the biopsy. Left diagnostic mammogram and ultrasound revealed a 16 x 9 x 10 mm mass in the left breast at 3:00 5 cm from the nipple this underwent a biopsy and returned as a grade 2 invasive cancer that a lobular type was favored this was estrogen receptor 91 to 100% positive progesterone receptor 81 to 90% positive HER2/juhi was negative and Ki-67 was 10 to 15%. Patient is the primary caregiver of her and is very concerned about time away from him. 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 Does have a Edwards filter in place. Breast cancer risk factors: . Age of first live 24. Age of menarche 12. Family history is significant for a sister who had breast cancer. WARREN WEAVER MD [address] [place], [address], [facility] 06/05/2025 11:18:23 OBGyn Episode No OBEpisode recorded.
--- OUTSIDE RECORDS SUMMARY | 2025-07-04 08:30 | XMS_ITS | Data Portability ---
Author Organization [facility], [facility] Address 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 ER/WA+ and Her2 negative. Status post partial mastectomy with negative margins. Due to the multifocal nature of her disease, I do recommend adjuvant whole breast radiation therapy. I described a 3 week course of IMRT to the left breast with hypofractionation and simultaneous integrated tumor bed boost. Patient is agreeable but would prefer to have her radiation in [place], [place]. I have made the referral for her. [email or web address] Not available 01/10/2025 14:21:01 Plan of Treatment Reminders Order Date Submit [...] record ed. Surgeries None record ed. Imaging None record ed. Medication Orders None record ed. Patient TargetsNo targets recorded. Patient InstructionsNo instructions recorded. Reason for Referral None Reported. Results Created Date Observation Date Name Description Value Unit Range Abnormal Flag Note LastModifiedBy Organization Detail LastModifiedTime 01/04/20 25 MAMMO , tomos ynthe sis, unila teral No observ ation record ed. [email or web address] Not Available 2024 09:58:34 Result Notes None recorded. 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 Procedure Notes None recorded. Medical Equipment None Reported. Allergies Allergen ID Allergen Name Allergen Category Reaction Reaction Severity Criticality Documentation Date Start Date Code Code System Note Provider Name and Address Organization Details Recorded Time 386308 Adenike medicatio n tachycard ia Not available Not available 01/10/2025 38463 6 RxNorm [facility] 5 13:41:06 740634 hydrocodo ne Not available vomiting Not available Not available [facility] 13:[facility] 066701 tramadol medicatio n vomiting Not available Not available 01/10/2025 [facility]68[facility] 13:[facility]:03 Medications Name Sig Start Date Stop Date Status Note LastModified by Organization Details LastModified Time atorvastatin 40 mg tablet Take 1 tablet every day by oral route. active Not Available Not Available No t Available glimepiride 2 mg tablet Take 1 tablet every day by oral route. active Not Available Not Available No t Available gabapentin 300 mg capsule Take 1 capsule twice a day by oral route. active Not Available Not Available No t Available spironolactone 1 bid active Not Available No t Available Not Available losartan 1 qd active Not Available Not Avai lable Not Available levothyroxine 75 mcg capsule Take 1 capsule every day by oral route. active Not Available Not Available No t Available Xarelto 20 mg tablet Take 1 tablet every day by oral route. active Not Available Not Available No t Available Vitals Date Recorded Body weight Body mass index (BMI) Body height Body temperature Heart rate Oxygen saturation Oxygen saturation in Arterial blood by Pulse oximetry Systolic And Diastolic Provider Name and Address Organization Details Last Updated DateTime 14816.8 9 g 29.5 kg/m2 162.56 cm 97.2 [degF] 67 /min 97 % 97 % 110/78 mm[Hg] [facility] 13:[facility]:40 Social History Question Answer Notes LastModified by Organizat ion Details LastModified Time Tobacco Smoking Status Never Smoker [facility] 01/10/2025 13:45:42 What Is Your Level Of Caffeine Consumption? Moderate Information not available 01/10/2025 What Was The Date Of Your Most Recent Tobacco Screening? 01/10/2025 Information not available 01/10/2025 Sex: Unknown Functional Status Question Answer Note LastModified by Organization D etails LastModified Time What is your level of alcohol consumption? None Information not available 01/10/2025 Mental Status None recorded. Family History Relationship Description Onset Age of this Age Resolved Age Notes LastModified by Organization Details LastModified Time Sister Malignant neoplasm of breast 80 Not available 2024 13:44:36 Father Heart disease Not available 2024 13:44:58 Mother Heart disease Not available 2024 13:44:58 Medical History Condition Response Kidney Stones N Hyperthyroidism Y Implanted Cardiac Device N Breast Cancer Y Digestive Problems N Chemotherapy N Hypothyroidism Y Lung Disease N Skin Problems Head & Neck N Anemia Y Gynecological History Y Genitourinary Disease N Diabetes Y Arthritis N Seizures/Epilepsy N Tuberculosis N Kidney Failure N Cancer Y Radiation Therapy N High Cholesterol Y Previous Radiation Therapy? N Liver Disease N Dialysis N Hypertension Y Kidney Disease N Gynecological HistoryNo gynecological history recorded. Obstetrics History GPAL:G 0 P 0 0 0 0 Past Encounters Encounter ID Performer Location Encounter Start Date Encounter Closed Date Diagnosis/Indication Diagnosis SNOMED-CT Code Diagnosis ICD10 Code Diagnosis IMO Codes Diagnosis Note [id number] QM_[facility] [address] 01/05/2017 08:43:04 01/05/2017 08:43:04 [id number] ALEXSANDRA Avilez, [facility] [address] [place] [address] 11/16/2023 14:03:02 11/16/2023 16:08:42 [id number] WARREN WEAVER MD BREAST SURGERY [address] [place] [address] 12/05/2024 14:01:40 12/05/2024 16:21:33 [id number] ANGELY THAYER MD HEART [address] [place] [address] 12/19/2024 14:50:40 12/19/2024 15:12:25 [id number] WARREN WEAVER MD SURGERY SCHEDULE [address] [place] [address] 12/22/2024 08:00:02 12/22/2024 08:00:43 [id number] WARREN WEAVER MD BREAST SURGERY [address] [place] [id number] 12/28/2024 13:37:28 12/28/2024 14:07:42 [id number] MARGE ELMORE MD [facility] [address] [facility] [place] [address] 01/10/2025 13:29:31 01/11/2025 16:05:34 Malignant neoplasm of overlapping sites of breast 676512350 C50.812 [id number] ALEXSANRDA Avilez APRN [facility] [address] [place] [address] 02/06/2025 10:55:30 02/06/2025 12:03:52 [id number] WARREN WEAVER MD BREAST SURGERY [address] [place] [address] 04/05/2025 09:57:04 04/05/2025 13:00:57 [id number] WARREN WEAVER MD BREAST SURGERY [address] [place] [address] 06/05/2025 10:37:46 06/05/2025 11:22:44 Health Concerns Section Related Observation LastModified by Organization Detai ls LastModified Time None Recorded Concern Status LastModified by Organization Details LastModified Time None Recorded Advance Directives Directive None Recorded Payers Insurance Date Sequence Insurance Name Policy Number Policy Slaughter Covered Member ID Slaughter Member ID Guarantor Name 06/05/2025 1 [employer] (MEDICARE REPLACEMENT/A DVANTAGE - PPO) Deirdre Leone [id number] Deirdre Leone Notes Date Note Type Note Provider Name and Address Organization Details Recorded Time 5 text/html Deirdre is a 79 year old woman with [id number] 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 ER/WA+ and Her2 negative. Status post partial mastectomy with negative margins. 11/29/24 mammogram1. 16 mm spiculated mass 3:00 left breast, highly suspicious forprimary breast malignancy. Subsequent ultrasound-guided biopsy wasperformed the same date. 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)-Lateral margin focally positive for invasive carcinoma (3mm inextent); other margins are negative but focally close, 2 mm, toanterior and inferior margins-Perineural invasion identified.-Previous biopsy site and fibrocystic changes identifiedB) Left breast, extended all margins:-All margins negative for invasive carcinoma; closest margin is 2mmfrom the posterior margin.-Multiple small foci, 2-3 mm each, of invasive lobular carcinomaidentified in tissue submitted.-Multifocal lobular neoplasia/lobular carcinoma in situ-Fibrocystic changes with intraluminal microcalcifications.-Pre vious biopsy site changes MARGE ERVIN MD [address], [place], [address], [facility] - [facility] 01/10/2025 14:23:05 OBGyn Episode No OBEpisode recorded.
--- OUTSIDE RECORDS SUMMARY | 2025-07-04 08:30 | XMS_ITS | Data Portability ---
Author Organization ARAVIND [facility] - [facility] Address [address] [place] [address] Care Team Providers Care Jig Bore Operator Name Role Phone MARGE ERVIN Referring Provider EIMLIA Harvey Primary Care Provider [phone] ROBERT WEISS Radiation Oncologist [phone] WARREN WEAVER OTHER Assessment Encounter Date Assessment Date Assessment LastModified by Organization Details LastModified Time 02/19/2025 02/19/2025 Radiation Therapy Current Dose:3900 Dose Planned:4500 CHEMOTHERAPY: no Type: REVIEWED: Port Film: Y Dosimetry: Y Isodose: Y [email or web address] Not available 02/19/2025 12:59:52 02/21/2025 02/21/2025 Treatment summary: She was treated with IMRT technique with treatments of left breast with high axilla delivering a dose of 4050 cGy by 15 fractions to the entire breast while the lumpectomy site received 4500 cGy by 15 fractions she was treated by 6 mV photon beam utilizing 4 arcs started on 01/31/2025 and completed on 02/21/2025 tolerated treatments quite well with minimal skin irritation advised to use Aquaphor cream if needed. She will start using anastrozole tablets which she already has a prescription for after a week. Thanks for allowing us participate in the care of this pleasant patient. [email or web address] Not available 02/21/2025 13:44:45 03/26/2025 03/26/2025 Patient doing well she will return to see us in 3 months for a follow-up later on which she will have mammograms. She was started on anastrozole. Interview and review of records lasted for 30 minutes. Thanks for allowing us participate in the care of this pleasant patient. [email or web address] Not available 03/26/2025 10:19:08 06/26/2025 06/26/2025 Patient doing quite well as far as her breast cancer she is scheduled for mammograms in 6 months currently being considered for thyroid biopsy and D&C. She will inform us about any abnormal results in the meantime she will return to see us in 3 months for a follow-up. Interview and review of records lasted for 30 minutes. Thanks for allowing us participate in the care of this pleasant patient. [email or web address] Not available 06/26/2025 10:56:29 Plan of Treatment Reminders Order Date Submit Date Provider Last Modified By Organization Details Last Modified Time Details Appointments OV EST 15 025 10:30AM Robert Weiss MD Not available Not available Not available Lab None record ed. Referral None record ed. Procedures None record ed. Surgeries None record ed. Imaging None record ed. Medication Orders None record ed. Patient TargetsNo targets recorded. Patient InstructionsNo instructions recorded. Reason for Referral None Reported. Problems Name Problem SNOMED Code Status Onset Date Resolution Date Notes Provider Name and Address Organization Details Recorded Time Carcinoma breast - lower, outer quadrant 300960034 Active [address] [facility] [place] 12:02:34 Problem Notes None recorded. Procedures Surgical History Date Name Laterality Status Provider Name and Address Organization Details Recorded Time total replacement of hip completed Supriya LUNA [facility] [place] 01/15/2025 14:22:09 total shoulder replacement completed Supriya LUNA [facility] & [place] 01/15/2025 14:22:22 Imaging Results None recorded. Procedure Notes None recorded. Medical Equipment None Reported. Allergies Allergen ID Allergen Name Allergen Category Reaction Reaction Severity Criticality Documentation Date Start Date Code Code System Note Provider Name and Address Organization Details Recorded Time 184280 tramadol medicatio n vomiting severe high 01/15/2025 17750 RxNorm ARAVIND Hodges [facility] & [place] 14:16:17 068371 hydrocodo ne Not available vomiting severe high 01/15/2025 5489 RxNorm Supriya singh, ARAVIND Wetzel LPNT [facility] & [place] 5 14:16:33 501706 Adenike medicatio n tachycard ia severe high 01/15/2025 21616 6 RxNorm Supriya singh, ARAVIND Wetzel LPNT [facility] & [place] 5 14:16:49 691145 Ozempic medicatio n hives severe high 03/26/2025 07 RxNorm Supriya singh, ARAVIND Wetzel LPR [facility] & [place] 5 10:13:07 Medications Name Sig Start Date Stop Date Status Note LastModified by Organization Details LastModified Time amoxicillin 500 mg capsule TAKE FOUR CAPSULES BY MOUTH DIRECTED; TAKE ALL 4 CAPSULES ONE FULL HOUR PRIOR TO DENTAL APPOINTME NT 01/15 completed Not Available Not Available Not Available atorvastati n 40 mg tablet TAKE 1 TABLET BY MOUTH EVERY DAY active Not Available Not Available No t Available methocarbam ol 500 mg tablet TAKE ONE TABLET BY MOUTH THREE TIMES DAILY NEEDED MAY CAUSE DROWSINES S active Not Available Not Available No t Available anastrozole 1 mg tablet TAKE ONE TABLET BY MOUTH EVERY DAY swallow whole with a drink of water 06/26 completed Not Available Not Available Not Available ibuprofen 800 mg tablet TAKE ONE TABLET BY MOUTH EVERY 6 TO 8 HOURS --TAKE WITH FOOD-- active Not Available Not Available No t Available fluconazole 150 mg tablet TAKE ONE TABLET BY MOUTH A ONE-TIME DOSE; MAY REPEAT DOSE 72 hours AFTER first DOSE if symptoms persist. active Not Available Not Available No t Available Accu-Chek Softclix Lancets USE TO TEST ONCE DAILY DIRECTED active Not Available Not Available No t Available penicillin V potassium 500 mg tablet TAKE ONE TABLET BY MOUTH FOUR TIMES DAILY FOR 7 DAYS -- FINISH ALL MEDICINE -- active Not Available Not Available No t Available glimepiride 2 mg tablet TAKE ONE TABLET BY MOUTH EVERY DAY active Not Available Not Available No t Available levothyroxi ne 75 mcg tablet TAKE 1 TABLET BY MOUTH DAILY active Not Available Not Available No t Available triamcinolo ne acetonide 0.1 % topical ointment 1 APPLY APPLIED TOPICALLY THREE TIMES DAILY TO LEFT LEG AND SCALP ITCHING X 7 DAILY active Not Available Not Available No t Available misoprostol 200 mcg tablet insert 3 TABLETS VAGINALLY 24 hours prior TO SURGERY AND THE remaining 3 TABLETS 12 hours prior TO SURGERY active Not Available Not Available No t Available metronidazo le 0.75 % topical cream apply a thin layer topically TO face TWICE DAILY active Not Available Not Available No t Available losartan 25 mg tablet TAKE 1 TABLET BY MOUTH DAILY active Not Available Not Available No t Available gabapentin 300 mg capsule TAKE 1 CAPSULE BY MOUTH THREE TIMES DAILY active Not Available Not Available No t Available furosemide 20 mg tablet TAKE 1 TABLET BY MOUTH EVERY DAY active Not Available Not Available No t Available clobetasol 0.05 % topical ointment APPLY TOPICALLY TO THE AFFECTED AREA(S) EVERY DAY AT BEDTIME active Not Available Not Available No t Available levofloxaci n 500 mg tablet TAKE ONE TABLET BY MOUTH EVERY DAY -- FINISH ALL MEDICINE -- active Not Available Not Available No t Available letrozole 2.5 mg tablet TAKE ONE TABLET BY MOUTH EVERY DAY take with OR without food active Not Available Not Available No t Available metformin ER 500 mg tablet,exte nded release 24 hr TAKE ONE TABLET BY MOUTH ONCE DAILY active Not Available Not Available No t Available spironolact one 50 mg tablet TAKE 1 TABLET BY MOUTH TWICE DAILY active Not Available Not Available No t Available amoxicillin 875 mg-potassiu m clavulanate 125 mg tablet TAKE 1 TABLET BY MOUTH EVERY 12 HOURS FOR 7 DAYS active Not Available Not Available No t Available Premarin 0.625 mg/gram vaginal cream apply a blueberrr y sized AMOUNT TO VAGINA EVERY DAY AT BEDTIME FOR 14 DAYS prior TO SURGERY start ON 05/30/2025 active Not Available Not Available No t Available chlorhexidi ne gluconate 0.12 % mouthwash FILL SUPPLIED CUP (1/2 OUNCE); SWISH IN MOUTH FOR 30 SECONDS TWICE DAILY (AFTER BREAKFAST & BEFORE BEDTIME). SWISH THEN EXPEL REMAINDER OR USE DIRECTED 01/15 completed Not Available Not Available Not Available Tradjenta 5 mg tablet TAKE ONE TABLET BY MOUTH EVERY DAY active Not Available Not Available No t Available Xarelto 20 mg tablet TAKE 1 TABLET BY MOUTH EVERY EVENING active Not Available Not Available No t Available Farxiga 10 mg tablet TAKE ONE TABLET BY MOUTH EVERY DAY 01/15 completed Not Available Not Available Not Available Accu-Chek Guide test strips USE DIRECTED TO TEST DAILY active Not Available Not Available No t Available Accu-Chek Guide Me Glucose Meter USE TO TEST BLOOD SUGAR ONCE DAILY DIRECTED active Not Available Not Available No t Available Vitals Date Recorded Body height Body mass index (BMI) Body weight Body temperature Oxygen saturation Oxygen saturation in Arterial blood by Pulse oximetry Heart rate Respiratory rate Systolic And Diastolic Provider Name and Address Organization Details Last Updated DateTime 5 162.56 cm 29.5 kg/m2 76253.8 9 g 97.6 [degF] 95 % 95 % 68 /min 17 /min 124/59 mm[Hg] Supriya Pepper [facility] & [place] 5 13:00:14 Date Recorded Body height Body mass index (BMI) Body weight Body temperature Oxygen saturation Oxygen saturation in Arterial blood by Pulse oximetry Heart rate Respiratory rate Systolic And Diastolic Provider Name and Address Organization Details Last Updated DateTime 5 162.56 cm 29 kg/m2 05658.8 3 g 97.9 [degF] 95 % 95 % 71 /min 16 /min 131/59 mm[Hg] Supriya NAZARIO [facility] & [place] 5 10:12:21 Date Recorded Body height Body mass index (BMI) Body weight Body temperature Oxygen saturation Oxygen saturation in Arterial blood by Pulse oximetry Heart rate Respiratory rate Systolic And Diastolic Provider Name and Address Organization Details Last Updated DateTime 5 162.56 cm 28.9 kg/m2 02116.9 6 g 98.1 [degF] 94 % 94 % 67 /min 17 /min 131/63 mm[Hg] Supriya NAZARIO [facility] & [place] 5 10:48:05 Social History Question Answer Notes LastModified by [employer] Details LastModified Time Tobacco Smoking Status [facility] [place] 01/15/2025 14:21:08 What Was The Date Of Your Most Recent Tobacco Screening? 01/15/2025 Information not available 01/15/2025 Has Tobacco Cessation Counseling Been Provided? No Information not available 01/15/2025 Sex: Unknown Functional Status Question Answer Note LastModified by [employer] Details LastModified Time Do you use any illicit or recreational drugs? No Information not available 01/15/2025 Do you or have you ever used any other forms of tobacco or nicotine? No Information not available 01/15/2025 What is your level of alcohol consumption? Occasional Information not available 01/15/2025 Mental Status None recorded. Family History Relationship Description Onset Age of this Age Resolved Age Notes LastModified by Organization Details LastModified Time Sister Malignant neoplasm of breast 80 nparkerrose Not available 01/02 14:20:41 Medical History Condition Response None Y Gynecological HistoryNo gynecological history recorded. Obstetrics History GPAL:G 0 P 0 0 0 0 Past Encounters Encounter ID Performer Location Encounter Start Date Encounter Closed Date Diagnosis/Indication Diagnosis SNOMED-CT Code Diagnosis ICD10 Code Diagnosis IMO Codes Diagnosis Note [id number] [place] [address] 01/15/2025 13:30:00 01/15/2025 14:41:44 Carcinoma breast - lower, outer quadrant 599347776 C50.512 Z17.0 [id number] Robert Weiss MD [place] [address] 01/29/2025 10:56:24 01/29/2025 12:09:49 Carcinoma breast - lower, outer quadrant 489421565 C50.512 Z17.0 [id number] Robert Weiss MD [place] [address] 01/31/2025 12:58:02 01/31/2025 16:20:09 Carcinoma breast - lower, outer quadrant 555060038 C50.512 Z17.0 [id number] Robert Weiss MD [address] [address] 02/01/2025 13:49:46 02/01/2025 15:36:03 Carcinoma breast - lower, outer quadrant 111764361 C50.512 Z17.0 [id number] Robert Weiss MD [place] [address] 02/02/2025 11:09:35 02/02/2025 11:31:02 Carcinoma breast - lower, outer quadrant 662215474 C50.512 Z17.0 [id number] Robert Weiss MD [place] [address] 02/04/2025 10:51:07 02/04/2025 11:15:01 Carcinoma breast - lower, outer quadrant 927924356 C50.512 Z17.0 [id number] Robert Weiss MD [place] [address] 02/05/2025 10:48:30 02/05/2025 11:50:22 Carcinoma breast - lower, outer quadrant 722993689 C50.512 Z17.0 [id number] Robert Weiss MD [place] [address] 02/06/2025 14:32:01 02/06/2025 15:53:09 Carcinoma breast - lower, outer quadrant 447635171 C50.512 Z17.0 [id number] Rboert Weiss MD [place] [address] 02/07/2025 13:33:26 02/07/2025 14:25:42 Carcinoma breast - lower, outer quadrant 615213544 C50.512 Z17.0 [id number] Robert Weiss MD [place] [address] 02/08/2025 10:47:28 02/08/2025 11:44:49 Carcinoma breast - lower, outer quadrant 673422261 C50.512 Z17.0 [id number] Robert Weiss MD [place] [address] 02/12/2025 11:24:38 02/12/2025 14:18:19 Carcinoma breast - lower, outer quadrant 689699807 C50.512 Z17.0 [id number] Robert Weiss MD [place] [address] 02/13/2025 14:07:33 02/13/2025 15:49:10 Carcinoma breast - lower, outer quadrant 948030244 C50.512 Z17.0 [id number] Robert Weiss MD [place] [address] 02/14/2025 14:03:44 02/14/2025 14:05:37 Carcinoma breast - lower, outer quadrant 037887814 C50.512 Z17.0 [id number] Robert Weiss MD [place] [address] 02/15/2025 13:34:58 02/15/2025 14:09:32 Carcinoma breast - lower, outer quadrant 115437621 C50.512 Z17.0 [id number] Robert Weiss MD [place] [address] 02/16/2025 08:42:05 02/16/2025 09:03:22 Carcinoma breast - lower, outer quadrant 197902629 C50.512 Z17.0 [id number] Robert Weiss MD [place] [address] 02/19/2025 12:50:22 02/19/2025 13:23:10 Carcinoma breast - lower, outer quadrant 839027921 C50.512 Z17.0 [id number] Robert Weiss MD [place] [address] 02/20/2025 13:41:44 02/20/2025 15:32:12 Carcinoma breast - lower, outer quadrant 394020241 C50.512 Z17.0 [id number] [facility] [address] [address] 02/21/2025 13:31:27 02/21/2025 14:10:36 Carcinoma breast - lower, outer quadrant 178355382 C50.512 Z17.0 [id number] Robert Weiss MD [address] [address] 03/26/2025 09:57:49 03/26/2025 10:21:29 Carcinoma breast - lower, outer quadrant 401181896 C50.512 Z17.0 [id number] Robert Weiss MD [address] [address] 06/26/2025 10:30:25 06/26/2025 11:14:15 Carcinoma breast - lower, outer quadrant 285698848 C50.512 Z17.0 [id number] Health Concerns Section Related Observation LastModified by Organization Detai ls LastModified Time None Recorded Concern Status LastModified by Organization Details LastModified Time None Recorded Advance Directives Directive None Recorded Payers Insurance Date Sequence Insurance Name Policy Number Policy Slaughter Covered Member ID Slaughter Member ID Guarantor Name 06/23/2025 1 [employer] (MEDICARE REPLACEMENT/A DVANTAGE - PPO) Deirdre Leone [id number] Deirdre Leone Notes Date Note Type Note Provider Name and Address Organization Details Recorded Time 02/21/2025 text/html Patient completed her radiation and was well tolerated.She will return to see us in 1 month for a follow-up and will start using her prescription of anastrozole.Patient presented with multifocal invasive lobular carcinoma of the lower-outer quadrant of the left breast 14 mm stage T1c N0 M0 stage IA grade 2 ERPR positive HER2 negative 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 Robert Weiss MD [address] [place] [address],[address], [place], [address], [facility] 02/21/2025 13:45:00 03/26/2025 text/html Patient is here for a follow-up with a history of multifocal invasive lobular carcinoma of the lower-outer quadrant of the left breast 14 mm stage T1c N0 M0 stage IA grade 2 ERPR positive HER2 negative she completed a course of IMRT to the left breast with high axilla delivering a dose of 4050 cGy by 15 fractions to the entire breast with a lumpectomy site received 4500 cGy delivered by the 15 fractions completed her radiation on 02/21/2025 at did well her skin reaction has subsided she was given Ozempic for her diabetes after which she had to allergic skin reactions after 2 weekly doses she stopped taking it will check about other medication she has an appointment to see the surgeon she has no breast complaints no cough or headaches no pain. Robert Weiss MD [address] [place] [address],[address], [place], [address], [facility] & [place] 03/26/2025 10:19:19 06/26/2025 text/html The patient is here for a follow-up with a history of multifocal invasive lobular carcinoma of the lower-outer quadrant of the left breast 14 mm stage T1c N0 M0 stage IA grade 2 ERPR positive HER2 negative she completed a course of IMRT to the left breast with high axilla delivering a dose of 4050 cGy by 15 fractions to the entire left breast with a lumpectomy site receiving 4500 cGy delivered by the 15 fractions completed her radiation on 02/21/2025 she did well and was started on Ozempic later on was given anastrozole however it causes severe hot flashes and sweating this was stopped and she was given another hormone therapy tablets she has not sure about the name was not started yet she had no breast complaints recent mammogram showed no evidence of recurrence on her prior workup included ultrasound of the thyroid there was some abnormalities in the past had occasional vaginal spotting not for the last month therefore she will be scheduled to have a D&C to rule out any malignancy patient is current with colonoscopy she does not smoke had no abdominal pain no cough or headaches. Robert Weiss MD [address] [place] [address],[address], [place], [address], [facility] & [place] 06/26/2025 10:56:40 OBGyn Episode No OBEpisode recorded.
--- OUTSIDE RECORDS SUMMARY | 2025-07-04 08:30 | XMS_ITS | Continuity of Care Document ---
Author Organization ARAVIND LUNA [facility] Address [address] [place] [address] Care Team Providers Care Gang Supervisor Name Role Phone MARGE ERVIN Referring Provider EMILIA Harvey Primary Care Provider ROBERT WEISS Radiation Oncologist WARREN WEAVER OTHER Assessment Encounter Date Assessment Date Assessment LastModified by Organization Details LastModified Time 06/26/2025 06/26/2025 Patient doing quite well as [...] Time Carcinoma breast - lower, outer quadrant 287422041 Active 025 ARAVIND Hodges [facility] & [place] 5 12:02:34 Problem Notes None recorded. Procedures Surgical History Date Name Laterality Status Provider Name and Address Organization Details Recorded Time [facility] [place] 01/15/2025 14:22:09 total shoulder replacement completed Supriya LUNA [facility] & [place] 01/15/2025 14:22:22 Imaging Results None recorded. Procedure Notes None recorded. Medical Equipment None Reported. Allergies Allergen ID Allergen Name Allergen Category Reaction Reaction Severity Criticality Documentation Date Start Date Code Code System Note Provider Name and Address Organization Details Recorded Time 666730 tramadol medicatio n vomiting severe high 01/15/2025 69284 RxNorm ARAVIND Hodges [facility] & [place] 5 14:16:17 122302 hydrocodo ne Not available vomiting severe high 01/15/2025 5489 RxNorm ARAVIND Hodges [facility] & [place] 5 14:16:33 240527 Adenike medicatio n tachycard ia severe high 01/15/2025 93152 6 RxNorm ARAVIND Hodges [facility] & [place] 5 14:16:49 881860 Ozempic medicatio n hives severe high 03/26/2025 07 RxNorm ARAVIND Hodgse [facility] & [place] 5 10:13:07 Medications Name Sig Start Date [...] Organization Details Last Updated DateTime 162.56 cm 28.9 kg/m2 37082.9 6 g 98.1 [degF] 94 % 94 % 67 /min 17 /min 131/63 mm[Hg] Supriya LUNA [facility] & [place] 10:48:05 Social History Question Answer Notes LastModified by [employer] Details LastModified Time Tobacco Smoking Status Never Smoker Supriya singh, ARAVIND LUNA [facility] & [place] 01/15/2025 14:21:08 What Was The Date Of Your Most Recent Tobacco Screening? 01/15/2025 Information not available 01/15/2025 Has Tobacco Cessation Counseling Been Provided? No Information not available 01/15/2025 Sex: Unknown Functional Status Question Answer Note LastModified by [employer] Details LastModified Time Do you use any [...] ICD10 Code Diagnosis IMO Codes Diagnosis Note [id number] MD [facility] [address] [place] [address] 06/26/2025 10:30:25 06/26/2025 11:14:15 Carcinoma breast - lower, outer quadrant 865139976 C50.512 Z17.0 [id number] Health Concerns Section Related Observation LastModified by Organization Detai ls LastModified Time None Recorded Concern Status LastModified by Organization Details LastModified Time None Recorded Payers Encounter Date Sequence Insurance Name Policy Number Policy Slaughter Covered Member ID Slaughter Member ID Guarantor Name 06/26/2025 1 [employer] (MEDICARE REPLACEMENT/A DVANTAGE - PPO) Deirdre Leone [id number] Deirdre Leone Notes Date Note Type Note Provider Name and Address Organization Details Recorded Time 06/26/2025 text/html The patient is here for [...] no cough or headaches. Robert Weiss MD [address] [place] [address],[address], [place], [address], [facility] & [place] 06/26/2025 10:56:40 OBGyn Episode No OBEpisode recorded.
--- OUTSIDE RECORDS SUMMARY | 2025-07-04 08:31 | XMS_ITS | Encounter Summary ---
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) to steady your nerves or to [...] Description 07/17/2025 11:15 AM EDT Office Visit [facility] [address] [place] [address] Lico Shi MD [address] [address] 04/10/2026 11:30 AM EDT Office Visit [facility] [address] [place] [address] Lico Shi MD [address] [address] documented as of this encounter Visit Diagnoses Not on filedocumented in this encounter Additional Health Concerns Assessment Noted Time A fall risk assessment has been complete d for the patient 03/06/2025 10:59 AM EDT A Body Mass Index follow-up plan has been documented for the patient 02/05/2025 2:21 PM EDT documented as of this encounter Care Teams Project Portfolio Analyst Relationship Specialty Start Date End Date Abe Mena MD [address] [place] [address] PCP - General 02/14/21 Tray Navas MD [address] [place] [address] Surgeon Neurosurgery 08/05/22 Shabnam Vasquez APRN [address] [place] [address] Nurse Practitioner Neurosurgery 09/14/22 documented as of this encounter
--- OUTSIDE RECORDS SUMMARY | 2025-07-04 08:31 | XMS_ITS | Encounter Summary ---
Author Organization Healthcare Address [address] [place] [address] Care Team Providers Care Product Analyst Name Role Phone Abe Mena MD Primary Care Provider [phone] Tray Navas MD Unavailable [phone] Shabnam Vasquez LABORATORY SAMPLE CARRIER Unavailable [phone] Encounter Details Date Type Department Care Team (Late st Contact Info) Description 06/05/2025 Ancillary Procedure [facility] [address] [place] [address] [phone] Russ Valles MD [address] [place] [address] Social History Tobacco Use Types Packs/Day Years [...] drink first t kaiden in 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 morning (EYE-GAMES DEALER) to steady your nerves or to get [...] 07/17/2025 11:15 AM EDT Office Visit [facility] [address] [place] [address] Lico Shi MD [address] [phone] 04/10/2026 11:30 AM EDT Office Visit [facility] [address] [place] [address] [place] [address] [place] [address] [phone] documented as of this encounter Procedures Procedure Name Priority Date/Time Associated Diagnosis Comments MAMMOGRAPHY BREAST DIAGNOSTIC TOMOSYNTHESIS LEFT 06/05/2025 10:30 AM EDT documented in this encounter Results * Mammography Breast Diagnostic Tomosynthesis Left (06/05/2025 10:30 AM EDT) Anatomical Region Laterality Modality Breast Left Mammography 06/05/2025 10:3 0 AM EDT Narrative 06/05/2025 11:05 AM EDT [address] [address] Patient Name: MARK LEONARDO Patient : 1945 [...] Procedure Note Estrella Wolfe MD - 06/05/2025 [place] [id number] Patient Name: MARK LEONARDO Patient : 1945 Age: 79 years Patient Ordering Provider: RUSS VALLES EXAM DATE: 06/05/2025 EXAM: MG LT DIAG CHAITANYA MAMMOGRAM INDICATION: 79-year-old patient presents for baseline mammographic imaging of the left breast following conservation surgery and radiation therapy. She reports left breast soreness. PROCEDURE: Multislice imaging of the left breast was performed including standard views using [employer] tomosynthesis equipment (3D mammography). Images [...] documented as of this encounter Care Teams Product Analyst Relationship Specialty Start Date End Date Abe Mena MD [address] [place] [address] PCP - General 02/14/21 Tray Navas MD [address] [place] [address] Surgeon Neurosurgery 08/05/22 Shabnam Vasquez APRN [address] [place] [address] Nurse Practitioner Neurosurgery 09/14/22 documented as of this encounter
--- OUTSIDE RECORDS SUMMARY | 2025-07-04 08:31 | XMS_ITS | Encounter Summary ---
Author Organization Healthcare Address [address] [place] [address] Care Team Providers Care Acls Nurse Name Role Phone Abe Mena MD Primary Care Provider [phone] Tray Navas MD Unavailable Shabnam Vasquez ROUGH RICE GRADER Unavailable Reason for Visit * Reason Onset Date Comments Medication Question 05/11/2025 Encounter Details Date Type Department Care Team (Late st Contact Info) Description 05/11/2025 Telephone [facility] [address] [place] [address] Lico Shi MD [address] [phone] Medication Question Social History Tobacco [...] drink first t kaiden in the morning (EYE-ALL ROUND LOGGER) to steady your nerves or to get [...] Description 07/17/2025 11:15 AM EDT Office Visit [facility] [address] [place] [phone] Lico Shi MD [address] [address] 04/10/2026 11:30 AM EDT Office Visit [facility] [address] [place] [address] Lico Shi MD [address] [address] documented as of this encounter Visit Diagnoses Not on filedocumented in this encounter Additional Health Concerns Assessment Noted Time A fall risk assessment has been complete d for the patient 03/06/2025 10:59 AM EDT A Body Mass Index follow-up plan has been documented for the patient 02/05/2025 2:21 PM EDT documented as of this encounter Care Teams Acls Nurse Relationship Specialty Start Date End Date Abe Mena MD [address] [place] [address] PCP - General 02/14/21 Tray Navas MD [address] [facility] [place] [address] Surgeon Neurosurgery 08/05/22 Shabnam Vasquez APRN [address] [facility] [place] [address] Nurse Practitioner Neurosurgery 09/14/22 documented as of this encounter
--- OUTSIDE RECORDS SUMMARY | 2025-07-04 08:31 | XMS_ITS | Data Portability ---
Author Organization [facility] [place], [place] [facility] Address [address] [place] [address] Care Team Providers Care Flight Test Mechanic Name Role Phone EMILIA BRISENO Primary Care Provider Assessment No assessment recorded. Plan of Treatment Reminders Order Date Submit Date Provider Last Modified By Organization Details Last Modified Time Details Appointments MAMMOG PEREZ 2025 09:45A M MAMMOGRAM Not available Not available Not available ULTRAS OUND 2025 10:20A M ULTRASOUND Not available Not available Not available FOLLOW UP POSITI VE 2025 11:30A M WARREN VALLES MD Not available Not available Not available FOLLOW UP DAK 2025 01:00P M TAHIR STINSON NP Not available Not available Not available Lab None record ed. Referral radiat ion oncolo gist referr al 2024 025 BRIT dutta MD, [address], [facility] [address], [place], [address], 01/10/2025 14:22:00 Procedures None record ed. Surgeries None record ed. Imaging MAMMO, diagno stic, tomosy nthesi s, bilate ral, w/ CAD 2024 025 [id number] [facility], [address] [facility] [address], [place], [address], 06/07/2025 16:02:23 MAMMO, diagno stic, tomosy nthesi s, unilat eral, w/ CAD 2024 025 [facility], [address] [facility] [address], [place], [address], 06/05/2025 11:10:24 Medication Orders None record ed. Patient TargetsNo targets recorded. Patient Instructions Encounter Date Encounter Id Patient Instructions Last Modified By Organization Details Last Modified Time 02/06/2025 [id number] currently undergoing radiation for breast cancer (left breast) [email or web address] Not available 02/06/2025 12:09:25 Reason for Referral Referring Physician: Liyah Valles, Breast Surgery, Encounter Date: 12/28/2024 Results Created Date Observation Date Name Description Value Unit Range Abnormal Flag Note LastModifiedBy Organization Detail LastModifiedTime 11/29/1911/29/2024 SURGI [facility] surgical SEE BELOW abnormal Surgi rosanne Patho logy Repor t NAME: KO LEAL, DEIRDRE PATH: [id number] DATE of : 07/10 77 Copy to: [place] N Diagn osis: Left breas t, at 3:00 5 cm fn, ultra sound -guid ed breas t core biops y: -Inva sive carci noma, grade 2 (tubu le forma tion 3, nucle ar pleom orphi sm 2, mitos es 1) with exten sive perin eural invas ion; see comme nt. -Estr ogen hr receptionist tor: Posit vern; 91 to 100% with stron g stain ing inten sity -Prog evelin one hr receptionist tor: Posit vern; 81-90 % with moder ate stain ing inten sity -Ki-6 7 Proli ferat vern Index :10-1 5% -HER2 /juhi IHC: Negat vern 0 Comme nt: Invas vern lobul ar type mamma ry carci noma is morph ologi margo favor ed but recom mend defin itive class ifica tion on excis ion speci men. SOURC E OF SPECI MEN: BREAS T CORE BIOPS Y, LEFT, U/S GUIDE D CLINI ROSANNE INFOR MATTARIK N: [id number] ULTRA SOUND GUIDE D LEFT BREAS T CORE BIOPS Y. MASS LOCAT ION: 3:00 DEPTH : 5cmfn SIZE: 2cm BIRAD : 5 IMPRE SSION : IMC Gross Descr iptio n: Kendall nt's name and date of verif ied. Recei maxi in forma alma label ed with the kendall nt's name and desig nated US left breas t needl e biops y core, left breas t 3:00 5 cmfn are multi ple core biops ies/f ragme nts of perdomo-y ellow fibro fatty tissu e rangi ng from 0.2 to 1.7 cm. Entir marie submi tted in two casse ttes label ed A1-A2 . COLLE CTION TIME: 1:29 PM TIME INTO FORMA ALMA: 1:31 PM ISCHE ZELDA TIME: 2 minut es TOTAL FIXAT ION TIME: 6 hours 47 minut es Note: The breas t speci men proce ssed meets the fixat ion time stand ards of 6-72 hrs., which have been set by the Ameri can Socie ty of Clini rosanne Oncol ogy (ASCO ) and the [place] ge of Ameri can Patho logis ts (CAP) , to ensur e appro priat e tissu e quali ty for effec tive [place], [place], Her2 hr receptionist tor testi ng. SB 11/29 04:57 PM Micro scopi c Descr iptio n: A micro scopi c exami natio n has been perfo rmed and the resul t(s) are as noted above . Immun ohist ochem ical stain resul ts: CK7: Posit vern (diff use and stron g); GATA3 : Posit vern (diff use and stron g) E-cad herin : Predo minan tly negat vern with rare cells with compl ete membr ane stain ing and some with parti al stain ing; Ki-67 :10-1 5% All immun ohist ochem ical stain s revie wed with prope rly worki ng contr ol. Breas t Bioma rker Repor ting Templ ate Appli es To: A1 Test( s) Perfo rmed: Estro gen Director Life Insurance tor (ER) Statu s Estro gen Director Life Insurance tor (ER) Statu s: Posit vern (grea ter than 10% of cells demon strat e nucle ar posit ivity ) Perce ntage of Cells with Nucle ar Posit ivity : 91-10 0% Osborne ge Inten sity of Stain ing: Stron g Test Type: Food and Drug Admin istra tion (FDA) clear ed (test / vendo r) - Venta na Prima ry Antib vitor: SP1 Proge stero ne Director Life Insurance tor (PgR) Statu s Proge stero ne Director Life Insurance tor (PgR) Statu s: Posit vern Perce ntage of Cells with Nucle ar Posit ivity : 81-90 % Osborne ge Inten sity of Stain ing: Moder ate Test Type: Food and Drug Admin istra tion (FDA) clear ed (test / vendo r) - Venta na Prima ry Antib vitor: 1E2 HER2 by Immun ohist ochem istry HER2 by Immun ohist ochem istry : Negat vern (Scor e 0) Test Type: Food and Drug Admin istra tion (FDA) clear ed (test / vendo r) - Venta na Prima ry Antib vitor: 4B5 Ki-67 Ki-67 Perce ntage of Posit vern Nucle i: 10- 15% Prima ry Antib vitor: 30-9 Cold Ische dhara and Fixat ion Times : Meet requi remen ts speci fied in lates t versi on of the ASCO / CAP Guide lines Cold Ische dhara Time (lew selvin): 2 min Fixat ion Time (hour s): 6 hours and 47 minut es Testi ng Perfo rmed on Block Numbe r(s): A1 METHO DS Fixat vern: Forma alma Comme nt(s) : All stain s revie wed with prope rly worki ng contr ols. ILDEFONSO MORALES-Candido VEGAS MD Annmarie d Out Date: 11/30 15:50 Page 1 of 1 Not Available [facility] [address] [place] [address], [place], [address], 11/30/2024 15:50:23 12/20/19 25 12/19/2024 COMPL ETE BLOOD COUNT white blood cells 7.5 10*3/ uL 3.8-10 .8 normal Not Available [facility] [address] [place] [address], [address], 12/19/2024 15:18:23 12/20/19 25 12/19/2024 COMPL ETE BLOOD COUNT red blood cells 4.73 10*6/ uL 3.80-5 .20 normal Not Available [facility] [address] [place] [address], [address], 12/19/2024 15:18:23 12/20/19 25 12/19/2024 COMPL ETE BLOOD COUNT hemoglobin 14.5 g/dL 12.0-1 6.0 normal Not Available [facility] [address] [place] [address], [address], 12/19/2024 15:18:23 12/20/19 25 12/19/2024 COMPL ETE BLOOD COUNT hematocrit 42.2 % 35.0-4 7.0 normal Not Available [facility] [address] [place] [address], [address], 12/19/2024 15:18:23 12/20/19 25 12/19/2024 COMPL ETE BLOOD COUNT MCV 89 fL 80-100 normal Not Available [facility] [address] [place] [address], [address], 12/19/2024 15:18:23 12/20/19 25 12/19/2024 COMPL ETE BLOOD COUNT MCH 31 pg 26-35 normal Not Available [facility] [address] [place] [address], [address], 12/19/2024 15:18:23 12/20/19 25 12/19/2024 COMPL ETE BLOOD COUNT MCHC 34 g/dL 32-36 normal Not Available [facility] [address] [place] [address], [address], 12/19/2024 15:18:23 12/20/19 25 12/19/2024 COMPL ETE BLOOD COUNT RDW 13.9 % 11.0-1 5.0 normal Not Available [facility] [address] [place] [address], [address], 12/19/2024 15:18:23 12/20/19 25 12/19/2024 COMPL ETE BLOOD COUNT MPV 9.3 fL 6.2-10 .5 normal Not Available [facility] [address] [place] [address], [address], 12/19/2024 15:18:23 12/20/19 25 12/19/2024 COMPL ETE BLOOD COUNT platelet count 238 10*3/ uL 150-40 0 normal Not Available [facility] [address] [place] [address], [address], 12/19/2024 15:18:23 12/20/19 25 12/19/2024 COMPL ETE BLOOD COUNT neutrophil,a bsolute 4.7 10*3/ uL 1.6-8. 4 normal Not Available [facility] [address] [place] [address], [address], 12/19/2024 15:18:23 12/20/19 25 12/19/2024 COMPL ETE BLOOD COUNT lymphocyte,a bsolute 1.8 10*3/ uL 0.4-5. 1 normal Not Available [facility] [address] [place] [address], [address], 12/19/2024 15:18:23 12/20/19 25 12/19/2024 COMPL ETE BLOOD COUNT monocyte,abs olute 0.8 10*3/ uL 0.0-1. 2 normal Not Available [facility] [address] [place] [address], [address], 12/19/2024 15:18:23 12/20/19 25 12/19/2024 COMPL ETE BLOOD COUNT eosinophil,a bsolute 0.2 10*3/ uL 0.0-0. 8 normal Not Available [facility] [address] [place] [address], [address], 12/19/2024 15:18:23 12/20/19 25 12/19/2024 COMPL ETE BLOOD COUNT basophil,abs olute 0.1 10*3/ uL 0.0-0. 3 normal Not Available [facility] [address] [place] [address], [address], 12/19/2024 15:18:23 12/20/19 25 12/19/2024 COMPL ETE BLOOD COUNT % neutrophils 62.3 % 42.0-7 8.0 normal Not Available [facility] [address] [place] [address], [address], 12/19/2024 15:18:23 12/20/19 25 12/19/2024 COMPL ETE BLOOD COUNT % lymphocytes 23.4 % 11.0-4 7.0 normal Not Available [facility] [address] [place] [address], [address], 12/19/2024 15:18:23 12/20/19 25 12/19/2024 COMPL ETE BLOOD COUNT % monocytes 11.1 % 0.0-11 .0 high Not Available [facility] [address] [place] [address], [address], 12/19/2024 15:18:23 12/20/19 25 12/19/2024 COMPL ETE BLOOD COUNT % eosinophils 2.4 % 0.0-7. 0 normal Not Available [facility] [address] [place] [address], [address], 12/19/2024 15:18:23 12/20/19 25 12/19/2024 COMPL ETE BLOOD COUNT % basophils 0.8 % 0.0-3. 0 normal Not Available [facility] [address] [place] [address], [address], 12/19/2024 15:18:23 12/20/19 25 12/19/2024 COMPL ETE BLOOD COUNT nucleated red cells 0.1 % 0.0-0. 9 normal Not Available [facility] [address] [place] [address], [address], 12/19/2024 15:18:23 12/20/19 25 12/19/2024 COMPL ETE BLOOD COUNT nucleated RBCs, absolute 0.01 10*3/ uL not estab. normal Not Available [facility] [address] [place] [address], [address], 12/19/2024 15:18:23 12/20/19 25 12/19/2024 BASIC METAB OLIC PANEL glucose 201 mg/dL 74-100 high Not Available [facility] [address] [place] [address], [address], 12/19/2024 15:35:03 12/20/19 25 12/19/2024 BASIC METAB OLIC PANEL blood urea nitrogen 17 mg/dL 6-20 normal Not Available [facility] [address] [place] [address], [address], 12/19/2024 15:35:03 12/20/19 25 12/19/2024 BASIC METAB OLIC PANEL creatinine 1.49 mg/dL 0.50-0 .95 high Not Available [facility] [address] [place] [address], [address], 12/19/2024 15:35:03 12/20/19 25 12/19/2024 BASIC METAB OLIC PANEL BUN/creatini ne ratio 11 (calc ) 10-20 normal Not Available [facility] [address] [place] [address], [address], 12/19/2024 15:35:03 12/20/19 25 12/19/2024 BASIC METAB OLIC PANEL sodium 133 mmol/ L 136-14 5 low Not Available [facility] [address] [place] [address], [address], 12/19/2024 15:35:03 12/20/19 25 12/19/2024 BASIC METAB OLIC PANEL potassium 4.4 mmol/ L 3.4-5. 0 normal Not Available [facility] [address] [place], [address], 12/19/2024 15:35:03 12/20/19 25 12/19/2024 BASIC METAB OLIC PANEL chloride 99 mmol/ L 98-107 normal Not Available [facility] [address] [place] [address], [address], 12/19/2024 15:35:03 12/20/19 25 12/19/2024 BASIC METAB OLIC PANEL carbon dioxide 22 mmol/ L 22-31 normal Not Available [facility] [address] [place], [address], 12/19/2024 15:35:03 12/20/19 25 12/19/2024 BASIC METAB OLIC PANEL anion gap 12 (calc ) 7-25 normal Not Available [facility] [address] [place] [address], [address], 12/19/2024 15:35:03 12/20/19 25 12/19/2024 BASIC METAB OLIC PANEL calcium 9.5 mg/dL 8.6-10 .2 normal Not Available [facility] [address] [place], [address], 12/19/2024 15:35:03 12/20/19 25 12/19/2024 BASIC METAB OLIC PANEL GFR 35 >= 60 abnormal NOT E New calcu latio n for GFR (CKD- EPI 2020) is formu lated witho ut race adjus tment facto rs at the recom menda tion of the [place] [employer] ation and Ameri can Socie ty of Nephr ology . This calcu latio n has not been valid ated in pregn ant women . 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 -Prev ious biops y site and fibro cysti c amaro es ident ified B) Left breas t, exten ded all sara ns: -All sara ns negat vern for invas vern carci noma; close st sara n is 2mm from the poste rior sara n. -Mult iple small foci, 2-3 mm each, of invas vern lobul ar carci noma ident ified in tissu e submi tted. 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 -Prev ious biops y site amaro es SOURC E OF SPECI MEN: BREAS T LUMPE CTOMY , LEFT AT 4:00 O'JUVENTINO CK BREAS T LUMPE CTOMY , EXTEN DED ALL SARA NS CLINI ROSANNE INFOR MATIO N: MALIG NANT NEOPL ASM OF OVERL APPIN G SITES OF BREAS T Gross Descr iptio n: A) Patie nt name and date of verif ied. Recei maxi in forma alma label ed with the patie nt's name and desig nated left breas t 4 o'juventino ck lumpe ctomy is an excis ion of fibro fatty breas t tissu e (4.5 x 3.0 x 2.0 cm). A local izing guide wire is not in place . There is no overl ernie skin. The speci men is recei maxi with the follo wing orien tatio n: short stitc h-sup erior , long stitc h-lat eral. The speci men is seria lly secti oned from anter ior to poste rior to revea l an appro ximat marie 1.2 x 1.0 x 1.0 cm ill-d efine d, firm pinki sh-wh ite solid mass withi n the later al porti on of the speci men. The cut surfa ce of the lesio n is notab le for an indwe lling RFID tag and a visio n radio graph ic clip. The lesio n abuts the infer ior and later al sara ns and is 0.5 cm from the super ior sara n, 0.8 cm from the media l sara n, 1.0 cm from the poste rior sara n and 1.0 cm from the anter ior sara n. The remai demarco cut surfa garret are perdomo-y ellow and lobul ated with a minim al amoun t of dense fibro us breas t tissu e. Repre senta tive secti ons submi tted in 9 casse ttes as follo ws: A1 - poste rior sara n A2 - anter ior sara n A3-A4 - media l sara n A5-A8 - lesio n entir marie submi tted to inclu de super ior, infer ior and later al sara ns A9 - addit ional infer ior sara n Ink Code: Red = later al Orang e = media l Blue = poste rior Green = infer ior Black = anter ior Yello w = super ior COLLE CTION TIME: 9:57 AM TIME INTO FORMA ALMA: 10:00 AM ISCHE ZELDA TIME: 3 minut es TOTAL FIXAT ION TIME: 57 hours 2 minut es Note: The breas t speci men proce ssed meets the fixat ion time stand ards of 6-72 hrs., which have been set by the [place]lin can Socie ty of Clini rosanne Oncol ogy (ASCO ) and the [place]aji ge of Radhikaeri can Patho logis ts (CAP) , to ensur e appro priat e tissu e quali ty for effec tive [place], [place], Her2 hr receptionist tor testi ng. B) Raine nt name and date of verif ied. Recei maxi fresh in a [place] dish label ed with the patie nt's name and desig nated exte nded all sara ns is a 7.5 x 7.5 x 1.0 cm porti on of yello w fibro fatty soft tissu e. The speci men is orien fernanda in the [place] dish with handw ritte n label s, with the true sara n facin g down. The new sara n is inked . Secti oning revea ls dense fibro us tissu e throu ghout the speci men and no disti nct lesio ns. Entir marie submi tted from media l to later al in 33 casse ttes label ed B1-B3 3. Ink code: Red = later al Orang e = media l Green = infer ior Blue = poste rior Black = anter ior Yello w = super ior JAB 12/22 01:19 PM Micro scopi c Descr iptio n: A micro scopi c exami natio n has been perfo rmed and the resul t(s) are as noted above . Immun ohist ochem ical stain resul ts with prope rly worki ng contr ols: E-cad herin (spec imens A and B): Predo minan tly negat vern with focal incom plete and rare compl ete cell membr ane stain ing (supp orts lobul ar type invas vern carci noma with aberr ant stain ing and focal cance rizat ion of ducts and lobul es as well as lobul ar intra epith elial neopl barak) . Dieter h muscl e myosi n (spec imens B): Negat vern in areas of invas vern tumor and posit vern in areas of lobul ar intra epith elial neopl barak Pancy toker atin (spec imens A and B): Posit vern in cells of inter est (supp orts the above diagn osis) INVAS VERN CARCI NOMA OF THE BREAS T: Resec tion Appli es To: A and B SPECI MEN Proce dure: Excis ion (less than total maste ctomy ) Speci men Later ality : Left TUMOR Tumor Site: Clock posit ion 4 o'juventino ck Histo logic Type: Invas vern lobul ar carci noma Gland ular (Acin ar) / Tubul ar Diffe renti ation : Score 3 Nucle ar Pleom orphi sm: Score 2 Mitot ic Rate: Score 1 Overa ll Grade : Grade 2 (scor es of 6 or 7) Tumor Size: Great est dimen zeenat of large st invas vern focus (Mill imete rs) - 14 mm Tumor Focal ity: Multi ple foci of invas vern carci noma Sizes of Indiv idual Foci in Aydee meter s (mm): range in size from 2 to 14 mm Ducta l Carci noma In Situ (DCIS ): Not ident ified Lobul ar Carci noma In Situ (LCIS ): Prese nt Tumor Exten t Tumor Exten t: Not appli cable Lymph atic and / or Vascu lar Invas ion: Not ident ified [place] l Lymph atic and / or Vascu lar Invas ion: Not ident ified Micro calci ficat ions: Prese nt in non-n eopla stic tissu e Treat ment Effec t in the Breas t: No known presu rgica l thera py Treat ment Effec t in the Lymph Nodes : Not appli cable SARA NS Sara n Statu s for Invas vern Carci noma: All sara ns negat vern for invas vern carci noma Dista nce from Invas vern Carci noma to Close st Sara n: [address] Sara n(s) to Invas vern Carci noma: Poste rior Sara n Statu s for DCIS: Not appli cable (no DCIS in speci men) REGIO NAL LYMPH NODES Regio nal Lymph Node Statu s: Not appli cable (no regio nal lymph nodes submi tted or found ) DISTA NT METAS TASIS Dista nt Site( s) Invol maxi: Not appli cable pTNM CLASS IFICA TION (CC 8th Editi on) Repor ting of pT, pN, and (when appli cable ) pM categ ories is based on infor damian dutta avail able to the patho logis t at the time the repor t is issue d. As per the [facility] (Chap ter 1, 8th Ed.) it is the manag ing physi adelina' s respo nsibi lity to estab jose carlos the final patho logic stage based upon all perti nent infor damian dutta, inclu ding but poten tiarazia y not limit ed to this patho logy repor t. Modif ied Class ifica tion: Not appli cable pT Categ ory: pT1c T Suffi x: (m) pN Categ ory: pN not assig lilian (no nodes submi tted or found ) N Suffi x: Not appli cable pM Categ ory: Not appli cable - pM canno t be deter mined from the submi tted speci men(s ) ADDIT IONAL FINDI NGS Addit ional Findi ngs: Perin eural invas ion. Fibro cysti c amaro es and previ ous biops y relat ed amaro es Breas t Bioma rker Testi ng Perfo rmed on Previ ous Biops y: Estro gen Director Life Insurance tor (ER) Estro gen Director Life Insurance tor (ER) Statu s: Posit vern (grea ter than 10% of cells demon strat e nucle ar posit ivity ) Perce ntage of Cells with Nucle ar Posit ivity : 91-10 0% Proge stero ne Director Life Insurance tor (PgR) Proge stero ne Director Life Insurance tor (PgR) Statu s: Posit vern Perce ntage of Cells with Nucle ar Posit ivity : 81-90 % HER2 (by immun ohist ochem istry ) HER2 (by immun ohist ochem istry ): Negat vern (Scor e 0) Ki-67 Ki-67 Perce ntage of Posit vern Nucle i: 10- 15% Testi ng Perfo rmed on Case Hakeem r: [id number] ILDEFONSO HILARIO IEL-P MD SHASTA Annmarie d Out Date: 12/27 13:37 Page 1 of 1 Not Available [facility] [address] [facility], [place], [address], 12/27/2024 13:37:39 11/29/19 25 11/29/2024 US, virgie heredia [facility] [address] [facility] [place] [address] Nima baeza Name: DEIRDRE baeza : [id number] Age: 79 years Patigris baeza 7 Orderi ng Provid er: STEPHE N EDU EXAM DATE: 2024 EXAM: MG LT DIAG CHAITANYA CALLBA CK, US BREAST LT LIMITE D INDICA TION: 79-yea r-old female with abnorm al screen ing mammog perez. PROCED URE: Multis lice imagin g of the left breast was perfor med includ ing spot compre ssion and mediol ateral views using Hologi c Seleni a Dimens ions tomosy nthesi s equipm ent (3D mammog asmita) . 2D images were create d from the 3D datase t using C-View softwa re. Left breast ultras ound was perfor med. COMPAR TARYN: This is compar ed with prior mammog erin dated back to 2019. DENSIT Y: There are scatte red areas of fibrog landul ar densit y. FINDIN GS:On spot compre ssion views, there is persis tence of a spicul ated mass at 3:00 5 cm from the nipple . ULTRAS OUND FINDIN GS: Target ed left breast and axilla ry ultras ound was perfor med by the techno logist . At 3:00, 5 cm from nipple , there is an irregu lar hypoec hoic shadow ing mass with spicul ated margin s measur ing 16 x 9 x 10 mm. It has associ ated sports management internship al vascul ar flow. Morpho logica lly normal left axilla ry lymph nodes are presen t. IMPRES ZEENAT: 1. 16 mm spicul ated mass 3:00 left breast , highly suspic ious for primar y breast malign delores. Subseq uent ultras ound-g uided biopsy was perfor med the same date. Please see separa te report . BI-RAD S Catego ry 5, Highly sugges tive of malign delores, approp riate action should be taken. The nima baeza has been entere d into an [email or web address] er system . COMMEN T: Findin gs and recomm endati ons were discus sed with the nima baeza. Interp reted By: Monse quinn MD Electr onical ly Signed By: Monse quinn MD on 025 1:20 PM [email or web address] [facility] [address] [place] [address], [phone], 11/29/2024 13:30:48 11/29/19 25 11/29/2024 MAMMO , diagn ostic , tomos ynthe sis, unila teral , w/ CAD [facility] [address] [place] [id number] Nima baeza Name: DEIRDRE baeza : [id number] Age: 79 years Nima baeza 7 Orderi ng Provid er: STEPHE N EDU EXAM DATE: 2024 EXAM: MG LT DIAG CHAITANYA CALLBA CK, US BREAST LT LIMITE D INDICA TION: 79-yea r-old female with abnorm al screen ing mammog perez. PROCED URE: Multis lice imagin g of the left breast was perfor med includ ing spot compre ssion and mediol ateral views using Hologi c Seleni a Dimens ions tomosy nthesi s equipm ent (3D mammog asmita) . 2D images were create d from the 3D datase t using C-View softwa re. Left breast ultras ound was perfor med. COMPAR TARYN: This is compar ed with prior mammog erin dated back to 2019. DENSIT Y: There are scatte red areas of fibrog landul ar densit y. FINDIN GS:On spot compre ssion views, there is persis tence of a spicul ated mass at 3:00 5 cm from the nipple . ULTRAS OUND FINDIN GS: Target ed left breast and axilla ry ultras ound was perfor med by the techno logist . At 3:00, 5 cm from nipple , there is an irregu lar hypoec hoic shadow ing mass with spicul ated margin s measur ing 16 x 9 x 10 mm. It has associ ated sports management internship al vascul ar flow. Morpho logica lly normal left axilla ry lymph nodes are presen t. IMPRES ZEENAT: 1. 16 mm spicul ated mass 3:00 left breast , highly suspic ious for primar y breast malign delores. Subseq uent ultras ound-g uided biopsy was perfor med the same date. Please see separa te report . BI-RAD S Catego ry 5, Highly sugges tive of malign delores, approp riate action should be taken. The patien t has been entere d into an [email or web address] er system . COMMEN T: Findin gs and recomm endati ons were discus sed with the patigris baeza. Interp reted By: Monse quinn MD Electr onical ly Signed By: Monse quinn MD on 025 1:20 PM [email or web address] [facility] [address], [address], 11/29/2024 13:30:48 11/29/19 25 11/29/2024 biops y, breas t, w/ ultra sound vidya nce (PROC ) No observ ation record ed. [email or web address] Not Available 2024 13:45:18 11/29/19 25 11/29/2024 US L brst needl e BX core [address] [address] Nima baeza Name: DEIRDRE baeza : 944 Age: 79 years Nima baeza 7 Orderi ng Provid er: RICKIE SORENSEN EXAM DATE: 2024 EXAM: US L BRST NEEDLE BX CORE EXAMIN ATION( S): ULTRAS OUND GUIDED BIOPSY DATE OF EXAM(S ): 025 INDICA TION(S ): Suspic ious spicul ated mass 2:00 left breast DESCRI PTION OF PROCED URE(S) : The proced ure, includ ing the risks and possib le placem ent of a clip was discus sed with the patien t. Inform ed consen t was obtain ed. A prepro cedure time out was perfor med. The area was locali zed sonogr aphica lly. The skin was cleans ed. A soluti on of 2% Lidoca ine with Epinep hrine was utiliz ed for anesth esia of the underl ernie breast parenc hyma. A total of 10 mL was utiliz ed for the proced ure. A small incisi on was made in the skin with a scalpe l. Under direct sonogr aphic guidan ce, a 14-gau ge spring loaded needle was insert ed into the lesion . A total of 4 passes were perfor med under direct sonogr aphic guidan ce. A vision clip was then placed under direct sonogr aphic guidan ce. Pressu re was held until hemost asis obtain ed. The patien t tolera fernanda the proced ure well withou t immedi ate compli cation . POST PROCED URE MAMMOG PEREZ: Post proced ure mammog perez demons trated approp riate clip placem ent. IMPRES ZEENAT: Succes sful ultras ound guided needle biopsy . An addend um will be dictat ed once pathol ogy result s are made availa ble. The patien t has been entere d into an automa fernanda remind er system . Interp reted By: Monse quinn MD Electr onical ly Signed By: Monse quinn MD on 025 3:03 PM [facility] [address], [address], 11/29/2024 15:22:32 12/01/1911/29/2024 US L brst needl e BX core [address] [address] ADDE NDUM #1 Final pathol ogy for the ultras ound-g uided left breast biopsy 3:00 render ed invasi ve carcin grover, favore d lobula r type, consid ered concor dant and malign ant. Recomm endati on: Approp riate oncolo gical and surgic al manage ment. Result s and recomm endati ons will be convey ed to the patien t by our nurse gabby joseph. Interp reted By: Monse quinn MD Electr onical ly Signed By: Monse quinn MD on 025 11:43 AM ORIGIN AL REPORT Patien t Name: DEIRDRE Avilez Patien t : 944 Age: 79 years Patien t 7 Orderi ng Provid er: RICKIE SORENSEN EXAM DATE: 2024 EXAM: US L BRST NEEDLE BX CORE EXAMIN ATION( S): ULTRAS OUND GUIDED BIOPSY DATE OF EXAM(S ): INDICA TION(S ): Suspic ious spicul ated mass 2:00 left breast DESCRI PTION OF PROCED URE(S) : The proced ure, includ ing the risks and possib le placem ent of a clip was discus sed with the patien t. Inform ed consen t was obtain ed. A prepro cedure time out was perfor med. The area was locali zed sonogr aphica lly. The skin was cleans ed. A soluti on of 2% Lidoca ine with Epinep hrine was utiliz ed for anesth esia of the underl ernie breast parenc hyma. A total of 10 mL was utiliz ed for the proced ure. A small incisi on was made in the skin with a scalpe l. Under direct sonogr aphic guidan ce, a 14-gau ge spring loaded needle was insert ed into the lesion . A total of 4 passes were perfor med under direct sonogr aphic guidan ce. A vision clip was then placed under direct sonogr aphic guidan ce. Pressu re was held until hemost asis obtain ed. The patien t tolera fernanda the proced ure well withou t immedi ate compli cation . POST PROCED URE MAMMOG PEREZ: Post proced ure mammog perez demons trated approp riate clip placem ent. IMPRES ZEEANT: Succes sful ultras ound guided needle biopsy . An addend um will be dictat ed once pathol ogy result s are made availa ble. The patien t has been entere d into an automa fernanda remind er system . Interp reted By: Monse quinn MD Electr onical ly Signed By: Monse quinn MD on 025 3:03 PM [email or web address] [facility] [address] [place], [address], 12/01/2024 12:57:09 12/20/19 25 12/19/2024 elect rory velez am No observ ation record ed. sruark [facility] [address] [place] [address] [facility], [place], [address], 12/19/2024 15:11:19 12/20/19 25 12/19/2024 US L brst guide d needl e LOC [facility] [address] [place] [address] Nima baeza Name: DEIRDRE baeza : 944 Age: 79 years Patigris baeza 7 Orderi ng Provid er: ANG VALLES EXAM DATE: 2024 EXAM: US L BRST GUIDED NEEDLE LOC EXAMIN ATION( S): ULTRAS OUND GUIDED RFID TAG LOCALI ZATION DATE OF EXAM(S ): 025 INDICA TION(S ): Preope rative locali zation prior to lumpec holger for known invasi ve lobula r carcin grover left breast 3:00. DESCRI PTION OF PROCED URE(S) : The proced ure was explai lilian to the patien t. Inform ed consen t was obtain ed. The cathet er was scanne d prior to treatm ent in the right breast confir sharron adj032 73. The biopsy -prove n invasi ve lobula r carcin grover 3:00 was locali zed sonogr aphica lly. The skin was cleans ed. A soluti on of 1% Lidoca ine was utiliz ed for anesth esia of the skin and breast tissue s. Under direct sonogr aphic guidan ce, a 5 cm deploy ment device contai demarco the RFID tag [id number]] was advanc ed into the lesion under direct sonogr aphic guidan ce. The tag was deploy ed. When the deploy ment device was remove d from the patien t, the patien t's breast was scanne d to confir m placem ent of the tag within the breast . The patien t tolera fernanda the proced ure well withou t immedi ate compli cation . Post-p rocedu re mammog perez demons trated approp riate placem ent of the RFID tag. Annota fernanda mammog erin accomp anied the patien t to the operat ing room. IMPRES ZEENAT: Succes sful ultras ound guided RFID tag locali zation . Interp reted By: Monse quinn MD Electr onical ly Signed By: Monse quinn MD on 025 3:10 PM [facility] [address] [place] [address], [phone], 12/19/2024 16:01:16 12/21/19 elect rory velez am No observ ation record ed. sruark [facility] [address] [place] [address], [place], [address], 12/20/2024 07:16:53 06/05/20 25 06/05/2025 MAMMO , diagn ostic , tomos ynthe sis, unila teral , w/ CAD [address] [address] Nima baeza Name: DEIRDRE baeza : 944 Age: 79 years Patigris baeza 7 Orderi ng Provid er: ANG VALLES EXAM DATE: 2024 EXAM: MG LT DIAG CHAITANYA MAMMOG PEREZ INDICA TION: 79-yea r-old patien t presen ts for baseli ne mammog raphic [...] icatio ns, or nonsur gical areas of adrienne ectura l distor tion are seen. IMPRES ZEENAT: Probab ly benign left mammog raphic findin gs. Recomm end short interv al follow -up. RECOMM ENDATI ON: The patien t will be due for her next bilate ral diagno stic mammog perez after 2024. BI-RAD S Catego ry 3, [...] should be consid ered regard less of imagin g findin gs. COMMEN T: Findin gs and recomm endati ons were discus sed with the patien t. Interp reted By: Gloria rivera MD Electr onical ly Signed By: Gloria rivera MD on 9/2/20 25 11:05 AM [facility] [address] [place] [address], [phone], 06/05/2025 11:10:55 Result Notes Documentation Provider Name and Address Organization Details Recorded Time Mammo, Diagnostic, Tomosynthesis, Unilateral, W/ Cad : [address] [address] Patient Name: DEIRDRE LEONE Patient : 1945 Age: 79 years Patient Ordering Provider: WARREN VALLES EXAM DATE: 06/05/2025 EXAM: MG LT DIAG CHAITANYA MAMMOGRAM INDICATION: 79-year-old patient presents for baseline mammographic imaging of the left breast following conservation surgery and radiation therapy. She reports left breast soreness. PROCEDURE: Multislice imaging of the left breast was performed including standard views using [employer] tomosynthesis equipment (3D mammography). Images were [...] patient. Interpreted By: Estrella Wolfe MD EN VALLES MD [address] [place] [address], [phone], [facility] 06/05/2025 11:10:55 Problems Name Problem SNOMED Code Status Onset Date Resolution Date Notes Provider Name and Address Organization Details Recorded Time Malignant neoplasm of overlapping sites of breast 138267205 Active 2024 WARREN VALLES MD [address] [facility], [place], [address], [facility] 16:02:35 Problem Notes Documentation Provider Name and Address Organization Details Recorded Time Radiation Oncologist Consult Note : [facility] [address] [facility] [address]XCTQGPV, Peggy S (id #[id number], : 1945) [facility] [address] [facility] [address] [place] [address] Date: 01/10/2025RE: Deirdre Leone, : 1945, PT ID #[id number] Vallse MD, I would like to thank you for referring Deirdre Lugoler to our practice for consultation and evaluation. I have enclosed a copy of the office evaluation for your records. 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 Status post partial mastectomy with negative margins.Due to the multifocal nature of her disease, I do recommend adjuvant whole breast radiation therapy. I described a 3 week course of IMRT to the left breast with hypofractionation and simultaneous integrated tumor bed boost. Patient is agreeable but would prefer to have her radiation in [place], [place]. I have made the referral for her. 1. Malignant neoplasm of overlapping sites of [id number]: Malignant neoplasm of overlapping sites of left female breast Return to Office Patient will return to the office as needed WARREN VALLES MD [address] [place], [address], [facility] 01/17/2025 16:07:38 Procedures Surgical History Date Name Laterality Status Provider Name and Address Organization Details Recorded Time 02/07/20 DAK - Destruction BN Lesions completed Greer Rivas [facility] 02/06/2025 11:58:19 12/23/19 lumpectomy of left breast completed BORIS CASTLE, ROUTE DELIVERY MANAGER [address] [place], [address] 12/28/2024 13:47:50 11/29/19 25 [facility] 14:07:59 09/13/20 24 Date of Last [facility]amm[facility] 12/05/2024 14:08:12 11/16/19 24 Destruction BN Lesions completed Maty Rodriguez [facility] 11/16/2023 14:35:46 Imaging Results None recorded. Procedure Notes None recorded. Medical Equipment None Reported. Allergies Allergen ID Allergen Name Allergen Category Reaction Reaction Severity Criticality Documentation Date Start Date Code Code System Note Provider Name and Address Organization Details Recorded Time 700034 Adenike medicatio n Not available Not available Not available 11/16/2023 02953 6 RxNorm Gaby Dejesus [facility] 4 14:08:16 715312 tramadol medicatio n Not available Not available Not available 12/05/2024 12199 [facility] 5 15:10:46 368824 hydrocodo ne Not available Not available Not available Not available 12/05/2024 5489 RxNorm [facility] 5 15:11:02 Medications Name Sig Start Date Stop [...] saturation in Arterial blood by Pulse oximetry Respiratory rate Systolic And Diastolic Provider Name and Address Organization Details Last Updated DateTime 5 162.56 cm 29.7 kg/m2 35755.8 4 g 73 /min 98 % 98 % 18 /min 112/78 mm[Hg] BORIS CASTLE, ROUTE DELIVERY MANAGER [address] [place], [address] [place] [address] 5 13:47:03 Date Recorded Body height Body mass index (BMI) Body weight Heart rate Oxygen saturation Oxygen saturation in Arterial blood by Pulse oximetry Systolic And Diastolic Provider Name and Address Organization Details Last Updated DateTime 5 162.56 cm 29.5 kg/m2 39783.8 9 g 74 /min 94 % 94 % 140/78 mm[Hg] Bibiana Rojas [facility] 5 10:04:30 Date Recorded Body height Body mass index (BMI) Body weight Heart rate Oxygen saturation Oxygen saturation in Arterial blood by Pulse oximetry Systolic And Diastolic Provider Name and Address Organization Details Last Updated DateTime 162.56 cm 29 kg/m2 07634.1 1 g 69 /min 94 % 94 % 132/62 mm[Hg] Bibiana Rojas [facility] 11:10:02 Social History Question Answer Notes LastModified by Organizat ion Details LastModified Time Tobacco Smoking Status Never Smoker Bibiana Rojas [facility] 12/05/2024 14:07:33 What Is Your Level Of Caffeine Consumption? None [email or web address] Information not available 12/05/2024 What Was The Date Of Your Most Recent Tobacco Screening? 06/05/2025 [email or web address] Information not available 06/05/2025 Has Tobacco Cessation Counseling Been Provided? No [email or web address] Information not available 12/05/2024 Sex: Unknown Functional Status Question Answer Note LastModified by Organizat ion Details LastModified Time Do you use any illicit or recreational drugs? No [email or web address] Information not available 12/05/2024 Do you or have you ever used any other forms of tobacco or nicotine? No [email or web address] Information not available 12/05/2024 What is your level of alcohol consumption? None [email or web address] Information not available 12/05/2024 Are you currently employed? No [email or web address] Information not available 12/05/2024 Mental Status None recorded. Family History Relationship Description Onset Age of this Age Resolved Age Notes LastModified by Organization Details LastModified Time Mother Heart disease [email or web address] Not available 01/2025 14:07:08 Father Heart disease [email or web address] Not available 01/2025 14:07:08 Sister Chronic obstructive pulmonary disease [email or web address] Not available 01/2025 14:07:20 Sister Malignant neoplasm of breast at the age of 805 years ago [email or web address] Not available 12/05/2024 14:16:56 Medical History Condition Response Other Y Thyroid Disease Y Skin Cancer Y Kidney Disease Y Diabetes Y Gynecological History Statement/Question Response Age at [...] preservative free, adsorbed 6 completed Not Available [facility] 06/05/2025 10:38:55 zoster live 3 completed Not Available [facility] 06/05/2025 10:38:55 Influenza, adjuvanted, trivalent, PF 7 completed Not Available [facility] 06/05/2025 10:38:55 pneumococcal polysaccharide PPV23 8 completed Not Available [facility] 06/05/2025 10:38:55 Influenza, split virus, quadrivalent, preservative 8 completed Not Available [facility] 06/05/2025 10:38:55 Influenza, high-dose, trivalent, PF 0 completed Not Available [facility] 06/05/2025 10:38:55 COVID-19, mRNA, LNP-S, PF, 100 mcg/0.5mL dose or 50 mcg/0.25mL dose 1 completed Not Available [facility] 06/05/2025 10:38:55 COVID-19, mRNA, LNP-S, PF, 100 mcg/0.5mL dose or 50 mcg/0.25mL dose 1 completed Not Available [facility] 06/05/2025 10:38:55 Influenza, high-dose, trivalent, PF 1 completed Not Available [facility] 06/05/2025 10:38:55 COVID-19, mRNA, LNP-S, PF, 100 mcg/0.5mL dose or 50 mcg/0.25mL dose 1 completed Not Available [facility] 06/05/2025 10:38:55 COVID-19, mRNA, LNP-S, PF, 100 mcg/0.5mL dose or 50 mcg/0.25mL dose 2 completed Not Available [facility] 06/05/2025 10:38:55 Pneumococcal conjugate PCV20, polysaccharide [id number] conjugate, adjuvant, PF 3 completed Not Available [facility] 06/05/2025 10:38:55 COVID-19, mRNA, LNP-S, PF, 50 mcg/0.5 mL 3 completed Not Available [facility] 06/05/2025 10:38:55 Influenza, high-dose, trivalent, PF 3 completed Not Available [facility] 06/05/2025 10:38:55 RSV, recombinant, protein subunit RSVpreF, adjuvant reconstituted, 0.5 mL, PF 3 completed Not Available [facility] 06/05/2025 10:38:55 Influenza, high-dose, trivalent, PF 4 completed Not Available [facility] 06/05/2025 10:38:55 COVID-19, mRNA, LNP-S, PF, huyen-sucrose, 30 mcg/0.3 mL 4 completed Not Available [facility] 06/05/2025 10:38:55 Past Encounters Encounter ID Performer Location Encounter Start Date Encounter Closed Date Diagnosis/Indication Diagnosis SNOMED-CT Code Diagnosis ICD10 Code Diagnosis IMO Codes Diagnosis Note [id number] QM_[place] [address] 01/05/2017 08:43:04 01/05/2017 08:43:04 [id number] ALEXSANDRA Avilez APRN [facility] [place] [address] [place] [address] 11/16/2023 14:03:02 11/16/2023 16:08:42 Multiple benign melanocytic nevi 347248524 D22.5 - Benign moles seen on exam today - SPF 30 or higher broad-spec trum sunscreen recommende d with re-applica tion every 2 hours - Discussed sun protection measures, including wide-brimm ed hat, sun-protec tive clothing, and avoidance of sun during peak hours of 10am-4pm - Avoid tanning beds as these can increase the chances of all 3 types of skin cancer - Instructed to monitor for changes and to call us for appointmen t with any changing or worrisome lesions Seborrheic keratosis 394 388199 L82.1 - Benign overgrowth s of skin - Hereditary Senile angioma 6683913 I 78.1 - Benign blood vessel growths - Hereditary Solar lentigo 55357852 L 81.4 - Benign brown spots - Sun-induce d History of malignant neoplasm of skin 572181495 Z85.828 last skin cancer - 2019 - No evidence of recurrence today- Call with any worrisome lesions or if treated lesions return- Return at regular intervals for skin exam as recommende d Rosacea 196475662 L71.8 Rosacea may produce acne-like pumps and redness that can be treated with topical creams and/or oral antibiotic s. Triggers include hot and spicy foods/liqu ids, sun exposure, emotions, and alcohol. May wax and wane. Will send Metronidaz ole 0.75% cream BID topically to face. Inflamed s eborrheic keratosis 115670840 L82.0 L53.8 Counseled on benign nature. Pt elected to treat with liquid nitrogen due to painful irritation . May recur or persist after treatment. Discolorat ion or scarring is possible. [id number] WARREN VALLES MD BREAST SURGERY [address] [place] [address] 12/05/2024 14:01:40 12/05/2024 16:21:33 Malignant neoplasm of overlapping sites of breast 102136098 C50.812 Assessment : Patient has a clinical stage I grade 2 ER/KS positive HER2/juhi negative left breast mammary carcinoma where lobular cancer is favored. I discussed the biology, stage, and prognosis with the patient and her daughter. We discussed possible contrast imaging but she does have kidney disease and she would like to omit contrast imaging for that reason. I recommende d proceeding with a left localized lumpectomy and details and risk of surgery were explained. Plan: Patient would like to proceed with surgery and we will get her on the schedule for the next available Wednesday of her choosing. I spent approxi-1 hour with the patient and her daughter and reviewing imaging and pathology. [id number] ANGELY THAYER MD [facility] [address] [facility] [place] [address] 12/19/2024 14:50:40 12/19/2024 15:12:25 Pre-surgery testing [id number] Z01.89 [id number] WARREN VALLES MD SURGERY SCHEDULE [address] [place] [address] 12/22/2024 08:00:02 12/22/2024 08:00:43 [id number] WARREN VALLES MD BREAST SURGERY [address] [place] [address] 12/28/2024 13:37:28 12/28/2024 14:07:42 Malignant neoplasm of overlapping sites of breast 227896939 C50.812 Assessment : Pathologic stage I grade 2 ER/KS positive HER2/juhi negative left breast lobular cancer. Patient is status post left localized lumpectomy on 12/22/2024. She is healing well. I reviewed her pathology and gave her a copy of the report. I explained to her margins were negative but she did have multifocal invasive lobular cancer. Plan: I recommende d that she see radiation due to the multifocal nature of the cancer and at least consider radiation. Also would like her to follow-up with Dr. Shi to discuss hormonal blockade. I will see her back in 3 months. [id number] MARGE ELMORE MD [facility] [address] [place] [address] 01/10/2025 13:29:31 01/11/2025 16:05:34 [id number] ALEXSANDRA Avilez, CAMERON [facility] [address] [place] [address] 02/06/2025 10:55:30 02/06/2025 12:03:52 Multiple benign melanocytic nevi 141645690 D22.5 - Benign moles seen on exam today - SPF 30 or higher broad-spec trum sunscreen recommende d with re-applica tion every 2 hours - Discussed sun protection measures, including wide-brimm ed hat, sun-protec tive clothing, and avoidance of sun during peak hours of 10am-4pm - Avoid tanning beds as these can increase the chances of all 3 types of skin cancer - Instructed to monitor for changes and to call us for appointmen t with any changing or worrisome lesions Seborrheic keratosis [phone] 605951 L82.1 - Benign overgrowth s of skin - Hereditary Senile angioma 4760040 I 78.1 - Benign blood vessel growths - Hereditary Solar lentigo 83248972 L 81.4 - Benign brown spots - Sun-induce d History of malignant neoplasm of skin 225432054 Z85.828 - No evidence of recurrence today- Call with any worrisome lesions or if treated lesions return- Return at regular intervals for skin exam as recommende d most recent 2019 Rosacea [id number] L71.9 818 Currently using Metro cream BID but minimal efficacy noted Rosacea may produce acne-like pumps and redness that can be treated with topical creams and/or oral antibiotic s. Triggers include hot and spicy foods/liqu ids, sun exposure, emotions, and alcohol. May wax and wane. Recommend vanicream cleanser and la christine possay moisturize rOkay to stop using metro since it's not helping - peeling is her biggest complaint at this point. No active breakouts noted today. Inflamed s eborrheic keratosis [id number] L82.0 L53.8 [id number] Notes bothersome due to location. Requests removal Counseled on benign nature. Pt elected to treat with liquid nitrogen due to painful irritation . May recur or persist after treatment. Discolorat ion or scarring is possible. [id number] WARREN VALLES MD BREAST SURGERY [address] [place] [address] 04/05/2025 09:57:04 04/05/2025 13:00:57 Malignant neoplasm of overlapping sites of breast [id number] C50.812 Assessment : Pathologic stage I grade 2 ER/KS positive HER2/juhi negative left breast lobular cancer. Patient is status post left localized lumpectomy on 12/22/2024. Patient completed 15 fractions of radiation approximat marie in March 2025. She has nothing concerning on exam. Plan: I recommende d proceeding with a left diagnostic mammogram in May and we will see her the same day. [id number] WARREN VALLES MD BREAST SURGERY [address] [place] [address] 06/05/2025 10:37:46 06/05/2025 11:22:44 Malignant neoplasm of overlapping sites of breast [id number] C50.812 Assessment : Pathologic stage I grade 2 ER/KS positive HER2/juhi negative left breast lobular cancer. Patient is status post left localized lumpectomy on 12/22/2024. Patient completed 15 fractions of radiation approximat marie in March 2025. She has nothing concerning on exam or on imaging. Plan: Patient will be due for bilateral diagnostic mammogram in 6 months. I will see her the same day. I request that she have her ASSISTANT BANQUET MANAGER send us the pathology from her surgery. [...] (MEDICARE REPLACEMENT/A DVANTAGE - PPO) Deirdre Leone [id number] Deirdre Leone Notes Date Note Type Note Provider Name and Address Organization Details Recorded Time 12/28/2024 text/html Interval history 12/28/2024: Patient is 1 week [...] hip surgery in 2022. Does have a [place] filter in place. Breast cancer risk factors: . Age of first live 24. Age of menarche 12. Family history is significant for a sister who had breast cancer. WARREN VALLES MD [facility] [place], [address], [facility] 12/28/2024 14:07:18 02/06/2025 text/html ROS as noted in the HPI Here for a waist up skin examination - duration: Annual- history of BCC: last was 2019- spots of concern today: none Following up with rosaceaLocation: faceTx: metro creamReports: metro didn't help. skin still peels ALEXSANDRA STINSON APRN [address] [place] [address] [place], [address], [facility] 02/06/2025 12:09:51 04/05/2025 text/html Interval history 04/05/25: Patient completed 15 fractions [...] hip surgery in 2022. Does have a [place] filter in place. Breast cancer risk factors: . Age of first live 24. Age of menarche 12. Family history is significant for a sister who had breast cancer. WARREN VALLES MD [address] [place], [address], [place] [facility] 04/05/2025 12:22:54 06/05/2025 text/html Interval history 05/05/2025: Patient has [...] hip surgery in 2022. Does have a [place] filter in place. Breast cancer risk factors: . Age of first live 24. Age of menarche 12. Family history is significant for a sister who had breast cancer. WARREN VALLES MD [facility] [place], [address], [place] [facility] 06/05/2025 11:18:23 OBGyn Episode No OBEpisode recorded.
--- NOTE | 2025-07-04 09:00 | US_ITS ---
FINAL REPORT CLINICAL HISTORY: LT THYROID NODULES -- KARL DELGADO FINDINGS: . Patient presents with request for ultrasound-guided biopsy of 2 separate left thyroid nodules. Ultrasound guided thyroid biopsy. HISTORY: Thyroid mass. PROCEDURE: After informed consent was obtained and a time-out was performed, the patient was prepped and draped in usual sterile fashion over the anterior neck. Utilizing local anesthesia and sterile technique with a 25-gauge needle, access to the the 14 mm more superior lesion was obtained. Four passes were made. The patient received no conscious sedation. The patient tolerated procedure well and left the department in good condition. IMPRESSION: Status post ultrasound guided biopsy of a thyroid nodule without immediate complication. Ultrasound guided thyroid biopsy. HISTORY: Thyroid mass. PROCEDURE: After informed consent was obtained and a time-out was performed, the patient was prepped and draped in usual sterile fashion over the anterior neck. Utilizing local anesthesia and sterile technique with a 25-gauge needle, access to the more inferior, larger thyroid nodule was obtained. Four passes were made. The patient received no conscious sedation. The patient tolerated procedure well and left the department in good condition. IMPRESSION: Status post ultrasound guided biopsy of a thyroid nodule without immediate complication. Reviewed, Interpreted and Dictated by Olvin Shrestha MD Transcribed by DANNY Hall [facility] and [facility]
== END 2025-07-04 23:59 | disposition home or self-care (01) ==
LOC: RAD 08:20
PROVIDERS: PCP Internal Medicine Adolescent Medicine; Visit Provider Student in an Organized Health Care Education/Training Program
DX: E04.1 Nontoxic single thyroid nodule (principal)
CPT/HCPCS: 10005